=== PATIENT | male | born 1945 | race Caucasian/White ===

== ENCOUNTER 2016-10-26 02:30 | Emergency (ER) | payer OTHER, MEDICARE, BC ==
--- NOTE | 2016-10-26 04:34 | ER Document Report ---
ED Respiratory Problem - General Mode of Arrival: Ambulatory Information source: Patient TRAVEL OUTSIDE OF THE [place] IN LAST 30 DAYS: No - HPI Patient complains to provider of: Cough Onset: Other - last few days Cough: Productive Sputum amount: Small Sputum color: Red (blood) <CIRILO QUINTERO - Last Filed: 10/26/16 05:07> <JAYYKIMBERLY - Last Filed: 10/26/16 06:45> - General Chief Complaint: Cough Stated Complaint: COUGHING UP BLOOD Notes: Patient is a 71-year-old male that presents to the emergency department today with complaints of coughing up blood. Patient states he has had chest congestion over the last few days but only recently began coughing. Patient had 2 episodes with small amounts of blood and then one episode with a more significant amount of blood prior to arrival. Patient denies any fevers, nausea , vomiting, or diarrhea. (CIRILO QUINTERO) - Related Data Allergies/Adverse Reactions: Sulfa (Sulfonamide Antibiotics) Allergy (Verified 09/04/15 04:54) zolpidem tartrate [From Ambien] Allergy (Verified 09/04/15 04:54) Past Medical History - General Information source: Patient, [facility] Records - Social History Smoking Status: Former Smoker - quit at age 22 Cigarette use (# per day): No Chew tobacco use (# tins/day): No Frequency of alcohol use: None Drug Abuse: None Lives with: Family Family History: Reviewed & Not Pertinent Patient has suicidal ideation: No Patient has homicidal ideation: No - Past Medical History Cardiac Medical History: Reports: Hx Atrial Fibrillation, Hx Congestive Heart Failure, Hx Coronary Artery Disease, Hx Heart Attack, Hx Hypercholesterolemia, Hx Hypertension Pulmonary Medical History: Reports: Hx COPD Endocrine Medical History: Reports: Hx Diabetes Mellitus Type 1, Hx Diabetes Mellitus Type 2 Past Surgical History: Reports: Hx Cardiac Catheterization - Stent placement June 03, 2015, Hx Cardiac Surgery - cabg, stent placement (2014), Hx Open Heart Surgery - and Stent placed May 2015 - Immunizations Hx Diphtheria, Pertussis, Tetanus Vaccination: Yes Hx Pneumococcal Vaccination: 08/12/14 <CIRILO QUINTERO - Last Filed: 10/26/16 05:07> Review of Systems - Review of Systems Constitutional: denies: Fever EENT: No symptoms reported Cardiovascular: No symptoms reported Respiratory: See HPI, Cough, Sputum Gastrointestinal: denies: Diarrhea, Nausea, Vomiting Genitourinary: No symptoms reported Male Genitourinary: No symptoms reported Musculoskeletal: No symptoms reported Skin: No symptoms reported Hematologic/Lymphatic: No symptoms reported Neurological/Psychological: No symptoms reported -: Yes All other systems reviewed and negative <CIRILO QUINTERO - Last Filed: 10/26/16 05:07> Physical Exam - General General appearance: Appears well, Alert In distress: None - HEENT Head: Normocephalic, Atraumatic Eyes: Normal Conjunctiva: Normal Extraocular movements intact: Yes - Respiratory Respiratory status: No respiratory distress Chest status: Other - healed midline scar consistent with CABG history Breath sounds: Normal - Cardiovascular Rhythm: Regular Heart sounds: Normal auscultation Murmur: No - Abdominal Inspection: Normal Distension: No distension Bowel sounds: Normal Tenderness: Nontender - Extremities General upper extremity: Normal inspection, Normal ROM. No: Edema General lower extremity: Normal inspection, Normal ROM. No: Edema - Neurological Neuro grossly intact: Yes Cognition: Normal Orientation: AAOx4 Speech: Normal - Psychological Associated symptoms: Normal affect, Normal mood - Skin Skin Temperature: Warm Skin Moisture: Dry Skin Color: Normal <LEONCIRILO - Last Filed: 10/26/16 05:07> Course - Laboratory Result Diagrams: 10/26/16 04:15 10/26/16 04:15 <LEONCIRILO - Last Filed: 10/26/16 05:07> - Laboratory Result Diagrams: 10/26/16 05:15 10/26/16 04:15 - Diagnostic Test Radiology reviewed: Image reviewed - No acute findings., Reports reviewed <KIMBERLY HOPE - Last Filed: 10/26/16 06:45> - Re-evaluation Re-evalutation: 10/26/16 05:01 Patient sense emergency department stating he has had 3 days of chest congestion with mild cough and then today he did have a cough and a couple of times she coughed up some blood. He had an episode tonight where he coughed up a large clot that he showed to his and so she brought him to emergency department. He's not had any other hemoptysis since that time. He denies any fevers or chills. No runny nose. Denies any chest pain or difficulty breathing. He denies any abdominal pain. The patient indicates this is never happened before. He says he is on blood thinners due to history of blood clots. Patient indicates that he gets nosebleeds frequently however has not have one today. He has had multiple cardiac events as well as TIAs. He does have the pacemaker. His INR was last checked 2 weeks ago. On exam, patient alert and oriented vital signs are Stable Patient Is Afebrile Nontoxic Appearing. Chest Sounds Are Clear and Equal Bilaterally. Patient Is Not in Any Distress. Chest x-rays unremarkable. EKG is also normal. We'll check INR and H&H and plan discharge home if all is normal. 10/26/16 06:15 Patient remains hemodynamically stable and with no respiratory compromise. His labs unremarkable but were still awaiting the CBC. His INR is therapeutic at 2. Plan will be for discharge home with follow-up PCP. 10/26/16 06:39 Patient's platelets are 73. H&H is stable. He has had low platelets in the past albeit this is the lowest. He does not have any petechiae or rashes. He is not actively bleeding. 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 He has not had any heparin recently. When he was admitted for pneumonia, he was tested (November 2015) for tuberculosis with AFB on sputum samples and all were negative. There've not been any recent exposures. Continue plan to follow-up with PCP for repeat labs and further evaluation. Will provide return precautions. (KIMBERLY HOPE) - Vital Signs Vital signs: Temp Pulse Resp BP Pulse Ox 97.5 F 86 19 121/57 L 94 10/26/16 02:36 10/26/16 02:36 10/26/16 06:01 10/26/16 06:01 10/26/16 06:01 - Laboratory Laboratory results interpreted by me: 10/26/16 10/26/16 10/26/16 04:15 04:15 05:15 RBC 3.56 L Hgb 11.1 L Hct 32.5 L RDW 14.3 H Plt Count 73 L Seg Neutrophils % 41.7 L Monocytes % 13.5 H PT 23.8 H Glucose 206 H Alkaline Phosphatase 160 H - EKG Interpretation by Me Additional EKG results interpreted by me: 10/26/16 04:57 Heart rate 67, normal sinus rhythm, normal axis, normal intervals, no ST elevations, as interpreted by me. Compared with EKG of 11/11/15, patient was in atrial fibrillation at that time. (KIMBERLY HOPE) Discharge <CIRILO QUINTERO - Last Filed: 10/26/16 05:07> <KIMBERLY HOPE - Last Filed: 10/26/16 06:45> - Discharge Clinical Impression: Hemoptysis, Chest congestion, Thrombocytopenia Condition: Stable Disposition: HOME, SELF-CARE Instructions: Hemoptysis ([facility]), Thrombocytopenia ([facility]) Additional Instructions: We have not identified any worrisome abnormality requiring urgent intervention here in the emergency department tonight. Your INR is 2.0 today which is therapeutic. Take your Coumadin as already prescribed. Please follow-up with your primary physician as your platelet levels were found to be moderately low today (Platelets=73). Return for difficulty breathing, fevers, worsening cough, recurrent or worsening bloody sputum, or any other worrisome symptoms. Thrombocytopenia Your blood test shows that your platelet count is low. This is called thrombocytopenia. Platelets are small disk-shaped objects in your blood that help to stop bleeding. If the number of platelets in the blood is too low, you can bruise easily or even develop serious internal bleeding. Based on today's platelet count, you do not need to be admitted to the hospital. Low platelets can be caused by immune reactions, abnormality of the spleen , infections, drug reactions, chemotherapy, leukemia, or vitamin deficiency. Usually, the problem is only temporary -- the platelet count increases again with time. If the cause of your thrombocytopenia is not known, further testing will be necessary. Extreme thrombocytopenia can cause life-threatening bleeding. You should avoid sports or other activities that risk injury. Do not undergo dental work or non-emergency surgery at this time. Eat a good diet, and include a multi- vitamin. Avoid alcohol. DO NOT take any aspirin. It's also best to avoid non- steroid antiinflammatory medicines such as ibuprofen or naproxen. The treatment of thrombocytopenia depends on the cause. If your immune system is attacking platelets, you'll be treated with steroids (cortisone). If dangerous bleeding develops, you may require a platelet transfusion. Call the doctor or return if you have severe headache, chest or abdominal pain, bloody vomiting, black or bloody stools, dizziness, or neurological symptoms. Referrals: JAK ENGEL MD [Primary Care Provider] - Follow up as needed Scribe Attestation: 10/26/16 06:19 I personally performed the services described in the documentation, reviewed and edited the documentation which was dictated to the scribe in my presence, and it accurately records my words and actions. (KIMBERLY HOPE) Scribe Documentation - Scribe Written by Scribe:: Kaleb Peguero, 10/26/2016 0454 acting as scribe for :: [place] <CIRILO QUINTERO - Last Filed: 10/26/16 05:07>
[2016-10-26 05:10] LABS: ALANINE AMINOTRANSFERASE 38 U/L (21-72); ALBUMIN 3.8 g/dL (3.5-5.0); ALKALINE PHOSPHATASE 160 U/L (38-126); ANION GAP 7 (5-19); ASPARTATE AMINO TRANSFERASE 44 U/L (17-59); BILIRUBIN,TOTAL 0.7 mg/dL (0.2-1.3); BLOOD UREA NITROGEN 20 mg/dL (7-20); CALCIUM 9.2 mg/dL (8.4-10.2); CARBON DIOXIDE 30 mmol/L (22-30); CHLORIDE 103 mmol/L (98-107); GLUCOSE 206 mg/dL (75-110); POTASSIUM 4.6 mmol/L (3.6-5.0); SODIUM 139.8 mmol/L (137-145); TOTAL PROTEIN 6.6 g/dL (6.3-8.2)
[2016-10-26 05:14] LABS: PROTHROMBIN TIME 23.8 SEC (11.4-15.4)
--- NOTE | 2016-10-26 05:37 | EKG REPORT ---
SEVERITY:- ABNORMAL ECG - SINUS RHYTHM NONSPECIFIC INTRAVENTRICULAR CONDUCTION DELAY : Confirmed by: Yanna Wilson MD 26-Oct-2016 05:36:15
[2016-10-26 06:16] LABS: ABSOLUTE EOSINOPHILS # (AUTO) 0.1 10^3/uL (0.0-0.6); ABSOLUTE LYMPHOCYTES (AUTO) 1.7 10^3/uL (0.5-4.7); ABSOLUTE MONOCYTES (AUTO) 0.5 10^3/uL (0.1-1.4); ABSOLUTE NEUT (AUTO) 1.7 10^3/uL (1.7-8.2); BASOPHILS % (AUTO) 0.4 % (0-2); EOSINOPHILS % (AUTO) 2.6 % (0-6); HEMATOCRIT 32.5 % (37.9-51.0); HEMOGLOBIN 11.1 g/dL (13.5-17.0); HGB HCT DIFFERENCE 0.8; LYMPHOCYTES % (AUTO) 41.8 % (13-45); MEAN CORPUSCULAR HEMOGLOBIN 31.2 pg (27.0-33.4); MEAN CORPUSCULAR HGB CONC 34.2 g/dL (32.0-36.0); MEAN CORPUSCULAR VOLUME 91 fl (80-97); MONOCYTES % (AUTO) 13.5 % (3-13); RED BLOOD COUNT 3.56 10^6/uL (4.35-5.55); RED CELL DISTRIBUTION WIDTH 14.3 % (11.5-14.0); SEGMENTED NEUTROPHILS % (AUTO) 41.7 % (42-78)
[2016-10-26 07:07] VITALS: BP 118/50
== END 2016-10-26 07:05 | disposition home or self-care (01) ==
LOC: ER 02:30
DX: R04.2 Hemoptysis (principal); D69.6 Thrombocytopenia, unspecified; J44.9 Chronic obstructive pulmonary disease, unspecified; R09.89 Other specified symptoms and signs involving the circulatory and respiratory systems; I48.91 Unspecified atrial fibrillation; I25.10 Atherosclerotic heart disease of native coronary artery without angina pectoris; I10 Essential (primary) hypertension; I25.2 Old myocardial infarction; E11.9 Type 2 diabetes mellitus without complications; Z88.2 Allergy status to sulfonamides; Z88.8 Allergy status to other drugs, medicaments and biological substances; Z87.891 Personal history of nicotine dependence; Z98.61 Coronary angioplasty status; Z95.1 Presence of aortocoronary bypass graft; Z86.718 Personal history of other venous thrombosis and embolism; Z79.01 Long term (current) use of anticoagulants; Z86.73 Personal history of transient ischemic attack (TIA), and cerebral infarction without residual deficits; Z95.0 Presence of cardiac pacemaker; Z87.01 Personal history of pneumonia (recurrent)
CPT/HCPCS: 36415; 71010; 80053; 85025; 85610; 87040; 93005; 93010; 99284

== ENCOUNTER 2016-11-11 12:55 | Inpatient (IN) | payer OTHER, MEDICARE, BC ==
--- NOTE | 2016-11-11 13:58 | ER Document Report ---
ED Medical Screen (RME) - General Chief Complaint: Weakness Stated Complaint: WEAKNESS TRAVEL OUTSIDE OF THE [place] IN LAST 30 DAYS: No - HPI Patient complains to provider of: generalized weakness confusion Notes: 11/11/16 13:58 Generalized weakness and confusion ongoing since prior to arrival no fevers chills nausea vomiting - Related Data Allergies/Adverse Reactions: Sulfa (Sulfonamide Antibiotics) Allergy (Verified 11/11/16 12:59) zolpidem tartrate [From Ambien] Allergy (Verified 11/11/16 12:59) Past Medical History - Past Medical History Cardiac Medical History: Reports: Hx Atrial Fibrillation, Hx Congestive Heart Failure, Hx Coronary Artery Disease, Hx Heart Attack, Hx Hypercholesterolemia, Hx Hypertension Pulmonary Medical History: Reports: Hx COPD Neurological Medical History: Denies: Hx Seizures Endocrine Medical History: Reports: Hx Diabetes Mellitus Type 1, Hx Diabetes Mellitus Type 2 Renal/ Medical History: Denies: Hx End Stage Renal Disease, Hx Peritoneal Dialysis Past Surgical History: Reports: Hx Cardiac Catheterization - Stent placement June 03, 2015, Hx Cardiac Surgery - cabg, stent placement (2014), Hx Open Heart Surgery - and Stent placed May 2015 - Immunizations Hx Diphtheria, Pertussis, Tetanus Vaccination: Yes Review of Systems - Review of Systems Constitutional: Weakness, Other - Confusion Physical Exam - Vital signs Vitals: Temp Pulse Resp BP Pulse Ox 99.2 F 86 21 H 133/67 H 96 11/11/16 13:02 11/11/16 13:02 11/11/16 13:02 11/11/16 13:02 11/11/16 13:02 - Cardiovascular Rhythm: Regular Heart sounds: Normal auscultation Course - Vital Signs Vital signs: Temp Pulse Resp BP Pulse Ox 99.2 F 86 21 H 133/67 H 96 11/11/16 13:02 11/11/16 13:02 11/11/16 13:02 11/11/16 13:02 11/11/16 13:02
[2016-11-11 14:28] LABS: ABSOLUTE EOSINOPHILS # (AUTO) 0.2 10^3/uL (0.0-0.6); ABSOLUTE LYMPHOCYTES (AUTO) 2.2 10^3/uL (0.5-4.7); ABSOLUTE MONOCYTES (AUTO) 1.3 10^3/uL (0.1-1.4); ABSOLUTE NEUT (AUTO) 4.7 10^3/uL (1.7-8.2); BASOPHILS % (AUTO) 0.3 % (0-2); EOSINOPHILS % (AUTO) 2.2 % (0-6); HEMATOCRIT 37.4 % (37.9-51.0); HEMOGLOBIN 12.8 g/dL (13.5-17.0); LYMPHOCYTES % (AUTO) 26.6 % (13-45); MEAN CORPUSCULAR HEMOGLOBIN 30.9 pg (27.0-33.4); MEAN CORPUSCULAR HGB CONC 34.2 g/dL (32.0-36.0); MEAN CORPUSCULAR VOLUME 90 fl (80-97); MONOCYTES % (AUTO) 15.4 % (3-13); RED BLOOD COUNT 4.15 10^6/uL (4.35-5.55); RED CELL DISTRIBUTION WIDTH 14.3 % (11.5-14.0); SEGMENTED NEUTROPHILS % (AUTO) 55.5 % (42-78); WHITE BLOOD COUNT 8.4 10^3/uL (4.0-10.5)
[2016-11-11 14:45] LABS: ALANINE AMINOTRANSFERASE 41 U/L (21-72); ALKALINE PHOSPHATASE 112 U/L (38-126); ANION GAP 13 (5-19); ASPARTATE AMINO TRANSFERASE 50 U/L (17-59); BILIRUBIN,DIRECT 0.2 mg/dL (0.0-0.4); BILIRUBIN,TOTAL 1.2 mg/dL (0.2-1.3); BLOOD UREA NITROGEN 20 mg/dL (7-20); CALCIUM 8.7 mg/dL (8.4-10.2); CARBON DIOXIDE 26 mmol/L (22-30); CHLORIDE 101 mmol/L (98-107); CREATINE KINASE 243 U/L (55-170); GLUCOSE 126 mg/dL (75-110); LIPASE 100.9 U/L (23-300); MAGNESIUM 1.9 mg/dL (1.6-2.3); POTASSIUM 4.2 mmol/L (3.6-5.0); SODIUM 139.7 mmol/L (137-145)
[2016-11-11 15:08] LABS: CREATINE KINASE MB 2.7 ng/mL (<4.55)
[2016-11-11 15:17] LABS: TROPONIN I 0.051 ng/mL
--- NOTE | 2016-11-11 16:00 | ER Document Report ---
ED General - General Mode of Arrival: Ambulatory Information source: Patient, Relative TRAVEL OUTSIDE OF THE [place] IN LAST 30 DAYS: No - HPI Patient complains to provider of: Weakness, Shaking, and Confusion Onset: Other - 3 days ago Associated symptoms: Other - see notes above <TOPHER LONG - Last Filed: 11/11/16 18:39> <BECKJUDE ANN - Last Filed: 11/11/16 19:17> - General Chief Complaint: Weakness Stated Complaint: WEAKNESS Notes: 71 year old male with history of COPD presents to the ED accompanied by family who complain of generalized weakness and shaking that started 3 days ago and confusion that became worse today. Patient's states that the patient was having difficulty walking, generalized weakness, and shaking while at [employer] earlier this morning. Patient states that he is unable to "get warm" and reports having a similar episode in the past. Patient's reports that 1 week ago the patient was seen in the ED after coughing up a blood clot. All findings were benign except for a low platelet count. Patient is acting disorientated according to the , and states that this has been occurring on and off since having a CVA 1 year ago. Patient is additionally complaining of a mild cough an diarrhea over the past few days, but denies any vomiting. (TOPHER LONG) - Related Data Allergies/Adverse Reactions: Sulfa (Sulfonamide Antibiotics) Allergy (Verified 11/11/16 12:59) zolpidem tartrate [From Ambien] Allergy (Verified 11/11/16 12:59) Past Medical History - General Information source: Patient, Relative - Social History Smoking Status: Unknown if Ever Smoked Family History: Reviewed & Not Pertinent Patient has suicidal ideation: No Patient has homicidal ideation: No - Past Medical History Cardiac Medical History: Reports: Hx Atrial Fibrillation, Hx Congestive Heart Failure, Hx Coronary Artery Disease, Hx Heart Attack, Hx Hypercholesterolemia, Hx Hypertension Pulmonary Medical History: Reports: Hx COPD Neurological Medical History: Reports: Hx Cerebrovascular Accident - 2016 Endocrine Medical History: Reports: Hx Diabetes Mellitus Type 1, Hx Diabetes Mellitus Type 2 Past Surgical History: Reports: Hx Cardiac Catheterization - Stent placement June 03, 2015, Hx Cardiac Surgery - cabg, stent placement (2014), Hx Open Heart Surgery - and Stent placed May 2015 - Immunizations Hx Diphtheria, Pertussis, Tetanus Vaccination: Yes Hx Pneumococcal Vaccination: 08/12/14 <TOPHER LONG - Last Filed: 11/11/16 18:39> Review of Systems - Review of Systems Constitutional: See HPI, Fever - "can't get warm", Weakness - generalized EENT: No symptoms reported Cardiovascular: No symptoms reported Respiratory: See HPI, Cough - mild Gastrointestinal: See HPI, Diarrhea. denies: Vomiting Genitourinary: No symptoms reported Male Genitourinary: No symptoms reported Musculoskeletal: No symptoms reported Skin: No symptoms reported Hematologic/Lymphatic: No symptoms reported Neurological/Psychological: See HPI, Confusion, Tremor <TOPHER LONG - Last Filed: 11/11/16 18:39> Physical Exam - Vital signs Interpretation: Febrile - General General appearance: Alert In distress: None - HEENT Head: Normocephalic, Atraumatic Eyes: Normal Extraocular movements intact: Yes Pupils: PERRL - Respiratory Respiratory status: No respiratory distress Breath sounds: Normal - Cardiovascular Rhythm: Regular Heart sounds: Normal auscultation - Abdominal Inspection: Normal Distension: No distension Tenderness: Nontender - Back Back: Normal, Nontender - Extremities General upper extremity: Normal inspection, Normal ROM General lower extremity: Normal inspection, Normal ROM - Neurological Neuro grossly intact: Yes Cognition: Confused Orientation: AAOx4 Sugar Coma Scale Eye Opening: Spontaneous Sugar Coma Scale Verbal: Oriented Sugar Coma Scale Motor: Obeys Commands Sugar Coma Scale Total: 15 Speech: Normal Sensory: Normal - Psychological Associated symptoms: Normal affect, Normal mood - Skin Skin Temperature: Hot Skin Moisture: Dry Skin Color: Normal <TOPHER LONG - Last Filed: 11/11/16 18:39> - Neurological Orientation: Disoriented to place, Disoriented to time, Disoriented to events. No: AAOx4 <JUDE SOLARES - Last Filed: 11/11/16 19:17> - Vital signs Vitals: Temp Pulse Resp BP Pulse Ox 99.2 F 86 21 H 133/67 H 96 11/11/16 13:02 11/11/16 13:02 11/11/16 13:02 11/11/16 13:02 11/11/16 13:02 Course - Laboratory Result Diagrams: 11/11/16 14:05 11/11/16 14:05 - Consults Dr. Brown Time consulted: 16:44 <TOPHER LONG - Last Filed: 11/11/16 18:39> - Laboratory Result Diagrams: 11/11/16 14:05 11/11/16 14:05 - Diagnostic Test Radiology reviewed: Reports reviewed <JUDE SOLARES - Last Filed: 11/11/16 19:17> - Re-evaluation Re-evalutation: 11/11/16 Patient is a 71-year-old male who comes in with altered mental status. Patient is a fever 103. Patient with negative flu and positive urine. Patient will be started on Keflex. Blood and urine culture sent. Patient will be kept in the hospital for altered mental status with fever and probable underlying very tract infection. Agrees with plan. Referred to admission to the hospital service. Stable at time of admission. (JUDE SOLARES) - Vital Signs Vital signs: Temp Pulse Resp BP Pulse Ox 100.0 F 86 18 112/53 L 95 11/11/16 18:20 11/11/16 13:02 11/11/16 19:00 11/11/16 18:31 11/11/16 19:00 - Laboratory Laboratory results interpreted by me: 11/11/16 11/11/16 11/11/16 14:05 14:05 14:05 RBC 4.15 L Hgb 12.8 L Hct 37.4 L RDW 14.3 H Plt Count 108 L Monocytes % 15.4 H PT 19.3 H Glucose 126 H Ammonia Creatine Kinase 243 H Urine Blood Urine Nitrite Ur Leukocyte Esterase 11/11/16 11/11/16 15:36 16:12 RBC Hgb Hct RDW Plt Count Monocytes % PT Glucose Ammonia < 8.7 L Creatine Kinase Urine Blood SMALL H Urine Nitrite POSITIVE H Ur Leukocyte Esterase MODERATE H - Consults Dr. Brown Reason for consultation: 11/11/16 16:44 Patient was discussed with Dr. Brown and agrees to admit the patient. (TOPHER LONG) Critical Care Note - Critical Care Note Total time excluding time spent on procedures (mins): 45 - evaluation and management of altered patient, diagnosis of fever, management of fever, diagnosis of UTI, coordination of admission, discussion with hospitalist service , counseling of patient and family <JUDE SOLARES - Last Filed: 11/11/16 19:17> Discharge <TOPHER LONG - Last Filed: 11/11/16 18:39> - Discharge Admitting Provider: Hospitalist - [facility] Unit Admitted: [facility] <JUDE SOLARES - Last Filed: 11/11/16 19:17> - Discharge Clinical Impression: Altered mental status Qualifiers: Altered mental status type: unspecified Qualified Code(s): R41.82 - Altered mental status, unspecified UTI (urinary tract infection) Qualifiers: Urinary tract infection type: site unspecified Hematuria presence: without hematuria Qualified Code(s): N39.0 - Urinary tract infection, site not specified Condition: Stable Referrals: JAK ENGEL MD [Primary Care Provider] - Follow up as needed Scribe Attestation: 11/11/16 19:16 I personally performed the services described in the documentation, reviewed and edited the documentation which was dictated to the scribe in my presence, and it accurately records my words and actions. (JUDE SOLARES) Scribe Documentation - Scribe Written by Scribe:: Kaleb Lynn, 11/11/2016 1704 acting as scribe for :: Beck <TOPHER LONG - Last Filed: 11/11/16 18:39>
[2016-11-11 16:04] LABS: APPEARANCE,URINE SLIGHTLY-CLOUDY; BILIRUBIN,URINE NEGATIVE (NEGATIVE); GLUCOSE, URINE NEGATIVE (NEGATIVE); KETONES,URINE NEGATIVE (NEGATIVE); LEUKOCYTE ESTERASE,URINE MODERATE (NEGATIVE); NITRITE,URINE POSITIVE (NEGATIVE); PROTEIN,URINE NEGATIVE (NEGATIVE); URINE SPECIFIC GRAVITY 1.008; UROBILINOGEN,URINE NEGATIVE mg/dL (<2.0)
[2016-11-11 16:10] LABS: VENOUS BLOOD BASE EXCESS 2.3 mmol/L; VENOUS BLOOD HCO3 28.4 mmol/L (20-32); VENOUS BLOOD PCO2 50.1 mmHg (35-63); VENOUS BLOOD PH 7.37 (7.30-7.42)
[2016-11-11] MEDS ORDERED: IBUPROFEN 600 MG TABLET PO ONE (16:11)
[2016-11-11] MEDS ORDERED: NORMAL SALINE 1000 ML 1,000 ML IV ONE (16:15)
[2016-11-11] MEDS ORDERED: CEFTRIAXONE 1 GM/D5W RTU 50 ML IV ONE (16:20)
[2016-11-11 18:08] LABS: PROTHROMBIN TIME 19.3 SEC (11.4-15.4)
--- NOTE | 2016-11-11 18:09 | PDOC H&P ---
History of Present Illness Admission Date/PCP: 11/11/16 17:17 JAK ENGEL MD Patient complains of: fever confusion History of Present Illness: LANCE TRIPLETT is a 71 year old male with history of COPD presents to the ED accompanied by family who complain of generalized weakness and shaking that started 3 days ago and confusion that became worse today. Patient's states that the patient was having difficulty walking, generalized weakness, and shaking while at [employer] earlier this morning. Patient states that he is unable to "get warm" and reports having a similar episode in the past. Patient's reports that 1 week ago the patient was seen in the ED after coughing up a blood clot. All findings were benign except for a low platelet count. Patient is acting disorientated according to the , and states that this has been occurring on and off since having a CVA 1 year ago. Patient is additionally complaining of a mild cough an diarrhea over the past few days, but denies any vomiting. ([place]HER [place]) Upon evaluation in the ER patient was diagnosed of UTI and early sepsis lactic acid level was normal He was treated with IV fluids and Ceftriaxone and subsequently admitted under Hospitalist's service Past Medical History Cardiac Medical History: Reports: Atrial Fibrillation, Congestive Heart Failure , Coronary Artery Disease, Myocardial Infarction, Hyperlipidema, Hypertension Pulmonary Medical History: Reports: Chronic Obstructive Pulmonary Disease (COPD) Neurological Medical History: Denies: Seizures Endocrine Medical History: Reports: Diabetes Mellitus Type 1, Diabetes Mellitus Type 2 Renal/ Medical History: Denies: End Stage Renal Disease Past Surgical History Past Surgical History: Reports: Cardiac Catheterization - Stent placement June 03, 2015 Social History Information Source: Patient Lives with: Family Smoking Status: Former Smoker Frequency of Alcohol Use: None Hx Recreational Drug Use: No Hx Prescription Drug Abuse: No - Advance Directive Resuscitation Status: Full Code Surrogate healthcare decision maker:: Family History Family History: Reviewed & Not Pertinent, DM, Hypertension, Other - leukemia Parental Family History Reviewed: Yes Children Family History Reviewed: Yes Sibling(s) Family History Reviewed.: Yes Medication/Allergy Home Medications: Amiodarone HCl [Cordarone 200 mg Tablet] 2 tab PO BID 09/04/15 Ascorbic Acid [C-1000] 1,000 mg PO DAILY 09/04/15 Atorvastatin Calcium 80 mg PO DAILY 09/04/15 Budesonide/Formoterol Fumarate [Symbicort HFA 160-4.5 mcg Inhaler 6 gm] 2 puff IH BID 09/04/15 Fluoxetine HCl 1 tab PO DAILY 09/04/15 Furosemide [Lasix 40 mg Tablet] 40 mg PO QAM 09/04/15 Insulin Detemir [Levemir Flextouch] 20 unit SQ BID 09/04/15 Lactobacillus Acidophilus [Acidophilus] 1 each PO TID 09/04/15 Loratadine [Claritin] 10 mg PO DAILY 09/04/15 Nitroglycerin [Nitrostat] 1 tab SL Q5MP PRN 09/04/15 [place]-3 Acid Ethyl Esters [Lovaza 1 gm Capsule] 1 cap PO DAILY 09/04/15 Pantoprazole Sodium 1 tab PO BID 09/04/15 Sucralfate [Carafate] 1 gm PO QID 09/04/15 Levalbuterol HCl [Xopenex Neb 1.25 mg/3 ml Ampul] 1.25 mg NEB RTQ6 vial.neb Carvedilol [Coreg 6.25 mg Tablet] 6.25 mg PO Q12 tablet 11/22/15 Ferrous Sulfate [Feosol 325 mg Tablet] 325 mg PO BIDPCBS tablet 11/22/15 Fondaparinux Sodium [Arixtra Inj 7.5 mg/0.6 ml Disp. Syrin] 7.5 mg SUBCUT DAILY #3 disp.syrin 11/22/15 Magnesium Oxide [Mag-Ox 400 mg Tablet] 800 mg PO BID tablet 11/22/15 Nitroglycerin [Nitro-Dur 5 mg (0.2 mg/Hr) Transdermal Patch] 1 each TD DAILY patch.td24 11/22/15 Potassium Chloride [Kaon-Cl 20 Meq/15 ml Udcup] 40 meq PO DAILY udc 11/22/15 Warfarin Sodium [Coumadin 5 mg Tablet] 5 mg PO QHS tablet 11/22/15 Allergies/Adverse Reactions: Sulfa (Sulfonamide Antibiotics) Allergy (Verified 11/11/16 12:59) zolpidem tartrate [From Ambien] Allergy (Verified 11/11/16 12:59) Review of Systems Constitutional: PRESENT: as per HPI, chills, fever(s), weakness. ABSENT: headache(s), weight gain, weight loss Eyes: ABSENT: visual disturbances Ears: ABSENT: hearing changes Cardiovascular: ABSENT: chest pain, dyspnea on exertion, edema, orthropnea, palpitations Respiratory: ABSENT: cough, hemoptysis Gastrointestinal: ABSENT: abdominal pain, constipation, diarrhea, hematemesis, hematochezia, nausea, vomiting Genitourinary: ABSENT: dysuria, hematuria Musculoskeletal: ABSENT: joint swelling Integumentary: ABSENT: rash, wounds Neurological: PRESENT: as per HPI, abnormal gait - since stroke also patient had polio as a child and always had a limp ambulation more difficult in last couple days, confusion. ABSENT: abnormal speech, dizziness, focal weakness, syncope Psychiatric: ABSENT: anxiety, depression, homidical ideation, suicidal ideation Endocrine: ABSENT: cold intolerance, heat intolerance, polydipsia, polyuria Hematologic/Lymphatic: ABSENT: easy bleeding, easy bruising Physical Exam Vital Signs: Temp Pulse Resp BP Pulse Ox 102.9 F H 86 18 107/47 L 95 11/11/16 16:05 11/11/16 13:02 11/11/16 17:31 11/11/16 17:31 11/11/16 17:31 General appearance: PRESENT: no acute distress, well-developed, well-nourished Head exam: PRESENT: atraumatic, normocephalic Eye exam: PRESENT: conjunctiva pink, EOMI, PERRLA. ABSENT: scleral icterus Ear exam: PRESENT: normal external ear exam Mouth exam: PRESENT: moist, tongue midline Neck exam: ABSENT: carotid bruit, JVD, lymphadenopathy, thyromegaly Respiratory exam: PRESENT: clear to auscultation yobany. ABSENT: rales, rhonchi, wheezes Cardiovascular exam: PRESENT: RRR. ABSENT: diastolic murmur, rubs, systolic murmur Pulses: PRESENT: normal dorsalis pedis pul Vascular exam: PRESENT: normal capillary refill GI/Abdominal exam: PRESENT: normal bowel sounds, soft. ABSENT: distended, guarding, mass, organolmegaly, rebound, tenderness Rectal exam: PRESENT: deferred Extremities exam: PRESENT: full ROM. ABSENT: calf tenderness, clubbing, pedal edema Neurological exam: PRESENT: alert, awake, CN II-XII grossly intact. ABSENT: motor sensory deficit Psychiatric exam: PRESENT: appropriate affect, normal mood. ABSENT: homicidal ideation, suicidal ideation Skin exam: PRESENT: dry, intact, warm. ABSENT: cyanosis, rash Results Laboratory Results: Labs- All tests 24 hr 11/11/16 11/11/16 11/11/16 14:05 14:05 14:05 WBC 8.4 RBC 4.15 L Hgb 12.8 L Hct 37.4 L MCV 90 MCH 30.9 MCHC 34.2 RDW 14.3 H Plt Count 108 L Seg Neutrophils % 55.5 Lymphocytes % 26.6 Monocytes % 15.4 H Eosinophils % 2.2 Basophils % 0.3 Absolute Neutrophils 4.7 Absolute Lymphocytes 2.2 Absolute Monocytes 1.3 Absolute Eosinophils 0.2 Absolute Basophils 0.0 VBG pH VBG pCO2 VBG HCO3 VBG Base Excess Sodium 139.7 Potassium 4.2 Chloride 101 Carbon Dioxide 26 Anion Gap 13 BUN 20 Creatinine 1.20 Est GFR ( Amer) > 60 Est GFR (Non-Af Amer) > 60 Glucose 126 H Lactic Acid Calcium 8.7 Magnesium 1.9 Total Bilirubin 1.2 Direct Bilirubin 0.2 Indirect Bilirubin Not Reportable Neonat Total Bilirubin Not Reportable AST 50 ALT 41 Alkaline Phosphatase 112 Ammonia Creatine Kinase 243 H CK-MB (CK-2) 2.70 Troponin I 0.051 NT-Pro-B Natriuret Pep 603 Total Protein 7.0 Albumin 4.0 Lipase 100.9 Urine Color Urine Appearance Urine pH Ur Specific [place] Urine Protein Urine Glucose (UA) Urine Ketones Urine Blood Urine Nitrite Urine Bilirubin Urine Urobilinogen Ur Leukocyte Esterase Urine WBC (Auto) Urine RBC (Auto) Urine Mucus (Auto) Urine Ascorbic Acid Influenza A (Rapid) Influenza B (Rapid) 11/11/16 11/11/16 11/11/16 15:36 15:58 15:58 WBC RBC Hgb Hct MCV MCH MCHC RDW Plt Count Seg Neutrophils % Lymphocytes % Monocytes % Eosinophils % Basophils % Absolute Neutrophils Absolute Lymphocytes Absolute Monocytes Absolute Eosinophils Absolute Basophils VBG pH 7.37 VBG pCO2 50.1 VBG HCO3 28.4 VBG Base Excess 2.3 Sodium Potassium Chloride Carbon Dioxide Anion Gap BUN Creatinine Est GFR ( Amer) Est GFR (Non-Af Amer) Glucose Lactic Acid 1.1 Calcium Magnesium Total Bilirubin Direct Bilirubin Indirect Bilirubin Neonat Total Bilirubin AST ALT Alkaline Phosphatase Ammonia Creatine Kinase CK-MB (CK-2) Troponin I NT-Pro-B Natriuret Pep Total Protein Albumin Lipase Urine Color YELLOW Urine Appearance SLIGHTLY-CLOUDY Urine pH 5.0 Ur Specific [place] 1.008 Urine Protein NEGATIVE Urine Glucose (UA) NEGATIVE Urine Ketones NEGATIVE Urine Blood SMALL H Urine Nitrite POSITIVE H Urine Bilirubin NEGATIVE Urine Urobilinogen NEGATIVE Ur Leukocyte Esterase MODERATE H Urine WBC (Auto) 41 Urine RBC (Auto) 0 Urine Mucus (Auto) RARE Urine Ascorbic Acid NEGATIVE Influenza A (Rapid) Influenza B (Rapid) 11/11/16 11/11/16 16:12 17:05 WBC RBC Hgb Hct MCV MCH MCHC RDW Plt Count Seg Neutrophils % Lymphocytes % Monocytes % Eosinophils % Basophils % Absolute Neutrophils Absolute Lymphocytes Absolute Monocytes Absolute Eosinophils Absolute Basophils VBG pH VBG pCO2 VBG HCO3 VBG Base Excess Sodium Potassium Chloride Carbon Dioxide Anion Gap BUN Creatinine Est GFR ( Amer) Est GFR (Non-Af Amer) Glucose Lactic Acid Calcium Magnesium Total Bilirubin Direct Bilirubin Indirect Bilirubin Neonat Total Bilirubin AST ALT Alkaline Phosphatase Ammonia < 8.7 L Creatine Kinase CK-MB (CK-2) Troponin I NT-Pro-B Natriuret Pep Total Protein Albumin Lipase Urine Color Urine Appearance Urine pH Ur Specific [place] Urine Protein Urine Glucose (UA) Urine Ketones Urine Blood Urine Nitrite Urine Bilirubin Urine Urobilinogen Ur Leukocyte Esterase Urine WBC (Auto) Urine RBC (Auto) Urine Mucus (Auto) Urine Ascorbic Acid Influenza A (Rapid) NEGATIVE Influenza B (Rapid) NEGATIVE Impressions: Chest X-Ray 11/11/16 13:56 IMPRESSION: Moderate likely chronic interstitial lung disease. Head CT 11/11/16 13:56 IMPRESSION: No acute intracranial findings. Assessment & Plan - Diagnosis (1) UTI (urinary tract infection) Qualifiers: Encounter type: initial encounter Is this a current diagnosis for this admission?: YesPlan: we will obtain a cT abdomen and pelvis to exclude postobstructive uropathy Zosyn IV (2) Sepsis Qualifiers: Sepsis type: sepsis due to unspecified organism Qualified Code(s): A41.9 - Sepsis, unspecified organism Is this a current diagnosis for this admission?: YesPlan: early sepsis secondary to UTI with metabolic encephalopathy (3) Encephalopathy acute Is this a current diagnosis for this admission?: Yes - Time Time Spent: Greater than 70 Minutes - Inpatient Certification Based on my medical assessment, after consideration of the patient's comorbidities, presenting symptoms, or acuity I expect that the services needed warrant INPATIENT care.: Yes I certify that my determination is in accordance with my understanding of Medicare's requirements for reasonable and necessary INPATIENT services [42 CFR 412.3e].: Yes Medical Necessity: Need Close Monitoring Due to Risk of Patient Decompensation, Need For IV Fluids, Need for IV Antibiotics
[2016-11-11] MEDS ORDERED: PIPERACILLIN/TAZOBACTAM 3.375 GM VIAL IV PRN (18:40)
[2016-11-11] MEDS: PIPERACILLIN SODIUM/TAZOBACTAM 3.375 GM in NORMAL SALINE 100 ML IV SCH (19:20)
--- NOTE | 2016-11-11 21:11 | EKG REPORT ---
SEVERITY:- ABNORMAL ECG - SINUS RHYTHM MULTIPLE ATRIAL PREMATURE COMPLEXES : Confirmed by: Yanna Wilson MD 11-Nov-2016 21:10:19
[2016-11-11] MEDS ORDERED: INFLUENZA ADLT QUAD (36MOS+) 2016-17 VAC 0.5 ML SYR IM PRN (21:38)
[2016-11-11] MEDS: FAMOTIDINE 20 MG TABLET PO SCH (21:53)
[2016-11-11] MEDS: NORMAL SALINE 1000 ML 1,000 ML IV PRN (21:54)
[2016-11-11] MEDS ORDERED: DEXTROSE 40% GEL 15 GM TUBE PO PRN ×2 (22:51)
[2016-11-11] MEDS ORDERED: GLUCAGON,HUMAN RECOMB 1 MG INJ IM PRN (22:51)
[2016-11-11] MEDS ORDERED: DEXTROSE 50%-WATER 25 GM/50 ML DISP.SYRIN IV PRN ×2 (22:51)
[2016-11-11] MEDS ORDERED: INSULIN DETEMIR 100 UNIT/ML 3 ML PEN SUBCUT ONE (23:00)
[2016-11-11] MEDS ORDERED: PIPERACILLIN/TAZOBACTAM 3.375 GM VIAL IV ONE (23:09)
[2016-11-12] MEDS: PIPERACILLIN SODIUM/TAZOBACTAM 3.375 GM in NORMAL SALINE 100 ML IV SCH ×5 (00:24→23:53)
[2016-11-12] MEDS ORDERED: HUM INSULIN NPH/REG INSULIN HM 100 UNIT/1 ML 3 ML SUBCUT ONE ×2 (00:30→23:26)
[2016-11-12 06:08] LABS: ABSOLUTE EOSINOPHILS # (AUTO) 0.1 10^3/uL (0.0-0.6); ABSOLUTE LYMPHOCYTES (AUTO) 2.3 10^3/uL (0.5-4.7); BASOPHILS % (AUTO) 0.5 % (0-2); EOSINOPHILS % (AUTO) 1.5 % (0-6); HEMATOCRIT 35.7 % (37.9-51.0); HEMOGLOBIN 12.4 g/dL (13.5-17.0); HGB HCT DIFFERENCE 1.5; LYMPHOCYTES % (AUTO) 31.2 % (13-45); MEAN CORPUSCULAR HEMOGLOBIN 31.2 pg (27.0-33.4); MEAN CORPUSCULAR HGB CONC 34.7 g/dL (32.0-36.0); MEAN CORPUSCULAR VOLUME 90 fl (80-97); MONOCYTES % (AUTO) 13.4 % (3-13); RED BLOOD COUNT 3.98 10^6/uL (4.35-5.55); RED CELL DISTRIBUTION WIDTH 14.2 % (11.5-14.0); SEGMENTED NEUTROPHILS % (AUTO) 53.4 % (42-78); WHITE BLOOD COUNT 7.4 10^3/uL (4.0-10.5)
[2016-11-12] MEDS: NORMAL SALINE 1000 ML 1,000 ML IV PRN (06:11)
[2016-11-12 06:12] LABS: PROTHROMBIN TIME 20.4 SEC (11.4-15.4)
[2016-11-12 06:20] LABS: ALANINE AMINOTRANSFERASE 53 U/L (21-72); ALKALINE PHOSPHATASE 99 U/L (38-126); ANION GAP 12 (5-19); ASPARTATE AMINO TRANSFERASE 64 U/L (17-59); BILIRUBIN,DIRECT 0.4 mg/dL (0.0-0.4); BLOOD UREA NITROGEN 20 mg/dL (7-20); CALCIUM 7.8 mg/dL (8.4-10.2); CARBON DIOXIDE 21 mmol/L (22-30); CHLORIDE 105 mmol/L (98-107); CREATININE RESULT 1.13 mg/dL (0.52-1.25); GLUCOSE 211 mg/dL (75-110); POTASSIUM 3.6 mmol/L (3.6-5.0); SODIUM 138.2 mmol/L (137-145); TOTAL PROTEIN 5.8 g/dL (6.3-8.2)
[2016-11-12] MEDS ORDERED: ENOXAPARIN SODIUM INJ 40 MG/0.4 ML DISP.SYRIN SUBCUT SCH (08:00)
[2016-11-12] MEDS: FAMOTIDINE 20 MG TABLET PO SCH ×2 (10:38→22:14)
[2016-11-12] MEDS: INSULIN DETEMIR 100 UNIT/ML 3 ML PEN SUBCUT SCH ×2 (10:38→17:49)
[2016-11-12] MEDS ORDERED: ACETAMINOPHEN 325 MG TABLET PO PRN (11:48)
[2016-11-12] MEDS ORDERED: ACETAMINOPHEN 325 MG TABLET ONE (12:05)
[2016-11-12] MEDS: INSULIN LISPRO 100 UNIT/ML 3 ML VIAL SUBCUT PRN ×2 (12:09→17:49)
--- NOTE | 2016-11-12 14:57 | PDOC PROGRESS REPORT ---
Subjective Progress Note for:: 11/12/16 Subjective:: with history of COPD presents to the ED accompanied by family who complain of generalized weakness and shaking that started 3 days ago and confusion that became worse today. Patient's states that the patient was having difficulty walking, generalized weakness, and shaking while at [employer] earlier this morning. Patient states that he is unable to "get warm" and reports having a similar episode in the past. Patient's reports that 1 week ago the patient was seen in the ED after coughing up a blood clot. All findings were benign except for a low platelet count. Patient is acting disorientated according to the , and states that this has been occurring on and off since having a CVA 1 year ago. Patient is additionally complaining of a mild cough an diarrhea over the past few days, but denies any vomiting. ([place]HER [place]) Upon evaluation in the ER patient was diagnosed of UTI and early sepsis lactic acid level was normal He was treated with IV fluids and Ceftriaxone and subsequently admitted under Hospitalist's service 11/12 Patient is feeling a lot better He has no nausea no vomiting diarrhea; no chest pain no shortness of breath Still has some chills and sweats A urine urine culture was positive for gram-negative bacteria; Physical Exam Vital Signs: Temp Pulse Resp BP Pulse Ox 98.3 F 81 20 107/73 100 11/12/16 11:51 11/12/16 11:51 11/12/16 11:51 11/12/16 11:51 11/12/16 11:51 Intake & Output 11/11/16 11/12/16 11/13/16 00:59 00:59 00:59 Intake Total 300 1986 Output Total 200 Balance 300 1786 Weight 97.4 kg General appearance: PRESENT: no acute distress, well-developed, well-nourished Head exam: PRESENT: atraumatic, normocephalic Eye exam: PRESENT: conjunctiva pink, EOMI, PERRLA. ABSENT: scleral icterus Ear exam: PRESENT: normal external ear exam Mouth exam: PRESENT: moist, tongue midline Neck exam: ABSENT: carotid bruit, JVD, lymphadenopathy, thyromegaly Respiratory exam: PRESENT: clear to auscultation yobany. ABSENT: rales, rhonchi, wheezes Cardiovascular exam: PRESENT: RRR. ABSENT: diastolic murmur, rubs, systolic murmur Pulses: PRESENT: normal dorsalis pedis pul Vascular exam: PRESENT: normal capillary refill GI/Abdominal exam: PRESENT: normal bowel sounds, soft. ABSENT: distended, guarding, mass, organolmegaly, rebound, tenderness Rectal exam: PRESENT: deferred Extremities exam: PRESENT: full ROM. ABSENT: calf tenderness, clubbing, pedal edema Neurological exam: PRESENT: alert, awake, oriented to person, oriented to place , oriented to time, oriented to situation, CN II-XII grossly intact. ABSENT: motor sensory deficit Psychiatric exam: PRESENT: appropriate affect, normal mood. ABSENT: homicidal ideation, suicidal ideation Skin exam: PRESENT: dry, intact, warm. ABSENT: cyanosis, rash Results Laboratory Results: 11/12/16 05:53 11/12/16 05:53 11/12/16 11/12/16 11/12/16 05:53 05:53 05:53 WBC 7.4 RBC 3.98 L Hgb 12.4 L Hct 35.7 L MCV 90 MCH 31.2 MCHC 34.7 RDW 14.2 H Plt Count 90 L Seg Neutrophils % 53.4 Lymphocytes % 31.2 Monocytes % 13.4 H Eosinophils % 1.5 Basophils % 0.5 Absolute Neutrophils 4.0 Absolute Lymphocytes 2.3 Absolute Monocytes 1.0 Absolute Eosinophils 0.1 Absolute Basophils 0.0 Sodium 138.2 Potassium 3.6 Chloride 105 Carbon Dioxide 21 L Anion Gap 12 BUN 20 Creatinine 1.13 Est GFR ( Amer) > 60 Est GFR (Non-Af Amer) > 60 Glucose 211 H Calcium 7.8 L Total Bilirubin 1.0 AST 64 H ALT 53 Alkaline Phosphatase 99 Total Protein 5.8 L Albumin 3.0 L TSH 1.53 11/11/16 17:36 Blood Culture - Pending Blood 11/11/16 15:58 Blood Culture - Pending Blood 11/11/16 15:36 Urine Culture - Preliminary Clean Catch Midstream Gram Negative Rods Impressions: Chest X-Ray 11/11/16 13:56 IMPRESSION: Moderate likely chronic interstitial lung disease. Head CT 11/11/16 13:56 IMPRESSION: No acute intracranial findings. Abdomen/Pelvis CT 11/11/16 17:53 IMPRESSION: There is mild bladder wall thickening. No urinary stones or obstruction. Mild subsegmental atelectasis in both lung bases. Similar micronodular contour of the liver. Assessment & Plan - Diagnosis (1) UTI (urinary tract infection) Qualifiers: Encounter type: initial encounter Is this a current diagnosis for this admission?: YesPlan: Urine culture showed gram-negative bacilli identification and sensitivity are pending Continue Zosyn CT abdomen and pelvis is negative post obstructive uropathy; (2) Sepsis Qualifiers: Sepsis type: sepsis due to unspecified organism Qualified Code(s): A41.9 - Sepsis, unspecified organism Is this a current diagnosis for this admission?: YesPlan: Resolving (3) Encephalopathy acute Is this a current diagnosis for this admission?: YesPlan: Is improved; patient's mentation is much more appropriate today (4) Chronic atrial fibrillation Is this a current diagnosis for this admission?: YesPlan: Rate controlled continue present meds (5) Chronic anticoagulation Is this a current diagnosis for this admission?: YesPlan: Subtherapeutic INR Increase Coumadin follow-up daily PT/INR - Time Time Spent with patient: 35 or more minutes
[2016-11-12] MEDS ORDERED: NORMAL SALINE 1000 ML 1,000 ML IV PRN (15:11)
[2016-11-12] MEDS: MAGNESIUM OXIDE 400 MG TABLET PO SCH (17:49)
[2016-11-12] MEDS ORDERED: INSULIN DETEMIR 100 UNIT/ML 3 ML PEN SUBCUT SCH (22:00)
[2016-11-12] MEDS: ATORVASTATIN CALCIUM 80 MG TABLET PO SCH (22:13)
[2016-11-12] MEDS: WARFARIN SODIUM 3 MG TABLET PO SCH (22:13)
[2016-11-12] MEDS: BUDESONIDE/FORMOTEROL 160-4.5 MCG 60 PUFF/6 GM MDI IH SCH (22:13)
[2016-11-12] MEDS: GABAPENTIN 300 MG CAPSULE PO SCH (22:14)
[2016-11-12] MEDS: CARVEDILOL 6.25 MG TABLET PO SCH (22:27)
[2016-11-13] MEDS: PIPERACILLIN SODIUM/TAZOBACTAM 3.375 GM in NORMAL SALINE 100 ML IV SCH ×3 (05:56→17:30)
[2016-11-13] MEDS ORDERED: INSULIN DETEMIR 100 UNIT/ML 3 ML PEN SUBCUT SCH (08:00)
[2016-11-13] MEDS: MAGNESIUM OXIDE 400 MG TABLET PO SCH ×2 (10:06→17:30)
[2016-11-13] MEDS: GABAPENTIN 300 MG CAPSULE PO SCH ×2 (10:06→22:08)
[2016-11-13] MEDS: FAMOTIDINE 20 MG TABLET PO SCH ×2 (10:06→22:08)
[2016-11-13] MEDS: FERROUS SULFATE 325 MG TABLET PO SCH (10:06)
[2016-11-13] MEDS: BUDESONIDE/FORMOTEROL 160-4.5 MCG 60 PUFF/6 GM MDI IH SCH ×2 (10:07→22:08)
[2016-11-13] MEDS: CARVEDILOL 6.25 MG TABLET PO SCH ×2 (10:07→22:08)
[2016-11-13] MEDS: INSULIN DETEMIR 100 UNIT/ML 3 ML PEN SUBCUT SCH ×2 (10:07→17:30)
[2016-11-13] MEDS: LORATADINE 10 MG TABLET PO SCH (10:07)
[2016-11-13 11:00] LABS: APPEARANCE,URINE CLEAR; BILIRUBIN,URINE NEGATIVE (NEGATIVE); GLUCOSE, URINE NEGATIVE (NEGATIVE); KETONES,URINE NEGATIVE (NEGATIVE); LEUKOCYTE ESTERASE,URINE TRACE (NEGATIVE); NITRITE,URINE NEGATIVE (NEGATIVE); PROTEIN,URINE NEGATIVE (NEGATIVE); URINE SPECIFIC GRAVITY 1.014; UROBILINOGEN,URINE NEGATIVE mg/dL (<2.0)
[2016-11-13] MEDS: INSULIN LISPRO 100 UNIT/ML 3 ML VIAL SUBCUT PRN ×2 (14:17→17:30)
--- NOTE | 2016-11-13 15:11 | PDOC PROGRESS REPORT ---
Subjective Progress Note for:: 11/13/16 Subjective:: Reason for follow-up visit: UTI, sepsis, encephalopathy Hospital course: Per H&P"LANCE TRIPLETT is a 71 year old male with history of COPD presents to the ED accompanied by family who complain of generalized weakness and shaking that started 3 days ago and confusion that became worse today. Patient's states that the patient was having difficulty walking, generalized weakness, and shaking while at [employer] earlier this morning. Patient states that he is unable to "get warm" and reports having a similar episode in the past. Patient's reports that 1 week ago the patient was seen in the ED after coughing up a blood clot. All findings were benign except for a low platelet count. Patient is acting disorientated according to the , and states that this has been occurring on and off since having a CVA 1 year ago. Patient is additionally complaining of a mild cough an diarrhea over the past few days, but denies any vomiting. Upon evaluation in the ER patient was diagnosed of UTI and early sepsis lactic acid level was normal He was treated with IV fluids and Ceftriaxone and subsequently admitted under Hospitalist's service." I inherited his care of this morning and the patient's encephalopathy seems to completely cleared. He is alert and oriented to person place time and circumstances. He denies abdominal pain, chest pain, nausea, vomiting, anorexia , weakness, dizziness, headache, confusion. He reports loose stools with some formed elements but no rectal pain on defecation. ROS: per HPI plus a total of 10 systems reviewed, pertinent positives and negatives noted above, remaining systems negative. Physical Exam Vital Signs: Temp Pulse Resp BP Pulse Ox 98.1 F 76 18 105/57 L 95 11/13/16 11:44 11/13/16 11:44 11/13/16 11:44 11/13/16 11:44 11/13/16 11:44 Intake & Output 11/12/16 11/13/16 11/14/16 06:59 06:59 06:59 Intake Total 1570 4576 1022 Output Total 200 1800 Balance 1370 2776 1022 Weight 97.4 kg 97.3 kg EXAM GENERAL: NAD; well developed, well nourished; mild obese; alert and oriented to person, place, time, situation HEENT: normocephalic, atraumatic; no conjunctival injection, no scleral icterus ; oral mucosa moist; RESPIRATORY: no accessory muscle use, no increased WOB, good air entry bilaterally; no wheezes, rales, rhonchi; no inspiratory crackles CARDIO: no JVD; RRR; no systolic murmur; no tachycardia GI: soft; nondistended; normal bowel sounds; no hepato spleno megaly; no rebound, rigidity, guarding; nontender VASCULAR: no carotid bruit; no abdominal bruit; no pallor; 2+ radial, DP pulse ; normal capillary refill EXTREMITIES: no calf tender; no palpable cords in calf; no clubbing, cyanosis , pedal edema PSYCH: normal affect, normal mood SKIN: warm; moist; no petechiae; no telengectasias; no jaundice; no rash Results Laboratory Results: 11/12/16 05:53 11/12/16 05:53 11/13/16 09:45 Urine Color YELLOW Urine Appearance CLEAR Urine pH 6.0 Ur Specific [place] 1.014 Urine Protein NEGATIVE Urine Glucose (UA) NEGATIVE Urine Ketones NEGATIVE Urine Blood SMALL H Urine Nitrite NEGATIVE Ur Leukocyte Esterase TRACE H Urine WBC (Auto) 19 Urine RBC (Auto) 1 Assessment & Plan - Diagnosis (1) Encephalopathy acute Is this a current diagnosis for this admission?: YesPlan: Improved, likely secondary to sepsis. (2) Sepsis Qualifiers: Sepsis type: sepsis due to unspecified organism Qualified Code(s): A41.9 - Sepsis, unspecified organism Is this a current diagnosis for this admission?: YesPlan: Resolved. Present on admission evidenced by tachycardia, fever, and a source. (3) UTI (urinary tract infection) Qualifiers: Urinary tract infection type: site unspecified Hematuria presence: without hematuria Qualified Code(s): N39.0 - Urinary tract infection, site not specified Is this a current diagnosis for this admission?: YesPlan: Improved. Gram-negative organism present on culture, awaiting final susceptibilities and identification. Continue empiric antibiotics. (4) Anemia Qualifiers: Anemia type: unspecified type Qualified Code(s): D64.9 - Anemia, unspecified Is this a current diagnosis for this admission?: YesPlan: Chronic anemia, unclear etiology. H&H is stable. - Time Time Spent with patient: 25-34 minutes Anticipated discharge: Home Within: within 24 hours - Plan Summary Plan Summary: Hopefully home in the next 24 hours with final culture results we may be able to change to oral antibiotic regimen and discharge at that time.
[2016-11-13] MEDS: ATORVASTATIN CALCIUM 80 MG TABLET PO SCH (22:08)
[2016-11-13] MEDS: WARFARIN SODIUM 3 MG TABLET PO SCH (22:43)
[2016-11-14] MEDS: PIPERACILLIN SODIUM/TAZOBACTAM 3.375 GM in NORMAL SALINE 100 ML IV SCH ×2 (00:48→05:40)
[2016-11-14] MEDS: INSULIN DETEMIR 100 UNIT/ML 3 ML PEN SUBCUT SCH (09:26)
[2016-11-14] MEDS: BUDESONIDE/FORMOTEROL 160-4.5 MCG 60 PUFF/6 GM MDI IH SCH (09:26)
[2016-11-14] MEDS: FAMOTIDINE 20 MG TABLET PO SCH (09:29)
[2016-11-14] MEDS: MAGNESIUM OXIDE 400 MG TABLET PO SCH (09:29)
[2016-11-14] MEDS: CARVEDILOL 6.25 MG TABLET PO SCH (09:30)
[2016-11-14] MEDS: LORATADINE 10 MG TABLET PO SCH (09:30)
[2016-11-14] MEDS: FERROUS SULFATE 325 MG TABLET PO SCH (09:30)
[2016-11-14] MEDS: GABAPENTIN 300 MG CAPSULE PO SCH (09:30)
[2016-11-14 11:08] VITALS: BP 110/55
--- NOTE | 2016-11-14 13:45 | PDOC DISCHARGE SUMMARY ---
General - Admit/Disc Date/PCP Admission Date/Primary Care Provider: 11/11/16 17:55 JAK ENGEL MD Discharge Date: 11/14/16 - Discharge Diagnosis (1) Encephalopathy acute Is this a current diagnosis for this admission?: YesSummary: resolved. Back to baseline. (2) Sepsis Is this a current diagnosis for this admission?: YesSummary: Present on admission but Resolved with treatment. (3) UTI (urinary tract infection) Is this a current diagnosis for this admission?: YesSummary: Secondary to Klebsiella resistant to simple penicillin but susceptible to Augmentin, prescription provided. Follow up with his PCP in one week. Return to the emergency department for worsening condition. (4) Anemia Is this a current diagnosis for this admission?: Yes (5) Chronic anticoagulation Is this a current diagnosis for this admission?: YesSummary: Remains mildly subtherapeutic. Continue current dose and Follow-up with PCP on Saturday for repeat PT/INR and further Coumadin dose adjustment. - Additional Information Resuscitation Status: Full Code Discharge Diet: Diabetic Discharge Activity: Activity As Tolerated Home Medications: Atorvastatin Calcium [Lipitor 80 mg Tablet] 80 mg PO QPM 11/12/16 Budesonide/Formoterol Fumarate [Symbicort HFA 160-4.5 mcg Inhaler 6 gm] 2 puff IH BID 11/12/16 Carvedilol [Coreg 6.25 mg Tablet] 6.25 mg PO BID 11/12/16 Ferrous Sulfate [Feosol 325 mg Tablet] 325 mg PO DAILY 11/12/16 Gabapentin [Neurontin 300 mg Capsule] 300 mg PO BID 11/12/16 Insulin Detemir [Levemir Insulin 100 units/mL] 34 units SQ QAM 11/12/16 Insulin Detemir [Levemir Insulin 100 units/mL] 44 units SQ QPM 11/12/16 Insulin Lispro [Humalog] 0 units SQ .PERSLIDINGSCALE 11/12/16 Loratadine [Claritin 10 mg Tablet] 10 mg PO DAILY 11/12/16 Magnesium Oxide [Magox] 800 mg PO BID 11/12/16 Nitroglycerin [Nitro-Dur 5 mg (0.2 mg/Hr) Transdermal Patch] 0.2 mg TD DAILY Acetaminophen [Tylenol 325 mg Tablet] 650 mg PO Q4HP PRN tablet 11/14/16 Amox Tr/Potassium Clavulanate [Augmentin 875-125 mg Tablet] 1 tab PO BID #20 tablet 11/14/16 Insulin Detemir [Levemir Insulin 100 units/mL] 34 unit SUBCUT DAILY insuln.pen 11/14/16 Warfarin Sodium [Coumadin 3 mg Tablet] 6 mg PO QHS #30 tablet 11/14/16 History of Present Illness Patient complains of: Confusion, fever, chills History of Present Illness: LANCE TRIPLETT is a 71 year old male with history of COPD presents to the ED accompanied by family who complain of generalized weakness and shaking that started 3 days ago and confusion that became worse today. Hospital Course Hospital Course: Patient's states that the patient was having difficulty walking, generalized weakness, and shaking while at [employer] earlier this morning. Patient states that he is unable to "get warm" and reports having a similar episode in the past. Patient's reports that 1 week ago the patient was seen in the ED after coughing up a blood clot. All findings were benign except for a low platelet count. Patient is acting disorientated according to the , and states that this has been occurring on and off since having a CVA 1 year ago. Patient is additionally complaining of a mild cough an diarrhea over the past few days, but denies any vomiting. Upon evaluation in the ER patient was diagnosed of UTI and early sepsis lactic acid level was normal He was treated with IV fluids and Ceftriaxone and subsequently admitted under Hospitalist's service." I inherited his care of 11/13/2016 and the patient's encephalopathy seems to completely cleared. He is alert and oriented to person place time and circumstances. He denies abdominal pain, chest pain, nausea, vomiting, anorexia , weakness, dizziness, headache, confusion. He reports loose stools with some formed elements but no rectal pain on defecation. Final culture results are available this morning and he has a relatively martino sensitive Klebsiella in his urine as likely trigger for his sepsis and resultant encephalopathy all of which have improved and the patient appears to be back to baseline. His platelet count remains low but improved from admission, he has chronic thrombocytopenia and is on chronic anticoagulation but showing no signs of bleeding. His hemoglobin has remained stable. He should continue on current dose and follow up with his PCP for repeat INR on Saturday. Physical Exam Vital Signs: Temp Pulse Resp BP Pulse Ox 98.6 F 98 18 110/55 L 98 11/14/16 11:04 11/14/16 11:04 11/14/16 11:04 11/14/16 11:04 11/14/16 11:04 Intake & Output 11/13/16 11/14/16 11/15/16 06:59 06:59 06:59 Intake Total 4576 2920 Output Total 1800 200 Balance 2776 2720 Weight 97.3 kg 95.1 kg Patient seen and examined in the presence of his . He is alert and oriented to person place and time, still concerns to me about going home today. He is breathing easily without wheezes, heart rate is less than 100, abdomen is soft, nontender, extremities show no edema and he moves all 4 extremities and follows commands. He is up ambulating in the room without assistance. His mental state is back to baseline. Results Laboratory Results: 11/12/16 05:53 11/12/16 05:53 11/14/16 08:05 Stool Occult Blood NEGATIVE Impressions: Chest X-Ray 11/11/16 13:56 IMPRESSION: Moderate likely chronic interstitial lung disease. Head CT 11/11/16 13:56 IMPRESSION: No acute intracranial findings. Abdomen/Pelvis CT 11/11/16 17:53 IMPRESSION: There is mild bladder wall thickening. No urinary stones or obstruction. Mild subsegmental atelectasis in both lung bases. Similar micronodular contour of the liver. Qualifiers PATEINT BEING DISCHARGED WITH ANY OF THE FOLLOWING DIAGNOSIS?: No Plan Discharge Plan: Discharge home; follow-up with PCP in one week; return to the emergency department for worsening condition. Time Spent: Greater than 30 Minutes
== END 2016-11-14 11:44 | disposition home or self-care (01) | DRG 871 ==
LOC: ER 12:55 → EH 17:17 → UNDOADMIN 17:17 → EH 17:55 → 3S 20:52
PROVIDERS: ADMIT Emergency Medicine; ATTEND Emergency Medicine
DX: A41.9 Sepsis, unspecified organism (principal); G93.40 Encephalopathy, unspecified; N39.0 Urinary tract infection, site not specified; I48.2 Chronic atrial fibrillation; I50.9 Heart failure, unspecified; D64.9 Anemia, unspecified; I11.0 Hypertensive heart disease with heart failure; I25.10 Atherosclerotic heart disease of native coronary artery without angina pectoris; E78.5 Hyperlipidemia, unspecified; E11.8 Type 2 diabetes mellitus with unspecified complications; J44.9 Chronic obstructive pulmonary disease, unspecified; I25.2 Old myocardial infarction; Z87.891 Personal history of nicotine dependence; Z79.4 Long term (current) use of insulin; Z79.01 Long term (current) use of anticoagulants; Z79.899 Other long term (current) drug therapy; Z88.2 Allergy status to sulfonamides; Z88.8 Allergy status to other drugs, medicaments and biological substances
CPT/HCPCS: 36415; 70450; 71020; 74176; 80053; 81001; 82140; 82272; 82550; 82553; 82803; 82962; 83605; 83690; 83735; 83880; 84443; 84484; 85025; 85610; 87040; 87086; 87088; 87186; 87804; 93005; 93010; 96365; 99291; G8978-GP; G8979-GP; J0696; J1815; J2543; J3490; J7030

== ENCOUNTER 2017-02-10 21:00 | Inpatient (IN) | payer OTHER, MEDICARE, BC ==
--- NOTE | 2017-02-10 21:45 | RADIOLOGY REPORT (SQ) ---
EXAM DESCRIPTION: CHEST SINGLE VIEW COMPLETED DATE/TIME: 02/10/2017 9:27 pm REASON FOR STUDY: fever COMPARISON: 11/11/2016. NUMBER OF VIEWS: One view. TECHNIQUE: Single frontal radiographic view of the chest acquired. LIMITATIONS: None. FINDINGS: LUNGS AND PLEURA: Low lung volumes. Even allowing for this, mild vascular congestion is s uggested. This may be superimposed on mild chronic changes. No consolidating pneumonia. No signifi cant pleural fluid or pneumothorax. MEDIASTINUM AND HILAR STRUCTURES: Stable contours. HEART AND VASCULAR STRUCTURES: Mild cardiomegaly. Grossly intact sternal wires. BONES: No acute findings. HARDWARE: Left pacer. OTHER: No other significant finding. IMPRESSION: Probable mild vascular congestion. TECHNICAL DOCUMENTATION: JOB ID: [id number] [employer]- All Rights Reserved
[2017-02-10 22:17] LABS: VENOUS BLOOD BASE EXCESS 0.8 mmol/L; VENOUS BLOOD HCO3 25.2 mmol/L (20-32); VENOUS BLOOD PCO2 39.4 mmHg (35-63); VENOUS BLOOD PH 7.42 (7.30-7.42)
[2017-02-10 22:24] LABS: PROTHROMBIN TIME 20.4 SEC (11.4-15.4)
[2017-02-10 22:27] LABS: ABSOLUTE LYMPHOCYTES (AUTO) 1.8 10^3/uL (0.5-4.7); ABSOLUTE MONOCYTES (AUTO) 1.1 10^3/uL (0.1-1.4); ABSOLUTE NEUT (AUTO) 8.5 10^3/uL (1.7-8.2); BASOPHILS % (AUTO) 0.3 % (0-2); EOSINOPHILS % (AUTO) 0.1 % (0-6); HEMATOCRIT 46.4 % (37.9-51.0); HEMOGLOBIN 15.2 g/dL (13.5-17.0); HGB HCT DIFFERENCE -0.8; LYMPHOCYTES % (AUTO) 15.6 % (13-45); MEAN CORPUSCULAR HGB CONC 32.9 g/dL (32.0-36.0); MEAN CORPUSCULAR VOLUME 91 fl (80-97); MONOCYTES % (AUTO) 9.6 % (3-13); RED BLOOD COUNT 5.08 10^6/uL (4.35-5.55); RED CELL DISTRIBUTION WIDTH 14.9 % (11.5-14.0); SEGMENTED NEUTROPHILS % (AUTO) 74.4 % (42-78); WHITE BLOOD COUNT 11.5 10^3/uL (4.0-10.5)
[2017-02-10 22:28] LABS: ALANINE AMINOTRANSFERASE 48 U/L (21-72); ALBUMIN 4.5 g/dL (3.5-5.0); ALKALINE PHOSPHATASE 138 U/L (38-126); ANION GAP 12 (5-19); ASPARTATE AMINO TRANSFERASE 43 U/L (17-59); BILIRUBIN,DIRECT 0.5 mg/dL (0.0-0.4); BILIRUBIN,TOTAL 2.4 mg/dL (0.2-1.3); BLOOD UREA NITROGEN 17 mg/dL (7-20); CALCIUM 9.1 mg/dL (8.4-10.2); CARBON DIOXIDE 27 mmol/L (22-30); CHLORIDE 97 mmol/L (98-107); CREATININE RESULT 0.92 mg/dL (0.52-1.25); GLUCOSE 348 mg/dL (75-110); POTASSIUM 3.9 mmol/L (3.6-5.0); SODIUM 135.6 mmol/L (137-145); TOTAL PROTEIN 8.6 g/dL (6.3-8.2)
--- NOTE | 2017-02-10 23:11 | ER Document Report ---
ED General - General Chief Complaint: Altered Mental Status Stated Complaint: BACK PAIN, ALTERED MENTAL STATUS Time Seen by Provider: 02/10/17 22:57 Notes: Patient is a 71-year-old male who comes emergency department for chief complaint of altered mental status. Symptoms started earlier today when patient started talking "out of his mind" per his . Patient also is complaining of pain in his lower back. Patient vomited twice. reports mild cough. Patient is not oriented to current location but he is responsive and answers questions otherwise, he states he has some pain in his lower back but denies chest pain, abdominal pain, headache, nausea. Patient given 975 mg of acetaminophen by EMS. Past medical history is extensive including atrial fibrillation on Coumadin, [place], CHF, type 2 diabetes, COPD. Past surgical history of hernia repair. TRAVEL OUTSIDE OF THE [place] IN LAST 30 DAYS: No - Related Data Allergies/Adverse Reactions: Sulfa (Sulfonamide Antibiotics) Allergy (Verified 11/11/16 12:59) zolpidem tartrate [From Ambien] Allergy (Verified 11/11/16 12:59) Past Medical History - General Information source: Patient, Relative - Social History Smoking Status: Never Smoker Frequency of alcohol use: None Drug Abuse: None Lives with: Family Family History: Reviewed & Not Pertinent - Past Medical History Cardiac Medical History: Reports: Hx Atrial Fibrillation, Hx Congestive Heart Failure, Hx Coronary Artery Disease, Hx Heart Attack, Hx Hypercholesterolemia, Hx Hypertension Pulmonary Medical History: Reports: Hx COPD Neurological Medical History: Reports: Hx Cerebrovascular Accident - 2016. Denies: Hx Seizures Endocrine Medical History: Reports: Hx Diabetes Mellitus Type 1, Hx Diabetes Mellitus Type 2 Renal/ Medical History: Denies: Hx End Stage Renal Disease, Hx Peritoneal Dialysis Past Surgical History: Reports: Hx Cardiac Catheterization - Stent placement June 03, 2015, Hx Cardiac Surgery - cabg, stent placement (2014), Hx Open Heart Surgery - and Stent placed May 2015 - Immunizations Hx Diphtheria, Pertussis, Tetanus Vaccination: Yes Hx Pneumococcal Vaccination: 08/12/14 Physical Exam - Vital signs Vitals: Temp Pulse Resp BP Pulse Ox 101.1 F H 81 18 169/61 H 90 L 02/10/17 21:00 02/10/17 21:00 02/10/17 21:00 02/10/17 21:00 02/10/17 21:00 Interpretation: Normal - General General appearance: Appears well In distress: None - HEENT Head: Normocephalic, Atraumatic Eyes: Normal Conjunctiva: Normal Extraocular movements intact: Yes Eyelashes: Normal Pupils: PERRL Mouth/Lips: Normal Mucous membranes: Normal Pharynx: Normal Neck: Normal - Respiratory Respiratory status: No respiratory distress. No: Tachypnea Chest status: Nontender Breath sounds: Normal. No: Decreased air movement, Wheezing Chest palpation: Normal - Cardiovascular Rhythm: Regular. No: Tachycardia Heart sounds: Normal auscultation, S1 appreciated, S2 appreciated Murmur: No - Abdominal Inspection: Normal Distension: No distension Bowel sounds: Normal Tenderness: Tender - Mild generalized tenderness, there is some tenderness of the upper abdomen generally Organomegaly: No organomegaly - Back Back: Normal, Nontender - Extremities General upper extremity: Normal inspection, Nontender, Normal color, Normal ROM , Normal temperature General lower extremity: Normal inspection, Nontender, Normal color, Normal ROM , Normal temperature, Normal weight bearing. No: Shani's sign - Neurological Neuro grossly intact: Yes Cognition: Confused Orientation: AAOx4, Disoriented to place, Disoriented to time, Disoriented to events. No: Disoriented to person Sugar Coma Scale Eye Opening: Spontaneous [place] Coma Scale Verbal: Confused Sugar Coma Scale Motor: Obeys Commands Sugar Coma Scale Total: 14 Speech: Normal Cranial nerves: Normal Cerebellar coordination: Normal Motor strength normal: LUE, RUE, LLE, RLE Additional motor exam normals: Equal conservation officer Sensory: Normal - Psychological Associated symptoms: Normal affect, Normal mood - Skin Skin Temperature: Warm Skin Moisture: Dry Skin Color: Normal Course - Re-evaluation Re-evalutation: Patient will respond to me and cooperate with instructions although he is confused about location and events. This is abnormal for him per . Mild upper abdominal tenderness on exam, no distinct abnormalities otherwise. He is initially hypertensive and was febrile at 102 by EMS INR subtherapeutic. CAT scan of the head unremarkable. Chest x-ray with no overt abnormality. No specific pneumonia. Patient does not have a cough, does not report shortness of breath. Initial workup shows leukocytosis with no bandemia, chemistry does show elevated bilirubin both direct and indirect, alkaline phosphatase is elevated, LFTs normal, lipase normal. Urine is unremarkable with no evidence of infection. Still uncertain of the source at this time Cat scan performed performed, shows cholecystic fluid, with review of the images appears to have cholecystitis, reviewed with Dr. Carballo. Question of gastritis, lipase normal. Patient given Zosyn, will have an ultrasound, kept n.p.o. Surgery will be consulted. Vomited, treating with Zofran and a little bit of morphine. Blood pressure normalized. Ultrasound with no abnormality noted. Limited exam. Surgery evaluated patient at bedside, recommends admission to medicine with antibiotics, n.p.o., HIDA scan, amylase testing Discussed with Dr. Darnell, internal medicine, patient will be admitted to [facility]. He is in agreement with this. - Vital Signs Vital signs: Temp Pulse Resp BP Pulse Ox 101.1 F H 81 30 H 143/76 H 93 02/10/17 21:00 02/10/17 21:00 02/11/17 06:02 02/11/17 06:02 02/11/17 06:02 - Laboratory Result Diagrams: 02/10/17 21:57 02/10/17 21:57 Laboratory results interpreted by me: 02/10/17 02/10/17 02/10/17 21:57 21:57 21:57 WBC 11.5 H RDW 14.9 H Plt Count 91 L Absolute Neutrophils 8.5 H PT 20.4 H Sodium 135.6 L Chloride 97 L Glucose 348 H Total Bilirubin 2.4 H Direct Bilirubin 0.5 H Alkaline Phosphatase 138 H Total Protein 8.6 H Urine Protein Urine Glucose (UA) Urine Ketones 02/11/17 00:14 WBC RDW Plt Count Absolute Neutrophils PT Sodium Chloride Glucose Total Bilirubin Direct Bilirubin Alkaline Phosphatase Total Protein Urine Protein 30 H Urine Glucose (UA) >=500 H Urine Ketones TRACE H Discharge - Discharge Clinical Impression: Flank pain Altered mental status Qualifiers: Altered mental status type: unspecified Qualified Code(s): R41.82 - Altered mental status, unspecified Vomiting Qualifiers: Vomiting type: unspecified Vomiting Intractability: non-intractable Nausea presence: unspecified Qualified Code(s): R11.10 - Vomiting, unspecified Fever Qualifiers: Fever type: unspecified Qualified Code(s): R50.9 - Fever, unspecified Condition: Stable Disposition: ADMITTED INPATIENT Admitting Provider: Hospitalist Unit Admitted: [facility] Referrals: MAREN,ADNAN TAJ, MD [Primary Care Provider] - Follow up as needed
--- NOTE | 2017-02-10 23:50 | RADIOLOGY REPORT (SQ) ---
EXAM DESCRIPTION: CT HEAD WITHOUT COMPLETED DATE/TIME: 02/10/2017 11:41 pm REASON FOR STUDY: altered mental status, on coumadin COMPARISON: 11/11/2016. TECHNIQUE: Axial images acquired through the brain without intravenous contrast. Images reviewed wi th bone, brain and subdural windows. Images stored on PACS. All CT scanners at this facility use dose modulation, iterative reconstruction, and/or weight based d osing when appropriate to reduce radiation dose to as low as reasonably achievable (ALARA). [facility]: Dose Right [facility]: CareDose [facility]: Dose Right [facility]: Teradose 4D [facility]: Anapsis RADIATION DOSE: Up-to-date CT equipment and radiation dose reduction techniques were employed. CTDIv ol: 64.6 mGy. DLP: 1163 mGy-cm. mGy. LIMITATIONS: None. FINDINGS: VENTRICLES: Normal size and contour. CEREBRUM: No masses. No hemorrhage. No midline shift. Normal mojica/white matter differentiation. N o evidence for acute infarction. CEREBELLUM: No masses. No hemorrhage. No alteration of density. No evidence for acute infarction. EXTRAAXIAL SPACES: No fluid collections. No masses. ORBITS AND GLOBE: No intra- or extraconal masses. Normal contour of globe without masses. CALVARIUM: No fracture. PARANASAL SINUSES: No fluid or mucosal thickening. SOFT TISSUES: No mass or hematoma. OTHER: No other significant finding. IMPRESSION: NORMAL BRAIN CT WITHOUT CONTRAST. TECHNICAL DOCUMENTATION: JOB ID: [id number] Quality ID # [id number]: Final reports with documentation of one or more dose reduction techniques (e.g., Au tomated exposure control, adjustment of the mA and/or kV according to patient size, use of iterative reconstruction technique) 2010 [employer]- All Rights Reserved
--- NOTE | 2017-02-10 23:59 | EKG REPORT ---
SEVERITY:- ABNORMAL ECG - SINUS RHYTHM FIRST DEGREE AV BLOCK LAD, CONSIDER LEFT ANTERIOR FASCICULAR BLOCK : Confirmed by: Coleman Murphy 10-Feb-2017 23:58:33
[2017-02-11 00:26] LABS: APPEARANCE,URINE CLEAR; BILIRUBIN,URINE NEGATIVE (NEGATIVE); GLUCOSE, URINE >=500 mg/dL (NEGATIVE); KETONES,URINE TRACE mg/dL (NEGATIVE); LEUKOCYTE ESTERASE,URINE NEGATIVE (NEGATIVE); NITRITE,URINE NEGATIVE (NEGATIVE); PROTEIN,URINE 30 mg/dL (NEGATIVE); URINE SPECIFIC GRAVITY 1.021; UROBILINOGEN,URINE NEGATIVE mg/dL (<2.0)
[2017-02-11] MEDS ORDERED: NORMAL SALINE 1000 ML 1,000 ML IV ONE (00:36)
[2017-02-11] MEDS ORDERED: NORMAL SALINE 1000 ML 500 ML IV ONE (00:37)
[2017-02-11] MEDS: NORMAL SALINE 1000 ML 1,000 ML IV PRN ×4 (01:00→12:38)
--- NOTE | 2017-02-11 02:00 | RADIOLOGY REPORT (SQ) ---
EXAM DESCRIPTION: CT ABD/PELVIS WITH IV ONLY COMPLETED DATE/TIME: 02/11/2017 1:37 am REASON FOR STUDY: vomiting, abd/flank pain, fever COMPARISON: 4.2.17 TECHNIQUE: CT scan of the abdomen and pelvis performed using helical scanning technique with dynamic intravenous contrast injection. No oral contrast. Images reviewed with lung, soft tissue, and bone windows. Reconstructed coronal and sagittal MPR images reviewed. Delayed images for evaluation of the urinary system also acquired. All images stored on PACS. All CT scanners at this facility use dose modulation, iterative reconstruction, and/or weight based d osing when appropriate to reduce radiation dose to as low as reasonably achievable (ALARA). [facility]: Dose Right [facility]: CareDose [facility]: Dose Right [facility]: Teradose 4D [facility]: Rallyware CONTRAST TYPE AND DOSE: contrast/concentration: Isovue 370.00 mg/ml; Total Contrast Delivered: 100.0 ml; Total Saline Delivered: 70.0 ml RENAL FUNCTION: Creatinine 0.9 RADIATION DOSE: Up-to-date CT equipment and radiation dose reduction techniques were employed. CTDIv ol: 14.4 - 19.2 mGy. DLP: 1815 mGy-cm.. LIMITATIONS: None. FINDINGS: LOWER CHEST: Small right basilar atelectasis or scar. Median sternotomy. Cardiac stimula tion leads partially imaged. LIVER: Micronodular surface of the liver may indicate alcoholic cirrhosis. Small varices. SPLEEN: Moderate splenomegaly; splenic index is 853 cubic cm. No focal lesions. PANCREAS: No masses. No significant calcifications. Moderate inflammation tooth between the pancreas and stomach and between the pancreas and adrenal gland. Moderate inflamed and gastric antrum casillas. Pancreatic duct not dilated. GALLBLADDER: No identified stones by CT criteria. No inflammatory changes to suggest cholecystitis. ADRENAL GLANDS: No significant masses or asymmetry. RIGHT KIDNEY AND URETER: No solid masses. No significant calcifications. No hydronephrosis or hyd roureter. LEFT KIDNEY AND URETER: No solid masses. No significant calcifications. No hydronephrosis or hydr oureter. AORTA AND VESSELS: No aneurysm. No dissection. Renal arteries, SMA, celiac without stenosis. Moderat e atherosclerosis. RETROPERITONEUM: No retroperitoneal adenopathy, hemorrhage or masses. BOWEL AND PERITONEAL CAVITY: As above. APPENDIX: Normal. PELVIS: No mass or free fluid. Normal bladder. ABDOMINAL WALL: No masses. Bilateral inguinal hernia repair clips. 2 cm seroma in-scar associated w ith the right inguinal canal. BONES: Moderate L1-L2 vacuum disc desiccation. Small L3-L4 desiccated disc bulge. OTHER: No other significant finding. IMPRESSION: 1. Pancreatitis and/or gastritis pattern. Laboratory correlation recommended. 2. Cir rhosis pattern. 3. Splenomegaly. 4. Nonspecific pericholecystic fluid. TECHNICAL DOCUMENTATION: JOB ID: [id number] Quality ID # [id number]: Final reports with documentation of one or more dose reduction techniques (e.g., Au tomated exposure control, adjustment of the mA and/or kV according to patient size, use of iterative reconstruction technique) 2010 [employer]- All Rights Reserved
[2017-02-11] MEDS ORDERED: ERTAPENEM SODIUM INJ 1 GM VIAL IV ONE (03:01)
[2017-02-11] MEDS ORDERED: PIPERACILLIN/TAZOBACTAM 3.375 GM VIAL IV ONE (03:04)
[2017-02-11] MEDS ORDERED: ONDANSETRON HCL INJ/PF 4 MG/2 ML SDV IV ONE (03:23)
[2017-02-11] MEDS ORDERED: MORPHINE SULFATE 10 MG/ML INJ IV ONE (03:23)
[2017-02-11] MEDS ORDERED: ONDANSETRON HCL INJ/PF 4 MG/2 ML SDV ONE (03:26)
--- NOTE | 2017-02-11 04:42 | RADIOLOGY REPORT (SQ) ---
EXAM DESCRIPTION: U/S ABDOMEN LIMITED W/O DOP COMPLETED DATE/TIME: 02/11/2017 4:28 am REASON FOR STUDY: ? cholecystitis COMPARISON: None. TECHNIQUE: Dynamic and static grayscale images acquired of the abdomen and recorded on PACS. Additio nal selected color Doppler and spectral images recorded. LIMITATIONS: Body habitus and bowel gas. FINDINGS: PANCREAS: No masses. Visualized pancreatic duct normal caliber. LIVER: Nodular surface of the liver. LIVER VASCULATURE: Normal directional flow of the main portal vein and hepatic veins. GALLBLADDER: No stones. Normal wall thickness. No pericholecystic fluid. ULTRASOUND-DETECTED MOON'S SIGN: Negative. INTRAHEPATIC DUCTS AND COMMON DUCT: 0.4 cm diameter CBD and intrahepatic ducts normal caliber. No jordyn ling defects. INFERIOR VENA CAVA: Normal flow. AORTA: Partially obscured. RIGHT KIDNEY: Normal size. Normal echogenicity. No solid or suspicious masses. No hydronephrosis. No calcifications. PERITONEAL AND RIGHT PLEURAL SPACE: No ascites or effusions. OTHER: No other significant findings. IMPRESSION: No acute findings. Cirrhosis pattern. TECHNICAL DOCUMENTATION: JOB ID: [id number]- All Rights Reserved
--- NOTE | 2017-02-11 06:44 | CONSULTATION REPORT E ---
Consultation Report NAME: LANCE TRIPLETT : 1945 AGE: 71Y DATE: 02/11/2017 TO: LEENA AVERY M.D. FROM: JANY FLORES Requesting Physician REASON FOR CONSULTATION: Patient with pericholecystic fluid on CAT scan. HISTORY OF PRESENT ILLNESS: This is a 71-year-old male who complains of mid back pains 2 days ago. They were in [facility] on Saturday and came home yesterday. He started complaining just before going back home from [place]. Patient also felt feverish, according to his . In the emergency room, patient had a CAT scan of the abdomen, which showed pericholecystic fluid and possible pancreatitis. His abdomen examination is practically benign. He has tenderness in both flanks. He was admitted in December for urinary tract infection. PAST HISTORY: 1. Coronary artery bypass in 2001 after an MA. Subsequently, had a couple more MIs, the last one in 2014. Also had at least 2 strokes. 2. Had a history of polio as a child and walks with a limp. 3. History of diabetes. On Coumadin currently for the strokes and MA. SOCIAL HISTORY: Denies smoking, drinking, nor drug use. Patient has 8 girls and 7 boys, about 15 children. ALLERGIES: No known. REVIEW OF SYSTEMS: As in HPI. Patient has some confusion according to his . Denies any trauma to the back. Denies any shortness of breath nor chest pains. claims patient has some occasional dysuria. No nausea or vomiting. No apparent fatty food intolerance. The rest of the systems unremarkable. PHYSICAL EXAMINATION: GENERAL: Well-developed, well-nourished 71-year-old male somewhat slow to respond, but appears oriented x3. NECK: Supple. No thyromegaly. LUNGS: Clear. HEART: Regular sinus rhythm. ABDOMEN: Soft and no definite tenderness. There is some flank tenderness bilaterally. EXTREMITIES: Femoral pulses are not readily palpable. Patient is supposedly to have some vascular evaluation of his lower extremities, but both feet are warm, but not able to palpate ankle pulses. LABORATORY: His white count is slightly elevated at 11.5. His INR is 1.65 with pro-time of 20 seconds. His LFTs are normal and lipase is normal. IMPRESSION: 1. Pancreatitis. 2. Possible acalculous cholecystitis, though it is unlikely with the patient practically no abdominal tenderness. 3. History of MA and CVA for diabetes mellitus. RECOMMENDATIONS: 1. Do a HIDA scan of the gallbladder. 2. Do a D-dimer to check for DVT or PE and serum amylase. At this point, there is no definite evidence for doing a cholecystectomy. This patient appears to be more of a medical candidate at this time. Will follow the patient after the HIDA scan. DICTATING PHYSICIAN: LEENA AVERY M.D. [id number] PHY#: [id number] ID: [id number] JOB#: [id number] ACCT: [id number] cc:LEENA AVERY M.D. >
[2017-02-11] MEDS ORDERED: ACETAMINOPHEN 325 MG TABLET PO PRN (08:43)
[2017-02-11] MEDS ORDERED: GLUCAGON,HUMAN RECOMB 1 MG INJ IM PRN (08:43)
[2017-02-11] MEDS ORDERED: IPRATROPIUM/ALBUTEROL 0.5-2.5 MG/3 ML AMPUL NEB PRN (08:43)
[2017-02-11] MEDS ORDERED: DEXTROSE 40% GEL 15 GM TUBE PO PRN ×2 (08:43)
[2017-02-11] MEDS ORDERED: DEXTROSE 50%-WATER 25 GM/50 ML DISP.SYRIN IV PRN ×2 (08:43)
[2017-02-11] MEDS ORDERED: MAGNESIUM HYDROXIDE SUSP 30 ML UDCUP PO PRN ×2 (08:48→10:20)
[2017-02-11] MEDS ORDERED: ONDANSETRON HCL INJ/PF 4 MG/2 ML SDV IV PRN (08:48)
[2017-02-11] MEDS: INSULIN LISPRO 100 UNIT/ML 3 ML VIAL SUBCUT PRN ×4 (09:11→23:22)
[2017-02-11 09:27] LABS: C-REACTIVE PROTEIN 44.2 mg/L (<10.0); CHOLESTEROL 134.62 mg/dL (0-200); Direct HDL 46 mg/dL (>40); TRIGLYCERIDES 93 mg/dL (<150)
[2017-02-11 09:35] LABS: DIRECT LDL 61 mg/dL (<100)
[2017-02-11] MEDS ORDERED: ENOXAPARIN SODIUM INJ 40 MG/0.4 ML DISP.SYRIN SUBCUT SCH (10:00)
[2017-02-11] MEDS ORDERED: VANCOMYCIN HCL 0 MG in DEXTROSE 5%-WATER 250 ML IV NR (10:15)
[2017-02-11] MEDS ORDERED: NITROGLYCERIN 5 MG (0.2 MG/HR) PATCH.TD24 TD ONE (10:30)
[2017-02-11] MEDS ORDERED: ENOXAPARIN SODIUM INJ 100 MG/1 ML DISP.SYRIN SUBCUT ONE (10:30)
[2017-02-11] MEDS ORDERED: VANCOMYCIN HCL 1,500 MG in DEXTROSE 5%-WATER 250 ML IV ONE (11:00)
--- NOTE | 2017-02-11 11:37 | PDOC H&P ---
History of Present Illness Admission Date/PCP: 02/11/17 08:44 JAK ENGEL MD Patient complains of: PAIN IN MY BACK History of Present Illness: LANCE TRIPLETT is a 71 year old male presents to the ED from home with 2d hx of sharp, stabbing constant pain in his mid back radiating forward into his abdomen with asct'd with nausea, anorexia, fevers and chills but no change in bowel or bladder habits, SOA, palpitations, arm/jaw pain, BHATT, dizziness, orthopnea or PND or swelling of his legs. never had anything like this before. no sick contacts. has hx of ASCVD with CABG 3v and stents to [place] arteries previously, DM, HTN, hyperlipidemia and chronic afib controlled on sotalol and coumadin. no tobacco or ETOH use. no new meds or OTC remedies and denies chronic NSAID use including BC or Goody's powders. eval in ED shows findings on ct scan concerning for acute pancreatitis and possible cholecystitis but with normal lipase and LFTs aside from alk phos. surgery consulted and ordered HIDA scan, no surgery indicated as yet. we were asked to admit for further eval and management. Past Medical History Cardiac Medical History: Reports: Atrial Fibrillation, Congestive Heart Failure , Coronary Artery Disease, Myocardial Infarction, Hyperlipidema, Hypertension Pulmonary Medical History: Reports: Asthma, Chronic Obstructive Pulmonary Disease (COPD) Neurological Medical History: Denies: Seizures Endocrine Medical History: Reports: Diabetes Mellitus Type 2 - insulin dependent Renal/ Medical History: Denies: End Stage Renal Disease Past Surgical History Past Surgical History: Reports: Cardiac Catheterization - Stent placement June 03, 2015, Coronary Artery Bypass Graft Social History Information Source: Patient Lives with: Family Smoking Status: Never Smoker Frequency of Alcohol Use: None Hx Recreational Drug Use: No Drugs: None Hx Prescription Drug Abuse: No - Advance Directive Resuscitation Status: Full Code Family History Family History: DM Parental Family History Reviewed: Yes Children Family History Reviewed: Yes Sibling(s) Family History Reviewed.: Yes Medication/Allergy Allergies/Adverse Reactions: Sulfa (Sulfonamide Antibiotics) Allergy (Unknown, Verified 02/11/17 10:25) zolpidem tartrate [From Ambien] Allergy (Unknown, Verified 02/11/17 10:25) Review of Systems All systems: reviewed and no additional remarkable complaints except as stated - allsystems reviewed, see HPI, remaining systems negative Physical Exam Vital Signs: Temp Pulse Resp BP Pulse Ox 98.7 F 81 25 H 135/62 H 96 02/11/17 09:01 02/10/17 21:00 02/11/17 09:01 02/11/17 09:01 02/11/17 09:01 General appearance: PRESENT: no acute distress, obese, well-developed, well- nourished Head exam: PRESENT: atraumatic, normocephalic Eye exam: PRESENT: EOMI. ABSENT: conjunctival injection, scleral icterus Mouth exam: PRESENT: dry mucosa, neck supple Neck exam: PRESENT: full ROM. ABSENT: carotid bruit, JVD, tenderness Respiratory exam: PRESENT: clear to auscultation yobany. ABSENT: accessory muscle use Cardiovascular exam: PRESENT: irregular rhythm - NSR with frequent PVC and PACs. ABSENT: tachycardia Pulses: PRESENT: normal radial pulses, normal dorsalis pedis pul GI/Abdominal exam: PRESENT: normal bowel sounds, soft, tenderness - epigastric with voluntary guarding. ABSENT: distended, organolmegaly Rectal exam: PRESENT: deferred Extremities exam: ABSENT: calf tenderness, pedal edema Musculoskeletal exam: PRESENT: ambulatory, full ROM Neurological exam: PRESENT: alert, awake, oriented to person, oriented to place , oriented to time, oriented to situation Psychiatric exam: PRESENT: appropriate affect, normal mood Skin exam: PRESENT: dry, warm. ABSENT: rash Results Laboratory Results: 02/10/17 21:57 02/10/17 21:57 MCV 91 fl (80-97) 02/10/17 21:57 MCH 30.0 pg (27.0-33.4) 02/10/17 21:57 MCHC 32.9 g/dL (32.0-36.0) 02/10/17 21:57 RDW 14.9 % (11.5-14.0) H 02/10/17 21:57 Seg Neutrophils % 74.4 % (42-78) 02/10/17 21:57 Lymphocytes % 15.6 % (13-45) 02/10/17 21:57 Monocytes % 9.6 % (3-13) 02/10/17 21:57 Eosinophils % 0.1 % (0-6) 02/10/17 21:57 Basophils % 0.3 % (0-2) 02/10/17 21:57 Absolute Neutrophils 8.5 10^3/uL (1.7-8.2) H 02/10/17 21:57 Absolute Lymphocytes 1.8 10^3/uL (0.5-4.7) 02/10/17 21:57 Absolute Monocytes 1.1 10^3/uL (0.1-1.4) 02/10/17 21:57 Absolute Eosinophils 0.0 10^3/uL (0.0-0.6) 02/10/17 21:57 Absolute Basophils 0.0 10^3/uL (0.0-0.2) 02/10/17 21:57 VBG pH 7.42 (7.30-7.42) 02/10/17 21:57 VBG pCO2 39.4 mmHg (35-63) 02/10/17 21:57 VBG HCO3 25.2 mmol/L (20-32) 02/10/17 21:57 VBG Base Excess 0.8 mmol/L 02/10/17 21:57 Chloride 97 mmol/L (98-107) L 02/10/17 21:57 Carbon Dioxide 27 mmol/L (22-30) 02/10/17 21:57 Anion Gap 12 (5-19) 02/10/17 21:57 Est GFR ( Amer) > 60 (>60) 02/10/17 21:57 Est GFR (Non-Af Amer) > 60 (>60) 02/10/17 21:57 Glucose 348 mg/dL (75-110) H 02/10/17 21:57 Lactic Acid 1.7 mmol/L (0.7-2.1) 02/10/17 21:57 Calcium 9.1 mg/dL (8.4-10.2) 02/10/17 21:57 Total Bilirubin 2.4 mg/dL (0.2-1.3) H 02/10/17 21:57 AST 43 U/L (17-59) 02/10/17 21:57 ALT 48 U/L (21-72) 02/10/17 21:57 Alkaline Phosphatase 138 U/L (38-126) H 02/10/17 21:57 C-Reactive Protein 44.2 mg/L (<10.0) H 02/11/17 06:59 Total Protein 8.6 g/dL (6.3-8.2) H 02/10/17 21:57 Albumin 4.5 g/dL (3.5-5.0) 02/10/17 21:57 Triglycerides 93 mg/dL (<150) 02/11/17 06:59 Cholesterol 134.62 mg/dL (0-200) 02/11/17 06:59 LDL Cholesterol Direct 61 mg/dL (<100) 02/11/17 06:59 VLDL Cholesterol 19.0 mg/dL (10-31) 02/11/17 06:59 HDL Cholesterol 46 mg/dL (>40) 02/11/17 06:59 Amylase 33 U/L (30-110) 02/11/17 06:59 Lipase 71.3 U/L (23-300) 02/10/17 21:57 Urine Color YELLOW 02/11/17 00:14 Urine Appearance CLEAR 02/11/17 00:14 Urine pH 5.0 (5.0-9.0) 02/11/17 00:14 Ur Specific [place] 1.021 02/11/17 00:14 Urine Protein 30 mg/dL (NEGATIVE) H 02/11/17 00:14 Urine Glucose (UA) >=500 mg/dL (NEGATIVE) H 02/11/17 00:14 Urine Ketones TRACE mg/dL (NEGATIVE) H 02/11/17 00:14 Urine Blood NEGATIVE (NEGATIVE) 02/11/17 00:14 Urine Nitrite NEGATIVE (NEGATIVE) 02/11/17 00:14 Ur Leukocyte Esterase NEGATIVE (NEGATIVE) 02/11/17 00:14 Urine WBC (Auto) 0 /HPF 02/11/17 00:14 Urine RBC (Auto) 0 /HPF 02/11/17 00:14 02/11/17 06:59 Troponin I 0.196 Impressions: Chest X-Ray 02/10/17 21:07 IMPRESSION: Probable mild vascular congestion. Head CT 02/10/17 23:07 IMPRESSION: NORMAL BRAIN CT WITHOUT CONTRAST. Abdomen/Pelvis CT 02/11/17 00:36 IMPRESSION: 1. Pancreatitis and/or gastritis pattern. Laboratory correlation recommended. 2. Cirrhosis pattern. 3. Splenomegaly. 4. Nonspecific pericholecystic fluid. Abdomen Ultrasound 02/11/17 03:01 IMPRESSION: No acute findings. Cirrhosis pattern. Status: Imported from PACS Assessment & Plan - Diagnosis (1) Acute pancreatitis Qualifiers: Pancreatitis type: unspecified pancreatitis type Acute pancreatitis complication: unspecified Qualified Code(s): K85.90 - Acute pancreatitis without necrosis or infection, unspecified Is this a current diagnosis for this admission?: YesPlan: working diagnosis on basis of presentation and ct findings of peripancreatic inflammation. treat with IVFs, analgesics, antiemetics and bowel rest. trend CRP as more reliable marker of pancreatic inflammation than lipase. keep NPO for now. (2) Cholecystitis Is this a current diagnosis for this admission?: YesPlan: possible diagnosis on basis of clinical presentation, leukocytosis, ct findings of pericholecystic fluid and mild elevated alk phos. agree with HIDA and surgical consult. otherwise treat as above and continue empiric Invanz. (3) Bacteremia Is this a current diagnosis for this admission?: YesPlan: unclear source if not from abdominal processes noted above. ck TTE and repeat cultures. add empiric vanc and monitor for improvement. may need RENAE if repeat culx's positive. (4) Elevated troponin Is this a current diagnosis for this admission?: YesPlan: multiple cardiac risk factors but in setting of acute inflammatory and infectious process could simply be troponin leak from the stress of it all. trend troponins, f/u on echo for wall motion abnl's and start empiric full dose lovenox, ASA and continue home sotalol and high dose statin. may need cardio consult depending on trend and his clinical condition. (5) CAD (coronary artery disease) Qualifiers: Coronary Disease-Associated Artery/Lesion type: [place] artery Associated angina: angina presence unspecified Is this a current diagnosis for this admission?: YesPlan: clearly at risk for acute ischemia, treat as above. (6) Chronic anticoagulation Is this a current diagnosis for this admission?: YesPlan: hold coumadin for now since using full dose lovenox for possible ACS (7) Chronic atrial fibrillation Is this a current diagnosis for this admission?: YesPlan: rhythm and rate controlled on sotalol, continue same (8) HTN (hypertension) Qualifiers: Hypertension type: essential hypertension Qualified Code(s): I10 - Essential (primary) hypertension Is this a current diagnosis for this admission?: YesPlan: adjust home regimen to his clinical condition and renal function as it may fluctuate with the above illnesses (9) Hyperlipidemia Qualifiers: Hyperlipidemia type: unspecified Qualified Code(s): E78.5 - Hyperlipidemia, unspecified Is this a current diagnosis for this admission?: YesPlan: well controlled on current regimen, continue same - Time Time Spent: Greater than 70 Minutes Medications reviewed and adjusted accordingly: Yes Anticipated discharge: Home Within: within 72 hours - Inpatient Certification Based on my medical assessment, after consideration of the patient's comorbidities, presenting symptoms, or acuity I expect that the services needed warrant INPATIENT care.: Yes I certify that my determination is in accordance with my understanding of Medicare's requirements for reasonable and necessary INPATIENT services [42 CFR 412.3e].: Yes Medical Necessity: Significant Comorbidiites Make Outpatient Treatment Too Risky , Need For IV Fluids, Need For Continuous Telemetry Monitoring, Need for Pain Control, Need for IV Antibiotics, Need for Surgery, Risk of Complication if Not Cared For in Hospital
[2017-02-11] MEDS ORDERED: ASPIRIN 81 MG TABLET, ENT COATED PO ONE (12:00)
[2017-02-11] MEDS: DOCUSATE SODIUM 100 MG CAPSULE PO SCH ×2 (12:20→16:56)
[2017-02-11] MEDS: MORPHINE SULFATE 10 MG/ML INJ IV PRN (12:36)
[2017-02-11] MEDS: PANTOPRAZOLE SODIUM 40 MG VIAL IV SCH ×2 (12:41→21:41)
--- NOTE | 2017-02-11 12:42 | RADIOLOGY REPORT (SQ) ---
EXAM DESCRIPTION: NM HIDA SCAN WITH CCK COMPLETED DATE/TIME: 02/11/2017 12:25 pm REASON FOR STUDY: eval abd pain, flank pain, vomiting COMPARISON: None. RADIONUCLIDE AND DOSE: DOSAGE RADIONUCLIDE: 5.2 millicuries Tc99m Mebrofenin. DOSAGE CCK: 2.0 micrograms. DOSAGE MORPHINE: Not required. The route of agent administration: Intravenous TECHNIQUE: Serial imaging right upper quadrant up to 60 minutes following injection of radionuclide. CCK injected after gallbladder visualized. LIMITATIONS: None. FINDINGS: LIVER: Normal visualization without areas of photopenia. INTRA AND EXTRAHEPATIC BILE DUCTS: Normal accumulation of activity. GALLBLADDER: Normal visualization. Calculated Ejection Fraction of 8%. Below the normal value of 35% or greater. PHYSICAL RESPONSE: Patients presenting complaint was reproduced. OTHER: No other significant finding. IMPRESSION: LOW GALLBLADDER EJECTION FRACTION. EVIDENCE FOR BILIARY DYSKINESIS. NO CYSTIC OR COMMO N DUCT OBSTRUCTION. TECHNICAL DOCUMENTATION: JOB ID: [id number] [employer]- All Rights Reserved
[2017-02-11] MEDS: ERTAPENEM SODIUM 1 GM in NORMAL SALINE 50 ML IV SCH (14:37)
[2017-02-11] MEDS: ATORVASTATIN CALCIUM 80 MG TABLET PO SCH (21:41)
[2017-02-11] MEDS: VANCOMYCIN HCL 1,250 MG in DEXTROSE 5%-WATER 250 ML IV SCH (21:41)
[2017-02-11 22:31] LABS: ABSOLUTE LYMPHOCYTES (AUTO) 0.7 10^3/uL (0.5-4.7); ABSOLUTE MONOCYTES (AUTO) 0.7 10^3/uL (0.1-1.4); ABSOLUTE NEUT (AUTO) 6.4 10^3/uL (1.7-8.2); BASOPHILS % (AUTO) 0.4 % (0-2); HEMATOCRIT 42.7 % (37.9-51.0); HEMOGLOBIN 14.1 g/dL (13.5-17.0); HGB HCT DIFFERENCE -0.4; LYMPHOCYTES % (AUTO) 8.4 % (13-45); MEAN CORPUSCULAR HEMOGLOBIN 30.4 pg (27.0-33.4); MEAN CORPUSCULAR VOLUME 92 fl (80-97); MONOCYTES % (AUTO) 8.9 % (3-13); RED BLOOD COUNT 4.64 10^6/uL (4.35-5.55); RED CELL DISTRIBUTION WIDTH 14.7 % (11.5-14.0); SEGMENTED NEUTROPHILS % (AUTO) 82.3 % (42-78); WHITE BLOOD COUNT 7.8 10^3/uL (4.0-10.5)
[2017-02-11] MEDS: INSULIN GLARGINE,HUM.REC.ANLOG 300 UNIT/3 ML INSULN.PEN SUBCUT SCH (23:22)
[2017-02-11] MEDS: ENOXAPARIN SODIUM INJ 100 MG/1 ML DISP.SYRIN SUBCUT SCH (23:27)
[2017-02-12] MEDS: NORMAL SALINE 1000 ML 1,000 ML IV PRN (02:14)
[2017-02-12] MEDS: MORPHINE SULFATE 10 MG/ML INJ IV PRN (02:21)
[2017-02-12 06:15] LABS: ALANINE AMINOTRANSFERASE 37 U/L (21-72); ALBUMIN 3.1 g/dL (3.5-5.0); ALKALINE PHOSPHATASE 76 U/L (38-126); ANION GAP 11 (5-19); ASPARTATE AMINO TRANSFERASE 25 U/L (17-59); BILIRUBIN,DIRECT 0.6 mg/dL (0.0-0.4); BILIRUBIN,TOTAL 1.6 mg/dL (0.2-1.3); BLOOD UREA NITROGEN 24 mg/dL (7-20); C-REACTIVE PROTEIN 74.7 mg/L (<10.0); CALCIUM 8.5 mg/dL (8.4-10.2); CARBON DIOXIDE 24 mmol/L (22-30); CHLORIDE 104 mmol/L (98-107); CREATININE RESULT 0.94 mg/dL (0.52-1.25); GLUCOSE 366 mg/dL (75-110); LIPASE 32.9 U/L (23-300); PHOSPHORUS 2.4 mg/dL (2.5-4.5); POTASSIUM 3.8 mmol/L (3.6-5.0); SODIUM 139.4 mmol/L (137-145); TOTAL PROTEIN 6.1 g/dL (6.3-8.2)
[2017-02-12 06:36] LABS: ABSOLUTE LYMPHOCYTES (AUTO) 0.8 10^3/uL (0.5-4.7); ABSOLUTE MONOCYTES (AUTO) 0.6 10^3/uL (0.1-1.4); ABSOLUTE NEUT (AUTO) 4.6 10^3/uL (1.7-8.2); BASOPHILS % (AUTO) 0.2 % (0-2); HEMATOCRIT 41.5 % (37.9-51.0); HEMOGLOBIN 13.8 g/dL (13.5-17.0); HGB HCT DIFFERENCE -0.1; LYMPHOCYTES % (AUTO) 12.9 % (13-45); MEAN CORPUSCULAR HEMOGLOBIN 30.6 pg (27.0-33.4); MEAN CORPUSCULAR HGB CONC 33.4 g/dL (32.0-36.0); MEAN CORPUSCULAR VOLUME 92 fl (80-97); MONOCYTES % (AUTO) 10.5 % (3-13); RED BLOOD COUNT 4.52 10^6/uL (4.35-5.55); RED CELL DISTRIBUTION WIDTH 14.9 % (11.5-14.0); SEGMENTED NEUTROPHILS % (AUTO) 76.4 % (42-78)
[2017-02-12] MEDS: NITROGLYCERIN 5 MG (0.2 MG/HR) PATCH.TD24 TD SCH (09:39)
[2017-02-12] MEDS: ENOXAPARIN SODIUM INJ 100 MG/1 ML DISP.SYRIN SUBCUT SCH (09:39)
[2017-02-12] MEDS: DOCUSATE SODIUM 100 MG CAPSULE PO SCH ×2 (09:39→16:55)
[2017-02-12] MEDS: ASPIRIN 81 MG TABLET, ENT COATED PO SCH (09:39)
[2017-02-12] MEDS: VANCOMYCIN HCL 1,250 MG in DEXTROSE 5%-WATER 250 ML IV SCH ×2 (09:40→21:34)
[2017-02-12] MEDS: PANTOPRAZOLE SODIUM 40 MG VIAL IV SCH ×2 (09:40→21:37)
--- NOTE | 2017-02-12 10:14 | PDOC PROGRESS REPORT ---
Subjective Progress Note for:: 02/12/17 Subjective:: Patient is a 71-year-old male who has underlying diabetes and coronary artery disease. He presented to the hospital with a 2 day history of pain radiating from the mid epigastric region to his back, particularly, the right lower quadrant of his back. He has been having fevers for the last 4 days. The patient's admission lipase has been normal, but, there has been concern for pancreatitis secondary to peripancreatic stranding on CT scan. Surgery was consulted. HIDA scan ordered. There is no indication for surgery at present. Troponins have been mildly elevated which is felt to be a troponin leak and not associated with acute coronary syndrome. The patient appears to be developing sepsis. He has dropped his platelets. He is becoming more confused. 4 out of 4 blood cultures are positive for gram-positive cocci. He is clinical picture is concerning for endocarditis. Echocardiogram testing has been ordered stat. Cardiology has been consulted. Lovenox has been discontinued secondary to thrombocytopenia. Physical Exam Vital Signs: Temp Pulse Resp BP Pulse Ox 98.4 F 98 18 150/66 H 94 02/12/17 08:04 02/12/17 08:04 02/12/17 08:04 02/12/17 08:04 02/12/17 08:04 Intake & Output 02/11/17 02/12/17 02/13/17 06:59 06:59 06:59 Intake Total 2067 Balance 2067 Weight 97.2 kg General appearance: PRESENT: cooperative, mild distress, obese Head exam: PRESENT: atraumatic, normocephalic Eye exam: PRESENT: EOMI, PERRLA Mouth exam: PRESENT: dry mucosa, neck supple, tongue midline Teeth exam: PRESENT: edentulous Neck exam: PRESENT: full ROM Respiratory exam: PRESENT: crackles, unlabored Cardiovascular exam: PRESENT: RRR GI/Abdominal exam: PRESENT: hypoactive bowel sounds, tenderness Rectal exam: PRESENT: deferred Extremities exam: PRESENT: full ROM Neurological exam: PRESENT: alert, oriented to person, oriented to place, oriented to situation Skin exam: PRESENT: intact, normal color Additional comments: Appears to have dentures, but, his dentition is fairly normal. His neck is supple. I did not appreciate any lymphadenopathy. The patient is oriented to person and place but at times he appears to be confused. Overall, he appears to be septic with mild toxicity. His lungs do demonstrate bibasilar crackles. His abdominal exam is fairly benign. He does have tenderness only with very deep palpation over the mid epigastric region. The pain over his back again is on the lower right side of his back and along vertebrae L4 and L5. The skin is not mottled. I do not see any stigmata of endocarditis on his skin and particularly in the fingers such as [place] lesions or Osler's nodes. Results Laboratory Results: 02/12/17 05:32 02/12/17 05:32 02/11/17 02/12/17 02/12/17 22:15 05:32 05:32 WBC 7.8 6.0 RBC 4.64 4.52 Hgb 14.1 13.8 Hct 42.7 41.5 MCV 92 92 MCH 30.4 30.6 MCHC 33.0 33.4 RDW 14.7 H 14.9 H Plt Count 64 L 66 L Seg Neutrophils % 82.3 H 76.4 Lymphocytes % 8.4 L 12.9 L Monocytes % 8.9 10.5 Eosinophils % 0.0 0.0 Basophils % 0.4 0.2 Absolute Neutrophils 6.4 4.6 Absolute Lymphocytes 0.7 0.8 Absolute Monocytes 0.7 0.6 Absolute Eosinophils 0.0 0.0 Absolute Basophils 0.0 0.0 Sodium 139.4 Potassium 3.8 Chloride 104 Carbon Dioxide 24 Anion Gap 11 BUN 24 H Creatinine 0.94 Est GFR ( Amer) > 60 Est GFR (Non-Af Amer) > 60 Glucose 366 H Calcium 8.5 Phosphorus 2.4 L Magnesium 2.0 Total Bilirubin 1.6 H AST 25 ALT 37 Alkaline Phosphatase 76 C-Reactive Protein 74.7 H Total Protein 6.1 L Albumin 3.1 L Lipase 32.9 02/11/17 02/11/17 02/12/17 12:30 17:51 00:35 Troponin I 0.166 0.138 0.117 Impressions: Chest X-Ray 02/10/17 21:07 IMPRESSION: Probable mild vascular congestion. Head CT 02/10/17 23:07 IMPRESSION: NORMAL BRAIN CT WITHOUT CONTRAST. Abdomen/Pelvis CT 02/11/17 00:36 IMPRESSION: 1. Pancreatitis and/or gastritis pattern. Laboratory correlation recommended. 2. Cirrhosis pattern. 3. Splenomegaly. 4. Nonspecific pericholecystic fluid. Abdomen Ultrasound 02/11/17 03:01 IMPRESSION: No acute findings. Cirrhosis pattern. Hepatobiliary Scan Nuclear Medicine 02/11/17 05:36 IMPRESSION: LOW GALLBLADDER EJECTION FRACTION. EVIDENCE FOR BILIARY DYSKINESIS. NO CYSTIC OR COMMON DUCT OBSTRUCTION. Assessment & Plan - Diagnosis (1) Acute pancreatitis Qualifiers: Pancreatitis type: unspecified pancreatitis type Acute pancreatitis complication: unspecified Qualified Code(s): K85.90 - Acute pancreatitis without necrosis or infection, unspecified Is this a current diagnosis for this admission?: Yes (2) Altered mental status Qualifiers: Altered mental status type: unspecified Qualified Code(s): R41.82 - Altered mental status, unspecified Is this a current diagnosis for this admission?: YesPlan: Likely due to sepsis. Monitor closely. (3) Bacteremia Is this a current diagnosis for this admission?: YesPlan: Continue antibiotics for presumed bacteremia associated with endocarditis. (4) Chest pain Qualifiers: Chest pain type: unspecified Qualified Code(s): R07.9 - Chest pain, unspecified Is this a current diagnosis for this admission?: YesPlan: Chest pain is very nonspecific. I suspect underlying endocarditis and not acute coronary syndrome. Echocardiogram is pending. Cardiology has been consulted. Will continue medical management for coronary artery disease. However, we are holding anticoagulation secondary to thrombocytopenia. (5) Cholecystitis Is this a current diagnosis for this admission?: YesPlan: This may be associated with sepsis. 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 I do not think the patient has ACS. (9) Fever Qualifiers: Fever type: unspecified Qualified Code(s): R50.9 - Fever, unspecified (12) CAD (coronary artery disease) Qualifiers: Coronary Disease-Associated Artery/Lesion type: [place] artery Associated angina: angina presence unspecified Is this a current diagnosis for this admission?: YesPlan: Continue medical management for CAD but we are holding anticoagulation. (13) Chronic anticoagulation Is this a current diagnosis for this admission?: YesPlan: Hold for now due to thrombocytopenia and risk for bleeding. (14) Chronic atrial fibrillation Is this a current diagnosis for this admission?: YesPlan: Continue rate control agents. (15) Sepsis Qualifiers: Sepsis type: sepsis due to unspecified organism Qualified Code(s): A41.9 - Sepsis, unspecified organism Is this a current diagnosis for this admission?: YesPlan: Continue antibiotics and follow cultures. Await results of ECHO. - Time Critical Time spent with patient: 35 or more minutes Medications reviewed and adjusted accordingly: Yes - Inpatient Certification Medical Necessity: Need Close Monitoring Due to Risk of Patient Decompensation, Need For IV Fluids, Need for IV Antibiotics
--- NOTE | 2017-02-12 10:23 | EKG REPORT ---
SEVERITY:- ABNORMAL ECG - SINUS TACHYCARDIA ATRIAL PREMATURE COMPLEX INCOMPLETE RIGHT BUNDLE BRANCH BLOCK : Confirmed by: Too Herr MD 12-Feb-2017 10:23:10
[2017-02-12] MEDS: OXYCODONE-ACETAMINOPHEN 5-325 MG TABLET PO PRN ×3 (11:10→21:32)
[2017-02-12] MEDS: ERTAPENEM SODIUM 1 GM in NORMAL SALINE 50 ML IV SCH (11:10)
[2017-02-12] MEDS: INSULIN LISPRO 100 UNIT/ML 3 ML VIAL SUBCUT PRN ×3 (11:24→22:30)
[2017-02-12] MEDS ORDERED: SOTALOL HCL 80 MG TABLET PO ONE (11:45)
--- NOTE | 2017-02-12 20:13 | PROGRESS NOTE E ---
Progress Note NAME: LANCE TRIPLETT : 1945 AGE: 71Y DATE: 02/12/2017 ROOM: 335 SUBJECTIVE: The patient is sleepy but arousable and responds appropriately to questions. OBJECTIVE: VITAL SIGNS: Stable. The patient is afebrile. Temperature 97.2. Pulse 97. Blood pressure 108/96. LUNGS: Clear to auscultation bilaterally. HEART: Regular rhythm/rate. ABDOMEN: Obese, nondistended, nontender, positive bowel sounds. DIAGNOSTIC DATA: Review of labs: White blood cell count was 6, hemoglobin and hematocrit 15/41, platelet count 66,000. PT/INR 20 and 1.6 respectively. Electrolytes within normal limits. BUN and creatinine 24 and 0.9 respectively. Liver profile shows a slightly elevated bilirubin of 1.6 with a direct of 0.6. Normal AST, ALT, alkaline phosphatase. ASSESSMENT: 1. SLEEPINESS, MOST LIKELY SECONDARY TO LIVER ENCEPHALOPATHY. 2. CT SCAN AND ULTRASOUND OF THE LIVER REVEALED NODULARITY OF LIVER SURFACE PER CIRRHOSIS. 3. NORMAL GALLBLADDER ULTRASOUND AND NEGATIVE MOON MANEUVER. 4. ELEVATED LIVER PROFILE, ELEVATED BILIRUBIN MOST LIKELY SECONDARY TO THE PATIENT'S LIVER DISEASE; 5. BY HIS ADMISSION, THE PATIENT HAS A HISTORY OF HEAVY ALCOHOL ABUSE IN THE PAST. PLAN: 1. No acute General Surgery issues identified at this point. 2. I recommend to advance the patient's diet once his mental status improves. 3. Will send off; please, call us with questions. DICTATING PHYSICIAN: EZRA GOLDEN M.D. [id number] [id number] ID: [id number] JOB#: [id number] ACCT: [id number] cc:EZRA GOLDEN M.D. > MTDD
[2017-02-12] MEDS: SOTALOL HCL 80 MG TABLET PO SCH (21:31)
[2017-02-12] MEDS: ATORVASTATIN CALCIUM 80 MG TABLET PO SCH (21:31)
[2017-02-12] MEDS: INSULIN GLARGINE,HUM.REC.ANLOG 300 UNIT/3 ML INSULN.PEN SUBCUT SCH (22:32)
[2017-02-13] MEDS: OXYCODONE-ACETAMINOPHEN 5-325 MG TABLET PO PRN ×3 (04:07→17:31)
[2017-02-13] MEDS: NORMAL SALINE 1000 ML 1,000 ML IV PRN (04:08)
[2017-02-13 06:35] LABS: ALANINE AMINOTRANSFERASE 40 U/L (21-72); ALBUMIN 2.8 g/dL (3.5-5.0); ALKALINE PHOSPHATASE 67 U/L (38-126); ANION GAP 8 (5-19); ASPARTATE AMINO TRANSFERASE 31 U/L (17-59); BILIRUBIN,DIRECT 0.5 mg/dL (0.0-0.4); BILIRUBIN,TOTAL 1.2 mg/dL (0.2-1.3); BLOOD UREA NITROGEN 22 mg/dL (7-20); CALCIUM 8.2 mg/dL (8.4-10.2); CARBON DIOXIDE 26 mmol/L (22-30); CHLORIDE 107 mmol/L (98-107); CREATININE RESULT 0.79 mg/dL (0.52-1.25); GLUCOSE 321 mg/dL (75-110); POTASSIUM 3.9 mmol/L (3.6-5.0)
[2017-02-13 07:03] LABS: HEMATOCRIT 39.4 % (37.9-51.0); HEMOGLOBIN 13.3 g/dL (13.5-17.0); HGB HCT DIFFERENCE 0.5; MEAN CORPUSCULAR HEMOGLOBIN 30.9 pg (27.0-33.4); MEAN CORPUSCULAR HGB CONC 33.7 g/dL (32.0-36.0); MEAN CORPUSCULAR VOLUME 92 fl (80-97); RED CELL DISTRIBUTION WIDTH 14.6 % (11.5-14.0); WHITE BLOOD COUNT 5.4 10^3/uL (4.0-10.5)
--- NOTE | 2017-02-13 08:12 | EKG REPORT ---
SEVERITY:- ABNORMAL ECG - ATRIAL FIBRILLATION VENTRICULAR PREMATURE COMPLEX INCOMPLETE RIGHT BUNDLE BRANCH BLOCK : Confirmed by: Too Herr MD 13-Feb-2017 08:12:25
[2017-02-13] MEDS: INSULIN LISPRO 100 UNIT/ML 3 ML VIAL SUBCUT PRN ×3 (08:17→17:23)
[2017-02-13] MEDS: VANCOMYCIN HCL 1,250 MG in DEXTROSE 5%-WATER 250 ML IV SCH (10:05)
[2017-02-13] MEDS: DOCUSATE SODIUM 100 MG CAPSULE PO SCH ×2 (10:05→17:25)
[2017-02-13] MEDS: ASPIRIN 81 MG TABLET, ENT COATED PO SCH (10:09)
[2017-02-13] MEDS: NITROGLYCERIN 5 MG (0.2 MG/HR) PATCH.TD24 TD SCH (10:10)
[2017-02-13] MEDS: SOTALOL HCL 80 MG TABLET PO SCH (10:10)
[2017-02-13] MEDS: PANTOPRAZOLE SODIUM 40 MG VIAL IV SCH (10:14)
--- NOTE | 2017-02-13 14:22 | PDOC DISCHARGE SUMMARY ---
General - Admit/Disc Date/PCP Admission Date/Primary Care Provider: 02/11/17 08:44 JAK ENGEL MD Discharge Date: 02/13/17 - Discharge Diagnosis (1) Altered mental status Is this a current diagnosis for this admission?: Yes (2) Bacteremia Is this a current diagnosis for this admission?: Yes (3) Chest pain Is this a current diagnosis for this admission?: Yes (4) Diabetes Is this a current diagnosis for this admission?: Yes (5) Elevated troponin Is this a current diagnosis for this admission?: Yes (9) CAD (coronary artery disease) Is this a current diagnosis for this admission?: Yes (10) Chronic anticoagulation Is this a current diagnosis for this admission?: Yes (11) Chronic atrial fibrillation Is this a current diagnosis for this admission?: Yes (12) Sepsis Is this a current diagnosis for this admission?: Yes (14) Elevated troponin I level Is this a current diagnosis for this admission?: Yes (15) Herniated disc Is this a current diagnosis for this admission?: Yes - Additional Information Resuscitation Status: Full Code Discharge Diet: Diabetic - Low fat, low residue Home Medications: Budesonide/Formoterol Fumarate [Symbicort HFA 160-4.5 mcg Inhaler 6 gm] 2 puff IH Q12 02/11/17 Carvedilol [Coreg 6.25 mg Tablet] 3.125 mg PO Q12 02/11/17 Ferrous Sulfate [Feosol 325 mg Tablet] 325 mg PO DAILY 02/11/17 Gabapentin [Neurontin] 600 mg PO BID 02/11/17 Insulin Detemir [Levemir Insulin 100 units/mL] 26 unit SUBCUT QAM 02/11/17 Insulin Detemir [Levemir Insulin 100 units/mL] 44 unit SUBCUT QHS 02/11/17 Insulin Lispro [Humalog Insulin (Lispro) 100 unit/mL] 6 unit SUBCUT AC 02/11/17 Magnesium Oxide [Mag-Ox 400 mg Tablet] 800 mg PO BID 02/11/17 Acetaminophen [Tylenol 325 mg Tablet] 650 mg PO Q4HP PRN tablet 02/13/17 Aspirin [Ecotrin 81 mg EC Tablet] 81 mg PO DAILY tabec 02/13/17 Atorvastatin Calcium [Lipitor 80 mg Tablet] 80 mg PO QHS tablet 02/13/17 Dextrose [Glutose 40% Gel 15 gm Tube] 15 gm PO PRN PRN tube 02/13/17 Dextrose [Glutose 40% Gel 15 gm Tube] 30 gm PO PRN PRN tube 02/13/17 Docusate Sodium [Colace 100 mg Capsule] 100 mg PO BID capsule 02/13/17 Glucagon,Human Recombinant [Glucagen Inj 1 mg Vial] 1 mg IM PRN PRN vial Insulin Lispro [Humalog Insulin (Lispro) 100 unit/mL] 0 - 12 unit SUBCUT ACHSP PRN unit 02/13/17 Ipratropium/Albuterol Sulfate [Duoneb 3 ml Ampul] 3 ml NEB RTQ6HP PRN vial.neb 02/13/17 Magnesium Hydroxide [Milk of Magnesia 30 ml Udcup] 30 ml PO HSP PRN udc Morphine Sulfate [Morphine 10 mg/ml Inj] 2 mg IV Q4HP PRN vial 02/13/17 Nitroglycerin [Nitro-Dur 5 mg (0.2 mg/Hr) Transdermal Patch] 1 each TD DAILY patch.td24 02/13/17 Normal Saline [Saline Flush 2.5 ml Monoject Prefil Syrin] 2.5 ml IV Q8 disp.syrin 02/13/17 Oxycodone HCl/Acetaminophen [Percocet 5-325 mg Tablet] 1 tab PO Q4HP PRN tablet 02/13/17 Sotalol HCl [Betapace 80 mg Tablet] 80 mg PO Q12 tablet 02/13/17 History of Present Illness Patient complains of: Patient developed sudden onset of back pain while traveling with his family followed by a change in mentation. History of Present Illness: LANCE TRIPLETT is a 71 year old male presents to the ED from home with 2d hx of sharp, stabbing constant pain in his mid back radiating forward into his abdomen with asct'd with nausea, anorexia, fevers and chills but no change in bowel or bladder habits, SOA, palpitations, arm/jaw pain, BHATT, dizziness, orthopnea or PND or swelling of his legs. never had anything like this before. no sick contacts. has hx of ASCVD with CABG 3v and stents to [place] arteries previously, DM, HTN, hyperlipidemia and chronic afib controlled on sotalol and coumadin. no tobacco or ETOH use. no new meds or OTC remedies and denies chronic NSAID use including BC or Goody's powders. eval in ED shows findings on ct scan concerning for acute pancreatitis and possible cholecystitis but with normal lipase and LFTs aside from alk phos. surgery consulted and ordered HIDA scan, no surgery indicated as yet. we were asked to admit for further eval and management. Hospital Course Hospital Course: Patient was admitted with a presumptive diagnosis of sepsis secondary to pancreatitis. However, the patient's clinical exam is not consistent with pancreatitis as he has no abdominal pain and his lipase and amylase have been normal. General surgery was consulted on admission. Secondary to the abnormal findings on the abdominal and pelvic CT scan a HIDA scan was ordered. This shows dyskinesia but no evidence of acute cholecystitis. General surgery has signed off. Shortly after the patient was admitted we were notified that all 4 blood cultures were positive for gram-positive cocci. This has been identified as a staph species. It is not Staphylococcus aureus. The patient was initially placed on Invanz and vancomycin. Today, he has been changed to IV nafcillin. The patient did have a mildly positive cardiac enzymes on admission. This is likely due to sepsis. Cardiology was consulted primarily to evaluate the patient for bacterial endocarditis. He did have an echocardiogram today. The verbal report demonstrates thin pliable valve leaflets without evidence of vegetation. Again, the final interpretation is pending at the time of this dictation. The hematology oncology consultant does not feel that the patient clinically has endocarditis, but, per our last conversation he will be obligated to therapy for at least 4 weeks. The family has requested transfer to [facility] today. The source of the patient's Staphylococcus aureus is unknown. He has not had any recent instrumentation. He has not had any recent procedures. He has not had any recent traumatic injuries. I cannot find a source on physical exam or our imaging studies. I am concerned about the patient's back. He has a normal neurological exam at this time, but, he may have discitis or osteomyelitis. Into the findings on the summary the patient was noted to have moderate L1-L2 vacuum disc herniation and a small L3-L4 desiccated disc bulge. I attempted an MRI scan but radiology feels it is inappropriate to image the patient is he has had a coronary artery bypass graft and had sternal wires. He also had a pacemaker placed in 2016. Presumably, this should be MRI compatible, but, the patient is unable to undergo MRI scanning here. The patient may benefit from consultation with infectious disease. Patient has evidence of cirrhosis. He used to drink heavily but has not had any alcohol in 45 years. 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 This will need further evaluation. Physical Exam Vital Signs: Temp Pulse Resp BP Pulse Ox 98.4 F 67 18 116/66 97 02/13/17 11:37 02/13/17 11:37 02/13/17 11:37 02/13/17 11:37 02/13/17 11:37 Intake & Output 02/12/17 02/13/17 02/14/17 06:59 06:59 06:59 Intake Total 2068 3162 200 Output Total 770 500 Balance 2068 2392 -300 Weight 97.2 kg 98.5 kg General appearance: PRESENT: no acute distress, cooperative Head exam: PRESENT: atraumatic Eye exam: PRESENT: EOMI Mouth exam: PRESENT: neck supple Respiratory exam: PRESENT: clear to auscultation yobany Cardiovascular exam: PRESENT: irregular rhythm GI/Abdominal exam: PRESENT: normal bowel sounds, soft Rectal exam: PRESENT: deferred Musculoskeletal exam: PRESENT: full ROM, normal inspection, tenderness Neurological exam: PRESENT: alert, awake Psychiatric exam: PRESENT: appropriate affect Results Laboratory Results: 02/13/17 05:15 02/13/17 05:15 02/13/17 02/13/17 05:15 05:15 WBC 5.4 RBC 4.30 L Hgb 13.3 L Hct 39.4 MCV 92 MCH 30.9 MCHC 33.7 RDW 14.6 H Plt Count 63 L Sodium 141.0 Potassium 3.9 Chloride 107 Carbon Dioxide 26 Anion Gap 8 BUN 22 H Creatinine 0.79 Est GFR ( Amer) > 60 Est GFR (Non-Af Amer) > 60 Glucose 321 H Calcium 8.2 L Total Bilirubin 1.2 AST 31 ALT 40 Alkaline Phosphatase 67 Total Protein 6.0 L Albumin 2.8 L 02/11/17 12:40 Blood Blood Culture - Final Staphylococcus Aureus 02/11/17 12:30 Blood Blood Culture - Final Staphylococcus Aureus 02/11/17 02/11/17 02/12/17 12:30 17:51 00:35 Troponin I 0.166 0.138 0.117 Impressions: Chest X-Ray 02/10/17 21:07 IMPRESSION: Probable mild vascular congestion. Head CT 02/10/17 23:07 IMPRESSION: NORMAL BRAIN CT WITHOUT CONTRAST. Abdomen/Pelvis CT 02/11/17 00:36 IMPRESSION: 1. Pancreatitis and/or gastritis pattern. Laboratory correlation recommended. 2. Cirrhosis pattern. 3. Splenomegaly. 4. Nonspecific pericholecystic fluid. Abdomen Ultrasound 02/11/17 03:01 IMPRESSION: No acute findings. Cirrhosis pattern. Hepatobiliary Scan Nuclear Medicine 02/11/17 05:36 IMPRESSION: LOW GALLBLADDER EJECTION FRACTION. EVIDENCE FOR BILIARY DYSKINESIS. NO CYSTIC OR COMMON DUCT OBSTRUCTION. Plan Discharge Plan: Patient and family request I am making arrangements to transfer the patient to [facility]. The patient is normally seen by the heart center there for any cardiac issues. He is currently seeing both Drs. Radha Paulino and Anupam Batres for his cardiac issues. During this hospitalization we did not continue the patient's Coumadin secondary to his severe thrombocytopenia which is likely related to his sepsis. Upon transfer, the patient will continue to receive nafcillin intravenously every 4 hours. Time Spent: Greater than 30 Minutes
[2017-02-13] MEDS: NAFCILLIN SODIUM 2 GM in DEXTROSE 5%-WATER 100 ML IV SCH ×2 (14:59→17:22)
--- NOTE | 2017-02-13 17:41 | XCELERA REPORT ---
[address] [address] Transthoracic Echocardiogram Report Name: LANCE TRIPLETT Age: 71 yrs Gender: Male : 1945 Patient Status: Inpatient Patient Location: [id number]\S\335\S\A Study Date: 02/13/2017 09:22 AM Height: 68 in Weight: 220 lb BSA: 2.1 m2 Procedure: A two-dimensional transthoracic echocardiogram with color flow and Doppler was performed. Study Quality: Technically suboptimal. The study was technically difficult with many images being suboptimal in quality. Reason For Study: ENDOCARDITIS, / ELEVATED TROPONINS History: ENDOCARDITIS, / ELEVATED TROPONINS. Ordering Physician: MICHELLE BLOCK Performed By: Gabriela Velazquez Interpretation Summary No defenite vegetations seen, but recommend RENAE , if clinical suspicion is high. The left ventricle is normal in size. There is normal left ventricular wall thickness. LV EF is 55% Left ventricular systolic function is low normal. The left ventricular wall motion is normal. The right ventricle is not well visualized secondary to technical limitations There is a pacemaker lead in the right ventricle. The left atrium is borderline dilated. There is no evidence of mitral valve prolapse. There is no mitral valve stenosis. There is a trace amount of mitral regurgitation There is no aortic valve stenosis There is no LVOT obstruction. No aortic regurgitation is present. There is no tricuspid stenosis. There is a mild amount of tricuspid regurgitation Right ventricular systolic pressure is normal. RVSP is 22 mm of Hg , with RA mean of 5. There is no pericardial effusion. No defenite vegetations seen, but recommend RENAE , if clinical suspicion is high. MMode/2D Measurements \T\ Calculations RVDd: 2.8 cm LVIDd: 4.4 cm FS: 20.3 % Ao root diam: 3.0 cm IVSd: 1.0 cm LVIDs: 3.5 cm EDV(Teich): 89.6 ml LVPWd: 1.1 cm ESV(Teich): 52.3 ml Ao root area: 7.3 cm2 EF(Teich): 41.7 % LA dimension: 4.1 cm LVOT diam: 2.0 cm LVOT area: 3.0 cm2 Doppler Measurements \T\ Calculations MV E max camryn: MV P1/2t max camryn: Ao V2 max: LV V1 max P.3 cm/sec 94.3 cm/sec 125.1 cm/sec 3.0 mmHg MV P1/2t: 64.3 msec Ao max PG: LV V1 max: MVA(P1/2t): 3.4 cm2 6.3 mmHg 86.9 cm/sec MV dec slope: ROSIE(V,D): 2.1 cm2 429.7 cm/sec2 PA V2 max: TR max camryn: RAP systole: 78.0 cm/sec 230.8 cm/sec 10.0 mmHg PA max PG: TR max P.3 mmHg 2.4 mmHg RVSP(TR): 31.3 mmHg Left Ventricle The left ventricle is normal in size. There is normal left ventricular wall thickness. LV EF is 55%. Left ventricular systolic function is low normal. LV diastolic function could not be adequately assessed due to atrial fibrilation. The left ventricular wall motion is normal. There is no thrombus. There is no ventricular septal defect visualized. Right Ventricle The right ventricle is grossly normal size. The right ventricle is not well visualized secondary to technical limitations. There is a pacemaker lead in the right ventricle. Atria The right atrium is normal. The left atrium is borderline dilated. The interatrial septum is intact with no evidence for an atrial septal defect. Mitral Valve There is no evidence of mitral valve prolapse. There is no vegetation seen on the mitral valve. There is no mitral valve stenosis. There is a trace amount of mitral regurgitation. Aortic Valve There is no aortic valvular vegetation. There is no aortic valve stenosis. There is no LVOT obstruction. No aortic regurgitation is present. Tricuspid Valve There is no tricuspid stenosis. There is a mild amount of tricuspid regurgitation. Right ventricular systolic pressure is normal. RVSP is 22 mm of Hg , with RA mean of 5. Pulmonic Valve There is no pulmonic valvular stenosis. There is a trace amount of pulmonic regurgitation. Great Vessels The aortic root is not well visualized. Effusions There is no pericardial effusion. : MICHELLE BLOCK > Yanna Wilson
[2017-02-13 18:05] VITALS: BP 169/61
== END 2017-02-13 17:45 | disposition short-term general hospital (02) | DRG 872 ==
LOC: ER 21:00 → UNDOADMIN 02-11 07:48 → EH 02-11 07:48 → 3S 02-11 09:38 → EH 02-11 09:38
PROVIDERS: ADMIT Family Medicine; ATTEND Family Medicine
DX: A41.89 Other specified sepsis (principal); K82.8 Other specified diseases of gallbladder; R07.9 Chest pain, unspecified; I48.2 Chronic atrial fibrillation; I25.10 Atherosclerotic heart disease of native coronary artery without angina pectoris; K74.60 Unspecified cirrhosis of liver; K75.81 Nonalcoholic steatohepatitis (NASH); E11.9 Type 2 diabetes mellitus without complications; M51.26 Other intervertebral disc displacement, lumbar region; Z79.01 Long term (current) use of anticoagulants; Z79.4 Long term (current) use of insulin; Z79.899 Other long term (current) drug therapy; Z95.1 Presence of aortocoronary bypass graft; I25.2 Old myocardial infarction; Z86.73 Personal history of transient ischemic attack (TIA), and cerebral infarction without residual deficits
CPT/HCPCS: 36415; 70450; 71010; 74177; 76705; 78227; 80053; 80061; 80202; 81001; 82150; 82803; 82962; 83036; 83605; 83690; 83735; 84100; 84484; 85025; 85027; 85610; 86140; 87040; 87077; 87086; 87186; 93005; 93010; 93306; 96361; 96365; 96375; 99285; A9537; J1335; J1650; J1815; J2270; J2405; J2543; J2805; J3370; J3490; J7030; J7060; Q9969; S0032; S0164

== ENCOUNTER → 2017-02-27 | Outpatient (CLI) | payer MEDICARE, BC ==
[2017-02-27 11:55] LABS: ABSOLUTE BASOPHILS # (AUTO) 0.1 10^3/uL (0.0-0.2); ABSOLUTE EOSINOPHILS # (AUTO) 0.1 10^3/uL (0.0-0.6); ABSOLUTE LYMPHOCYTES (AUTO) 2.1 10^3/uL (0.5-4.7); ABSOLUTE MONOCYTES (AUTO) 0.7 10^3/uL (0.1-1.4); BASOPHILS % (AUTO) 0.9 % (0-2); EOSINOPHILS % (AUTO) 1.6 % (0-6); HEMATOCRIT 38.1 % (37.9-51.0); HEMOGLOBIN 12.8 g/dL (13.5-17.0); HGB HCT DIFFERENCE 0.3; LYMPHOCYTES % (AUTO) 35.6 % (13-45); MEAN CORPUSCULAR HEMOGLOBIN 31.2 pg (27.0-33.4); MEAN CORPUSCULAR HGB CONC 33.5 g/dL (32.0-36.0); MEAN CORPUSCULAR VOLUME 93 fl (80-97); MONOCYTES % (AUTO) 11.1 % (3-13); RED BLOOD COUNT 4.09 10^6/uL (4.35-5.55); RED CELL DISTRIBUTION WIDTH 17.2 % (11.5-14.0); SEGMENTED NEUTROPHILS % (AUTO) 50.8 % (42-78); WHITE BLOOD COUNT 5.9 10^3/uL (4.0-10.5)
[2017-02-27 12:00] LABS: PROTHROMBIN TIME 16.9 SEC (11.4-15.4)
[2017-02-27 12:26] LABS: ALANINE AMINOTRANSFERASE 24 U/L (21-72); ALBUMIN 3.9 g/dL (3.5-5.0); ALKALINE PHOSPHATASE 144 U/L (38-126); ANION GAP 13 (5-19); ASPARTATE AMINO TRANSFERASE 54 U/L (17-59); BILIRUBIN,DIRECT 0.8 mg/dL (0.0-0.4); BILIRUBIN,TOTAL 1.6 mg/dL (0.2-1.3); BLOOD UREA NITROGEN 14 mg/dL (7-20); C-REACTIVE PROTEIN 5.3 mg/L (<10.0); CALCIUM 9.2 mg/dL (8.4-10.2); CARBON DIOXIDE 28 mmol/L (22-30); CHLORIDE 99 mmol/L (98-107); CREATININE RESULT 0.87 mg/dL (0.52-1.25); GLUCOSE 162 mg/dL (75-110); POTASSIUM 4.5 mmol/L (3.6-5.0); SODIUM 140.1 mmol/L (137-145); TOTAL PROTEIN 8.9 g/dL (6.3-8.2)
[2017-02-27 12:38] LABS: ERYTHROCYTE SEDIMENTATION RATE 99 mm/hr (0-20)
== END ==
LOC: OD 10:05
PROVIDERS: ATTEND Internal Medicine
DX: E11.9 Type 2 diabetes mellitus without complications (principal); I48.0 Paroxysmal atrial fibrillation; Z79.01 Long term (current) use of anticoagulants; I25.10 Atherosclerotic heart disease of native coronary artery without angina pectoris; Z79.899 Other long term (current) drug therapy; A41.01 Sepsis due to Methicillin susceptible Staphylococcus aureus
CPT/HCPCS: 36415; 80053; 85025; 85610; 85652; 86140

== ENCOUNTER → 2017-03-06 | Outpatient (CLI) | payer MEDICARE, BC ==
[2017-03-06 11:49] LABS: ABSOLUTE EOSINOPHILS # (AUTO) 0.2 10^3/uL (0.0-0.6); ABSOLUTE LYMPHOCYTES (AUTO) 1.9 10^3/uL (0.5-4.7); ABSOLUTE MONOCYTES (AUTO) 0.4 10^3/uL (0.1-1.4); ABSOLUTE NEUT (AUTO) 1.7 10^3/uL (1.7-8.2); BASOPHILS % (AUTO) 0.7 % (0-2); EOSINOPHILS % (AUTO) 3.8 % (0-6); HEMATOCRIT 36.8 % (37.9-51.0); HEMOGLOBIN 12.6 g/dL (13.5-17.0); LYMPHOCYTES % (AUTO) 45.2 % (13-45); MEAN CORPUSCULAR HEMOGLOBIN 32.5 pg (27.0-33.4); MEAN CORPUSCULAR HGB CONC 34.2 g/dL (32.0-36.0); MEAN CORPUSCULAR VOLUME 95 fl (80-97); MONOCYTES % (AUTO) 9.4 % (3-13); RED BLOOD COUNT 3.86 10^6/uL (4.35-5.55); RED CELL DISTRIBUTION WIDTH 16.5 % (11.5-14.0); SEGMENTED NEUTROPHILS % (AUTO) 40.9 % (42-78); WHITE BLOOD COUNT 4.3 10^3/uL (4.0-10.5)
[2017-03-06 11:59] LABS: PROTHROMBIN TIME 19.2 SEC (11.4-15.4)
[2017-03-06 12:28] LABS: ALANINE AMINOTRANSFERASE 24 U/L (21-72); ALBUMIN 4.1 g/dL (3.5-5.0); ALKALINE PHOSPHATASE 194 U/L (38-126); ANION GAP 14 (5-19); ASPARTATE AMINO TRANSFERASE 45 U/L (17-59); BILIRUBIN,DIRECT 0.4 mg/dL (0.0-0.4); BILIRUBIN,TOTAL 0.9 mg/dL (0.2-1.3); BLOOD UREA NITROGEN 14 mg/dL (7-20); CARBON DIOXIDE 28 mmol/L (22-30); CHLORIDE 100 mmol/L (98-107); CREATININE RESULT 0.85 mg/dL (0.52-1.25); GLUCOSE 168 mg/dL (75-110); POTASSIUM 4.4 mmol/L (3.6-5.0); TOTAL PROTEIN 9.1 g/dL (6.3-8.2)
[2017-03-06 12:29] LABS: ERYTHROCYTE SEDIMENTATION RATE 80 mm/hr (0-20)
[2017-03-06 12:35] LABS: C-REACTIVE PROTEIN < 5.0 mg/L (<10.0)
== END ==
LOC: OD 10:04
PROVIDERS: ATTEND Internal Medicine
DX: E11.9 Type 2 diabetes mellitus without complications (principal); A41.01 Sepsis due to Methicillin susceptible Staphylococcus aureus; I48.0 Paroxysmal atrial fibrillation; I25.10 Atherosclerotic heart disease of native coronary artery without angina pectoris; Z79.01 Long term (current) use of anticoagulants; Z79.899 Other long term (current) drug therapy
CPT/HCPCS: 36415; 80053; 85025; 85610; 85652; 86140

== ENCOUNTER → 2017-03-13 | Outpatient (CLI) | payer MEDICARE, BC ==
[2017-03-13 12:12] LABS: ABSOLUTE EOSINOPHILS # (AUTO) 0.1 10^3/uL (0.0-0.6); ABSOLUTE LYMPHOCYTES (AUTO) 1.4 10^3/uL (0.5-4.7); ABSOLUTE MONOCYTES (AUTO) 0.3 10^3/uL (0.1-1.4); ABSOLUTE NEUT (AUTO) 1.4 10^3/uL (1.7-8.2); BASOPHILS % (AUTO) 0.4 % (0-2); EOSINOPHILS % (AUTO) 2.5 % (0-6); HEMATOCRIT 34.6 % (37.9-51.0); HGB HCT DIFFERENCE 1.4; LYMPHOCYTES % (AUTO) 42.5 % (13-45); MEAN CORPUSCULAR HEMOGLOBIN 33.5 pg (27.0-33.4); MEAN CORPUSCULAR HGB CONC 34.6 g/dL (32.0-36.0); MEAN CORPUSCULAR VOLUME 97 fl (80-97); MONOCYTES % (AUTO) 9.7 % (3-13); RED BLOOD COUNT 3.58 10^6/uL (4.35-5.55); RED CELL DISTRIBUTION WIDTH 16.7 % (11.5-14.0); SEGMENTED NEUTROPHILS % (AUTO) 44.9 % (42-78); WHITE BLOOD COUNT 3.2 10^3/uL (4.0-10.5)
[2017-03-13 12:39] LABS: ALANINE AMINOTRANSFERASE 24 U/L (21-72); ALBUMIN 3.4 g/dL (3.5-5.0); ALKALINE PHOSPHATASE 166 U/L (38-126); ANION GAP 11 (5-19); ASPARTATE AMINO TRANSFERASE 53 U/L (17-59); BILIRUBIN,DIRECT 0.4 mg/dL (0.0-0.4); BILIRUBIN,TOTAL 0.8 mg/dL (0.2-1.3); BLOOD UREA NITROGEN 12 mg/dL (7-20); CALCIUM 8.3 mg/dL (8.4-10.2); CARBON DIOXIDE 28 mmol/L (22-30); CHLORIDE 102 mmol/L (98-107); GLUCOSE 139 mg/dL (75-110); POTASSIUM 3.6 mmol/L (3.6-5.0); TOTAL PROTEIN 7.5 g/dL (6.3-8.2)
[2017-03-13 12:46] LABS: C-REACTIVE PROTEIN < 5.0 mg/L (<10.0)
[2017-03-13 12:50] LABS: ERYTHROCYTE SEDIMENTATION RATE 41 mm/hr (0-20)
== END ==
LOC: OD 11:03
PROVIDERS: ATTEND Internal Medicine
DX: E11.9 Type 2 diabetes mellitus without complications (principal); I25.10 Atherosclerotic heart disease of native coronary artery without angina pectoris; I48.0 Paroxysmal atrial fibrillation; Z79.01 Long term (current) use of anticoagulants; Z79.899 Other long term (current) drug therapy
CPT/HCPCS: 36415; 80053; 85025; 85652; 86140

== ENCOUNTER → 2017-03-20 | Outpatient (CLI) | payer MEDICARE, BC ==
[2017-03-20 11:38] LABS: ABSOLUTE EOSINOPHILS # (AUTO) 0.1 10^3/uL (0.0-0.6); ABSOLUTE LYMPHOCYTES (AUTO) 1.5 10^3/uL (0.5-4.7); ABSOLUTE MONOCYTES (AUTO) 0.3 10^3/uL (0.1-1.4); ABSOLUTE NEUT (AUTO) 1.7 10^3/uL (1.7-8.2); BASOPHILS % (AUTO) 0.5 % (0-2); HEMATOCRIT 39.4 % (37.9-51.0); HEMOGLOBIN 13.3 g/dL (13.5-17.0); HGB HCT DIFFERENCE 0.5; LYMPHOCYTES % (AUTO) 40.4 % (13-45); MEAN CORPUSCULAR HEMOGLOBIN 32.8 pg (27.0-33.4); MEAN CORPUSCULAR HGB CONC 33.8 g/dL (32.0-36.0); MEAN CORPUSCULAR VOLUME 97 fl (80-97); MONOCYTES % (AUTO) 9.2 % (3-13); RED BLOOD COUNT 4.05 10^6/uL (4.35-5.55); RED CELL DISTRIBUTION WIDTH 15.7 % (11.5-14.0); SEGMENTED NEUTROPHILS % (AUTO) 46.9 % (42-78); WHITE BLOOD COUNT 3.6 10^3/uL (4.0-10.5)
[2017-03-20 11:42] LABS: PROTHROMBIN TIME 20.4 SEC (11.4-15.4)
[2017-03-20 12:05] LABS: ALANINE AMINOTRANSFERASE 21 U/L (21-72); ALBUMIN 4.2 g/dL (3.5-5.0); ALKALINE PHOSPHATASE 197 U/L (38-126); ANION GAP 12 (5-19); ASPARTATE AMINO TRANSFERASE 65 U/L (17-59); BILIRUBIN,DIRECT 0.5 mg/dL (0.0-0.4); BILIRUBIN,TOTAL 0.8 mg/dL (0.2-1.3); BLOOD UREA NITROGEN 18 mg/dL (7-20); CALCIUM 9.1 mg/dL (8.4-10.2); CARBON DIOXIDE 25 mmol/L (22-30); CHLORIDE 102 mmol/L (98-107); CREATININE RESULT 0.85 mg/dL (0.52-1.25); GLUCOSE 251 mg/dL (75-110); POTASSIUM 5.3 mmol/L (3.6-5.0); TOTAL PROTEIN 8.8 g/dL (6.3-8.2)
[2017-03-20 12:07] LABS: C-REACTIVE PROTEIN < 5.0 mg/L (<10.0)
[2017-03-20 12:15] LABS: ERYTHROCYTE SEDIMENTATION RATE 42 mm/hr (0-20)
== END ==
LOC: OD 09:46
PROVIDERS: ATTEND Internal Medicine
DX: E11.9 Type 2 diabetes mellitus without complications (principal); I48.0 Paroxysmal atrial fibrillation; Z79.01 Long term (current) use of anticoagulants; I25.10 Atherosclerotic heart disease of native coronary artery without angina pectoris; Z79.899 Other long term (current) drug therapy
CPT/HCPCS: 36415; 80053; 85025; 85610; 85652; 86140

== ENCOUNTER → 2017-03-27 | Outpatient (CLI) | payer MEDICARE, BC ==
[2017-03-27 11:16] LABS: PROTHROMBIN TIME 20.7 SEC (11.4-15.4)
[2017-03-27 11:17] LABS: ABSOLUTE EOSINOPHILS # (AUTO) 0.1 10^3/uL (0.0-0.6); ABSOLUTE LYMPHOCYTES (AUTO) 1.3 10^3/uL (0.5-4.7); ABSOLUTE MONOCYTES (AUTO) 0.4 10^3/uL (0.1-1.4); ABSOLUTE NEUT (AUTO) 1.5 10^3/uL (1.7-8.2); BASOPHILS % (AUTO) 0.6 % (0-2); EOSINOPHILS % (AUTO) 3.4 % (0-6); HEMATOCRIT 39.8 % (37.9-51.0); HEMOGLOBIN 13.6 g/dL (13.5-17.0); LYMPHOCYTES % (AUTO) 38.9 % (13-45); MEAN CORPUSCULAR HEMOGLOBIN 33.3 pg (27.0-33.4); MEAN CORPUSCULAR HGB CONC 34.2 g/dL (32.0-36.0); MEAN CORPUSCULAR VOLUME 98 fl (80-97); MONOCYTES % (AUTO) 11.2 % (3-13); RED BLOOD COUNT 4.08 10^6/uL (4.35-5.55); RED CELL DISTRIBUTION WIDTH 14.7 % (11.5-14.0); SEGMENTED NEUTROPHILS % (AUTO) 45.9 % (42-78); WHITE BLOOD COUNT 3.3 10^3/uL (4.0-10.5)
[2017-03-27 11:45] LABS: ALANINE AMINOTRANSFERASE 27 U/L (21-72); ALBUMIN 4.1 g/dL (3.5-5.0); ALKALINE PHOSPHATASE 203 U/L (38-126); ANION GAP 11 (5-19); ASPARTATE AMINO TRANSFERASE 47 U/L (17-59); BILIRUBIN,DIRECT 0.5 mg/dL (0.0-0.4); BILIRUBIN,TOTAL 0.8 mg/dL (0.2-1.3); BLOOD UREA NITROGEN 20 mg/dL (7-20); CALCIUM 9.5 mg/dL (8.4-10.2); CARBON DIOXIDE 29 mmol/L (22-30); CHLORIDE 99 mmol/L (98-107); CREATININE RESULT 0.84 mg/dL (0.52-1.25); GLUCOSE 307 mg/dL (75-110); POTASSIUM 4.6 mmol/L (3.6-5.0); TOTAL PROTEIN 8.5 g/dL (6.3-8.2)
[2017-03-27 11:48] LABS: C-REACTIVE PROTEIN < 5.0 mg/L (<10.0)
[2017-03-27 12:06] LABS: ERYTHROCYTE SEDIMENTATION RATE 39 mm/hr (0-20)
== END ==
LOC: OD 09:51
PROVIDERS: ATTEND Internal Medicine
DX: E11.9 Type 2 diabetes mellitus without complications (principal); A41.01 Sepsis due to Methicillin susceptible Staphylococcus aureus; I48.0 Paroxysmal atrial fibrillation; Z79.01 Long term (current) use of anticoagulants; I25.10 Atherosclerotic heart disease of native coronary artery without angina pectoris; Z79.899 Other long term (current) drug therapy
CPT/HCPCS: 36415; 80053; 85025; 85610; 85652; 86140

== ENCOUNTER → 2017-04-03 | Outpatient (CLI) | payer MEDICARE, BC ==
[2017-04-03 11:29] LABS: ABSOLUTE EOSINOPHILS # (AUTO) 0.2 10^3/uL (0.0-0.6); ABSOLUTE LYMPHOCYTES (AUTO) 1.6 10^3/uL (0.5-4.7); ABSOLUTE MONOCYTES (AUTO) 0.4 10^3/uL (0.1-1.4); ABSOLUTE NEUT (AUTO) 1.9 10^3/uL (1.7-8.2); BASOPHILS % (AUTO) 0.8 % (0-2); EOSINOPHILS % (AUTO) 4.2 % (0-6); HEMATOCRIT 42.8 % (37.9-51.0); HEMOGLOBIN 14.4 g/dL (13.5-17.0); HGB HCT DIFFERENCE 0.4; LYMPHOCYTES % (AUTO) 39.9 % (13-45); MEAN CORPUSCULAR HEMOGLOBIN 32.3 pg (27.0-33.4); MEAN CORPUSCULAR HGB CONC 33.5 g/dL (32.0-36.0); MEAN CORPUSCULAR VOLUME 96 fl (80-97); MONOCYTES % (AUTO) 8.7 % (3-13); RED BLOOD COUNT 4.44 10^6/uL (4.35-5.55); SEGMENTED NEUTROPHILS % (AUTO) 46.4 % (42-78); WHITE BLOOD COUNT 4.1 10^3/uL (4.0-10.5)
[2017-04-03 11:33] LABS: PROTHROMBIN TIME 13.7 SEC (11.4-15.4)
[2017-04-03 12:04] LABS: ALANINE AMINOTRANSFERASE 31 U/L (21-72); ALBUMIN 4.3 g/dL (3.5-5.0); ALKALINE PHOSPHATASE 146 U/L (38-126); ANION GAP 9 (5-19); ASPARTATE AMINO TRANSFERASE 42 U/L (17-59); BILIRUBIN,DIRECT 0.5 mg/dL (0.0-0.4); BILIRUBIN,TOTAL 1.2 mg/dL (0.2-1.3); BLOOD UREA NITROGEN 20 mg/dL (7-20); CALCIUM 9.6 mg/dL (8.4-10.2); CARBON DIOXIDE 28 mmol/L (22-30); CHLORIDE 99 mmol/L (98-107); CREATININE RESULT 0.85 mg/dL (0.52-1.25); GLUCOSE 329 mg/dL (75-110); POTASSIUM 4.5 mmol/L (3.6-5.0); SODIUM 136.3 mmol/L (137-145); TOTAL PROTEIN 8.5 g/dL (6.3-8.2)
[2017-04-03 12:05] LABS: C-REACTIVE PROTEIN < 5.0 mg/L (<10.0)
[2017-04-03 12:11] LABS: ERYTHROCYTE SEDIMENTATION RATE 39 mm/hr (0-20)
== END ==
LOC: OD 10:05
PROVIDERS: ATTEND Internal Medicine
DX: E11.9 Type 2 diabetes mellitus without complications (principal); I48.0 Paroxysmal atrial fibrillation; Z79.01 Long term (current) use of anticoagulants; I25.10 Atherosclerotic heart disease of native coronary artery without angina pectoris; Z79.899 Other long term (current) drug therapy; A41.01 Sepsis due to Methicillin susceptible Staphylococcus aureus
CPT/HCPCS: 36415; 80053; 85025; 85610; 85652; 86140

== ENCOUNTER → 2017-04-10 | Outpatient (CLI) | payer MEDICARE, BC ==
[2017-04-10 10:50] LABS: ABSOLUTE EOSINOPHILS # (AUTO) 0.2 10^3/uL (0.0-0.6); ABSOLUTE LYMPHOCYTES (AUTO) 1.9 10^3/uL (0.5-4.7); ABSOLUTE MONOCYTES (AUTO) 0.5 10^3/uL (0.1-1.4); BASOPHILS % (AUTO) 0.6 % (0-2); EOSINOPHILS % (AUTO) 5.3 % (0-6); HEMATOCRIT 41.6 % (37.9-51.0); HEMOGLOBIN 14.5 g/dL (13.5-17.0); HGB HCT DIFFERENCE 1.9; LYMPHOCYTES % (AUTO) 41.2 % (13-45); MEAN CORPUSCULAR HEMOGLOBIN 32.7 pg (27.0-33.4); MEAN CORPUSCULAR HGB CONC 34.7 g/dL (32.0-36.0); MEAN CORPUSCULAR VOLUME 94 fl (80-97); MONOCYTES % (AUTO) 9.8 % (3-13); RED BLOOD COUNT 4.43 10^6/uL (4.35-5.55); RED CELL DISTRIBUTION WIDTH 13.7 % (11.5-14.0); SEGMENTED NEUTROPHILS % (AUTO) 43.1 % (42-78); WHITE BLOOD COUNT 4.6 10^3/uL (4.0-10.5)
[2017-04-10 10:58] LABS: PROTHROMBIN TIME 19.6 SEC (11.4-15.4)
[2017-04-10 11:22] LABS: ALANINE AMINOTRANSFERASE 35 U/L (21-72); ALBUMIN 4.1 g/dL (3.5-5.0); ALKALINE PHOSPHATASE 151 U/L (38-126); ANION GAP 13 (5-19); ASPARTATE AMINO TRANSFERASE 44 U/L (17-59); BILIRUBIN,DIRECT 0.5 mg/dL (0.0-0.4); BLOOD UREA NITROGEN 16 mg/dL (7-20); CALCIUM 9.4 mg/dL (8.4-10.2); CARBON DIOXIDE 30 mmol/L (22-30); CHLORIDE 98 mmol/L (98-107); CREATININE RESULT 0.88 mg/dL (0.52-1.25); GLUCOSE 156 mg/dL (75-110); POTASSIUM 3.6 mmol/L (3.6-5.0); SODIUM 140.9 mmol/L (137-145); TOTAL PROTEIN 7.7 g/dL (6.3-8.2)
[2017-04-10 11:27] LABS: C-REACTIVE PROTEIN < 5.0 mg/L (<10.0)
[2017-04-10 11:31] LABS: ERYTHROCYTE SEDIMENTATION RATE 29 mm/hr (0-20)
== END ==
LOC: OD 09:27
PROVIDERS: ATTEND Internal Medicine
DX: E11.9 Type 2 diabetes mellitus without complications (principal); I48.0 Paroxysmal atrial fibrillation; I25.10 Atherosclerotic heart disease of native coronary artery without angina pectoris; Z79.01 Long term (current) use of anticoagulants; Z79.899 Other long term (current) drug therapy; A41.01 Sepsis due to Methicillin susceptible Staphylococcus aureus
CPT/HCPCS: 36415; 80053; 85025; 85610; 85652; 86140

== ENCOUNTER → 2017-04-17 | Outpatient (CLI) | payer MEDICARE, BC ==
[2017-04-17 11:47] LABS: ABSOLUTE MONOCYTES (AUTO) 0.6 10^3/uL (0.1-1.4); ABSOLUTE NEUT (AUTO) 3.6 10^3/uL (1.7-8.2); BASOPHILS % (AUTO) 0.5 % (0-2); EOSINOPHILS % (AUTO) 0.7 % (0-6); HEMATOCRIT 40.2 % (37.9-51.0); HEMOGLOBIN 13.8 g/dL (13.5-17.0); HGB HCT DIFFERENCE 1.2; LYMPHOCYTES % (AUTO) 31.2 % (13-45); MEAN CORPUSCULAR HEMOGLOBIN 32.3 pg (27.0-33.4); MEAN CORPUSCULAR HGB CONC 34.4 g/dL (32.0-36.0); MEAN CORPUSCULAR VOLUME 94 fl (80-97); MONOCYTES % (AUTO) 10.2 % (3-13); RED BLOOD COUNT 4.28 10^6/uL (4.35-5.55); RED CELL DISTRIBUTION WIDTH 13.1 % (11.5-14.0); SEGMENTED NEUTROPHILS % (AUTO) 57.4 % (42-78); WHITE BLOOD COUNT 6.4 10^3/uL (4.0-10.5)
[2017-04-17 12:22] LABS: ALANINE AMINOTRANSFERASE 24 U/L (21-72); ALBUMIN 4.1 g/dL (3.5-5.0); ALKALINE PHOSPHATASE 167 U/L (38-126); ANION GAP 11 (5-19); ASPARTATE AMINO TRANSFERASE 48 U/L (17-59); BILIRUBIN,DIRECT 0.4 mg/dL (0.0-0.4); BILIRUBIN,TOTAL 0.9 mg/dL (0.2-1.3); BLOOD UREA NITROGEN 25 mg/dL (7-20); CALCIUM 9.2 mg/dL (8.4-10.2); CARBON DIOXIDE 30 mmol/L (22-30); CHLORIDE 95 mmol/L (98-107); CREATININE RESULT 0.89 mg/dL (0.52-1.25); SODIUM 135.5 mmol/L (137-145); TOTAL PROTEIN 7.7 g/dL (6.3-8.2)
[2017-04-17 12:23] LABS: ERYTHROCYTE SEDIMENTATION RATE 28 mm/hr (0-20)
[2017-04-17 12:28] LABS: C-REACTIVE PROTEIN < 5.0 mg/L (<10.0)
[2017-04-17 14:17] LABS: GLUCOSE 429 mg/dL (75-110)
== END ==
LOC: OD 10:53
PROVIDERS: ATTEND Internal Medicine
DX: E11.9 Type 2 diabetes mellitus without complications (principal); Z79.01 Long term (current) use of anticoagulants; I48.0 Paroxysmal atrial fibrillation; I25.10 Atherosclerotic heart disease of native coronary artery without angina pectoris; A41.01 Sepsis due to Methicillin susceptible Staphylococcus aureus; Z79.899 Other long term (current) drug therapy
CPT/HCPCS: 36415; 80053; 85025; 85610; 85652; 86140

== ENCOUNTER → 2017-04-24 | Outpatient (CLI) | payer MEDICARE, BC ==
[2017-04-24 11:23] LABS: ABSOLUTE LYMPHOCYTES (AUTO) 1.7 10^3/uL (0.5-4.7); ABSOLUTE MONOCYTES (AUTO) 0.6 10^3/uL (0.1-1.4); ABSOLUTE NEUT (AUTO) 4.6 10^3/uL (1.7-8.2); BASOPHILS % (AUTO) 0.2 % (0-2); EOSINOPHILS % (AUTO) 0.3 % (0-6); HEMOGLOBIN 14.3 g/dL (13.5-17.0); HGB HCT DIFFERENCE -0.1; LYMPHOCYTES % (AUTO) 24.6 % (13-45); MEAN CORPUSCULAR HEMOGLOBIN 31.4 pg (27.0-33.4); MEAN CORPUSCULAR HGB CONC 33.2 g/dL (32.0-36.0); MEAN CORPUSCULAR VOLUME 94 fl (80-97); MONOCYTES % (AUTO) 9.2 % (3-13); RED BLOOD COUNT 4.56 10^6/uL (4.35-5.55); RED CELL DISTRIBUTION WIDTH 13.6 % (11.5-14.0); SEGMENTED NEUTROPHILS % (AUTO) 65.7 % (42-78)
[2017-04-24 11:34] LABS: PROTHROMBIN TIME 25.9 SEC (11.4-15.4)
[2017-04-24 11:47] LABS: ALANINE AMINOTRANSFERASE 42 U/L (21-72); ALKALINE PHOSPHATASE 185 U/L (38-126); ANION GAP 11 (5-19); ASPARTATE AMINO TRANSFERASE 82 U/L (17-59); BILIRUBIN,DIRECT 0.4 mg/dL (0.0-0.4); BILIRUBIN,TOTAL 0.8 mg/dL (0.2-1.3); BLOOD UREA NITROGEN 26 mg/dL (7-20); C-REACTIVE PROTEIN 5.9 mg/L (<10.0); CALCIUM 9.3 mg/dL (8.4-10.2); CARBON DIOXIDE 28 mmol/L (22-30); CHLORIDE 96 mmol/L (98-107); CREATININE RESULT 0.87 mg/dL (0.52-1.25); POTASSIUM 4.5 mmol/L (3.6-5.0); SODIUM 135.3 mmol/L (137-145); TOTAL PROTEIN 7.3 g/dL (6.3-8.2)
[2017-04-24 12:05] LABS: ERYTHROCYTE SEDIMENTATION RATE 24 mm/hr (0-20)
[2017-04-24 12:13] LABS: GLUCOSE 424 mg/dL (75-110)
== END ==
LOC: OD 10:11
PROVIDERS: ATTEND Internal Medicine
DX: E11.9 Type 2 diabetes mellitus without complications (principal); I48.0 Paroxysmal atrial fibrillation; I25.10 Atherosclerotic heart disease of native coronary artery without angina pectoris; Z79.01 Long term (current) use of anticoagulants; Z79.899 Other long term (current) drug therapy
CPT/HCPCS: 36415; 80053; 85025; 85610; 85652; 86140

== ENCOUNTER → 2017-04-25 | Day surgery (SDC) | payer MEDICARE, BC ==
--- NOTE | 2017-05-07 10:14 | RADIOLOGY REPORT (SQ) ---
EXAM DESCRIPTION: FLUORO/CV PLACEMENT; PICC LINE REPLACEMENT COMPLETED DATE/TIME: 04/25/2017 3:55 pm REASON FOR STUDY: PICC REPLACEMEN/DISRUPTED BY ACTIVITY; REPLACEMENT COMPARISON: Chest film 11/11/2016 FLUOROSCOPY TIME: 42 seconds 2 digital chest images saved to PACS. TECHNIQUE: Fluoroscopic guided PICC replacement. LIMITATIONS: None. PROCEDURE: After written consent and assessment were obtained, the patient was brought into the fluo roscopy room and place supine on the table. The right arm an existing PICC was prepped and draped i n a sterile fashion. The entry site was anesthetized with 1% lidocaine. A .018 guide wire was then i nserted through the existing PICC and into the venous system. The old catheter was then removed and a new catheter measuring 40 cm was advanced over the wire and into the venous system. The wire was th en removed and the catheter was adhered to the patients arm with a stat lock. The catheter was then a spirated and flushed and a sterile bandage was placed over the access site. A fluoroscopic spot imag e was saved to PACS confirming the catheter tip within the superior vena cava. IMPRESSION: SUCCESSFUL OVER THE WIRE REPLACEMENT OF AN OLD PICC FOR A NEW ONE THAT IS 5 FR DUAL LUME N 40 CM PICC IN THE RIGHT ARM. COMMENT: Patient medication list reviewed: Yes- Quality ID# 130:Eligible professional attests to doc umenting in the medical record they obtained, updated, or reviewed the patient's current medications. . Quality ID 145: Final reports for procedures using fluoroscopy that document radiation exposure rodrick nimco, or exposure time and number of fluorographic images (if radiation exposure indices are not avail able) Quality ID #76: The patient was prepped and draped using maximum sterile barrier technique including cap, mask, sterile gown, sterile gloves, a large sterile sheet, hand hygiene, and 2% Chlorhexidine fo r cutaneous antisepsis. When ultrasound is used, sterile ultrasound techniques are followed requiring sterile gel and sterile probes. TECHNICAL DOCUMENTATION: JOB ID: [id number] [employer]- All Rights Reserved
== END ==
LOC: RAD 15:48
PROVIDERS: ATTEND Nuclear Medicine
PROC: 05HY33Z Insertion of Infusion Device into Upper Vein, Percutaneous Approach (ICD-10-PCS; principal; 2017-04-25)
DX: Z45.2 Encounter for adjustment and management of vascular access device (principal)
CPT/HCPCS: 36584; 77001; C1769

== ENCOUNTER → 2017-05-01 | Outpatient (CLI) | payer MEDICARE, BC ==
[2017-05-01 11:01] LABS: ABSOLUTE EOSINOPHILS # (AUTO) 0.1 10^3/uL (0.0-0.6); ABSOLUTE LYMPHOCYTES (AUTO) 1.4 10^3/uL (0.5-4.7); ABSOLUTE MONOCYTES (AUTO) 0.4 10^3/uL (0.1-1.4); ABSOLUTE NEUT (AUTO) 2.2 10^3/uL (1.7-8.2); BASOPHILS % (AUTO) 0.6 % (0-2); EOSINOPHILS % (AUTO) 2.2 % (0-6); HEMATOCRIT 41.4 % (37.9-51.0); HEMOGLOBIN 14.2 g/dL (13.5-17.0); HGB HCT DIFFERENCE 1.2; LYMPHOCYTES % (AUTO) 34.5 % (13-45); MEAN CORPUSCULAR HEMOGLOBIN 31.8 pg (27.0-33.4); MEAN CORPUSCULAR HGB CONC 34.2 g/dL (32.0-36.0); MEAN CORPUSCULAR VOLUME 93 fl (80-97); MONOCYTES % (AUTO) 9.7 % (3-13); RED BLOOD COUNT 4.47 10^6/uL (4.35-5.55); RED CELL DISTRIBUTION WIDTH 13.9 % (11.5-14.0); WHITE BLOOD COUNT 4.1 10^3/uL (4.0-10.5)
[2017-05-01 11:03] LABS: PROTHROMBIN TIME 23.5 SEC (11.4-15.4)
[2017-05-01 11:18] LABS: ALANINE AMINOTRANSFERASE 41 U/L (21-72); ALBUMIN 3.8 g/dL (3.5-5.0); ALKALINE PHOSPHATASE 173 U/L (38-126); ANION GAP 10 (5-19); ASPARTATE AMINO TRANSFERASE 71 U/L (17-59); BILIRUBIN,DIRECT 0.4 mg/dL (0.0-0.4); BILIRUBIN,TOTAL 0.7 mg/dL (0.2-1.3); BLOOD UREA NITROGEN 20 mg/dL (7-20); CALCIUM 8.9 mg/dL (8.4-10.2); CARBON DIOXIDE 29 mmol/L (22-30); CHLORIDE 100 mmol/L (98-107); CREATININE RESULT 0.74 mg/dL (0.52-1.25); GLUCOSE 314 mg/dL (75-110); POTASSIUM 4.6 mmol/L (3.6-5.0); SODIUM 138.7 mmol/L (137-145)
[2017-05-01 11:20] LABS: C-REACTIVE PROTEIN < 5.0 mg/L (<10.0)
[2017-05-01 11:39] LABS: ERYTHROCYTE SEDIMENTATION RATE 19 mm/hr (0-20)
== END ==
LOC: OD 10:14
PROVIDERS: ATTEND Internal Medicine
DX: E11.9 Type 2 diabetes mellitus without complications (principal); I48.0 Paroxysmal atrial fibrillation; Z79.01 Long term (current) use of anticoagulants; I25.10 Atherosclerotic heart disease of native coronary artery without angina pectoris; Z79.899 Other long term (current) drug therapy; A41.01 Sepsis due to Methicillin susceptible Staphylococcus aureus
CPT/HCPCS: 36415; 80053; 85025; 85610; 85652; 86140

== ENCOUNTER → 2017-05-08 | Outpatient (CLI) | payer MEDICARE, BC ==
[2017-05-08 10:46] LABS: ABSOLUTE EOSINOPHILS # (AUTO) 0.1 10^3/uL (0.0-0.6); ABSOLUTE LYMPHOCYTES (AUTO) 1.6 10^3/uL (0.5-4.7); ABSOLUTE MONOCYTES (AUTO) 0.5 10^3/uL (0.1-1.4); ABSOLUTE NEUT (AUTO) 1.8 10^3/uL (1.7-8.2); BASOPHILS % (AUTO) 0.4 % (0-2); EOSINOPHILS % (AUTO) 2.8 % (0-6); HEMATOCRIT 40.8 % (37.9-51.0); HEMOGLOBIN 13.8 g/dL (13.5-17.0); HGB HCT DIFFERENCE 0.6; LYMPHOCYTES % (AUTO) 39.5 % (13-45); MEAN CORPUSCULAR HEMOGLOBIN 31.4 pg (27.0-33.4); MEAN CORPUSCULAR HGB CONC 33.9 g/dL (32.0-36.0); MEAN CORPUSCULAR VOLUME 93 fl (80-97); MONOCYTES % (AUTO) 11.8 % (3-13); RED CELL DISTRIBUTION WIDTH 13.7 % (11.5-14.0); SEGMENTED NEUTROPHILS % (AUTO) 45.5 % (42-78)
[2017-05-08 10:47] LABS: PROTHROMBIN TIME 22.7 SEC (11.4-15.4)
[2017-05-08 11:03] LABS: ALANINE AMINOTRANSFERASE 39 U/L (21-72); ALBUMIN 4.1 g/dL (3.5-5.0); ALKALINE PHOSPHATASE 190 U/L (38-126); ANION GAP 9 (5-19); ASPARTATE AMINO TRANSFERASE 49 U/L (17-59); BILIRUBIN,DIRECT 0.5 mg/dL (0.0-0.4); BLOOD UREA NITROGEN 17 mg/dL (7-20); CALCIUM 9.5 mg/dL (8.4-10.2); CARBON DIOXIDE 30 mmol/L (22-30); CHLORIDE 98 mmol/L (98-107); CREATININE RESULT 0.76 mg/dL (0.52-1.25); GLUCOSE 364 mg/dL (75-110); SODIUM 136.8 mmol/L (137-145); TOTAL PROTEIN 7.2 g/dL (6.3-8.2)
[2017-05-08 11:07] LABS: C-REACTIVE PROTEIN < 5.0 mg/L (<10.0)
[2017-05-08 11:30] LABS: ERYTHROCYTE SEDIMENTATION RATE 29 mm/hr (0-20)
== END ==
LOC: OD 09:34
PROVIDERS: ATTEND Internal Medicine
DX: E11.9 Type 2 diabetes mellitus without complications (principal); I48.0 Paroxysmal atrial fibrillation; Z79.01 Long term (current) use of anticoagulants; I25.10 Atherosclerotic heart disease of native coronary artery without angina pectoris; A41.01 Sepsis due to Methicillin susceptible Staphylococcus aureus; Z79.899 Other long term (current) drug therapy
CPT/HCPCS: 36415; 80053; 85025; 85610; 85652; 86140

== ENCOUNTER → 2017-05-15 | Outpatient (CLI) | payer MEDICARE, BC ==
[2017-05-15 12:01] LABS: PROTHROMBIN TIME 20.5 SEC (11.4-15.4)
[2017-05-15 12:07] LABS: ALANINE AMINOTRANSFERASE 28 U/L (21-72); ALBUMIN 4.2 g/dL (3.5-5.0); ALKALINE PHOSPHATASE 132 U/L (38-126); ANION GAP 12 (5-19); ASPARTATE AMINO TRANSFERASE 40 U/L (17-59); BILIRUBIN,DIRECT 0.4 mg/dL (0.0-0.4); BILIRUBIN,TOTAL 0.7 mg/dL (0.2-1.3); BLOOD UREA NITROGEN 20 mg/dL (7-20); CALCIUM 9.4 mg/dL (8.4-10.2); CARBON DIOXIDE 28 mmol/L (22-30); CHLORIDE 102 mmol/L (98-107); CREATININE RESULT 0.74 mg/dL (0.52-1.25); GLUCOSE 186 mg/dL (75-110); POTASSIUM 4.3 mmol/L (3.6-5.0); SODIUM 141.8 mmol/L (137-145); TOTAL PROTEIN 7.3 g/dL (6.3-8.2)
[2017-05-15 12:11] LABS: C-REACTIVE PROTEIN < 5.0 mg/L (<10.0)
[2017-05-16 11:03] LABS: ABSOLUTE EOSINOPHILS # (AUTO) 0.1 10^3/uL (0.0-0.6); ABSOLUTE LYMPHOCYTES (AUTO) 1.7 10^3/uL (0.5-4.7); ABSOLUTE MONOCYTES (AUTO) 0.3 10^3/uL (0.1-1.4); ABSOLUTE NEUT (AUTO) 1.3 10^3/uL (1.7-8.2); BASOPHILS % (AUTO) 0.6 % (0-2); EOSINOPHILS % (AUTO) 3.7 % (0-6); HEMATOCRIT 40.2 % (37.9-51.0); HEMOGLOBIN 13.8 g/dL (13.5-17.0); HGB HCT DIFFERENCE 1.2; MEAN CORPUSCULAR HEMOGLOBIN 31.6 pg (27.0-33.4); MEAN CORPUSCULAR HGB CONC 34.3 g/dL (32.0-36.0); MEAN CORPUSCULAR VOLUME 92 fl (80-97); MONOCYTES % (AUTO) 8.8 % (3-13); RED BLOOD COUNT 4.35 10^6/uL (4.35-5.55); RED CELL DISTRIBUTION WIDTH 13.9 % (11.5-14.0); SEGMENTED NEUTROPHILS % (AUTO) 36.9 % (42-78); WHITE BLOOD COUNT 3.4 10^3/uL (4.0-10.5)
[2017-05-16 11:42] LABS: ERYTHROCYTE SEDIMENTATION RATE 20 mm/hr (0-20)
== END ==
LOC: OD 10:46
PROVIDERS: ATTEND Internal Medicine
DX: E11.9 Type 2 diabetes mellitus without complications (principal); I48.0 Paroxysmal atrial fibrillation; I25.10 Atherosclerotic heart disease of native coronary artery without angina pectoris; Z79.01 Long term (current) use of anticoagulants; Z79.899 Other long term (current) drug therapy
CPT/HCPCS: 36415; 80053; 85025; 85610; 85652; 86140

== ENCOUNTER → 2017-05-23 | Outpatient (CLI) | payer MEDICARE, BC ==
[2017-05-23 11:23] LABS: ABSOLUTE EOSINOPHILS # (AUTO) 0.1 10^3/uL (0.0-0.6); ABSOLUTE LYMPHOCYTES (AUTO) 2.2 10^3/uL (0.5-4.7); ABSOLUTE MONOCYTES (AUTO) 0.5 10^3/uL (0.1-1.4); ABSOLUTE NEUT (AUTO) 1.7 10^3/uL (1.7-8.2); BASOPHILS % (AUTO) 0.6 % (0-2); HEMATOCRIT 42.9 % (37.9-51.0); HEMOGLOBIN 14.7 g/dL (13.5-17.0); HGB HCT DIFFERENCE 1.2; LYMPHOCYTES % (AUTO) 48.7 % (13-45); MEAN CORPUSCULAR HEMOGLOBIN 31.2 pg (27.0-33.4); MEAN CORPUSCULAR HGB CONC 34.3 g/dL (32.0-36.0); MEAN CORPUSCULAR VOLUME 91 fl (80-97); MONOCYTES % (AUTO) 10.6 % (3-13); RED BLOOD COUNT 4.72 10^6/uL (4.35-5.55); RED CELL DISTRIBUTION WIDTH 13.8 % (11.5-14.0); SEGMENTED NEUTROPHILS % (AUTO) 37.1 % (42-78); WHITE BLOOD COUNT 4.5 10^3/uL (4.0-10.5)
[2017-05-23 11:29] LABS: PROTHROMBIN TIME 20.7 SEC (11.4-15.4)
[2017-05-23 11:51] LABS: ALANINE AMINOTRANSFERASE 31 U/L (21-72); ALBUMIN 4.6 g/dL (3.5-5.0); ALKALINE PHOSPHATASE 151 U/L (38-126); ANION GAP 15 (5-19); ASPARTATE AMINO TRANSFERASE 48 U/L (17-59); BILIRUBIN,DIRECT 0.5 mg/dL (0.0-0.4); BILIRUBIN,TOTAL 0.8 mg/dL (0.2-1.3); BLOOD UREA NITROGEN 18 mg/dL (7-20); CARBON DIOXIDE 30 mmol/L (22-30); CHLORIDE 103 mmol/L (98-107); CREATININE RESULT 0.75 mg/dL (0.52-1.25); GLUCOSE 79 mg/dL (75-110); POTASSIUM 3.9 mmol/L (3.6-5.0); SODIUM 147.9 mmol/L (137-145); TOTAL PROTEIN 7.9 g/dL (6.3-8.2)
[2017-05-23 11:53] LABS: C-REACTIVE PROTEIN < 5.0 mg/L (<10.0)
[2017-05-23 12:12] LABS: ERYTHROCYTE SEDIMENTATION RATE 28 mm/hr (0-20)
== END ==
LOC: OD 10:19
PROVIDERS: ATTEND Internal Medicine
DX: A41.01 Sepsis due to Methicillin susceptible Staphylococcus aureus (principal); E11.9 Type 2 diabetes mellitus without complications; I48.0 Paroxysmal atrial fibrillation; Z79.01 Long term (current) use of anticoagulants; I25.10 Atherosclerotic heart disease of native coronary artery without angina pectoris; Z79.899 Other long term (current) drug therapy
CPT/HCPCS: 36415; 80053; 85025; 85610; 85652; 86140

== ENCOUNTER 2017-09-12 22:55 | Emergency (ER) | payer MEDICARE, BC ==
[2017-09-13 01:57] LABS: ABSOLUTE EOSINOPHILS # (AUTO) 0.1 10^3/uL (0.0-0.6); ABSOLUTE LYMPHOCYTES (AUTO) 1.1 10^3/uL (0.5-4.7); ABSOLUTE MONOCYTES (AUTO) 0.6 10^3/uL (0.1-1.4); ABSOLUTE NEUT (AUTO) 4.1 10^3/uL (1.7-8.2); BASOPHILS % (AUTO) 0.6 % (0-2); EOSINOPHILS % (AUTO) 1.1 % (0-6); HEMATOCRIT 43.8 % (37.9-51.0); HEMOGLOBIN 14.7 g/dL (13.5-17.0); MEAN CORPUSCULAR HEMOGLOBIN 30.6 pg (27.0-33.4); MEAN CORPUSCULAR HGB CONC 33.6 g/dL (32.0-36.0); MEAN CORPUSCULAR VOLUME 91 fl (80-97); PLATELET COUNT 106 10^3/uL (150-450); RED BLOOD COUNT 4.83 10^6/uL (4.35-5.55); RED CELL DISTRIBUTION WIDTH 14.4 % (11.5-14.0); SEGMENTED NEUTROPHILS % (AUTO) 69.3 % (42-78); TOTAL CELLS COUNTED % (AUTO) 100 %
[2017-09-13 01:58] LABS: APPEARANCE,URINE CLEAR; BILIRUBIN,URINE NEGATIVE (NEGATIVE); COLOR,URINE STRAW; GLUCOSE, URINE >=500 mg/dL (NEGATIVE); KETONES,URINE NEGATIVE (NEGATIVE); LEUKOCYTE ESTERASE,URINE NEGATIVE (NEGATIVE); NITRITE,URINE NEGATIVE (NEGATIVE); PROTEIN,URINE NEGATIVE (NEGATIVE); URINE SPECIFIC GRAVITY 1.008; UROBILINOGEN,URINE NEGATIVE mg/dL (<2.0)
[2017-09-13 02:04] LABS: PARTIAL THROMBOPLASTIN TIME 33.8 SEC (23.5-35.8)
[2017-09-13 03:09] LABS: ALANINE AMINOTRANSFERASE 36 U/L (21-72); ALBUMIN 4.2 g/dL (3.5-5.0); ALKALINE PHOSPHATASE 133 U/L (38-126); ANION GAP 11 (5-19); ASPARTATE AMINO TRANSFERASE 41 U/L (17-59); BILIRUBIN,DIRECT 0.4 mg/dL (0.0-0.4); BILIRUBIN,TOTAL 1.3 mg/dL (0.2-1.3); BLOOD UREA NITROGEN 18 mg/dL (7-20); CALCIUM 8.9 mg/dL (8.4-10.2); CARBON DIOXIDE 25 mmol/L (22-30); CHLORIDE 100 mmol/L (98-107); GLUCOSE 353 mg/dL (75-110); POTASSIUM 4.4 mmol/L (3.6-5.0); SODIUM 136.3 mmol/L (137-145); TOTAL PROTEIN 7.2 g/dL (6.3-8.2)
--- NOTE | 2017-09-13 03:21 | ER Document Report ---
ED Fever - General Chief Complaint: Fever Stated Complaint: FEVER Time Seen by Provider: 09/13/17 03:01 Mode of Arrival: Ambulatory Information source: Patient Notes: Patient is a 72-year-old male who presents to the ER today for fever of 100.9F prior to arrival with some nausea and body aches. Patient has recently been put on Cipro for the past 4 days for a urinary tract infection by his primary care provider. Patient states that that seems to have gotten much better and that there is no longer any blood in his urine or burning with urination. He admits to slight cough but states that that is normal for him. He denies any other sick symptoms. He states "this just all chronic him on me today." He actually states he feels better now here in the emergency department and his temperature was normal without any Tylenol or Motrin here in the ER. TRAVEL OUTSIDE OF THE [place] IN LAST 30 DAYS: No - Related Data Allergies/Adverse Reactions: Sulfa (Sulfonamide Antibiotics) Allergy (Unknown, Verified 09/12/17 23:19) zolpidem tartrate [From Ambien] Allergy (Unknown, Verified 09/12/17 23:19) Past Medical History - General Information source: Patient - Social History Smoking Status: Unknown if Ever Smoked Family History: DM Patient has suicidal ideation: No Patient has homicidal ideation: No - Past Medical History Cardiac Medical History: Reports: Hx Atrial Fibrillation, Hx Congestive Heart Failure, Hx Coronary Artery Disease, Hx Heart Attack, Hx Hypercholesterolemia, Hx Hypertension Pulmonary Medical History: Reports: Hx Asthma, Hx COPD Neurological Medical History: Reports: Hx Cerebrovascular Accident - 2016. Denies: Hx Seizures Endocrine Medical History: Reports: Hx Diabetes Mellitus Type 1, Hx Diabetes Mellitus Type 2 - insulin dependent Renal/ Medical History: Denies: Hx End Stage Renal Disease, Hx Peritoneal Dialysis Past Surgical History: Reports: Hx Cardiac Catheterization - Stent placement June 03, 2015, Hx Cardiac Surgery - cabg, stent placement (2014), Hx Coronary Artery Bypass Graft, Hx Open Heart Surgery - and Stent placed May 2015 - Immunizations Hx Diphtheria, Pertussis, Tetanus Vaccination: Yes Hx Pneumococcal Vaccination: 08/12/14 Review of Systems - Review of Systems Constitutional: See HPI EENT: No symptoms reported Cardiovascular: No symptoms reported Respiratory: See HPI Gastrointestinal: No symptoms reported Genitourinary: See HPI Male Genitourinary: No symptoms reported Musculoskeletal: No symptoms reported Skin: No symptoms reported Hematologic/Lymphatic: No symptoms reported Neurological/Psychological: No symptoms reported Physical Exam - Vital signs Vitals: Temp Pulse Resp BP Pulse Ox 99.5 F 74 20 149/51 H 94 09/12/17 23:17 09/12/17 23:17 09/12/17 23:17 09/12/17 23:17 09/12/17 23:17 - Notes Notes: PHYSICAL EXAMINATION: GENERAL: Well-appearing and in no acute distress. HEAD: Atraumatic, normocephalic. EYES: Pupils equal round and reactive to light, extraocular movements intact, sclera anicteric, conjunctiva are normal. ENT: ear canals without erythema or foreign body, TMs pearly drummond with good bony landmarks, nares patent, oropharynx clear without exudates. Moist mucous membranes. NECK: Normal range of motion, supple without lymphadenopathy LUNGS: CTAB and equal. No wheezes rales or rhonchi. HEART: Regular rate and rhythm without murmurs ABDOMEN: Soft, no tenderness. No guarding, no rebound BACK: no vertebral tenderness, normal ROM GI/: no CVA tenderness EXTREMITIES: Normal range of motion, no pitting edema. No cyanosis. NEUROLOGICAL: Cranial nerves grossly intact. Normal sensory/motor exams. PSYCH: Normal mood, normal affect. SKIN: Warm, Dry, normal turgor, no rashes or lesions noted Course - Re-evaluation Re-evalutation: 09/13/17 05:40 Urinalysis negative for any signs of infection or hematuria. Urine culture was sent. Patient had no fever here and has not gotten Tylenol or Motrin by family or here in the emergency department. Lab work unremarkable today including a normal white blood cell count. Chest x-ray normal and flu negative today. At this time patient feels fine and I do advise a follow-up with his primary care provider. Vital signs are all within normal limits. Patient keeps making jokes with me and is very pleasant, wanting to go home. - Vital Signs Vital signs: Temp Pulse Resp BP Pulse Ox 99.5 F 78 20 123/75 98 09/12/17 23:17 09/13/17 04:31 09/13/17 04:31 09/13/17 04:31 09/13/17 04:31 - Laboratory Result Diagrams: 09/13/17 01:30 09/13/17 01:30 Laboratory results interpreted by me: 09/13/17 09/13/17 09/13/17 01:30 01:30 01:30 RDW 14.4 H Plt Count 106 L PT 21.0 H Sodium 136.3 L Glucose 353 H Alkaline Phosphatase 133 H Urine Glucose (UA) 09/13/17 01:30 RDW Plt Count PT Sodium Glucose Alkaline Phosphatase Urine Glucose (UA) >=500 H Discharge - Discharge Clinical Impression: Fever Qualifiers: Fever type: unspecified Qualified Code(s): R50.9 - Fever, unspecified Condition: Stable Disposition: HOME, SELF-CARE Additional Instructions: Return immediately for any new or worsening symptoms. Follow up with primary care provider, call tomorrow to make followup appointment. Prescriptions: Ondansetron [Zofran Odt 4 mg Tablet] 1 - 2 tab PO Q4H PRN #15 tab.rapdis PRN Reason: For Nausea/Vomiting Referrals: JAK ENGEL MD [Primary Care Provider] - Follow up as needed
--- NOTE | 2017-09-13 04:11 | RADIOLOGY REPORT (SQ) ---
EXAM DESCRIPTION: CHEST SINGLE VIEW COMPLETED DATE/TIME: 09/13/2017 3:59 am REASON FOR STUDY: cough, fever COMPARISON: Chest x-ray 02/10/2017. EXAM PARAMETERS: NUMBER OF VIEWS: One view. TECHNIQUE: Single frontal radiographic view of the chest acquired. RADIATION DOSE: NA LIMITATIONS: None. FINDINGS: LUNGS AND PLEURA: No consolidation, pneumothorax or pleural effusion. MEDIASTINUM AND HILAR STRUCTURES: No masses. Contour normal. HEART AND VASCULAR STRUCTURES: The heart is upper normal limit in size. Normal vasculature. BONES: No acute findings. HARDWARE: There is a left-sided pacemaker. Sternotomy wires are noted. IMPRESSION: No acute radiographic finding in the chest. TECHNICAL DOCUMENTATION: JOB ID: [id number] [email or web address]- All Rights Reserved
[2017-09-13 04:13] LABS: A TYPE INFLUENZA AG NEGATIVE (NEGATIVE); B INFLUENZA AG NEGATIVE (NEGATIVE)
[2017-09-13] MEDS ORDERED: ONDANSETRON ODT 4 MG TAB (6 TAB/ER DISP) PO PRN (04:24)
[2017-09-13 04:32] VITALS: BP 123/75
== END 2017-09-13 04:30 | disposition home or self-care (01) ==
LOC: ER 22:55
DX: R50.9 Fever, unspecified (principal); R05 Cough
CPT/HCPCS: 99284; 36415; 87086; 85025; 85610; 85730; 87088; 80053; 81001; 87186; 87804; 71045; A9270

== ENCOUNTER 2017-10-05 09:40 | Emergency (ER) | payer OTHER, MEDICARE, BC ==
--- NOTE | 2017-10-05 10:06 | ER Document Report ---
ED Medical Screen (RME) - General Chief Complaint: Wound Recheck Stated Complaint: BLEEDING FROM PIC LINE Time Seen by Provider: 10/05/17 10:03 Mode of Arrival: Wheelchair Information source: Patient TRAVEL OUTSIDE OF THE [place] IN LAST 30 DAYS: No - HPI Patient complains to provider of: bleeding from pic line Onset: Other - pt haad pic line inserted last week in [place] -- noticed dried blood around site this am. Is afraid to put meds in it in case it is no longer functioning. - Related Data Allergies/Adverse Reactions: Sulfa (Sulfonamide Antibiotics) Allergy (Unknown, Verified 10/05/17 10:03) zolpidem tartrate [From Ambien] Allergy (Unknown, Verified 10/05/17 10:03) chocolate Adverse Reaction (Severe, Uncoded 10/05/17 10:03) Migraine Past Medical History - Social History Chew tobacco use (# tins/day): No Frequency of alcohol use: None Drug Abuse: None - Past Medical History Cardiac Medical History: Reports: Hx Atrial Fibrillation, Hx Congestive Heart Failure, Hx Coronary Artery Disease, Hx Heart Attack, Hx Hypercholesterolemia, Hx Hypertension Pulmonary Medical History: Reports: Hx Asthma, Hx COPD Neurological Medical History: Reports: Hx Cerebrovascular Accident - 2016. Denies: Hx Seizures Endocrine Medical History: Reports: Hx Diabetes Mellitus Type 1, Hx Diabetes Mellitus Type 2 - insulin dependent Renal/ Medical History: Denies: Hx End Stage Renal Disease, Hx Peritoneal Dialysis Past Surgical History: Reports: Hx Cardiac Catheterization - Stent placement June 03, 2015, Hx Cardiac Surgery - cabg, stent placement (2014), Hx Coronary Artery Bypass Graft, Hx Open Heart Surgery - and Stent placed May 2015 - Immunizations Hx Diphtheria, Pertussis, Tetanus Vaccination: Yes Physical Exam - Vital signs Vitals: Temp Pulse Resp BP Pulse Ox 97.6 F 70 16 110/54 L 95 10/05/17 09:46 10/05/17 09:46 10/05/17 09:46 10/05/17 09:46 10/05/17 09:46 Course - Vital Signs Vital signs: Temp Pulse Resp BP Pulse Ox 97.6 F 70 16 110/54 L 95 10/05/17 09:46 10/05/17 09:46 10/05/17 09:46 10/05/17 09:46 10/05/17 09:46
[2017-10-05 10:25] LABS: ABSOLUTE EOSINOPHILS # (AUTO) 0.1 10^3/uL (0.0-0.6); ABSOLUTE LYMPHOCYTES (AUTO) 1.1 10^3/uL (0.5-4.7); ABSOLUTE MONOCYTES (AUTO) 0.5 10^3/uL (0.1-1.4); ABSOLUTE NEUT (AUTO) 1.4 10^3/uL (1.7-8.2); BASOPHILS % (AUTO) 0.6 % (0-2); EOSINOPHILS % (AUTO) 3.2 % (0-6); HEMATOCRIT 34.5 % (37.9-51.0); HEMOGLOBIN 11.7 g/dL (13.5-17.0); LYMPHOCYTES % (AUTO) 35.3 % (13-45); MEAN CORPUSCULAR HEMOGLOBIN 32.1 pg (27.0-33.4); MEAN CORPUSCULAR VOLUME 94 fl (80-97); MONOCYTES % (AUTO) 14.9 % (3-13); RED BLOOD COUNT 3.66 10^6/uL (4.35-5.55); TOTAL CELLS COUNTED % (AUTO) 100 %
--- NOTE | 2017-10-05 10:36 | ER Document Report ---
ED General - General Chief Complaint: Wound Recheck Stated Complaint: BLEEDING FROM PIC LINE Time Seen by Provider: 10/05/17 10:03 Mode of Arrival: Wheelchair Notes: 72-year-old male who states he had a left PICC line placed at [facility] secondary to needed antibiotics for an infected pacemaker. Patient states she has had a little bleeding from the site since being discharged. He states it is currently not bleeding. He has an appointment to come back here Saturday for dressing change. He denies any pain, fevers, or vomiting. He denies any lightheadedness or weakness. The patient's was able to provide antibiotics without any obvious obstruction today. Patient and just stated that they wanted to "get it checked". TRAVEL OUTSIDE OF THE [place] IN LAST 30 DAYS: No - HPI Onset: Other - See above Onset/Duration: Gradual Quality of pain: No pain Severity: Mild Pain Level: 0 Associated symptoms: Other - See above Exacerbated by: Denies Relieved by: Denies Similar symptoms previously: No Recently seen / treated by doctor: Yes - Related Data Allergies/Adverse Reactions: Sulfa (Sulfonamide Antibiotics) Allergy (Unknown, Verified 10/05/17 10:03) zolpidem tartrate [From Ambien] Allergy (Unknown, Verified 10/05/17 10:03) chocolate Adverse Reaction (Severe, Uncoded 10/05/17 10:03) Migraine Past Medical History - General Information source: Patient - Social History Smoking Status: Former Smoker Cigarette use (# per day): No Chew tobacco use (# tins/day): No Smoking Education Provided: No Frequency of alcohol use: None Drug Abuse: None Family History: DM Patient has suicidal ideation: No Patient has homicidal ideation: No - Past Medical History Cardiac Medical History: Reports: Hx Atrial Fibrillation, Hx Congestive Heart Failure, Hx Coronary Artery Disease, Hx Heart Attack, Hx Hypercholesterolemia, Hx Hypertension Pulmonary Medical History: Reports: Hx Asthma, Hx COPD Neurological Medical History: Reports: Hx Cerebrovascular Accident - 2016. Denies: Hx Seizures Endocrine Medical History: Reports: Hx Diabetes Mellitus Type 1, Hx Diabetes Mellitus Type 2 - insulin dependent Renal/ Medical History: Denies: Hx End Stage Renal Disease, Hx Peritoneal Dialysis Past Surgical History: Reports: Hx Cardiac Catheterization - Stent placement June 03, 2015, Hx Cardiac Surgery - cabg, stent placement (2015), Hx Coronary Artery Bypass Graft, Hx Open Heart Surgery - and Stent placed May 2015 - Immunizations Hx Diphtheria, Pertussis, Tetanus Vaccination: Yes Hx Pneumococcal Vaccination: 08/12/14 Review of Systems - Review of Systems Constitutional: denies: Fever Cardiovascular: denies: Chest pain, Palpitations Respiratory: denies: Cough Musculoskeletal: denies: Joint swelling, Muscle pain, Muscle stiffness Hematologic/Lymphatic: denies: Easy bleeding, Easy bruising Physical Exam - Vital signs Vitals: Temp Pulse Resp BP Pulse Ox 97.6 F 70 16 110/54 L 95 10/05/17 09:46 10/05/17 09:46 10/05/17 09:46 10/05/17 09:46 10/05/17 09:46 Notes: Reviewed vital signs and nursing note as charted by RN. CONSTITUTIONAL: Alert and oriented and responds appropriately to questions. Well -appearing; well-nourished HEAD: Normocephalic; atraumatic CARDS: I do not see any obvious infection or ttp of the left anterior chest wall EXT: Normal ROM in all joints; patient has a 2 port PICC line in the left arm. There is some dried blood around the inferior margin of the bandage. Tegaderm is in place and I can see the insertion site. No active bleeding. No induration upon palpation. No surrounding erythema. Strong pulses to distal wrist SKIN: See above NEURO: See above PSYCH: The patient's mood and manner are appropriate. Grooming and personal hygiene are appropriate. Course - Re-evaluation Re-evalutation: 10/05/17 10:36 Given the above history and physical examination, we will attempt to flush the PICC line once again. I do not detect any obvious bleeding, hematoma, or signs of infection. I do not believe bandage replacement needs to be performed at this time given the upcoming scheduled appointment. 10/05/17 10:53 Hemoglobin around 12. Platelets are low but the patient appears to have a low platelets at baseline. No active bleeding. Patient will be discharged home with strict return precautions and follow-up. - Vital Signs Vital signs: Temp Pulse Resp BP Pulse Ox 97.6 F 70 16 110/54 L 95 10/05/17 09:46 10/05/17 09:46 10/05/17 09:46 10/05/17 09:46 10/05/17 09:46 - Laboratory Result Diagrams: 10/05/17 10:05 10/05/17 10:05 Laboratory results interpreted by me: 10/05/17 10/05/17 10:05 10:05 WBC 3.0 L RBC 3.66 L Hgb 11.7 L Hct 34.5 L RDW 18.0 H Plt Count 63 L Monocytes % 14.9 H Absolute Neutrophils 1.4 L Glucose 202 H Discharge - Discharge Clinical Impression: Bleeding from PICC line Qualifiers: Encounter type: initial encounter Qualified Code(s): T82.838A - Hemorrhage due to vascular prosthetic devices, implants and grafts, initial encounter Condition: Good Disposition: HOME, SELF-CARE Additional Instructions: Come back immediately for any increased bleeding, lightheadedness, dizziness, weakness or numbness, fevers or vomiting, arm swelling or discoloration, or any other acute problems. Please follow-up for your scheduled PICC line appointment.
[2017-10-05 10:40] LABS: ALANINE AMINOTRANSFERASE 22 U/L (21-72); ALBUMIN 3.6 g/dL (3.5-5.0); ALKALINE PHOSPHATASE 120 U/L (38-126); ANION GAP 11 (5-19); ASPARTATE AMINO TRANSFERASE 52 U/L (17-59); BILIRUBIN,DIRECT 0.2 mg/dL (0.0-0.4); BILIRUBIN,TOTAL 1.1 mg/dL (0.2-1.3); BLOOD UREA NITROGEN 20 mg/dL (7-20); CALCIUM 8.5 mg/dL (8.4-10.2); CARBON DIOXIDE 26 mmol/L (22-30); CHLORIDE 100 mmol/L (98-107); GLUCOSE 202 mg/dL (75-110); POTASSIUM 4.2 mmol/L (3.6-5.0); SODIUM 137.4 mmol/L (137-145); TOTAL PROTEIN 6.9 g/dL (6.3-8.2)
[2017-10-05 10:46] LABS: PLATELET COUNT 63 10^3/uL (150-450)
[2017-10-05 11:06] VITALS: BP 116/52
== END 2017-10-05 11:05 | disposition home or self-care (01) ==
LOC: ER 09:40
DX: T82.838A Hemorrhage due to vascular prosthetic devices, implants and grafts, initial encounter (principal); Y71.1 Therapeutic (nonsurgical) and rehabilitative cardiovascular devices associated with adverse incidents; T82.7XXA Infection and inflammatory reaction due to other cardiac and vascular devices, implants and grafts, initial encounter; Y71.8 Miscellaneous cardiovascular devices associated with adverse incidents, not elsewhere classified; D69.6 Thrombocytopenia, unspecified; I25.10 Atherosclerotic heart disease of native coronary artery without angina pectoris; I10 Essential (primary) hypertension; I25.2 Old myocardial infarction; J44.9 Chronic obstructive pulmonary disease, unspecified; E11.9 Type 2 diabetes mellitus without complications; Z95.1 Presence of aortocoronary bypass graft; Z87.891 Personal history of nicotine dependence; Z88.2 Allergy status to sulfonamides; Z88.8 Allergy status to other drugs, medicaments and biological substances; Z95.5 Presence of coronary angioplasty implant and graft
CPT/HCPCS: 36415; 80053; 85025; 99283

== ENCOUNTER → 2017-10-16 | Outpatient (CLI) | payer MEDICARE, BC ==
[2017-10-16 08:59] LABS: ABSOLUTE EOSINOPHILS # (AUTO) 0.1 10^3/uL (0.0-0.6); ABSOLUTE LYMPHOCYTES (AUTO) 1.5 10^3/uL (0.5-4.7); ABSOLUTE MONOCYTES (AUTO) 0.3 10^3/uL (0.1-1.4); ABSOLUTE NEUT (AUTO) 1.5 10^3/uL (1.7-8.2); BASOPHILS % (AUTO) 0.8 % (0-2); EOSINOPHILS % (AUTO) 3.1 % (0-6); HEMATOCRIT 38.7 % (37.9-51.0); HEMOGLOBIN 12.9 g/dL (13.5-17.0); LYMPHOCYTES % (AUTO) 44.6 % (13-45); MEAN CORPUSCULAR HEMOGLOBIN 31.7 pg (27.0-33.4); MEAN CORPUSCULAR HGB CONC 33.4 g/dL (32.0-36.0); MEAN CORPUSCULAR VOLUME 95 fl (80-97); MONOCYTES % (AUTO) 7.5 % (3-13); PLATELET COUNT 104 10^3/uL (150-450); RED BLOOD COUNT 4.07 10^6/uL (4.35-5.55); RED CELL DISTRIBUTION WIDTH 16.6 % (11.5-14.0); TOTAL CELLS COUNTED % (AUTO) 100 %; WHITE BLOOD COUNT 3.3 10^3/uL (4.0-10.5)
[2017-10-16 09:02] LABS: INTERNATIONAL RATION (INR) 1.09; PROTHROMBIN TIME 14.9 SEC (11.4-15.4)
[2017-10-16 09:19] LABS: ALANINE AMINOTRANSFERASE 22 U/L (21-72); ALBUMIN 3.9 g/dL (3.5-5.0); ALKALINE PHOSPHATASE 122 U/L (38-126); ANION GAP 9 (5-19); ASPARTATE AMINO TRANSFERASE 49 U/L (17-59); BILIRUBIN,DIRECT 0.5 mg/dL (0.0-0.4); BILIRUBIN,TOTAL 0.8 mg/dL (0.2-1.3); BLOOD UREA NITROGEN 14 mg/dL (7-20); CALCIUM 9.1 mg/dL (8.4-10.2); CARBON DIOXIDE 29 mmol/L (22-30); CHLORIDE 105 mmol/L (98-107); GLUCOSE 175 mg/dL (75-110); POTASSIUM 3.6 mmol/L (3.6-5.0); SODIUM 143.3 mmol/L (137-145); TOTAL PROTEIN 7.6 g/dL (6.3-8.2)
[2017-10-16 09:24] LABS: C-REACTIVE PROTEIN < 5.0 mg/L (<10.0)
[2017-10-16 10:18] LABS: ERYTHROCYTE SEDIMENTATION RATE 34 mm/hr (0-20)
== END ==
LOC: LAB 08:41
PROVIDERS: ATTEND Internal Medicine
DX: E11.9 Type 2 diabetes mellitus without complications (principal); I25.10 Atherosclerotic heart disease of native coronary artery without angina pectoris; I48.0 Paroxysmal atrial fibrillation; Z79.01 Long term (current) use of anticoagulants; Z79.899 Other long term (current) drug therapy
CPT/HCPCS: 36415; 80053; 85025; 85610; 85652; 86140

== ENCOUNTER → 2017-10-23 | Outpatient (CLI) | payer MEDICARE, BC ==
[2017-10-23 09:20] LABS: ABSOLUTE EOSINOPHILS # (AUTO) 0.2 10^3/uL (0.0-0.6); ABSOLUTE LYMPHOCYTES (AUTO) 1.4 10^3/uL (0.5-4.7); ABSOLUTE MONOCYTES (AUTO) 0.4 10^3/uL (0.1-1.4); ABSOLUTE NEUT (AUTO) 1.4 10^3/uL (1.7-8.2); BASOPHILS % (AUTO) 0.6 % (0-2); EOSINOPHILS % (AUTO) 5.2 % (0-6); HEMATOCRIT 38.3 % (37.9-51.0); HEMOGLOBIN 12.8 g/dL (13.5-17.0); LYMPHOCYTES % (AUTO) 41.4 % (13-45); MEAN CORPUSCULAR HEMOGLOBIN 31.8 pg (27.0-33.4); MEAN CORPUSCULAR HGB CONC 33.4 g/dL (32.0-36.0); MEAN CORPUSCULAR VOLUME 95 fl (80-97); MONOCYTES % (AUTO) 11.2 % (3-13); RED BLOOD COUNT 4.02 10^6/uL (4.35-5.55); SEGMENTED NEUTROPHILS % (AUTO) 41.6 % (42-78); TOTAL CELLS COUNTED % (AUTO) 100 %; WHITE BLOOD COUNT 3.3 10^3/uL (4.0-10.5)
[2017-10-23 09:33] LABS: INTERNATIONAL RATION (INR) 1.13; PROTHROMBIN TIME 15.3 SEC (11.4-15.4)
[2017-10-23 09:41] LABS: ALANINE AMINOTRANSFERASE 28 U/L (21-72); ALBUMIN 3.7 g/dL (3.5-5.0); ALKALINE PHOSPHATASE 117 U/L (38-126); ANION GAP 9 (5-19); ASPARTATE AMINO TRANSFERASE 54 U/L (17-59); BILIRUBIN,DIRECT 0.4 mg/dL (0.0-0.4); BILIRUBIN,TOTAL 0.6 mg/dL (0.2-1.3); BLOOD UREA NITROGEN 17 mg/dL (7-20); C-REACTIVE PROTEIN 5.2 mg/L (<10.0); CALCIUM 8.9 mg/dL (8.4-10.2); CARBON DIOXIDE 31 mmol/L (22-30); CHLORIDE 103 mmol/L (98-107); GLUCOSE 218 mg/dL (75-110); POTASSIUM 3.5 mmol/L (3.6-5.0); SODIUM 143.2 mmol/L (137-145); TOTAL PROTEIN 7.2 g/dL (6.3-8.2)
[2017-10-23 09:52] LABS: PLATELET COUNT 89 10^3/uL (150-450)
[2017-10-23 10:04] LABS: ERYTHROCYTE SEDIMENTATION RATE 26 mm/hr (0-20)
== END ==
LOC: LAB 09:03
PROVIDERS: ATTEND Internal Medicine
DX: E11.9 Type 2 diabetes mellitus without complications (principal); I48.0 Paroxysmal atrial fibrillation; I25.10 Atherosclerotic heart disease of native coronary artery without angina pectoris; Z79.01 Long term (current) use of anticoagulants; Z79.899 Other long term (current) drug therapy; A41.01 Sepsis due to Methicillin susceptible Staphylococcus aureus
CPT/HCPCS: 36415; 80053; 85025; 85610; 85652; 86140

== ENCOUNTER → 2017-10-30 | Outpatient (CLI) | payer MEDICARE, BC ==
[2017-10-30 09:54] LABS: ABSOLUTE EOSINOPHILS # (AUTO) 0.1 10^3/uL (0.0-0.6); ABSOLUTE LYMPHOCYTES (AUTO) 1.4 10^3/uL (0.5-4.7); ABSOLUTE MONOCYTES (AUTO) 0.4 10^3/uL (0.1-1.4); ABSOLUTE NEUT (AUTO) 1.2 10^3/uL (1.7-8.2); BASOPHILS % (AUTO) 0.5 % (0-2); HEMATOCRIT 39.1 % (37.9-51.0); LYMPHOCYTES % (AUTO) 43.6 % (13-45); MEAN CORPUSCULAR HEMOGLOBIN 31.6 pg (27.0-33.4); MEAN CORPUSCULAR HGB CONC 33.3 g/dL (32.0-36.0); MEAN CORPUSCULAR VOLUME 95 fl (80-97); RED BLOOD COUNT 4.12 10^6/uL (4.35-5.55); RED CELL DISTRIBUTION WIDTH 15.4 % (11.5-14.0); SEGMENTED NEUTROPHILS % (AUTO) 39.9 % (42-78); TOTAL CELLS COUNTED % (AUTO) 100 %; WHITE BLOOD COUNT 3.1 10^3/uL (4.0-10.5)
[2017-10-30 10:10] LABS: ALANINE AMINOTRANSFERASE 29 U/L (21-72); ALBUMIN 3.9 g/dL (3.5-5.0); ALKALINE PHOSPHATASE 145 U/L (38-126); ANION GAP 10 (5-19); ASPARTATE AMINO TRANSFERASE 61 U/L (17-59); BILIRUBIN,DIRECT 0.2 mg/dL (0.0-0.4); BILIRUBIN,TOTAL 0.5 mg/dL (0.2-1.3); BLOOD UREA NITROGEN 22 mg/dL (7-20); CALCIUM 9.2 mg/dL (8.4-10.2); CARBON DIOXIDE 31 mmol/L (22-30); CHLORIDE 101 mmol/L (98-107); GLUCOSE 209 mg/dL (75-110); POTASSIUM 3.8 mmol/L (3.6-5.0); SODIUM 141.7 mmol/L (137-145); TOTAL PROTEIN 7.1 g/dL (6.3-8.2)
[2017-10-30 10:15] LABS: C-REACTIVE PROTEIN < 5.0 mg/L (<10.0)
[2017-10-30 10:30] LABS: ERYTHROCYTE SEDIMENTATION RATE 35 mm/hr (0-20)
[2017-10-30 10:39] LABS: PLATELET COUNT 80 10^3/uL (150-450)
== END ==
LOC: LAB 09:15
PROVIDERS: ATTEND Internal Medicine
DX: E11.9 Type 2 diabetes mellitus without complications (principal); I25.10 Atherosclerotic heart disease of native coronary artery without angina pectoris; I48.0 Paroxysmal atrial fibrillation; A41.01 Sepsis due to Methicillin susceptible Staphylococcus aureus; Z79.01 Long term (current) use of anticoagulants; Z79.899 Other long term (current) drug therapy
CPT/HCPCS: 36415; 80053; 85025; 85610; 85652; 86140

== ENCOUNTER 2018-01-26 09:58 | Emergency (ER) | payer MEDICARE, BC ==
--- NOTE | 2018-01-26 10:26 | ER Document Report ---
ED General - General Mode of Arrival: Medic Information source: Patient TRAVEL OUTSIDE OF THE [place] IN LAST 30 DAYS: No <CESAR AG - Last Filed: 01/26/18 12:05> <JOSE ESPINOZA - Last Filed: 01/26/18 12:14> - General Chief Complaint: Flank Pain Stated Complaint: RIGHT SIDE FLANK PAIN Time Seen by Provider: 01/26/18 10:14 Notes: Patient is a 72-year-old male with HTN (no medications), Afib, diabetes type 2, COPD presents to the emergency department complaining of right flank pain onset last night. Patient states he noticed some flank pain last night that eventually went away. This morning, he reports he was woken from his sleep around 0600 due to, as he describes, excruciating right flank pain. Patient states the flank pain radiates into the RLQ and right groin. Patient also complains of nausea and vomiting onset today. Patient's PCP is Dr. Horner. (CESAR AG) - Related Data Allergies/Adverse Reactions: Sulfa (Sulfonamide Antibiotics) Allergy (Unknown, Verified 10/05/17 10:03) zolpidem tartrate [From Ambien] Allergy (Unknown, Verified 10/05/17 10:03) chocolate Adverse Reaction (Severe, Uncoded 10/05/17 10:03) Migraine Past Medical History - General Information source: Patient - Social History Smoking Status: Unknown if Ever Smoked Family History: DM Patient has suicidal ideation: No Patient has homicidal ideation: No - Past Medical History Cardiac Medical History: Reports: Hx Atrial Fibrillation, Hx Congestive Heart Failure, Hx Coronary Artery Disease, Hx Heart Attack, Hx Hypercholesterolemia, Hx Hypertension Pulmonary Medical History: Reports: Hx Asthma, Hx COPD Neurological Medical History: Reports: Hx Cerebrovascular Accident - 2016 Endocrine Medical History: Reports: Hx Diabetes Mellitus Type 1, Hx Diabetes Mellitus Type 2 - insulin dependent GI Medical History: Reports: Other - Bilateral inguinal hernia repairs Past Surgical History: Reports: Hx Cardiac Catheterization - Stent placement June 03, 2015, Hx Cardiac Surgery - cabg, stent placement (2014), Hx Coronary Artery Bypass Graft, Hx Open Heart Surgery - and Stent placed May 2015 - Immunizations Hx Diphtheria, Pertussis, Tetanus Vaccination: Yes Hx Pneumococcal Vaccination: 08/12/14 <CESAR AG - Last Filed: 01/26/18 12:05> Review of Systems - Review of Systems Constitutional: No symptoms reported EENT: No symptoms reported Cardiovascular: No symptoms reported Respiratory: No symptoms reported Gastrointestinal: See HPI, Nausea, Vomiting Genitourinary: See HPI, Flank pain Male Genitourinary: No symptoms reported Musculoskeletal: See HPI Skin: No symptoms reported Hematologic/Lymphatic: No symptoms reported Neurological/Psychological: No symptoms reported -: Yes All other systems reviewed and negative <[email or web address] - Last Filed: 01/26/18 12:05> Physical Exam - General General appearance: Appears well, Alert In distress: None - HEENT Head: Normocephalic, Atraumatic Eyes: Normal Conjunctiva: Normal Extraocular movements intact: Yes Pupils: PERRL Neck: Normal - Respiratory Respiratory status: No respiratory distress Chest status: Nontender Breath sounds: Normal Chest palpation: Normal - Cardiovascular Rhythm: Regular Heart sounds: Normal auscultation Murmur: No Friction rub: No Gallop: None auscultated - Abdominal Inspection: Normal Distension: No distension Bowel sounds: Normal Tenderness: Tender - Tender to palpation in the RLQ, LLQ and the pelvic area. R >L. - Back Back: Tender - Right lumbar muscle tender to palpation, CVA tenderness - Right - Extremities General upper extremity: Normal ROM General lower extremity: Normal ROM - Neurological Neuro grossly intact: Yes Cognition: Normal Orientation: AAOx4 Sugar Coma Scale Eye Opening: Spontaneous [place] Coma Scale Verbal: Oriented Sugar Coma Scale Motor: Obeys Commands [place] Coma Scale Total: 15 Speech: Normal - Psychological Associated symptoms: Normal affect, Normal mood - Skin Skin Temperature: Warm Skin Moisture: Dry Skin Color: Normal <KIMBERLIMAYELAVAMSHI - Last Filed: 01/26/18 12:05> - Vital signs Vitals: Temp Pulse Resp BP Pulse Ox 97.4 F 72 18 158/71 H 95 01/26/18 10:02 01/26/18 10:02 01/26/18 10:02 01/26/18 10:02 01/26/18 10:02 Course - Laboratory Result Diagrams: 01/26/18 11:00 01/26/18 11:00 <[email or web address] - Last Filed: 01/26/18 12:05> - Laboratory Result Diagrams: 01/26/18 11:00 01/26/18 11:00 <JOSE ESPINOZA - Last Filed: 01/26/18 12:14> - Re-evaluation Re-evalutation: 01/26/18 12:08 On repeat examination, the patient's pain is clearly coming from the lumbar back muscles, much worse on the left. On reviewing possible causes for this, the patient reports that he did pour concrete yesterday and thinks he may have strained his back doing that. I did review the CT scan with the patient, it did not show any significant abnormalities. CBC does not suggest an infectious process. The Chem-12 was unremarkable other than a blood sugar of 357, and an A1c of 8.0 (JOSE ESPINOZA) - Vital Signs Vital signs: Temp Pulse Resp BP Pulse Ox 97.4 F 72 18 158/71 H 95 01/26/18 10:02 01/26/18 10:02 01/26/18 10:02 01/26/18 10:02 01/26/18 10:02 - Laboratory Laboratory results interpreted by me: 01/26/18 01/26/18 01/26/18 11:00 11:00 11:00 RDW 14.4 H Plt Count 91 L Carbon Dioxide 31 H BUN 21 H Glucose 357 H Hemoglobin A1c % Total Bilirubin 1.6 H Alkaline Phosphatase 140 H Urine Glucose (UA) 150 H 01/26/18 11:00 RDW Plt Count Carbon Dioxide BUN Glucose Hemoglobin A1c % 8.0 H Total Bilirubin Alkaline Phosphatase Urine Glucose (UA) Discharge <CESAR AG - Last Filed: 01/26/18 12:05> <JOSE ESPINOZA - Last Filed: 01/26/18 12:14> - Discharge Clinical Impression: Poorly controlled diabetes mellitus Lumbar back sprain Qualifiers: Encounter type: initial encounter Qualified Code(s): S33.5XXA - Sprain of ligaments of lumbar spine, initial encounter Condition: Stable Disposition: HOME, SELF-CARE Additional Instructions: Back Muscle Strain You have strained your back muscles. This often occurs with strenuous exertion, or during an injury that suddenly stretches the muscle. The seriousness of a strain varies. Some strains heal within days, others cause problems for months. X-rays cannot show a muscle strain. X-rays are taken only if symptoms suggest that a fracture could be present. The usual treatment of a muscle strain is rest and ice packs. Sometimes, a sling, splint, or crutches may be necessary to rest the muscle. The muscle can be used again once pain subsides. Severe strains require a special exercise and stretching program to prevent permanent stiffness and disability. Your doctor will advise you if this will be necessary. Call the doctor immediately if pain or swelling becomes severe, or if numbness or discoloration develop. Take medications as prescribed for muscle relaxation and pain control. Drink plenty of fluids. Rest. Be sure to take your insulin on schedule. Take the lab work and CT reports with you when you follow-up with Dr. Horner this week. RETURN TO THE EMERGENCY ROOM IF ANY NEW OR WORSENING SYMPTOMS. Prescriptions: Cyclobenzaprine HCl [Flexeril 5 mg Tablet] 5 mg PO TID PRN #15 tablet PRN Reason: Oxycodone HCl/Acetaminophen [Percocet 5-325 mg Tablet] 1 tab PO ASDIR PRN #15 tablet PRN Reason: Referrals: JAK HORNER MD [Primary Care Provider] - Follow up as needed Scribe Attestation: 01/26/18 10:58 I personally performed the services described in the documentation, reviewed and edited the documentation which was dictated to the scribe in my presence, and it accurately records my words and actions. (JOSE ESPINOZA) Scribe Documentation - Scribe Written by Kaleb:: Kaleb Hancock, 01/26/2018 10:34 acting as scribe for :: Evelia <CESAR AG - Last Filed: 01/26/18 12:05>
[2018-01-26] MEDS ORDERED: FENTANYL CITRATE INJ/PF 100 MCG/2 ML AMPUL IV ONE (10:28)
--- NOTE | 2018-01-26 10:59 | RADIOLOGY REPORT (SQ) ---
EXAM DESCRIPTION: CT LTD RENAL STONE PROTOCOL ON COMPLETED DATE/TIME: 01/26/2018 10:38 am REASON FOR STUDY: Right flank pain radiating into right groin COMPARISON: CT abdomen pelvis 11/11/2016, 02/11/2017 TECHNIQUE: CT scan of the abdomen and pelvis performed without intravenous or oral contrast. Images reviewed with lung, soft tissue, and bone windows. Reconstructed coronal and sagittal MPR images revi ewed. All images stored on PACS. All CT scanners at this facility use dose modulation, iterative reconstruction, and/or weight based d osing when appropriate to reduce radiation dose to as low as reasonably achievable (ALARA). [facility]: Dose Right [facility]: CareDose [facility]: Dose Right [facility]: Teradose 4D [facility]: [employer] RADIATION DOSE: CT Rad equipment meets quality standard of care and radiation dose reduction techniq ues were employed. CTDIvol: 14.4 mGy. DLP: 768 mGy-cm.mGy. LIMITATIONS: None. FINDINGS: LOWER CHEST: Minimal scarring right posterior costophrenic sulcus. Old sternotomy for CAB G. Small hiatal hernia NON-CONTRASTED LIVER, SPLEEN, ADRENALS: Liver is normal size with a diffuse micronodular appearance f rom cirrhosis. No splenomegaly. Adrenal glands unremarkable. PANCREAS: No masses. No peripancreatic inflammatory changes. GALLBLADDER: Gallstones. No inflammatory changes to suggest cholecystitis. RIGHT KIDNEY AND URETER: No suspicious masses. Assessment limited by lack of IV contrast. No signif icant calcifications. No hydronephrosis or hydroureter. LEFT KIDNEY AND URETER: No suspicious masses. Assessment limited by lack of IV contrast. No signifi cant calcifications. No hydronephrosis or hydroureter. AORTA AND RETROPERITONEUM: Heavily calcified abdominal aorta without aneurysm. No retroperitoneal ad enopathy. BOWEL AND PERITONEAL CAVITY: No obvious masses or inflammatory changes. No free fluid. APPENDIX: Normal. PELVIS, BLADDER, AND ABDOMINAL WALL:Intact bilateral inguinal hernia repairs. Urinary bladder, prost ate, rectum grossly unremarkable. No adenopathy or free fluid BONES: Advanced degenerative disc changes at L1-2, with significant bilateral foraminal narrowing rig ht greater than left OTHER: No other significant finding. IMPRESSION: No CT evidence of obstructive urinary stones. COMMENT: Quality ID # [id number]: Final reports with documentation of one or more dose reduction techniques (e.g., Automated exposure control, adjustment of the mA and/or kV according to patient size, use of iterative reconstruction technique) TECHNICAL DOCUMENTATION: JOB ID: [id number] [employer]- All Rights Reserved Reading location - IP/workstation name: [email or web address]
[2018-01-26 11:15] LABS: ABSOLUTE EOSINOPHILS # (AUTO) 0.1 10^3/uL (0.0-0.6); ABSOLUTE LYMPHOCYTES (AUTO) 1.5 10^3/uL (0.5-4.7); ABSOLUTE MONOCYTES (AUTO) 0.3 10^3/uL (0.1-1.4); ABSOLUTE NEUT (AUTO) 2.8 10^3/uL (1.7-8.2); BASOPHILS % (AUTO) 0.7 % (0-2); EOSINOPHILS % (AUTO) 1.4 % (0-6); HEMOGLOBIN 14.5 g/dL (13.5-17.0); LYMPHOCYTES % (AUTO) 32.9 % (13-45); MEAN CORPUSCULAR HGB CONC 34.5 g/dL (32.0-36.0); MEAN CORPUSCULAR VOLUME 93 fl (80-97); MONOCYTES % (AUTO) 5.5 % (3-13); RED BLOOD COUNT 4.53 10^6/uL (4.35-5.55); RED CELL DISTRIBUTION WIDTH 14.4 % (11.5-14.0); SEGMENTED NEUTROPHILS % (AUTO) 59.5 % (42-78); TOTAL CELLS COUNTED % (AUTO) 100 %; WHITE BLOOD COUNT 4.7 10^3/uL (4.0-10.5)
[2018-01-26 11:22] LABS: APPEARANCE,URINE CLEAR; BILIRUBIN,URINE NEGATIVE (NEGATIVE); COLOR,URINE YELLOW; GLUCOSE, URINE 150 mg/dL (NEGATIVE); KETONES,URINE NEGATIVE (NEGATIVE); LEUKOCYTE ESTERASE,URINE NEGATIVE (NEGATIVE); NITRITE,URINE NEGATIVE (NEGATIVE); PROTEIN,URINE NEGATIVE (NEGATIVE); URINE SPECIFIC GRAVITY 1.013; UROBILINOGEN,URINE NEGATIVE mg/dL (<2.0)
[2018-01-26 11:30] LABS: ALANINE AMINOTRANSFERASE 41 U/L (21-72); ALBUMIN 4.1 g/dL (3.5-5.0); ALKALINE PHOSPHATASE 140 U/L (38-126); ANION GAP 10 (5-19); ASPARTATE AMINO TRANSFERASE 45 U/L (17-59); BILIRUBIN,DIRECT 0.3 mg/dL (0.0-0.4); BILIRUBIN,TOTAL 1.6 mg/dL (0.2-1.3); BLOOD UREA NITROGEN 21 mg/dL (7-20); CALCIUM 9.1 mg/dL (8.4-10.2); CARBON DIOXIDE 31 mmol/L (22-30); CHLORIDE 101 mmol/L (98-107); GLUCOSE 357 mg/dL (75-110); POTASSIUM 4.9 mmol/L (3.6-5.0); SODIUM 141.8 mmol/L (137-145); TOTAL PROTEIN 7.5 g/dL (6.3-8.2)
[2018-01-26 11:36] LABS: PLATELET COUNT 91 10^3/uL (150-450)
[2018-01-26 12:42] VITALS: BP 169/81
== END 2018-01-26 12:48 | disposition home or self-care (01) ==
LOC: ER 09:58
DX: S33.5XXA Sprain of ligaments of lumbar spine, initial encounter (principal); X58.XXXA Exposure to other specified factors, initial encounter; E11.9 Type 2 diabetes mellitus without complications; R10.9 Unspecified abdominal pain; I10 Essential (primary) hypertension; I48.91 Unspecified atrial fibrillation; J44.9 Chronic obstructive pulmonary disease, unspecified; Z88.2 Allergy status to sulfonamides; Z86.73 Personal history of transient ischemic attack (TIA), and cerebral infarction without residual deficits; Z95.1 Presence of aortocoronary bypass graft
CPT/HCPCS: 99284; 96374; 36415; 85025; 80053; 81001; 83036; 76380; J3010

== ENCOUNTER → 2018-06-17 | Outpatient (CLI) | payer MEDICARE, BC ==
--- NOTE | 2018-06-17 14:27 | RADIOLOGY REPORT (SQ) ---
EXAM DESCRIPTION: CT ABDOMEN IV CONTRAST ONLY COMPLETED DATE/TIME: 06/17/2018 10:04 am REASON FOR STUDY: UNSPECIFIED CIRRHOSIS OF LIVER K74.60 UNSPECIFIED CIRRHOSIS OF LIVER COMPARISON: 01/26/2018 TECHNIQUE: CT scan of the abdomen performed with intravenous and without oral contrast using helical scanning technique with dynamic intravenous contrast injection. Images reviewed with lung, soft tiss ue, and bone windows. Reconstructed coronal and sagittal MPR images reviewed. Delayed images for eval uation of the urinary system also acquired and evaluated. All images stored on PACS. All CT scanners at this facility use dose modulation, iterative reconstruc tion, and/or weight based dosing when appropriate to reduce radiation dose to as low as reasonably ac hievable (ALARA). [facility]: Dose Right [facility]: CareDose [facility]: Dose Right [facility]: Teradose 4D [facility]: [employer] CONTRAST TYPE AND DOSE: contrast/concentration: Isovue 350.00 mg/ml; Total Contrast Delivered: 100.0 ml; Total Saline Delivered: 72.0 ml RENAL FUNCTION: BUN 22 creatinine 0.9 RADIATION DOSE: CT Rad equipment meets quality standard of care and radiation dose reduction techniq ues were employed. CTDIvol: 15.0 - 17.6 mGy. DLP: 1041 mGy-cm. . LIMITATIONS: None. FINDINGS: LOWER CHEST: No acute findings. LIVER: Sub capsular nodularity. No mass identified. SPLEEN: Mild splenomegaly. PANCREAS: No masses. No significant calcifications. No adjacent inflammation or peripancreatic fluid collections. Pancreatic duct not dilated. GALLBLADDER: Gallstones. No inflammatory changes to suggest cholecystitis. ADRENAL GLANDS: No significant masses or asymmetry. RIGHT KIDNEY AND URETER: No solid masses. No significant calcifications. No hydronephrosis or hyd roureter. LEFT KIDNEY AND URETER: No solid masses. No significant calcifications. No hydronephrosis or hydr oureter. AORTA AND VESSELS: No aneurysm. Small gastric varices. Splenorenal shunting. RETROPERITONEUM: No retroperitoneal adenopathy, hemorrhage or masses. BOWEL AND PERITONEAL CAVITY: No masses or inflammatory changes. No free fluid or peritoneal masses. APPENDIX: Not visualized. ABDOMINAL WALL: No masses. No hernias. BONES: No acute findings. OTHER: No other significant finding. IMPRESSION: Cirrhosis and portal hypertension. No evidence of liver mass or ascites. TECHNICAL DOCUMENTATION: JOB ID: [id number] Quality ID # [id number]: Final reports with documentation of one or more dose reduction techniques (e.g., Au tomated exposure control, adjustment of the mA and/or kV according to patient size, use of iterative reconstruction technique) 2010 [employer]- All Rights Reserved Reading location - IP/workstation name: [email or web address]
== END ==
LOC: RAD 09:30
PROVIDERS: ATTEND Internal Medicine
DX: K74.60 Unspecified cirrhosis of liver (principal); K76.6 Portal hypertension
CPT/HCPCS: 74160

== ENCOUNTER 2019-10-22 12:19 | Emergency (ER) | payer MEDICARE, BC ==
[2019-10-22 14:12] LABS: ABSOLUTE EOSINOPHILS # (AUTO) 0.1 10^3/uL (0.0-0.6); ABSOLUTE LYMPHOCYTES (AUTO) 1.1 10^3/uL (0.5-4.7); ABSOLUTE MONOCYTES (AUTO) 0.5 10^3/uL (0.1-1.4); ABSOLUTE NEUT (AUTO) 2.6 10^3/uL (1.7-8.2); BASOPHILS % (AUTO) 0.5 % (0-2); EOSINOPHILS % (AUTO) 1.8 % (0-6); HEMOGLOBIN 12.4 g/dL (13.5-17.0); MEAN CORPUSCULAR HEMOGLOBIN 33.9 pg (27.0-33.4); MEAN CORPUSCULAR HGB CONC 34.6 g/dL (32.0-36.0); MEAN CORPUSCULAR VOLUME 98 fl (80-97); MONOCYTES % (AUTO) 11.8 % (3-13); RED BLOOD COUNT 3.67 10^6/uL (4.35-5.55); RED CELL DISTRIBUTION WIDTH 15.6 % (11.5-14.0); SEGMENTED NEUTROPHILS % (AUTO) 59.9 % (42-78); TOTAL CELLS COUNTED % (AUTO) 100 %; WHITE BLOOD COUNT 4.4 10^3/uL (4.0-10.5)
[2019-10-22 14:14] LABS: APPEARANCE,URINE CLEAR; BILIRUBIN,URINE NEGATIVE (NEGATIVE); COLOR,URINE STRAW; GLUCOSE, URINE NEGATIVE (NEGATIVE); KETONES,URINE NEGATIVE (NEGATIVE); PROTEIN,URINE NEGATIVE (NEGATIVE); URINE SPECIFIC GRAVITY 1.005; UROBILINOGEN,URINE NEGATIVE mg/dL (<2.0)
--- NOTE | 2019-10-22 14:15 | RADIOLOGY REPORT (SQ) ---
EXAM DESCRIPTION: CHEST SINGLE VIEW COMPLETED DATE/TIME: 10/22/2019 2:04 pm REASON FOR STUDY: CHF COMPARISON: 11/11/2016 EXAM PARAMETERS: NUMBER OF VIEWS: One view. TECHNIQUE: Single frontal radiographic view of the chest acquired. RADIATION DOSE: NA LIMITATIONS: None. FINDINGS: LUNGS AND PLEURA: Small left pleural effusion. MEDIASTINUM AND HILAR STRUCTURES: No masses. Contour normal. HEART AND VASCULAR STRUCTURES: Cardiomegaly. BONES: No acute findings. HARDWARE: CABG. Right dual lead pacemaker. OTHER: No other significant finding. IMPRESSION: Small left pleural effusion. TECHNICAL DOCUMENTATION: JOB ID: [id number] 2010 [employer]- All Rights Reserved Reading location - IP/workstation name: [email or web address]
[2019-10-22 14:17] LABS: ALBUMIN 3.9 g/dL (3.5-5.0); ALKALINE PHOSPHATASE 146 U/L (38-126); ANION GAP 10 (5-19); ASPARTATE AMINO TRANSFERASE 53 U/L (17-59); BILIRUBIN,DIRECT 0.4 mg/dL (0.0-0.4); BILIRUBIN,TOTAL 1.2 mg/dL (0.2-1.3); BLOOD UREA NITROGEN 20 mg/dL (7-20); CALCIUM 8.7 mg/dL (8.4-10.2); CARBON DIOXIDE 29 mmol/L (22-30); CHLORIDE 102 mmol/L (98-107); GLUCOSE 154 mg/dL (75-110); POTASSIUM 3.2 mmol/L (3.6-5.0); TOTAL PROTEIN 7.7 g/dL (6.3-8.2)
[2019-10-22 14:20] LABS: PLATELET COUNT 94 10^3/uL (150-450)
[2019-10-22 14:32] LABS: AMORPHOUS SEDIMENT,UR TRACE; BACTERIA,URINE TRACE /HPF
--- NOTE | 2019-10-22 16:08 | ER Document Report ---
ED General - General Chief Complaint: Shortness Of Breath Stated Complaint: FLUID RETENTION Time Seen by Provider: 10/22/19 13:27 Primary Care Provider: JAK HORNER MD [Primary Care Provider] - Follow up as needed TRAVEL OUTSIDE OF THE [place] IN LAST 30 DAYS: No - HPI Notes: Chief complaint: Fluid retention 74-year-old man with history of multiple chronic medical problems including history of CAD with previous CABG and CHF followed by Dr. Horner now referred to the emergency department for evaluation of 10 pound weight gain over the last 2 to 3 days with some dyspnea on exertion and increasing peripheral edema. No chest pain. Patient does not use home oxygen. Patient is presently on Lasix 80 mg morning and 40 mg at night. No history of significant renal disease. Patient says he is fully compliant with his medications. - Related Data Allergies/Adverse Reactions: Sulfa (Sulfonamide Antibiotics) Allergy (Unknown, Verified 10/05/17 10:03) zolpidem tartrate [From Ambien] Allergy (Unknown, Verified 10/05/17 10:03) chocolate Adverse Reaction (Severe, Uncoded 10/05/17 10:03) Migraine Past Medical History - General Information source: Patient, Relative - Social History Smoking Status: Former Smoker Chew tobacco use (# tins/day): No Frequency of alcohol use: None Drug Abuse: None Family History: DM Patient has suicidal ideation: No Patient has homicidal ideation: No - Past Medical History Cardiac Medical History: Reports: Hx Atrial Fibrillation, Hx Congestive Heart Failure, Hx Coronary Artery Disease, Hx Heart Attack, Hx Hypercholesterolemia, Hx Hypertension Pulmonary Medical History: Reports: Hx Asthma, Hx COPD Neurological Medical History: Reports: Hx Cerebrovascular Accident - 2016. Denies: Hx Seizures Endocrine Medical History: Reports: Hx Diabetes Mellitus Type 1, Hx Diabetes Mellitus Type 2 - insulin dependent Renal/ Medical History: Denies: Hx End Stage Renal Disease, Hx Peritoneal Dialysis Past Surgical History: Reports: Hx Cardiac Catheterization - Stent placement O ctober 2014, Hx Cardiac Surgery - cabg, stent placement (2014), Hx Coronary Artery Bypass Graft, Hx Open Heart Surgery - and Stent placed May 2015 - Immunizations Hx Diphtheria, Pertussis, Tetanus Vaccination: Yes Hx Pneumococcal Vaccination: 08/12/14 Review of Systems - Review of Systems Notes: Constitutional: Negative for fever. HENT: Negative for sore throat. Eyes: Negative for visual changes. Cardiovascular: Negative for chest pain. Respiratory: As per HPI. Gastrointestinal: Negative for abdominal pain, vomiting or diarrhea. Genitourinary: Negative for dysuria. Musculoskeletal: Negative for back pain. Skin: Negative for rash. Neurological: Negative for headaches, focal weakness or numbness. 10 point ROS negative except as marked above and in HPI. Physical Exam - Vital signs Vitals: Temp Pulse Resp BP Pulse Ox 97.8 F 73 20 116/60 94 10/22/19 12:54 10/22/19 12:54 10/22/19 12:54 10/22/19 12:54 10/22/19 12:54 - Notes Notes: GENERAL: Elderly man appearing in no acute distress. SKIN: Good turgor no rashes. HEAD: Normocephalic atraumatic. EYES: PERRLA. EOMI. Conjunctivae and sclerae clear. EARS: CANALS AND TMS CLEAR. NOSE: CLEAR. MOUTH: Moist mucosa. Good dentition. No stridor or edema. No drooling. NECK: Supple. No masses or thyromegaly. No adenopathy. Carotids 2+ without bruits. No JVD. BACK: Symmetrical without tenderness. CHEST: Respirations unlabored. Few basal rales bilaterally with diminished breath sounds at both bases. HEART: Regular rhythm. No murmur gallop or rub. ABDOMEN: Soft nontender without masses, organomegaly or rebound. Bowel sounds normally active. No bruits. GENITALIA: Deferred. EXTREMITIES: 1+ bilateral pretibial edema. No calf tenderness. Cap refill less than 1.5 seconds. Dorsalis pedis and posterior tibial pulses 3+ and symmetrical. NEUROLOGICAL: GCS 15. Alert and oriented x3. Fluent speech. Cranial nerves II through XII intact. Sensorimotor and cerebellar normal. Normal tone. PSYCHIATRIC: Appropriate affect. Course - Re-evaluation Re-evalutation: 10/22/19 16:14 This man has some superimposed mild decompensation of his CHF but at this point he is oxygenating well and his good renal function. I think we can reasonably titrate up his Lasix somewhat and have him follow closely with his outpatient doctor. His potassium here slightly low at 3.2. I have given him some oral potassium here and will place him on some at home. We checked his mag level and it is normal. Plan was discussed with patient and his and they are both in agreement with this. - Vital Signs Vital signs: Temp Pulse Resp BP Pulse Ox 97.8 F 73 20 116/60 94 10/22/19 12:54 10/22/19 12:54 10/22/19 12:54 10/22/19 12:54 10/22/19 12:54 - Laboratory Result Diagrams: 10/22/19 13:05 10/22/19 13:05 Laboratory results interpreted by me: 10/22/19 10/22/19 10/22/19 13:05 13:05 13:05 RBC 3.67 L Hgb 12.4 L Hct 36.0 L MCV 98 H MCH 33.9 H RDW 15.6 H Plt Count 94 L Potassium 3.2 L Glucose 154 H Alkaline Phosphatase 146 H NT-Pro-B Natriuret Pep 2250 H Leukocyte Esterase Rfl 10/22/19 13:05 RBC Hgb Hct MCV MCH RDW Plt Count Potassium Glucose Alkaline Phosphatase NT-Pro-B Natriuret Pep Leukocyte Esterase Rfl TRACE H - EKG Interpretation by Me Additional EKG results interpreted by me: 10/22/19 16:13 EKG shows paced rhythm Discharge - Discharge Clinical Impression: Hypokalemia Congestive heart failure Qualifiers: Heart failure type: unspecified Heart failure chronicity: unspecified Qualified Code(s): I50.9 - Heart failure, unspecified Condition: Stable Disposition: HOME, SELF-CARE Additional Instructions: Hypokalemia You have an abnormally decreased level of serum potassium. Hypokalemia may cause weakness, fatigue, or heart rhythm abnormalities. Sometimes there are no symptoms at all. Usually, low serum potassium is due to taking diuretics (water pills). It can also be due to excessive vomiting or diarrhea. If no obvious cause is evident, further evaluation will be necessary. Treatment is usually oral potassium supplements. Take these exactly as prescribed. You may also want to select foods which are naturally high in po tassium -- fruits (such as bananas, cantaloupe, grapes, oranges, prunes, tomatoes), fresh vegetables (potatoes, spinach, beans, peas), orange or tomato juice, tomato pasta sauce, milk, fish (halibut, tuna, salmon, krystyna) A follow-up blood test is usually performed to assure that the potassium is returning to normal. Call the physician if you suffer severe weakness, muscle twitching or cramping, palpitations (pounding or irregular heartbeat), or any other new or alarming symptoms. Increase your Lasix to 80 mg twice a day. Take prescribed potassium as instructed. Return here as needed for new or worsening symptoms. Follow-up with your doctor within the next 24 to 48 hours. Prescriptions: Potassium Chloride 20 meq PO BID 7 Days #14 [email or web address] Referrals: JAK HORNER MD [Primary Care Provider] - Follow up as needed
[2019-10-22] MEDS ORDERED: POTASSIUM CHLORIDE 20 MEQ PACKET PO ONE (16:10)
[2019-10-22 16:54] VITALS: BP 160/77
--- NOTE | 2019-10-22 19:03 | EKG REPORT ---
SEVERITY:- ABNORMAL ECG - VENTRICULAR-PACED COMPLEXES : Confirmed by: Coleman Murphy 22-Oct-2019 19:02:19
== END 2019-10-22 16:54 | disposition home or self-care (01) ==
LOC: ER 12:19
DX: I11.0 Hypertensive heart disease with heart failure (principal); I50.9 Heart failure, unspecified; E87.6 Hypokalemia; I25.10 Atherosclerotic heart disease of native coronary artery without angina pectoris; Z95.5 Presence of coronary angioplasty implant and graft; R63.5 Abnormal weight gain; J44.9 Chronic obstructive pulmonary disease, unspecified; E11.9 Type 2 diabetes mellitus without complications; Z79.899 Other long term (current) drug therapy; Z87.891 Personal history of nicotine dependence; Z95.1 Presence of aortocoronary bypass graft; Z88.2 Allergy status to sulfonamides; Z88.8 Allergy status to other drugs, medicaments and biological substances
CPT/HCPCS: 93005; 99285; 36415; 83735; 85025; 80053; 81001; 83880; 71045; 93010; J3490

== ENCOUNTER 2019-10-26 21:46 | Emergency (ER) | payer MEDICARE, BC ==
--- NOTE | 2019-10-26 22:55 | ER Document Report ---
ED Medical Screen (RME) - General Stated Complaint: DIFFICULTY BREATHING Primary Care Provider: JAK ENGEL MD [Primary Care Provider] - Follow up as needed Notes: Patient is 74-year-old white male with past medical history of CHF, NM with stenting and a pacer who presents to the emergency department with a chief complaint of shortness of breath for the past 3 days. He states this is associated with a pressure in the chest. States he thought it was in relation to the pollen but last time he felt this way was when he had his NM. They state he was retaining water previously but they feel like his diuretics took care of it. Patient is unsure of any provocative or palliative factors. Denies any fever or cough. No recent travel. I have treated and performed a rapid initial assessment of this patient. A comprehensive ED assessment and evaluation of the patient, analysis of test results and completion of medical decision making process will be conducted by additional ED providers. PHYSICAL EXAMINATION: GENERAL: Well-appearing, well-nourished and in no acute distress. A&Ox4. Answers questions appropriately. TRAVEL OUTSIDE OF THE [place] IN LAST 30 DAYS: No - Related Data Allergies/Adverse Reactions: Sulfa (Sulfonamide Antibiotics) Allergy (Unknown, Verified 10/26/19 22:53) zolpidem tartrate [From Ambien] Allergy (Unknown, Verified 10/26/19 22:53) chocolate Adverse Reaction (Severe, Uncoded 10/05/17 10:03) Migraine Past Medical History - Past Medical History Cardiac Medical History: Reports: Hx Atrial Fibrillation, Hx Congestive Heart Failure, Hx Coronary Artery Disease, Hx Heart Attack, Hx Hypercholesterolemia, Hx Hypertension Pulmonary Medical History: Reports: Hx Asthma, Hx COPD Neurological Medical History: Reports: Hx Cerebrovascular Accident - 2016. Denies: Hx Seizures Endocrine Medical History: Reports: Hx Diabetes Mellitus Type 1, Hx Diabetes Mellitus Type 2 - insulin dependent Renal/ Medical History: Denies: Hx End Stage Renal Disease, Hx Peritoneal Dialysis Past Surgical History: Reports: Hx Cardiac Catheterization - Stent placement June 03, 2015, Hx Cardiac Surgery - cabg, stent placement (2014), Hx Coronary Artery Bypass Graft, Hx Open Heart Surgery - and Stent placed May 2015 - Immunizations Hx Diphtheria, Pertussis, Tetanus Vaccination: Yes Physical Exam - Vital signs Vitals: Temp Pulse Resp BP Pulse Ox 98.8 F 85 20 133/64 H 94 03/16/20 22:23 10/26/19 22:23 10/26/19 22:23 10/26/19 22:23 10/26/19 22:23 Course - Vital Signs Vital signs: Temp Pulse Resp BP Pulse Ox 98.8 F 85 20 133/64 H 94 10/26/19 22:23 10/26/19 22:23 10/26/19 22:23 10/26/19 22:23 10/26/19 22:23 Doctor's Discharge - Discharge Referrals: JAK ENGEL MD [Primary Care Provider] - Follow up as needed
--- NOTE | 2019-10-26 23:26 | RADIOLOGY REPORT (SQ) ---
EXAM DESCRIPTION: X-RAY CHEST- One View CLINICAL HISTORY: Shortness of breath COMPARISON: October 22, 2019 TECHNIQUE: Single view of the chest. FINDINGS: There is blunting of the bilateral costophrenic angles with patchy bibasilar opacities. The pulmonary vascularity is prominent in appearance. The cardiomediastinal silhouette is stable, with cardiothoracic postoperative changes including median sternotomy wires. Right chest wall cardiac pacer device is present. Osseous structures are unchanged. IMPRESSION: Bilateral pleural effusions with patchy adjacent opacity. Although findings may represent atelectatic change, an infectious process is not excluded. Clinical correlation is advised with consideration for attention on follow-up if clinically indicated.
[2019-10-26 23:27] LABS: ABSOLUTE EOSINOPHILS # (AUTO) 0.1 10^3/uL (0.0-0.6); ABSOLUTE LYMPHOCYTES (AUTO) 1.1 10^3/uL (0.5-4.7); MEAN CORPUSCULAR VOLUME 97 fl (80-97); TOTAL CELLS COUNTED % (AUTO) 100 %
[2019-10-26 23:32] LABS: ABSOLUTE MONOCYTES (AUTO) 0.7 10^3/uL (0.1-1.4); ABSOLUTE NEUT (AUTO) 3.6 10^3/uL (1.7-8.2); BASOPHILS % (AUTO) 0.5 % (0-2); EOSINOPHILS % (AUTO) 2.4 % (0-6); HEMATOCRIT 37.2 % (37.9-51.0); HEMOGLOBIN 12.5 g/dL (13.5-17.0); LYMPHOCYTES % (AUTO) 20.4 % (13-45); MEAN CORPUSCULAR HEMOGLOBIN 32.6 pg (27.0-33.4); MEAN CORPUSCULAR HGB CONC 33.6 g/dL (32.0-36.0); MONOCYTES % (AUTO) 11.7 % (3-13); PLATELET COUNT 117 10^3/uL (150-450); RED BLOOD COUNT 3.84 10^6/uL (4.35-5.55); RED CELL DISTRIBUTION WIDTH 15.2 % (11.5-14.0); WHITE BLOOD COUNT 5.6 10^3/uL (4.0-10.5)
[2019-10-26 23:34] LABS: INTERNATIONAL RATION (INR) 1.25; PROTHROMBIN TIME 15.7 SEC (11.4-15.4)
[2019-10-26 23:35] LABS: PARTIAL THROMBOPLASTIN TIME 30.3 SEC (23.5-35.8)
[2019-10-26 23:44] LABS: ALBUMIN 3.9 g/dL (3.5-5.0); ALKALINE PHOSPHATASE 128 U/L (38-126); ANION GAP 8 (5-19); ASPARTATE AMINO TRANSFERASE 48 U/L (17-59); BILIRUBIN,DIRECT 0.3 mg/dL (0.0-0.4); BILIRUBIN,TOTAL 1.2 mg/dL (0.2-1.3); BLOOD UREA NITROGEN 15 mg/dL (7-20); CALCIUM 8.4 mg/dL (8.4-10.2); CARBON DIOXIDE 33 mmol/L (22-30); CHLORIDE 98 mmol/L (98-107); GLUCOSE 135 mg/dL (75-110); POTASSIUM 3.3 mmol/L (3.6-5.0); TOTAL PROTEIN 7.8 g/dL (6.3-8.2)
[2019-10-27 00:05] LABS: TROPONIN I 0.04 ng/mL
[2019-10-27] MEDS ORDERED: IPRATROPIUM/ALBUTEROL 0.5-2.5 MG/3 ML AMPUL NEB ONE (01:35)
--- NOTE | 2019-10-27 01:35 | ER Document Report ---
ED General - General Chief Complaint: Breathing Difficulty Stated Complaint: DIFFICULTY BREATHING Time Seen by Provider: 10/27/19 01:18 Primary Care Provider: JAK ENGEL MD [Primary Care Provider] - Follow up as needed Mode of Arrival: Ambulatory TRAVEL OUTSIDE OF THE [place] IN LAST 30 DAYS: No - HPI Onset: Other - over the last several days Onset/Duration: Gradual Quality of pain: Pressure Severity: Mild Pain Level: 1 Associated symptoms: Chest pain, Leg swelling, Shortness of breath Exacerbated by: Walking, Other - exertion Relieved by: Other - rest Similar symptoms previously: Yes Recently seen / treated by doctor: Yes - patient seen in this ER on 10/21 and told he was volume overloaded Notes: 74 year old male with a history of CAD, CHF, AFib, HTN, HLD, DM, COPD, CVA here for shortness of breath and mild chest pain. The patient was seen and evaluated in this ER on 10/23/19 and diagnosed with volume overload (he had his Lasix increased from to 80mg BID from 80mg in AM and 40mg in the PM). The patient says since increasing his Lasix dose he has seen an improvement in his fluid build up in his legs and face. The patient still feels short of breath however. The patient denies fevers, chills, sweats productive cough. - Related Data Allergies/Adverse Reactions: Sulfa (Sulfonamide Antibiotics) Allergy (Unknown, Verified 10/26/19 22:53) zolpidem tartrate [From Ambien] Allergy (Unknown, Verified 10/26/19 22:53) chocolate Adverse Reaction (Severe, Uncoded 10/05/17 10:03) Migraine Past Medical History - General Information source: Patient - Social History Smoking Status: Former Smoker Frequency of alcohol use: None Drug Abuse: None Lives with: Spouse/Significant other Family History: DM Patient has suicidal ideation: No Patient has homicidal ideation: No - Past Medical History Cardiac Medical History: Reports: Hx Atrial Fibrillation, Hx Congestive Heart Failure, Hx Coronary Artery Disease, Hx Heart Attack, Hx Hypercholesterolemia, H x Hypertension Pulmonary Medical History: Reports: Hx Asthma, Hx COPD Neurological Medical History: Reports: Hx Cerebrovascular Accident - 2016. Jb es: Hx Seizures Endocrine Medical History: Reports: Hx Diabetes Mellitus Type 1, Hx Diabetes Mellitus Type 2 - insulin dependent Renal/ Medical History: Denies: Hx End Stage Renal Disease, Hx Peritoneal Dialysis Past Surgical History: Reports: Hx Cardiac Catheterization - Stent placement June 03, 2015, Hx Cardiac Surgery - cabg, stent placement (2014), Hx Coronary Artery Bypass Graft, Hx Open Heart Surgery - and Stent placed May 2015 - Immunizations Hx Diphtheria, Pertussis, Tetanus Vaccination: Yes Hx Pneumococcal Vaccination: 08/12/14 Review of Systems - Review of Systems Constitutional: No symptoms reported EENT: No symptoms reported Cardiovascular: Chest pain Respiratory: Short of breath Gastrointestinal: No symptoms reported Genitourinary: No symptoms reported Male Genitourinary: No symptoms reported Musculoskeletal: No symptoms reported Skin: No symptoms reported Hematologic/Lymphatic: No symptoms reported Neurological/Psychological: No symptoms reported -: Yes All other systems reviewed and negative Physical Exam - Vital signs Vitals: Temp Pulse Resp BP Pulse Ox 98.8 F 85 20 133/64 H 94 10/26/19 22:23 10/26/19 22:23 10/26/19 22:23 10/26/19 22:23 10/26/19 22:23 - Notes Notes: GENERAL: Well-appearing, well-nourished and in no acute distress. HEAD: Atraumatic, normocephalic. EYES: Pupils equal round and reactive to light, extraocular movements intact, sclera anicteric, conjunctiva are normal. ENT: Nares patent, oropharynx clear without exudates. Moist mucous membranes. NECK: Normal range of motion, supple without lymphadenopathy or JVD. LUNGS: Breath sounds clear to auscultation bilaterally and equal. No wheezes rales or rhonchi. HEART: Regular rate and rhythm without murmurs, rubs or gallops. ABDOMEN: Soft, nontender, normoactive bowel sounds. No guarding, no rebound. No masses appreciated. EXTREMITIES: Normal range of motion, mild nonpitting edema of lower legs. No clubbing or cyanosis. NEUROLOGICAL: Cranial nerves II through XII grossly intact. Normal speech, normal gait. PSYCH: Normal mood, normal affect. SKIN: Warm, Dry, normal turgor, no rashes or lesions noted. Course - Re-evaluation Re-evalutation: 10/27/19 03:17 The patient is here for shortness of breath and a sensation of being volume overloaded. The patient is on Plavix and Eliquis making PE unlikely. The patient is not having fevers or a productive cough and his WBC is not elevated nor does it have a left shift making an infectious process unlikely. The patient felt slightly better after a neb here in the ER. He was ambulated in the ER and did not desate significantly with ambulation. Patient told to fo continue taking Lasix 80mg BID but to follow up with his PCP and Dental Financial Coordinator as soon as p ossible. The patient's Trop is not elevated for him and his EKG is unchanged from priors making ACS unlikely. - Vital Signs Vital signs: Temp Pulse Resp BP Pulse Ox 98.1 F 85 18 120/57 L 95 10/27/19 00:57 10/26/19 22:23 10/27/19 01:00 10/27/19 01:00 10/27/19 01:00 - Laboratory Result Diagrams: 10/26/19 23:11 10/26/19 23:11 Laboratory results interpreted by me: 10/26/19 10/26/19 10/26/19 23:11 23:11 23:11 RBC 3.84 L Hgb 12.5 L Hct 37.2 L RDW 15.2 H Plt Count 117 L PT 15.7 H Potassium 3.3 L Carbon Dioxide 33 H Glucose 135 H Alkaline Phosphatase 128 H NT-Pro-B Natriuret Pep 10/26/19 23:11 RBC Hgb Hct RDW Plt Count PT Potassium Carbon Dioxide Glucose Alkaline Phosphatase NT-Pro-B Natriuret Pep 3140 H - Diagnostic Test Radiology reviewed: Image reviewed, Reports reviewed - EKG Interpretation by Me EKG shows normal: QRS Complexes Rate: Normal Rhythm: A.Fib, Other - V paced complexes [place]/QRS: LPHB/LPFB When compared to previous EKG there are: No significant change Discharge - Discharge Clinical Impression: Shortness of breath Heart failure Qualifiers: Heart failure type: unspecified Heart failure chronicity: unspecified Qualified Code(s): I50.9 - Heart failure, unspecified Condition: Stable Disposition: HOME, SELF-CARE Instructions: Congestive Heart Failure ([facility]) Additional Instructions: Follow up with your primary care doctor and with your Dental Financial Coordinator. Continue taking Lasix 80mg twice a day but make sure you tell your doctors about your increased dose. If you have not had an outpatient cardiac stress test in the last 5 years you should consider having one. Return to an ER for fevers, chills, sweats, chest pain, nausea , vomiting or if worse in anyway. Referrals: JAK ENGEL MD [Primary Care Provider] - Follow up as needed
[2019-10-27 03:34] VITALS: BP 141/89
--- NOTE | 2019-10-27 14:34 | EKG REPORT ---
SEVERITY:- ABNORMAL ECG - AFIB/FLUT AND V-PACED COMPLEXES RBBB AND LPFB : Confirmed by: Yanna Wilson MD 27-Oct-2019 14:33:36
== END 2019-10-27 03:15 | disposition home or self-care (01) ==
LOC: ER 21:46
DX: I50.9 Heart failure, unspecified (principal); R06.02 Shortness of breath; R07.9 Chest pain, unspecified; M79.89 Other specified soft tissue disorders; I25.10 Atherosclerotic heart disease of native coronary artery without angina pectoris; I11.0 Hypertensive heart disease with heart failure; E11.9 Type 2 diabetes mellitus without complications; E78.5 Hyperlipidemia, unspecified; Z79.899 Other long term (current) drug therapy; Z88.2 Allergy status to sulfonamides; Z87.891 Personal history of nicotine dependence; J44.9 Chronic obstructive pulmonary disease, unspecified; Z79.01 Long term (current) use of anticoagulants; Z79.02 Long term (current) use of antithrombotics/antiplatelets
CPT/HCPCS: 93005; 94640; 99285; 36415; 82962; 85025; 85610; 85730; 80053; 84484; 83880; 71046; 93010; A9270; J7620

== ENCOUNTER 2019-10-27 17:36 | Emergency (ER) | payer MEDICARE, BC ==
--- NOTE | 2019-10-27 18:29 | RADIOLOGY REPORT (SQ) ---
EXAM DESCRIPTION: CHEST SINGLE VIEW COMPLETED DATE/TIME: 10/27/2019 6:12 pm REASON FOR STUDY: shortness of breath COMPARISON: 10/26/2019 EXAM PARAMETERS: NUMBER OF VIEWS: One view. TECHNIQUE: Single frontal radiographic view of the chest acquired. RADIATION DOSE: NA LIMITATIONS: None. FINDINGS: LUNGS AND PLEURA: No opacities, masses or pneumothorax. No pleural effusion. MEDIASTINUM AND HILAR STRUCTURES: No masses. Contour normal. HEART AND VASCULAR STRUCTURES: Cardiomegaly. No pulmonary edema. BONES: No acute findings. HARDWARE: Sternotomy wires. Pacemaker. OTHER: No other significant finding. IMPRESSION: Cardiomegaly without pulmonary edema. TECHNICAL DOCUMENTATION: JOB ID: [id number] 2010 [employer]- All Rights Reserved Reading location - IP/workstation name: [email or web address]
[2019-10-27 18:30] LABS: ABSOLUTE EOSINOPHILS # (AUTO) 0.1 10^3/uL (0.0-0.6); ABSOLUTE LYMPHOCYTES (AUTO) 1.5 10^3/uL (0.5-4.7); ABSOLUTE MONOCYTES (AUTO) 0.5 10^3/uL (0.1-1.4); ABSOLUTE NEUT (AUTO) 3.1 10^3/uL (1.7-8.2); BASOPHILS % (AUTO) 0.6 % (0-2); EOSINOPHILS % (AUTO) 2.4 % (0-6); HEMATOCRIT 36.8 % (37.9-51.0); HEMOGLOBIN 12.8 g/dL (13.5-17.0); LYMPHOCYTES % (AUTO) 28.5 % (13-45); MEAN CORPUSCULAR HEMOGLOBIN 33.6 pg (27.0-33.4); MEAN CORPUSCULAR HGB CONC 34.8 g/dL (32.0-36.0); MEAN CORPUSCULAR VOLUME 97 fl (80-97); MONOCYTES % (AUTO) 10.1 % (3-13); PLATELET COUNT 136 10^3/uL (150-450); RED CELL DISTRIBUTION WIDTH 15.6 % (11.5-14.0); SEGMENTED NEUTROPHILS % (AUTO) 58.4 % (42-78); TOTAL CELLS COUNTED % (AUTO) 100 %; WHITE BLOOD COUNT 5.3 10^3/uL (4.0-10.5)
[2019-10-27 18:33] LABS: ALBUMIN 4.1 g/dL (3.5-5.0); ALKALINE PHOSPHATASE 103 U/L (38-126); ANION GAP 10 (5-19); ASPARTATE AMINO TRANSFERASE 51 U/L (17-59); BILIRUBIN,DIRECT 0.3 mg/dL (0.0-0.4); BILIRUBIN,TOTAL 1.4 mg/dL (0.2-1.3); BLOOD UREA NITROGEN 16 mg/dL (7-20); CALCIUM 8.9 mg/dL (8.4-10.2); CARBON DIOXIDE 33 mmol/L (22-30); CHLORIDE 99 mmol/L (98-107); POTASSIUM 3.6 mmol/L (3.6-5.0); TOTAL PROTEIN 8.1 g/dL (6.3-8.2)
[2019-10-27 18:36] LABS: GLUCOSE 53 mg/dL (75-110)
--- NOTE | 2019-10-27 19:06 | ER Document Report ---
Entered by CARLOS RODRIGUES SCRIBE 10/27/19 1808 Acting as scribe for:STEPHANIE LUNA DO ED General - General Chief Complaint: Chest Tightness Stated Complaint: SHORTNESS OF BREATH Time Seen by Provider: 10/27/19 17:56 Primary Care Provider: JAK HORNER MD [Primary Care Provider] - Follow up as needed Information source: Patient Notes: This 74-year-old male with COPD, A fib and DM presents with spouse to the emergency department complaining of chest tightness that started about a week ago. Patient states that chest tightness is constant and he has had associated shortness of breath which is worse with exertion. Patient denies recent sick contact and fever. Patient's explains that they were here last night for similar symptoms and she was told to call the director of medical staff services the following day. states that when she called the director of medical staff services, the nurse told her to hang up and call 911 because they "were not comfortable with treating him with those symptoms". Patient's stated that she explained to the nurse that his labs were better last night, that he has chest tightness and shortness of breath. Patient states that his symptoms are the same, have not worsened or gotten better, since yesterday's visit. Patient states that he is not sure what he is worried about when asked, states that she is worried that he is retaining fluid that is "putting pressure on his heart". said that this retention happened before. Patient [facility] Patient was seen about a month ago for an ablation and was denied the ablation due to a blood clot. Patient is scheduled to be seen again for a director of medical staff services appointment at the end of October (within 2 weeks). Patient is not on breathing treatments at home for his COPD. Patient wears a CPAP at night for his sleep apnea. TRAVEL OUTSIDE OF THE [place] IN LAST 30 DAYS: No - Related Data Allergies/Adverse Reactions: Sulfa (Sulfonamide Antibiotics) Allergy (Unknown, Verified 10/26/19 22:53) zolpidem tartrate [From Ambien] Allergy (Unknown, Verified 10/26/19 22:53) chocolate Adverse Reaction (Severe, Uncoded 10/05/17 10:03) Migraine Past Medical History - General Information source: Patient - Social History Smoking Status: Former Smoker Cigarette use (# per day): No Chew tobacco use (# tins/day): No Lives with: Spouse/Significant other Family History: DM - Past Medical History Cardiac Medical History: Reports: Hx Atrial Fibrillation, Hx Congestive Heart Failure, Hx Coronary Artery Disease, Hx DVT, Hx Heart Attack, Hx Hypercholesterolemia, Hx Hypertension, Hx Pulmonary Embolism Pulmonary Medical History: Reports: Hx Asthma, Hx COPD Neurological Medical History: Reports: Hx Cerebrovascular Accident - 2016 Endocrine Medical History: Reports: Hx Diabetes Mellitus Type 1 Past Surgical History: Reports: Hx Cardiac Catheterization - Stent placement June 03, 2015, Hx Cardiac Surgery - cabg, Hx Coronary Artery Bypass Graft, Hx Coronary Stent - X2, Hx Open Heart Surgery - and Stent placed May 2015, Hx Pacemaker - Immunizations Hx Diphtheria, Pertussis, Tetanus Vaccination: Yes Hx Pneumococcal Vaccination: 08/12/14 Review of Systems - Review of Systems Constitutional: See HPI. denies: Fever EENT: No symptoms reported Cardiovascular: See HPI, Other - Chest tightness Respiratory: See HPI, Short of breath Gastrointestinal: No symptoms reported Genitourinary: No symptoms reported Male Genitourinary: No symptoms reported Musculoskeletal: No symptoms reported Skin: No symptoms reported Hematologic/Lymphatic: No symptoms reported Neurological/Psychological: No symptoms reported -: Yes All other systems reviewed and negative Physical Exam - Vital signs Vitals: Pulse Ox 99 10/27/19 17:56 - Notes Notes: Physical Exam: General: Alert, appears frail, elderly and chronically ill. HEENT: Normocephalic. Atraumatic. PERRL. Extraocular movements intact. Oropharynx clear. Neck: Supple. Non-tender. Respiratory: No respiratory distress. Faint expiratory wheezes with good air movement. Cardiovascular: Regular rate and rhythm. Abdominal: Obese. Non-tender. No distension. Normal Bowel Sounds. Back: No gross abnormalities. Extremities: Moves all four extremities. Upper extremities: Normal inspection. Normal ROM. Lower extremities: Normal inspection. No edema. Normal ROM. Neurological: Normal cognition. AAOx4. Normal speech. Psychological: Normal affect. Normal Mood. Skin: Warm. Dry. Normal color. Course - Re-evaluation Re-evalutation: 10/28/19 02:03 MDM 74 year old male arrives from home with complaints of being told to call 911 by his [facility] [employer]. He has had about a weeks worth of constant chest tightness and some sob. His visits of 10/21, 10/25 were reviewed. He had his lasix titrated up a bit 10/21 and actually has improved and is breathing easier. He takes eloquis and plavix so I feel the the chances of PE here candelaria with nl resp rate, no tachycardia and no hypoxia to be slight. No sign of ACS with his constant mild tightness and absence of change (increase) of cardiac markers. Additionally his cxr is reassuring. With these findings I spoke with him and his and offered consultation with the hospitalist and they both feel he would rather go home and see the PCP tomorrow. Dr. Horner is the pcp and the tells me she believes she can get in with him in rather short order. - Vital Signs Vital signs: Temp Pulse Resp BP Pulse Ox 99 10/27/19 17:56 - Laboratory Result Diagrams: 10/27/19 17:46 10/27/19 17:46 Laboratory results interpreted by me: 10/27/19 10/27/19 10/27/19 17:46 17:46 17:46 RBC 3.80 L Hgb 12.8 L Hct 36.8 L MCH 33.6 H RDW 15.6 H Plt Count 136 L Carbon Dioxide 33 H Glucose 53 L POC Glucose Total Bilirubin 1.4 H NT-Pro-B Natriuret Pep 2380 H Urine Ascorbic Acid 10/27/19 10/28/19 22:11 00:04 RBC Hgb Hct MCH RDW Plt Count Carbon Dioxide Glucose POC Glucose 154 H Total Bilirubin NT-Pro-B Natriuret Pep Urine Ascorbic Acid 40 H Discharge - Discharge Clinical Impression: Dyspnea Qualifiers: Dyspnea type: other forms of dyspnea Qualified Code(s): R06.09 - Other forms of dyspnea Hypertension Qualifiers: Hypertension type: unspecified Qualified Code(s): I10 - Essential (primary) hypertension Coronary artery disease Qualifiers: Coronary Disease-Associated Artery/Lesion type: unspecified vessel or lesion type [place] vs. transplanted heart: [place] heart Associated angina: without angina Qualified Code(s): I25.10 - Atherosclerotic heart disease of [place] coronary artery without angina pectoris Condition: Good Disposition: HOME, SELF-CARE Instructions: Congestive Heart Failure ([facility]), Dyspnea, Nonspecific ([facility]), Diabetes ([facility]), High Blood Pressure ([facility]) Additional Instructions: Call your doctor for follow up later today. Take your medicine as directed. Return here for chest pain, shortness of breath or other problems or other concerns. Check and record your weight each day. Referrals: JAK HORNER MD [Primary Care Provider] - Follow up as needed I personally performed the services described in the documentation, reviewed and edited the documentation which was dictated to the scribe in my presence, and it accurately records my words and actions.
[2019-10-27 20:00] LABS: TROPONIN I 0.041 ng/mL
--- NOTE | 2019-10-27 21:40 | EKG REPORT ---
SEVERITY:- ABNORMAL ECG - AFIB/FLUT AND V-PACED COMPLEXES RIGHT BUNDLE BRANCH BLOCK : Confirmed by: Yanna Wilson MD 27-Oct-2019 21:40:00
[2019-10-27 22:37] LABS: APPEARANCE,URINE CLEAR; BILIRUBIN,URINE NEGATIVE (NEGATIVE); COLOR,URINE YELLOW; GLUCOSE, URINE NEGATIVE (NEGATIVE); KETONES,URINE NEGATIVE (NEGATIVE); LEUKOCYTE ESTERASE,URINE NEGATIVE (NEGATIVE); NITRITE,URINE NEGATIVE (NEGATIVE); PROTEIN,URINE NEGATIVE (NEGATIVE); URINE SPECIFIC GRAVITY 1.006; UROBILINOGEN,URINE NEGATIVE mg/dL (<2.0)
[2019-10-28 02:51] VITALS: BP 118/60
== END 2019-10-28 02:45 | disposition home or self-care (01) ==
LOC: ER 17:36
DX: R06.09 Other forms of dyspnea (principal); R07.9 Chest pain, unspecified; R06.02 Shortness of breath; I25.10 Atherosclerotic heart disease of native coronary artery without angina pectoris; I11.0 Hypertensive heart disease with heart failure; J44.9 Chronic obstructive pulmonary disease, unspecified; I48.91 Unspecified atrial fibrillation; I50.9 Heart failure, unspecified; E10.9 Type 1 diabetes mellitus without complications; Z88.2 Allergy status to sulfonamides; Z95.1 Presence of aortocoronary bypass graft; Z86.73 Personal history of transient ischemic attack (TIA), and cerebral infarction without residual deficits
CPT/HCPCS: 36415; 71045; 80053; 81001; 82962; 83880; 84484; 85025; 93005; 93010; 99284

== ENCOUNTER 2019-12-19 14:25 | Inpatient (IN) | payer MEDICARE, BC ==
[~2019-12-19 14:25] MED LIST: ETOMIDATE INJ/PF 20 MG/10 ML SDV IV ONE; SUCCINYLCHOLINE CHLORIDE INJ 200 MG/10 ML VIAL ONE
[2019-12-19 15:02] LABS: ARTERIAL BLOOD H2CO3 1.72 mmol/L (1.05-1.35); ARTERIAL BLOOD O2 SATURATION 88.8 % (94-98); ARTERIAL BLOOD PCO2 57.3 mmHg (35-45); ARTERIAL BLOOD PH 7.37 (7.35-7.45); ARTERIAL BLOOD PO2 58.3 mmHg (80-100); ARTERIAL BLOOD TOTAL CO2 33.8 mmol/L (23-27)
[2019-12-19 15:03] LABS: ARTERIAL BLOOD FIO2 100%
[2019-12-19 15:15] LABS: ABSOLUTE EOSINOPHILS # (AUTO) 0.1 10^3/uL (0.0-0.6); ABSOLUTE MONOCYTES (AUTO) 0.6 10^3/uL (0.1-1.4); ABSOLUTE NEUT (AUTO) 8.5 10^3/uL (1.7-8.2); BASOPHILS % (AUTO) 0.4 % (0-2); EOSINOPHILS % (AUTO) 0.8 % (0-6); HEMATOCRIT 39.3 % (37.9-51.0); HEMOGLOBIN 13.3 g/dL (13.5-17.0); LYMPHOCYTES % (AUTO) 17.7 % (13-45); MEAN CORPUSCULAR HEMOGLOBIN 32.4 pg (27.0-33.4); MEAN CORPUSCULAR HGB CONC 33.8 g/dL (32.0-36.0); MEAN CORPUSCULAR VOLUME 96 fl (80-97); MONOCYTES % (AUTO) 4.9 % (3-13); PLATELET COUNT 173 10^3/uL (150-450); RED CELL DISTRIBUTION WIDTH 14.9 % (11.5-14.0); SEGMENTED NEUTROPHILS % (AUTO) 76.2 % (42-78); TOTAL CELLS COUNTED % (AUTO) 100 %; WHITE BLOOD COUNT 11.2 10^3/uL (4.0-10.5)
[2019-12-19] MEDS ORDERED: ACETAMINOPHEN 650 MG SUPP.RECT PR ONE (15:16)
[2019-12-19] MEDS ORDERED: PIPERACILLIN/TAZOBACTAM 3.375 GM VIAL IV ONE (15:16)
[2019-12-19 15:17] LABS: INTERNATIONAL RATION (INR) 1.39; PROTHROMBIN TIME 17.2 SEC (11.4-15.4)
[2019-12-19] MEDS ORDERED: VANCOMYCIN HCL INJ 1000 MG VIAL IV ONE (15:17)
--- NOTE | 2019-12-19 15:22 | ER Document Report ---
ED General - General Chief Complaint: Shortness Of Breath Stated Complaint: BREATHING PROBLEMS Time Seen by Provider: 12/19/19 14:32 Mode of Arrival: Medic Information source: Patient Cannot obtain history due to: Altered mental status TRAVEL OUTSIDE OF THE [place] IN LAST 30 DAYS: No - HPI Onset: Other - over the last several weeks Onset/Duration: Gradual Quality of pain: No pain Severity: Severe Pain Level: Denies Associated symptoms: Productive cough, Fever, Shortness of breath, Other - Trouble Breathing Exacerbated by: Movement, Coughing Relieved by: Denies Similar symptoms previously: No Recently seen / treated by doctor: No Notes: 74 year old male with a history of CHF, CAD, AFib, PE, HTN, HLD, COPD, DM, CVA brought to the ER by EMS for shortness of breath, increased work of breathing, fevers, and confusion. The history is obtained from EMS since the patient is wor john so hard to breath and is altered. According to EMS, the patient apparently has been treated as an outpatient for Bronchitis in the last 2 weeks as an outpatient but he has been getting worse. The patient also apparently aspirated a drink this morning. - Related Data Allergies/Adverse Reactions: Sulfa (Sulfonamide Antibiotics) Allergy (Unknown, Verified 12/19/19 15:05) zolpidem tartrate [From Ambien] Allergy (Unknown, Verified 12/19/19 15:05) chocolate Adverse Reaction (Severe, Uncoded 12/19/19 15:05) Migraine Past Medical History - General Information source: Patient Cannot obtain history due to: Altered mental status - Social History Smoking Status: Former Smoker Frequency of alcohol use: None Drug Abuse: None Lives with: Family Family History: Reviewed & Not Pertinent, DM Patient has suicidal ideation: No Patient has homicidal ideation: No - Past Medical History Cardiac Medical History: Reports: Hx Atrial Fibrillation, Hx Congestive Heart Failure, Hx Coronary Artery Disease, Hx DVT, Hx Heart Attack, Hx Hyperc holesterolemia, Hx Hypertension, Hx Pulmonary Embolism Pulmonary Medical History: Reports: Hx Asthma, Hx COPD Neurological Medical History: Reports: Hx Cerebrovascular Accident - 2016. Denies: Hx Seizures Endocrine Medical History: Reports: Hx Diabetes Mellitus Type 1, Hx Diabetes Mellitus Type 2 - insulin dependent Renal/ Medical History: Denies: Hx End Stage Renal Disease, Hx Peritoneal Dialysis Past Surgical History: Reports: Hx Cardiac Catheterization - Stent placement June 03, 2015, Hx Cardiac Surgery - cabg, Hx Coronary Artery Bypass Graft, Hx Coronary Stent - X2, Hx Open Heart Surgery - and Stent placed May 2015, Hx Pacemaker - Immunizations Hx Diphtheria, Pertussis, Tetanus Vaccination: Yes Hx Pneumococcal Vaccination: 08/12/14 Review of Systems - Review of Systems Constitutional: Fever EENT: No symptoms reported Cardiovascular: No symptoms reported Respiratory: Cough, Short of breath, Sputum, Wheezing Gastrointestinal: No symptoms reported Genitourinary: No symptoms reported Male Genitourinary: No symptoms reported Musculoskeletal: No symptoms reported Skin: No symptoms reported Hematologic/Lymphatic: No symptoms reported Neurological/Psychological: Confusion, Other - Agitation -: Yes All other systems reviewed and negative Physical Exam - Vital signs Vitals: Temp 102.5 F H 12/19/19 14:25 - Notes Notes: GENERAL: Very ill appearing. Poorly groomed. In respiratory distress. HEAD: Atraumatic, normocephalic. EYES: Pupils equal round and reactive to light, extraocular movements intact, sclera anicteric, conjunctiva are normal. ENT: External Ears normal, nares patent, oropharynx clear without exudates. Moist mucous membranes. NECK: Normal range of motion, supple without lymphadenopathy or JVD. LUNGS: Rhonchi and wheezing throughout. Poor air movement. Accessory muscle use and increased work of breathing. HEART: Tachycardic, irregular rhythm without murmurs, rubs or gallops. ABDOMEN: Soft, nontender, normoactive bowel sounds. No guarding, no rebound. No masses appreciated. EXTREMITIES: Normal range of motion, no pitting or edema. No clubbing or cyanosis. NEUROLOGICAL: Patient is altered and unable to answer most questions. Patient repeats himself and is agitated. Patient is not following commands well due to his confusion. PSYCH: Very agitated. SKIN: Pale and cool skin. Diffuse bruising. Course - Re-evaluation Re-evalutation: 12/19/19 18:25 The patient arrived with increased work of breathing, severe agitation, confusion and fevers. Patient found to have bilateral pneumonia on Xray. Patient apparently had an aspiration event today but he also apparently has been sick for over 2 weeks. Patient likely has bacterial pneumonia vs COVID19. Patient was pulling at lines and not tolerated a nonrebreather. Allergist/Md was consulted and agreed with Intubation given his AMS and possible COVID19 status. Full PPE utilized nad patient was intubated by me. Patient initially was hypertensive but his BP dropped after intubation (could be due to propofol or sepsis). Peripheral Levophed therefore started. Patient treated with Vanc and Zosyn and he was swabbed for the Flu and COVID. Patient admitted to ICU for further treatment and care. - Vital Signs Vital signs: Temp Pulse Resp BP Pulse Ox 99.4 F 19 121/51 L 100 12/19/19 16:15 12/19/19 17:36 12/19/19 17:36 12/19/19 17:36 - Laboratory Result Diagrams: 12/19/19 14:43 12/19/19 14:43 Laboratory results interpreted by me: 12/19/19 12/19/19 12/19/19 14:40 14:43 14:43 WBC 11.2 H RBC 4.10 L Hgb 13.3 L RDW 14.9 H Absolute Neuts (auto) 8.5 H PT 17.2 H Carbonic Acid 1.72 H ABG pCO2 57.3 H ABG pO2 58.3 L ABG HCO3 32.0 H ABG Total CO2 33.8 H ABG O2 Saturation 88.8 L Chloride Carbon Dioxide Total Bilirubin NT-Pro-B Natriuret Pep 12/19/19 12/19/19 14:43 14:43 WBC RBC Hgb RDW Absolute Neuts (auto) PT Carbonic Acid ABG pCO2 ABG pO2 ABG HCO3 ABG Total CO2 ABG O2 Saturation Chloride 95 L Carbon Dioxide 35 H Total Bilirubin 1.6 H NT-Pro-B Natriuret Pep 1320 H - Diagnostic Test Radiology reviewed: Image reviewed, Reports reviewed - EKG Interpretation by Me EKG shows normal: QRS Complexes Rate: Tachycardia Rhythm: A.Fib Additional EKG results interpreted by me: 12/19/19 17:01 T wave inversions in II, III, aVR, V1 Procedures - Intubation Orotracheal Airway evaluation: Obese, Other - Dentures Mallampati Classification: Class 2 Medications: Etomidate, Succinylcholine Intubation method: Orotracheal Blade type: Fidelia Blade size: 4 Equipment used: Glidescope ETT size: 8.0 ETT secured at: Lips Breath Sounds after Intubation: Equal End tidal CO2 confirmed: Yes Critical Care Note - Critical Care Note Total time excluding time spent on procedures (mins): 80 Discharge - Discharge Clinical Impression: Pneumonia Qualifiers: Pneumonia type: due to unspecified organism Laterality: bilateral Lung location: unspecified part of lung Qualified Code(s): J18.9 - Pneumonia, unspecified organism Sepsis Qualifiers: Sepsis type: sepsis due to unspecified organism Sepsis acute organ dysfunction status: with acute organ dysfunction Severe sepsis acute organ dysfunction type: acute respiratory failure Acute respiratory failure type: with hypoxia Severe sepsis shock status: without septic shock Qualified Code(s): A41.9 - Sepsis, unspecified organism Condition: Critical Disposition: ADMITTED INPATIENT Admitting Provider: Balaji (Allergist/Md) Unit Admitted: ICU
[2019-12-19 15:31] LABS: ALKALINE PHOSPHATASE 117 U/L (38-126); ANION GAP 7 (5-19); ASPARTATE AMINO TRANSFERASE 58 U/L (17-59); BILIRUBIN,DIRECT 0.1 mg/dL (0.0-0.4); BILIRUBIN,TOTAL 1.6 mg/dL (0.2-1.3); BLOOD UREA NITROGEN 18 mg/dL (7-20); CALCIUM 8.9 mg/dL (8.4-10.2); CARBON DIOXIDE 35 mmol/L (22-30); CHLORIDE 95 mmol/L (98-107); GLUCOSE 98 mg/dL (75-110); POTASSIUM 3.7 mmol/L (3.6-5.0); TOTAL PROTEIN 7.8 g/dL (6.3-8.2)
--- NOTE | 2019-12-19 15:35 | RADIOLOGY REPORT (SQ) ---
EXAM DESCRIPTION: CHEST SINGLE VIEW IMAGES COMPLETED DATE/TIME: 12/19/2019 3:20 pm REASON FOR STUDY: TUBE PLACEMENT COMPARISON: 10/27/2019 EXAM PARAMETERS: NUMBER OF VIEWS: One view. TECHNIQUE: Single frontal radiographic view of the chest acquired. RADIATION DOSE: NA LIMITATIONS: None. FINDINGS: LUNGS AND PLEURA: Diffuse parenchymal opacities throughout both lungs. No pneumothorax. MEDIASTINUM AND HILAR STRUCTURES: No masses. Contour normal. HEART AND VASCULAR STRUCTURES: Heart enlarged with vascular congestion. BONES: No acute findings. HARDWARE: Cardiac hardware unchanged. OTHER: No other significant finding. IMPRESSION: Congestive heart failure. Diffuse opacities suspicious for pneumonia. No support tubes identified. TECHNICAL DOCUMENTATION: JOB ID: [id number] 2010 [employer]- All Rights Reserved Reading location - IP/workstation name: [email or web address]
[2019-12-19] MEDS ORDERED: SUCCINYLCHOLINE CHLORIDE INJ 200 MG/10 ML VIAL IV ONE (15:37)
[2019-12-19] MEDS ORDERED: ETOMIDATE INJ/PF 20 MG/10 ML SDV IV ONE (15:38)
[2019-12-19] MEDS ORDERED: PROPOFOL 1,000 MG/100 ML INFUS..BTL IV PRN (15:41)
[2019-12-19] MEDS ORDERED: NOREPINEPHRINE BITARTRATE INJ/PF 4 MG/4 ML SDV IV ONE ×2 (16:34→23:18)
--- NOTE | 2019-12-19 18:19 | RADIOLOGY REPORT (SQ) ---
EXAM DESCRIPTION: CHEST SINGLE VIEW IMAGES COMPLETED DATE/TIME: 12/19/2019 6:09 pm REASON FOR STUDY: tube placement 5er COMPARISON: 12/19/2019 1505 hours EXAM PARAMETERS: NUMBER OF VIEWS: One view TECHNIQUE: Single frontal radiograph of the chest. RADIATION DOSE: N/A LIMITATIONS: None. FINDINGS: TEMPORARY SUPPORT DEVICES:ETT in expected location. LUNGS AND PLEURA: Diffuse parenchymal opacities are stable. Likely effusions. No masses. No pneumotho rax. MEDIASTINUM AND HILAR STRUCTURES: No masses. Contour normal. HEART AND VASCULAR STRUCTURES: Heart and low vascular congestion Aorta normal for age. BONES: No acute findings. OTHER: Stable cardiac hardware IMPRESSION: Congestive failure with pulmonary edema and possible superimposed pneumonia. SUPPORT DEVICE(S) IN EXPECTED LOCATIONS. TECHNICAL DOCUMENTATION: JOB ID: [id number] 2010 [employer]- All Rights Reserved Reading location - IP/workstation name: [email or web address]
[2019-12-19 18:27] LABS: A TYPE INFLUENZA AG NEGATIVE (NEGATIVE); B INFLUENZA AG NEGATIVE (NEGATIVE)
[2019-12-19] MEDS ORDERED: ALBUTEROL SULFATE 0.083% NEB 2.5 MG/3 ML AMPUL NEB PRN (18:36)
[2019-12-19] MEDS ORDERED: PHARMACY COMMUNICATION ORDER MC NR ×2 (18:45→19:45)
[2019-12-19] MEDS ORDERED: HEPARIN SOD (PORCINE) 1,000 UNIT/ML 10 ML VIAL IV ONE (18:47)
[2019-12-19] MEDS ORDERED: HEPARIN SODIUM,PORCINE/D5W 25,000 UNIT/250 ML RTUINJ IV PRN (18:52)
--- NOTE | 2019-12-19 19:24 | CRITICAL CARE ADMISSION REPORT ---
HPI Date:: 12/19/19 Reason for ICU Reason:: acute hypoxemic respiratory failure HPI: This 74-year-old male presented to [facility] emergency department with complaints of increasing shortness of breath. At the time of clinical interview, the patient is intubated. The discussion of the case with Dr. Srinivasan (emergency department) reveals that he presented with fever (102.5 F) and i ncreased dyspnea. Chest x-ray showed bilateral airspace disease. Patient demonstrated hypoxia and tachypnea, prompting endotracheal intubation. COVID test was obtained in the emergency department. Results pending. He has a known history of COPD/asthma and coronary artery disease and congestive heart failure. He also has a history of DVT and pulmonary embolism. History obtained from:: review of records; discussion with Dr. Srinivasan - Diagnosis/Plan (1) Acute and chronic respiratory failure ([id number]) Qualifiers: Respiratory failure complication: hypoxia and hypercapnia Qualified Code(s): J96.21 - Acute and chronic respiratory failure with hypoxia; J96.22 - Acute and chronic respiratory failure with hypercapnia Is this a current diagnosis for this admission?: Yes Plan: Titrate ventilator settings based on ABG results. ABG 1 hour after intubation. Propofol/morphine for sedation. DuoNeb every 6 hours scheduled. Albuterol as needed. (2) Acute decompensated heart failure Is this a current diagnosis for this admission?: Yes Plan: Set PEEP to 8. Furosemide 40 mg IV single dose. Garcias catheter insertion for strict I/O. Home medications include: Carvedilol 3.125 mg p.o. every 12 hours, nitroglycerin transdermal (nitro drip 5 mg) 1 patch TD daily (3) Pneumonia Qualifiers: Pneumonia type: due to unspecified organism Laterality: bilateral Lung location: unspecified part of lung Qualified Code(s): J18.9 - Pneumonia, uns pecified organism Is this a current diagnosis for this admission?: Yes Plan: Culture blood, urine and sputum/trach aspirate. Nasopharyngeal swab to rule out COVID-19. Continue Zosyn/vancomycin. The patient was started on empiric Zosyn/vancomycin in the emergency department. (4) Hypoxic encephalopathy Is this a current diagnosis for this admission?: Yes Plan: Daily sedation vacation. Frequent neurologic checks. (5) Chronic anticoagulation Is this a current diagnosis for this admission?: Yes (6) Chronic atrial fibrillation Is this a current diagnosis for this admission?: Yes Plan: Review of his home medications reveals that he is on sotalol 80 mg p.o. every 12 hours. (8) CAD (coronary artery disease) Qualifiers: Coronary Disease-Associated Artery/Lesion type: unspecified vessel or lesion type [place] vs. transplanted heart: [place] heart Associated angina: without angina Qualified Code(s): I25.10 - Atherosclerotic heart disease of [place] coronary artery without angina pectoris Is this a current diagnosis for this admission?: Yes Plan: Review of his home medications reveals aspirin 81 mg p.o. daily, atorvastatin 80 mg p.o. nightly, carvedilol 3.125 mg p.o. every 12 hours. (9) Chronic prescription opiate use Is this a current diagnosis for this admission?: Yes (10) Type 2 diabetes mellitus Qualifiers: Diabetes mellitus long-term insulin use: with termite treater use Diabetes mellitus complication status: with other specified complication Qualified Code(s): E11.69 - Type 2 diabetes mellitus with other specified complication; Z 79.4 - custodial (current) use of insulin Is this a current diagnosis for this admission?: Yes Plan: Accu-Cheks every 6 hours. Sliding scale insulin. Past Medical History Cardiac Medical History: Reports: Atrial Fibrillation, Congestive Heart Failure, Coronary Artery Disease, DVT, Myocardial Infarction, Hyperlipidema, Hypertension, Pulmonary Embolism Pulmonary Medical History: Reports: Asthma, Chronic Obstructive Pulmonary Disease (COPD) Neurological Medical History: Denies: Seizures Endocrine Medical History: Reports: Diabetes Mellitus Type 1, Diabetes Mellitus Type 2 - insulin dependent Renal/ Medical History: Denies: End Stage Renal Disease Past Surgical History Past Surgical History: Reports: Cardiac Catheterization - Stent placement June 03, 2015, Coronary Artery Bypass Graft, Coronary Stent - X2, Pacemaker Social/Family History - Social History Smoking Status: Never Smoker Frequency of Alcohol Use: None Hx Recreational Drug Use: No Drugs: None Hx Prescription Drug Abuse: No - Family History Family History: DM - Medication/Allergies Home Medications: Budesonide/Formoterol Fumarate [Symbicort HFA 160-4.5 mcg Inhaler 6 gm] 2 puff IH Q12 02/11/17 Carvedilol [Coreg 6.25 mg Tablet] 3.125 mg PO Q12 02/11/17 Ferrous Sulfate [Feosol 325 mg Tablet] 325 mg PO DAILY 02/11/17 Gabapentin [Neurontin] 600 mg PO BID 02/11/17 Insulin Detemir [Levemir Insulin 100 units/mL Insulin Pen] 26 unit SUBCUT QAM 02/11/17 Insulin Detemir [Levemir Insulin 100 units/mL Insulin Pen] 44 unit SUBCUT QHS 02/11/17 Insulin Lispro [Humalog Insulin (Lispro) 100 unit/mL] 6 unit SUBCUT AC 02/11/17 Magnesium Oxide [Mag-Ox 400 mg Tablet] 800 mg PO BID 02/11/17 Acetaminophen [Tylenol 325 mg Tablet] 650 mg PO Q4HP PRN tablet 02/13/17 Aspirin [Ecotrin 81 mg EC Tablet] 81 mg PO DAILY tabec 02/13/17 Atorvastatin Calcium [Lipitor 80 mg Tablet] 80 mg PO QHS tablet 02/13/17 Dextrose [Glutose 40% Gel 15 gm Tube] 15 gm PO PRN PRN tube 02/13/17 Dextrose [Glutose 40% Gel 15 gm Tube] 30 gm PO PRN PRN tube 02/13/17 Docusate Sodium [Colace 100 mg Capsule] 100 mg PO BID capsule 02/13/17 Glucagon,Human Recombinant [Glucagen Inj 1 mg Vial] 1 mg IM PRN PRN vial 02/13/17 Insulin Lispro [Humalog Insulin (Lispro) 100 unit/mL] 0 - 12 unit SUBCUT ACHSP PRN unit 02/13/17 Ipratropium/Albuterol Sulfate [Duoneb 3 ml Ampul] 3 ml NEB RTQ6HP PRN vial.neb 02/13/17 Magnesium Hydroxide [Milk of Magnesia 30 ml Udcup] 30 ml PO HSP PRN udc 02/13/17 Morphine Sulfate [Morphine 10 mg/ml Inj] 2 mg IV Q4HP PRN vial 02/13/17 Nitroglycerin [Nitro-Dur 5 mg (0.2 mg/Hr) Transdermal Patch] 1 each TD DAILY patch.td24 02/13/17 Normal Saline [Saline Flush 2.5 ml Monoject Prefil Syrin] 2.5 ml IV Q8 disp.syrin 02/13/17 Oxycodone HCl/Acetaminophen [Percocet 5-325 mg Tablet] 1 tab PO Q4HP PRN tablet 02/13/17 Sotalol HCl [Betapace 80 mg Tablet] 80 mg PO Q12 tablet 02/13/17 Ondansetron [Zofran Odt 4 mg Tablet] 1 - 2 tab PO Q4H PRN #15 tab.rapdis 09/13/17 Cyclobenzaprine HCl [Flexeril 5 mg Tablet] 5 mg PO TID PRN #15 tablet 01/26/18 Oxycodone HCl/Acetaminophen [Percocet 5-325 mg Tablet] 1 tab PO ASDIR PRN #15 tablet 01/26/18 Potassium Chloride 20 meq PO BID 7 Days #14 tab.er.prt 10/22/19 Allergies/Adverse Reactions: Sulfa (Sulfonamide Antibiotics) Allergy (Unknown, Verified 12/19/19 15:05) zolpidem tartrate [From Ambien] Allergy (Unknown, Verified 12/19/19 15:05) chocolate Adverse Reaction (Severe, Uncoded 12/19/19 15:05) Migraine Review of Systems ROS unobtainable: Due to endotracheal tube, Due to mental status Physical Exam Vital Signs: Temp Pulse Resp BP Pulse Ox 102.5 F H 38 H 172/158 H 91 L 12/19/19 15:01 12/19/19 15:01 12/19/19 15:01 12/19/19 15:01 Intake & Output 12/18/19 12/19/19 12/20/19 06:59 06:59 06:59 Weight 110.6 kg Weight/Height Weight 110.6 kg Height 1.73 m General appearance: PRESENT: no acute distress, obese, other - intubated Head exam: PRESENT: atraumatic, normocephalic Eye exam: PRESENT: conjunctiva pink, EOMI, periorbital swelling, PERRLA. ABSENT: scleral icterus Neck exam: ABSENT: carotid bruit, JVD, lymphadenopathy, thyromegaly Respiratory exam: PRESENT: decreased breath sounds, wheezes Cardiovascular exam: PRESENT: irregular rhythm. ABSENT: diastolic murmur, gallop, rubs, systolic murmur Pulses: PRESENT: normal carotid pulses, normal dorsalis pedis pul GI/Abdominal exam: PRESENT: normal bowel sounds, soft, other - pendulous abdomen. ABSENT: distended, guarding, mass, organolmegaly, rebound, tenderness Extremities exam: PRESENT: full ROM, +1 edema. ABSENT: calf tenderness, clubbing, pedal edema Musculoskeletal exam: PRESENT: normal inspection. ABSENT: deformity Skin exam: PRESENT: dry, intact, warm. ABSENT: cyanosis, rash Tubes/Lines: PRESENT: Endotracheal Tube Laboratory/Radiographs Laboratory Results: 12/19/19 14:43 12/19/19 14:43 12/19/19 12/19/19 12/19/19 14:40 14:43 14:43 WBC 11.2 H RBC 4.10 L Hgb 13.3 L Hct 39.3 MCV 96 MCH 32.4 MCHC 33.8 RDW 14.9 H Plt Count 173 Seg Neutrophils % 76.2 Carbonic Acid 1.72 H HCO3/H2CO3 Ratio 18:1 ABG pH 7.37 ABG pCO2 57.3 H ABG pO2 58.3 L ABG HCO3 32.0 H ABG O2 Saturation 88.8 L ABG Base Excess 5.0 FiO2 100% Sodium 137.3 Potassium 3.7 Chloride 95 L Carbon Dioxide 35 H Anion Gap 7 BUN 18 Creatinine 1.13 Est GFR ( Amer) > 60 Glucose 98 Lactic Acid Calcium 8.9 Total Bilirubin 1.6 H AST 58 Alkaline Phosphatase 117 Total Protein 7.8 Albumin 4.0 12/19/19 14:43 WBC RBC Hgb Hct MCV MCH MCHC RDW Plt Count Seg Neutrophils % Carbonic Acid HCO3/H2CO3 Ratio ABG pH ABG pCO2 ABG pO2 ABG HCO3 ABG O2 Saturation ABG Base Excess FiO2 Sodium Potassium Chloride Carbon Dioxide Anion Gap BUN Creatinine Est GFR ( Amer) Glucose Lactic Acid 1.6 Calcium Total Bilirubin AST Alkaline Phosphatase Total Protein Albumin 12/19/19 14:43 NT-Pro-B Natriuret Pep 1320 H Impressions: Chest X-Ray 12/19/19 14:45 IMPRESSION: Congestive heart failure. Diffuse opacities suspicious for pneumonia. No support tubes identified. All labs, radiographs, diagnostic studies and EKGs were personally reviewed: Yes In addition, reports of radiographic and diagnostic studies were read: Yes Critical Time Critical Time (minutes): 60 -: The care of a critically ill patient is dynamic. This note represents a static moment in the admission process. Orders and treatments may be given simultane ously and urgently, and time is not physician relations representative of the treatment process. This patient requires Critical Care secondary to life threatening organ or limb dysfunction. Without Critical Care services, the patient is at risk for increased mortality and morbidity.
[2019-12-19] MEDS: IPRATROPIUM/ALBUTEROL 0.5-2.5 MG/3 ML AMPUL NEB SCH (20:46)
[2019-12-19] MEDS ORDERED: FUROSEMIDE INJ/PF 40 MG/4 ML SDV ONE (21:04)
--- NOTE | 2019-12-19 21:36 | EKG REPORT ---
SEVERITY:- ABNORMAL ECG - ATRIAL FIBRILLATION NONSPECIFIC INTRAVENTRICULAR CONDUCTION DELAY : Confirmed by: Too Herr MD 19-Dec-2019 21:35:22
[2019-12-19] MEDS ORDERED: FUROSEMIDE INJ/PF 40 MG/4 ML SDV IV ONE (21:43)
[2019-12-19] MEDS: PROPOFOL 1,000 MG/100 ML INFUS..BTL IV PRN (21:47)
[2019-12-19] MEDS: POTASSI CL 20 MEQ/NS 1L 1,000 ML IV PRN (21:48)
--- NOTE | 2019-12-19 21:49 | Operative Report ---
Bedside Procedure - History of Present Illness Indication for Procedure: Vasoactive drugs Provider: YANETH BRICENO - Central Line Right Internal jugular Consent obtained: Yes Central line pre-insertion: Sterile PPE donned, Chloraprep applied Central line lumen type: Triple Anesthetic type: 1% Lidocaine mL's of anesthesia: 3 Ultrasound guided: Yes Line secured with sutures: Yes Central line post-insertion: Blood return from lumens, Biopatch applied, Sutured, Sterile dressing applied, Position confirmed w/ CXR Complications: No
[2019-12-19 21:52] LABS: ARTERIAL BLOOD H2CO3 1.44 mmol/L (1.05-1.35); ARTERIAL BLOOD HCO3 27.8 mmol/L (20-24); ARTERIAL BLOOD O2 SATURATION 97.7 % (94-98); ARTERIAL BLOOD PCO2 47.9 mmHg (35-45); ARTERIAL BLOOD PH 7.38 (7.35-7.45); ARTERIAL BLOOD PO2 105.9 mmHg (80-100); ARTERIAL BLOOD TOTAL CO2 29.2 mmol/L (23-27)
[2019-12-19 21:53] LABS: APPEARANCE,URINE CLEAR; ARTERIAL BLOOD FIO2 80%; BILIRUBIN,URINE NEGATIVE (NEGATIVE); COLOR,URINE YELLOW; GLUCOSE, URINE NEGATIVE (NEGATIVE); KETONES,URINE NEGATIVE (NEGATIVE); LEUKOCYTE ESTERASE,URINE NEGATIVE (NEGATIVE); NITRITE,URINE NEGATIVE (NEGATIVE); PROTEIN,URINE NEGATIVE (NEGATIVE); URINE SPECIFIC GRAVITY 1.009; UROBILINOGEN,URINE NEGATIVE mg/dL (<2.0)
[2019-12-19] MEDS ORDERED: HEPARIN SOD (PORCINE) 1,000 UNIT/ML 10 ML VIAL IV PRN (21:57)
[2019-12-19] MEDS: PANTOPRAZOLE SODIUM 40 MG VIAL IV SCH (22:02)
--- NOTE | 2019-12-19 22:06 | Operative Report ---
Bedside Procedure - History of Present Illness Indication for Procedure: Hemodynamic Monitoring Date: 12/19/19 Provider: YANETH BRICENO - Additional Procedures arterial line Time performed: 21:30 Notes: Indications: Hemodynamic monitoring After properly positioning the patient's wrist in the standard fashion, the site was prepped and draped in a sterile fashion. Lidocaine was administered subcutaneously as a local infiltration and given time to take effect. Next, the radial artery was entered, noting bright red, pulsatile flow. A guidewire was easily inserted, the needle removed, and the catheter was then placed using the Seldinger technique. The guidewire was removed, with good flow present. The catheter was then connected to the transducer with a good waveform noted. The catheter was secured with suture and an occlusive dressing was placed after properly cleaning and prepping the site. Complications: The patient tolerated the procedure well and no complications w ere noted. Estimated Blood Loss: minimal Plan: Arterial line to remain in place for hemodynamic monitoring.
--- NOTE | 2019-12-19 22:44 | RADIOLOGY REPORT (SQ) ---
EXAM DESCRIPTION: AP portable radiograph of the chest CLINICAL HISTORY: 74 years Male, ETT and central line placement COMPARISON: Portable view the chest obtained earlier in the day at 6:11 PM FINDINGS: Lungs: Multifocal consolidation is again identified bilaterally with air bronchograms. Consolidation is most pronounced in the right mid and lower lung zone. No pneumothorax. Probable right pleural effusion. Overall appearance of the lung parenchyma is stable. Mediastinum: Cardiac silhouette is enlarged. Endotracheal tube is in good position and terminates 4.8 cm above the linn. NG tube passes into the esophagus. Dual-chamber pacemaker via the right subclavian is in place. There is been placement of a right IJ central line and the tip of the catheter is in the upper right atrium. Bones: Osseous structures are normal. IMPRESSION: 1. Persistent and unchanged multifocal consolidation with probable right pleural effusion. 2. Cardiomegaly. 3. Interval placement of right IJ central line with the tip in the upper right atrium. No pneumothorax. 4. Lines and tubes are otherwise unchanged
[2019-12-19] MEDS: DEXTROSE 5%-WATER 250 ML with NOREPINEPHRINE BITARTRATE 4 MG IV PRN ×2 (23:23)
--- NOTE | 2019-12-20 00:48 | RADIOLOGY REPORT (SQ) ---
EXAM DESCRIPTION: Portable view of the abdomen CLINICAL HISTORY: 74 years Male, Check Placement of NG Tube COMPARISON: None. FINDINGS: NG tube is in the stomach along the greater curvature the stomach pointing towards the pylorus. Pacemaker is identified. There is parenchymal opacification in the lung bases and probable right pleural effusion. Bowel gas pattern is nonspecific with air seen in small and large bowel loops. The bowel is not dilated. IMPRESSION: 1. NG tube is in the stomach. 2. Nonspecific bowel gas pattern. 3. Parenchymal consolidation in the lung bases right greater than left.
[2019-12-20] MEDS: PROPOFOL 1,000 MG/100 ML INFUS..BTL IV PRN ×6 (01:05→22:58)
[2019-12-20] MEDS: IPRATROPIUM/ALBUTEROL 0.5-2.5 MG/3 ML AMPUL NEB SCH ×4 (02:11→20:10)
[2019-12-20 04:12] LABS: ARTERIAL BLOOD BASE EXCESS 1.3 mmol/L; ARTERIAL BLOOD H2CO3 1.38 mmol/L (1.05-1.35); ARTERIAL BLOOD HCO3 26.9 mmol/L (20-24); ARTERIAL BLOOD O2 SATURATION 97.1 % (94-98); ARTERIAL BLOOD PCO2 45.9 mmHg (35-45); ARTERIAL BLOOD PH 7.39 (7.35-7.45); ARTERIAL BLOOD PO2 94.5 mmHg (80-100); ARTERIAL BLOOD TOTAL CO2 28.3 mmol/L (23-27)
[2019-12-20 04:24] LABS: HEMATOCRIT 37.3 % (37.9-51.0); HEMOGLOBIN 12.7 g/dL (13.5-17.0); MEAN CORPUSCULAR HEMOGLOBIN 32.2 pg (27.0-33.4); MEAN CORPUSCULAR HGB CONC 34.1 g/dL (32.0-36.0); MEAN CORPUSCULAR VOLUME 95 fl (80-97); PLATELET COUNT 154 10^3/uL (150-450); RED BLOOD COUNT 3.94 10^6/uL (4.35-5.55); RED CELL DISTRIBUTION WIDTH 14.8 % (11.5-14.0); WHITE BLOOD COUNT 21.2 10^3/uL (4.0-10.5)
[2019-12-20 04:28] LABS: ARTERIAL BLOOD FIO2 60%
[2019-12-20 04:42] LABS: ANION GAP 10 (5-19); BLOOD UREA NITROGEN 24 mg/dL (7-20); CALCIUM 8.2 mg/dL (8.4-10.2); CARBON DIOXIDE 29 mmol/L (22-30); CHLORIDE 97 mmol/L (98-107); GLUCOSE 383 mg/dL (75-110); PHOSPHORUS 3.5 mg/dL (2.5-4.5); POTASSIUM 3.9 mmol/L (3.6-5.0)
[2019-12-20 04:43] LABS: ABSOLUTE LYMPHOCYTES# (MANUAL) 1.5 10^3/uL (0.5-4.7); ABSOLUTE MONOCYTES # (MANUAL) 0.2 10^3/uL (0.1-1.4); BAND NEUTROPHILS % (MANUAL) 4 % (3-5); BASOPHILS % (MANUAL) 0 % (0-2); EOSINOPHILS % (MANUAL) 0 % (0-6); LYMPHOCYTES % (MANUAL) 7 % (13-45); MONOCYTES % (MANUAL) 1 % (3-13); SEGMENTED NEUTROPHILS % (MAN) 88 % (42-78); TOTAL CELLS COUNTED 100
[2019-12-20 04:44] LABS: TOXIC GRANULATION 1+; TOXIC VACUOLATION PRESENT
[2019-12-20 04:45] LABS: ANISOCYTOSIS SLIGHT; OVALOCYTES 1+; PLATELET COMMENT ADEQUATE; POIKILOCYTOSIS SLIGHT
[2019-12-20] MEDS ORDERED: DEXTROSE 50%-WATER 25 GM/50 ML DISP.SYRIN IV PRN ×2 (04:51)
[2019-12-20] MEDS ORDERED: GLUCAGON,HUMAN RECOMB 1 MG INJ IM PRN ×2 (04:51→19:30)
[2019-12-20] MEDS ORDERED: DEXTROSE 40% GEL 15 GM TUBE PO PRN ×3 (04:51→19:30)
[2019-12-20] MEDS: INSULIN REG, HUMAN 100 UNIT/ML 3 ML VIAL (PYX) SUBCUT SCH ×3 (05:25→18:12)
[2019-12-20] MEDS ORDERED: FUROSEMIDE INJ/PF 40 MG/4 ML SDV IV ONE ×2 (06:06→12:45)
[2019-12-20] MEDS ORDERED: NOREPINEPHRINE BITARTRATE INJ/PF 4 MG/4 ML SDV IV ONE (06:18)
[2019-12-20] MEDS: DEXTROSE 5%-WATER 250 ML with NOREPINEPHRINE BITARTRATE 4 MG IV PRN ×4 (06:24→16:47)
--- NOTE | 2019-12-20 08:50 | RADIOLOGY REPORT (SQ) ---
EXAM DESCRIPTION: CHEST SINGLE VIEW IMAGES COMPLETED DATE/TIME: 12/20/2019 6:10 am REASON FOR STUDY: acute respiratory failure COMPARISON: 12/19/2019 EXAM PARAMETERS: NUMBER OF VIEWS: One view TECHNIQUE: Single frontal radiograph of the chest. RADIATION DOSE: N/A LIMITATIONS: None. FINDINGS: TEMPORARY SUPPORT DEVICES:ETT in expected location. NG tube courses below the denise-diaphr agm in to the stomach. Central venous access catheter tip is in expected location. Pacemaker unchang ed. LUNGS AND PLEURA: Diffuse parenchymal opacities throughout the lungs minimally improved. Small effusi ons. No masses. No pneumothorax. MEDIASTINUM AND HILAR STRUCTURES: No masses. Contour normal. HEART AND VASCULAR STRUCTURES: Heart slightly enlarged. Mild vascular congestion. Aorta normal for ag e. BONES: No acute findings. OTHER: No other significant finding. IMPRESSION: Slight improved aeration of the lungs. SUPPORT DEVICE(S) IN EXPECTED LOCATIONS. TECHNICAL DOCUMENTATION: JOB ID: [id number] 2010 [employer]- All Rights Reserved Reading location - IP/workstation name: [email or web address]
[2019-12-20 09:10] LABS: ARTERIAL BLOOD BASE EXCESS 2.5 mmol/L; ARTERIAL BLOOD FIO2 50%; ARTERIAL BLOOD H2CO3 1.32 mmol/L (1.05-1.35); ARTERIAL BLOOD HCO3 27.5 mmol/L (20-24); ARTERIAL BLOOD O2 SATURATION 81.2 % (94-98); ARTERIAL BLOOD PCO2 43.9 mmHg (35-45); ARTERIAL BLOOD PH 7.41 (7.35-7.45); ARTERIAL BLOOD PO2 44.8 mmHg (80-100); ARTERIAL BLOOD TOTAL CO2 28.8 mmol/L (23-27)
[2019-12-20] MEDS: PANTOPRAZOLE SODIUM 40 MG VIAL IV SCH ×2 (09:15→21:08)
[2019-12-20] MEDS ORDERED: INSULIN REG, HUMAN 100 UNIT/ML 3 ML VIAL (PYX) IV ONE (12:15)
[2019-12-20] MEDS ORDERED: POTASSIUM CHLORIDE 20 MEQ PACKET PO ONE (12:45)
[2019-12-20] MEDS: HEPARIN SODIUM,PORCINE/D5W 25,000 UNIT/250 ML RTUINJ IV PRN ×2 (13:00→22:09)
[2019-12-20] MEDS: POTASSI CL 20 MEQ/NS 1L 1,000 ML IV PRN (14:13)
--- NOTE | 2019-12-20 16:30 | PDOC CRITICAL CARE PROG REPORT ---
General Date:: 12/20/19 ICU Day:: 2 Ventilator Day:: 2 Hospital Day:: 2 Resuscitation Status: Full Code Events in the past 12 to 24 Hours:: 12/18: Intubated in the emergency department for acute hypoxemic respiratory failure after presenting with increased dyspnea, fever and bilateral airspace disease on chest x-ray. COVID negative. 12/19: Remains intubated. On PRVC 15/500/60/5. Was initially hypertensive in the emergency department, even through intubation and thereafter. Started on Levophed overnight. Review of systems relevant to events:: Constitutional: Fever Neurologic: Altered mental status Respiratory: Dyspnea, hypoxia Cardiovascular: Atrial fibrillation (chronic), exertional dyspnea, congestive heart failure Reason for ICU Addmission:: acute hypoxemic respiratory failure - Medications: Medications reviewed and adjusted accordingly: Yes Vasopressors:: Levophed Sedation:: Propofol/morphine Physical Exam Vital Signs: Temp Pulse Resp BP Pulse Ox 97.7 F 91 18 123/49 L 100 12/20/19 08:00 12/20/19 08:20 12/20/19 08:20 12/20/19 08:00 12/20/19 08:20 Intake & Output 12/19/19 12/20/19 12/21/19 06:59 06:59 06:59 Intake Total 627 0 Output Total 2575 760 Balance -1948 -760 Weight 108.8 kg Weight/Height Weight 108.8 kg Height 1.73 m General appearance: PRESENT: no acute distress, obese, well-developed, well- nourished Eye exam: PRESENT: conjunctiva pink, EOMI, PERRLA. ABSENT: scleral icterus Neck exam: ABSENT: carotid bruit, JVD, lymphadenopathy, thyromegaly Respiratory exam: PRESENT: crackles, decreased breath sounds. ABSENT: rhonchi, wheezes Cardiovascular exam: PRESENT: irregular rhythm. ABSENT: diastolic murmur, rubs, systolic murmur Pulses: PRESENT: normal dorsalis pedis pul GI/Abdominal exam: PRESENT: normal bowel sounds, soft. ABSENT: distended, guarding, mass, organolmegaly, rebound, tenderness Extremities exam: PRESENT: full ROM. ABSENT: calf tenderness, clubbing, pedal edema Musculoskeletal exam: PRESENT: normal inspection. ABSENT: deformity Skin exam: PRESENT: dry, intact, warm. ABSENT: cyanosis, rash Tubes/Lines: PRESENT: Endotracheal Tube, Central Line - Right IJ, Arterial Catheter - Left radial, Other - Orogastric Laboratory/Radiographs Laboratory Results: 12/20/19 04:00 12/20/19 04:00 12/19/19 12/19/19 12/19/19 14:40 14:43 14:43 WBC 11.2 H RBC 4.10 L Hgb 13.3 L Hct 39.3 MCV 96 MCH 32.4 MCHC 33.8 RDW 14.9 H Plt Count 173 Seg Neutrophils % 76.2 Carbonic Acid 1.72 H HCO3/H2CO3 Ratio 18:1 ABG pH 7.37 ABG pCO2 57.3 H ABG pO2 58.3 L ABG HCO3 32.0 H ABG O2 Saturation 88.8 L ABG Base Excess 5.0 FiO2 100% Sodium 137.3 Potassium 3.7 Chloride 95 L Carbon Dioxide 35 H Anion Gap 7 BUN 18 Creatinine 1.13 Est GFR ( Amer) > 60 Glucose 98 Lactic Acid Calcium 8.9 Phosphorus Magnesium Total Bilirubin 1.6 H AST 58 Alkaline Phosphatase 117 Total Protein 7.8 Albumin 4.0 Urine Color Urine Appearance Urine pH Ur Specific [place] Urine Protein Urine Glucose (UA) Urine Ketones Urine Blood Urine Nitrite Ur Leukocyte Esterase Urine WBC (Auto) Urine RBC (Auto) 12/19/19 12/19/19 12/19/19 14:43 17:05 21:40 WBC RBC Hgb Hct MCV MCH MCHC RDW Plt Count Seg Neutrophils % Carbonic Acid 1.44 H HCO3/H2CO3 Ratio 19:1 ABG pH 7.38 ABG pCO2 47.9 H ABG pO2 105.9 H ABG HCO3 27.8 H ABG O2 Saturation 97.7 ABG Base Excess 2.0 FiO2 80% Sodium Potassium Chloride Carbon Dioxide Anion Gap BUN Creatinine Est GFR ( Amer) Glucose Lactic Acid 1.6 1.8 Calcium Phosphorus Magnesium Total Bilirubin AST Alkaline Phosphatase Total Protein Albumin Urine Color Urine Appearance Urine pH Ur Specific [place] Urine Protein Urine Glucose (UA) Urine Ketones Urine Blood Urine Nitrite Ur Leukocyte Esterase Urine WBC (Auto) Urine RBC (Auto) 12/19/19 12/20/19 12/20/19 21:40 04:00 04:00 WBC 21.2 H RBC 3.94 L Hgb 12.7 L Hct 37.3 L MCV 95 MCH 32.2 MCHC 34.1 RDW 14.8 H Plt Count 154 Seg Neutrophils % Not Reportable Carbonic Acid HCO3/H2CO3 Ratio ABG pH ABG pCO2 ABG pO2 ABG HCO3 ABG O2 Saturation ABG Base Excess FiO2 Sodium 135.7 L Potassium 3.9 Chloride 97 L Carbon Dioxide 29 Anion Gap 10 BUN 24 H Creatinine 1.10 Est GFR ( Amer) > 60 Glucose 383 H Lactic Acid Calcium 8.2 L Phosphorus 3.5 Magnesium 2.1 Total Bilirubin AST Alkaline Phosphatase Total Protein Albumin Urine Color YELLOW Urine Appearance CLEAR Urine pH 7.0 Ur Specific [place] 1.009 Urine Protein NEGATIVE Urine Glucose (UA) NEGATIVE Urine Ketones NEGATIVE Urine Blood NEGATIVE Urine Nitrite NEGATIVE Ur Leukocyte Esterase NEGATIVE Urine WBC (Auto) 0 Urine RBC (Auto) 2 12/20/19 12/20/19 04:00 09:00 WBC RBC Hgb Hct MCV MCH MCHC RDW Plt Count Seg Neutrophils % Carbonic Acid 1.38 H 1.32 HCO3/H2CO3 Ratio 19:1 20:1 ABG pH 7.39 7.41 ABG pCO2 45.9 H 43.9 ABG pO2 94.5 44.8 L ABG HCO3 26.9 H 27.5 H ABG O2 Saturation 97.1 81.2 L ABG Base Excess 1.3 2.5 FiO2 60% 50% Sodium Potassium Chloride Carbon Dioxide Anion Gap BUN Creatinine Est GFR ( Amer) Glucose Lactic Acid Calcium Phosphorus Magnesium Total Bilirubin AST Alkaline Phosphatase Total Protein Albumin Urine Color Urine Appearance Urine pH Ur Specific [place] Urine Protein Urine Glucose (UA) Urine Ketones Urine Blood Urine Nitrite Ur Leukocyte Esterase Urine WBC (Auto) Urine RBC (Auto) 12/19/19 12/20/19 14:43 04:00 NT-Pro-B Natriuret Pep 1320 H 3140 H Impressions: KUB X-Ray 12/19/19 18:38 IMPRESSION: 1. NG tube is in the stomach. 2. Nonspecific bowel gas pattern. 3. Parenchymal consolidation in the lung bases right greater than left. Chest X-Ray 12/20/19 06:00 IMPRESSION: Slight improved aeration of the lungs. SUPPORT DEVICE(S) IN EXPECTED LOCATIONS. All labs, radiographs, diagnostic studies and EKGs were personally reviewed: Yes In addition, reports of radiographic and diagnostic studies were read: Yes Assessment and Plan - Diagnosis (1) Acute and chronic respiratory failure ([id number]) Qualifiers: Respiratory failure complication: hypoxia and hypercapnia Qualified Code(s): J96.21 - Acute and chronic respiratory failure with hypoxia; J96.22 - Acute and chronic respiratory failure with hypercapnia Is this a current diagnosis for this admission?: Yes Plan: Titrate ventilator settings based on ABG results. Continue diuresis. Propofol/morphine for sedation. DuoNeb every 6 hours scheduled. Albuterol as needed. (2) Acute decompensated heart failure Is this a current diagnosis for this admission?: Yes Plan: Increase PEEP to 8. Continue diuresis. CVP monitoring. Check SvO2. Check lactate. (3) Pneumonia Qualifiers: Pneumonia type: due to unspecified organism Laterality: bilateral Lung location: unspecified part of lung Qualified Code(s): J18.9 - Pneumonia, unspecified organism Is this a current diagnosis for this admission?: Yes Plan: Continue Zosyn/vancomycin. Follow-up culture results. (4) Hypoxic encephalopathy Is this a current diagnosis for this admission?: Yes Plan: Daily sedation vacation. Frequent neurologic checks. Titrate sedation for RASS -2. (5) Chronic anticoagulation Is this a current diagnosis for this admission?: Yes Plan: On heparin infusion. (6) Chronic atrial fibrillation Is this a current diagnosis for this admission?: Yes Plan: Currently rate controlled. Home medication: Sotalol 80 mg p.o. every 12 hours. Currently on hold. (7) Sleep disorder breathing Is this a current diagnosis for this admission?: Yes Plan: Nonadherent with prescribed therapy (per patient's ). (8) CAD (coronary artery disease) Qualifiers: Coronary Disease-Associated Artery/Lesion type: unspecified vessel or lesion type [place] vs. transplanted heart: [place] heart Associated angina: without angina Qualified Code(s): I25.10 - Atherosclerotic heart disease of [place] coronary artery without angina pectoris Is this a current diagnosis for this admission?: Yes Plan: Home medications: Aspirin 81 mg p.o. daily, atorvastatin 80 mg p.o. nightly, carvedilol 3.125 mg p.o. every 12 hours. (9) Chronic prescription opiate use Is this a current diagnosis for this admission?: Yes (10) Type 2 diabetes mellitus Qualifiers: Diabetes mellitus terminal computer operator insulin use: with terminal computer operator use Diabetes mellitus complication status: with other specified complication Qualified Code(s): E11.69 - Type 2 diabetes mellitus with other specified complication; Z79.4 - half-way (current) use of insulin Is this a current diagnosis for this admission?: Yes Plan: Accu-Cheks every 6 hours. Sliding scale insulin. Critical Time Critical Time (minutes): 60 Level of Care: ICU -: 1. The care of a critical patient is a dynamic process. This note is a territory sales representative synopsis but static in nature. The timeframe for treatments given in order is not necessarily the actual time these treatments may have been done. 2. This patient requires critical care secondary to ongoing requirements for therapy not offered or safe outside the critical care environment. Transfer to a lower level of care will result in altered life or limb morbidity and mortality. 3. Multidisciplinary rounds completed. 4. ABCDE bundle addressed.
[2019-12-20] MEDS ORDERED: INSULIN REG, HUMAN 100 UNIT/ML 3 ML VIAL (PYX) ONE (18:40)
[2019-12-20] MEDS ORDERED: INSULIN, REGULAR 100 UNIT/100 ML NORMAL SALINE IV PRN ×2 (19:30)
[2019-12-20] MEDS ORDERED: DEXTROSE 40% GEL 15 GM TUBE X 2 PO PRN (19:30)
[2019-12-20] MEDS ORDERED: DEXTROSE 50%-WATER SYRINGE 25 GM/50 ML DOSE IV PRN (19:30)
[2019-12-20] MEDS ORDERED: DEXTROSE 50%-WATER SYRINGE 12.5 GM/25 ML DOSE IV PRN (19:30)
[2019-12-21] MEDS: IPRATROPIUM/ALBUTEROL 0.5-2.5 MG/3 ML AMPUL NEB SCH ×4 (02:17→19:48)
[2019-12-21] MEDS: PROPOFOL 1,000 MG/100 ML INFUS..BTL IV PRN ×2 (02:29→06:34)
[2019-12-21] MEDS ORDERED: DEXTROSE 40% GEL 15 GM TUBE PO PRN (04:25)
[2019-12-21] MEDS: INSULIN REG, HUMAN 100 UNIT/ML 3 ML VIAL (PYX) SUBCUT SCH ×3 (05:34→17:36)
[2019-12-21] MEDS: POTASSI CL 20 MEQ/NS 1L 1,000 ML IV PRN ×2 (05:35→21:32)
[2019-12-21 06:20] LABS: ARTERIAL BLOOD BASE EXCESS 4.3 mmol/L; ARTERIAL BLOOD H2CO3 1.35 mmol/L (1.05-1.35); ARTERIAL BLOOD HCO3 29.2 mmol/L (20-24); ARTERIAL BLOOD O2 SATURATION 93.7 % (94-98); ARTERIAL BLOOD PCO2 44.7 mmHg (35-45); ARTERIAL BLOOD PH 7.43 (7.35-7.45); ARTERIAL BLOOD PO2 66.9 mmHg (80-100); ARTERIAL BLOOD TOTAL CO2 30.6 mmol/L (23-27)
[2019-12-21 06:22] LABS: ARTERIAL BLOOD FIO2 30%
[2019-12-21 06:26] LABS: ABSOLUTE LYMPHOCYTES (AUTO) 1.3 10^3/uL (0.5-4.7); ABSOLUTE MONOCYTES (AUTO) 0.8 10^3/uL (0.1-1.4); ABSOLUTE NEUT (AUTO) 6.2 10^3/uL (1.7-8.2); BASOPHILS % (AUTO) 0.1 % (0-2); EOSINOPHILS % (AUTO) 0.1 % (0-6); HEMATOCRIT 31.8 % (37.9-51.0); HEMOGLOBIN 11.1 g/dL (13.5-17.0); LYMPHOCYTES % (AUTO) 16.1 % (13-45); MEAN CORPUSCULAR HEMOGLOBIN 33.1 pg (27.0-33.4); MEAN CORPUSCULAR HGB CONC 34.8 g/dL (32.0-36.0); MEAN CORPUSCULAR VOLUME 95 fl (80-97); MONOCYTES % (AUTO) 9.3 % (3-13); RED BLOOD COUNT 3.34 10^6/uL (4.35-5.55); RED CELL DISTRIBUTION WIDTH 15.2 % (11.5-14.0); SEGMENTED NEUTROPHILS % (AUTO) 74.4 % (42-78); TOTAL CELLS COUNTED % (AUTO) 100 %; WHITE BLOOD COUNT 8.3 10^3/uL (4.0-10.5)
[2019-12-21 06:28] LABS: INTERNATIONAL RATION (INR) 1.44; PROTHROMBIN TIME 17.7 SEC (11.4-15.4)
[2019-12-21 06:56] LABS: PLATELET COUNT 75 10^3/uL (150-450)
[2019-12-21 07:22] LABS: ALBUMIN 2.9 g/dL (3.5-5.0); ALKALINE PHOSPHATASE 71 U/L (38-126); ANION GAP 5 (5-19); ASPARTATE AMINO TRANSFERASE 34 U/L (17-59); BLOOD UREA NITROGEN 35 mg/dL (7-20); CALCIUM 7.8 mg/dL (8.4-10.2); CARBON DIOXIDE 31 mmol/L (22-30); CHLORIDE 102 mmol/L (98-107); GLUCOSE 226 mg/dL (75-110); PHOSPHORUS 2.7 mg/dL (2.5-4.5); POTASSIUM 4.3 mmol/L (3.6-5.0); TOTAL PROTEIN 5.9 g/dL (6.3-8.2)
[2019-12-21 07:29] LABS: PREALBUMIN 9.1 mg/dL (17.6-36.0)
[2019-12-21 07:53] LABS: BILIRUBIN,TOTAL 1.1 mg/dL (0.2-1.3)
[2019-12-21 07:54] LABS: BILIRUBIN,DIRECT 0.2 mg/dL (0.0-0.4)
--- NOTE | 2019-12-21 08:51 | RADIOLOGY REPORT (SQ) ---
EXAM DESCRIPTION: CHEST SINGLE VIEW IMAGES COMPLETED DATE/TIME: 12/21/2019 5:30 am REASON FOR STUDY: acute respiratory failure COMPARISON: AP view of the chest from 03/21/2020. EXAM PARAMETERS: NUMBER OF VIEWS: One view. TECHNIQUE: An AP view of the chest was obtained. RADIATION DOSE: NA LIMITATIONS: None. FINDINGS: LUNGS AND PLEURA: Unchanged radiographic appearance of the lungs and pleura. MEDIASTINUM AND HILAR STRUCTURES: Stable mediastinal and hilar contours. HEART AND VASCULAR STRUCTURES: Unchanged cardiac silhouette. BONES: No acute findings. HARDWARE: Status post median sternotomy and CABG. The right subclavian approach dual lead transvenou s pacemaker is intact. The tip of the endotracheal tube projects 5.2 cm above the linn. The tip o f the enteric tube projects past the gastroesophageal junction and outside the field of view of the r adiograph. The tip of the right IJ central venous catheter projects within the SVC. OTHER: No other finding. IMPRESSION: Unchanged radiographic appearance of the chest. TECHNICAL DOCUMENTATION: JOB ID: [id number] 2010 [employer]- All Rights Reserved Reading location - IP/workstation name: [email or web address]
[2019-12-21] MEDS: PANTOPRAZOLE SODIUM 40 MG VIAL IV SCH ×2 (09:09→21:29)
[2019-12-21 10:11] LABS: ARTERIAL BLOOD BASE EXCESS -0.1 mmol/L; ARTERIAL BLOOD HCO3 23.2 mmol/L (20-24); ARTERIAL BLOOD O2 SATURATION 95.1 % (94-98); ARTERIAL BLOOD PCO2 33.3 mmHg (35-45); ARTERIAL BLOOD PH 7.46 (7.35-7.45); ARTERIAL BLOOD PO2 70.3 mmHg (80-100); ARTERIAL BLOOD TOTAL CO2 24.2 mmol/L (23-27)
[2019-12-21 10:15] LABS: ARTERIAL BLOOD FIO2 30%
--- NOTE | 2019-12-21 10:20 | PDOC CRITICAL CARE PROG REPORT ---
General Date:: 12/21/19 ICU Day:: 3 Ventilator Day:: 3 Hospital Day:: 3 Resuscitation Status: Full Code Events in the past 12 to 24 Hours:: Able to wean today. Review of systems relevant to events:: Respiratory Reason for ICU Addmission:: acute hypoxemic respiratory failure. Intubated. - Medications: Medications reviewed and adjusted accordingly: Yes Vasopressors:: None Sedation:: None Physical Exam Vital Signs: Temp Pulse Resp BP Pulse Ox 98.6 F 105 H 23 H 143/75 H 100 12/21/19 08:00 12/21/19 07:29 12/21/19 08:00 12/20/19 18:00 12/21/19 06:00 Intake & Output 12/20/19 12/21/19 12/22/19 06:59 06:59 06:59 Intake Total 627 3307 58 Output Total 2575 3455 100 Balance -1948 -148 -42 Weight 108.8 kg 109.3 kg Weight/Height Weight 109.3 kg Height 5 ft 8 in General appearance: PRESENT: no acute distress, other - Sedated. Head exam: PRESENT: atraumatic, normocephalic Eye exam: PRESENT: conjunctiva pink, EOMI, PERRLA. ABSENT: scleral icterus Ear exam: PRESENT: normal external ear exam Mouth exam: PRESENT: moist, tongue midline Respiratory exam: PRESENT: clear to auscultation yobany, unlabored Cardiovascular exam: PRESENT: irregular rhythm Vascular exam: PRESENT: normal capillary refill GI/Abdominal exam: PRESENT: normal bowel sounds, soft. ABSENT: distended, guarding, mass, organolmegaly, rebound, tenderness Rectal exam: PRESENT: deferred Gentrourinary exam: PRESENT: indwelling catheter Extremities exam: PRESENT: full ROM. ABSENT: calf tenderness, clubbing, pedal edema Musculoskeletal exam: PRESENT: normal inspection Neurological exam: PRESENT: altered Skin exam: PRESENT: dry, intact, warm. ABSENT: cyanosis, rash Tubes/Lines: PRESENT: Endotracheal Tube, Arterial Catheter, Nasogastic Tube Laboratory/Radiographs Laboratory Results: 12/21/19 06:00 12/21/19 06:00 12/20/19 12/21/19 12/21/19 09:00 06:00 06:00 WBC 8.3 RBC 3.34 L Hgb 11.1 L Hct 31.8 L MCV 95 MCH 33.1 MCHC 34.8 RDW 15.2 H Plt Count 75 L Seg Neutrophils % 74.4 Carbonic Acid 1.35 HCO3/H2CO3 Ratio 21:1 ABG pH 7.43 ABG pCO2 44.7 ABG pO2 66.9 L ABG HCO3 29.2 H ABG O2 Saturation 93.7 L ABG Base Excess 4.3 FiO2 30% Sodium Potassium Chloride Carbon Dioxide Anion Gap BUN Creatinine Est GFR ( Amer) Glucose Lactic Acid 3.6 H Calcium Phosphorus Magnesium Total Bilirubin AST Alkaline Phosphatase Total Protein Albumin Prealbumin 12/21/19 06:00 WBC RBC Hgb Hct MCV MCH MCHC RDW Plt Count Seg Neutrophils % Carbonic Acid HCO3/H2CO3 Ratio ABG pH ABG pCO2 ABG pO2 ABG HCO3 ABG O2 Saturation ABG Base Excess FiO2 Sodium 138.0 Potassium 4.3 Chloride 102 Carbon Dioxide 31 H Anion Gap 5 BUN 35 H Creatinine 1.13 Est GFR ( Amer) > 60 Glucose 226 H Lactic Acid Calcium 7.8 L Phosphorus 2.7 Magnesium 2.3 Total Bilirubin 1.1 AST 34 Alkaline Phosphatase 71 Total Protein 5.9 L Albumin 2.9 L Prealbumin 9.1 L 12/19/19 12/20/19 12/21/19 14:43 04:00 06:00 NT-Pro-B Natriuret Pep 1320 H 3140 H 1060 H Impressions: KUB X-Ray 12/19/19 18:38 IMPRESSION: 1. NG tube is in the stomach. 2. Nonspecific bowel gas pattern. 3. Parenchymal consolidation in the lung bases right greater than left. Chest X-Ray 12/21/19 06:00 IMPRESSION: Unchanged radiographic appearance of the chest. All labs, radiographs, diagnostic studies and EKGs were personally reviewed: Yes In addition, reports of radiographic and diagnostic studies were read: Yes Assessment and Plan - Diagnosis (1) Acute decompensated heart failure Is this a current diagnosis for this admission?: Yes Plan: Resolved. St II diastolic dysfunction now resolved. (2) Pneumonia Qualifiers: Pneumonia type: due to unspecified organism Laterality: bilateral Lung location: unspecified part of lung Qualified Code(s): J18.9 - Pneumonia, unspecified organism Is this a current diagnosis for this admission?: Yes Plan: No positive brochial washing cultures. May be aspiration. (3) CAD (coronary artery disease) Qualifiers: Coronary Disease-Associated Artery/Lesion type: unspecified vessel or lesion type [place] vs. transplanted heart: [place] heart Associated angina: without angina Qualified Code(s): I25.10 - Atherosclerotic heart disease of [place] coronary artery without angina pectoris Is this a current diagnosis for this admission?: Yes Plan: Stable, inactive. (4) COPD exacerbation Is this a current diagnosis for this admission?: Yes Plan: No wheezing, seems unlabored. Try to extubate today. (5) HTN (hypertension) Qualifiers: Hypertension type: essential hypertension Qualified Code(s): I10 - Es sential (primary) hypertension Is this a current diagnosis for this admission?: Yes Plan: Controlled (6) Atrial fibrillation Qualifiers: Atrial fibrillation type: other persistent Qualified Code(s): I48.19 - Other persistent atrial fibrillation Is this a current diagnosis for this admission?: Yes Plan: Place on eliquis and stop heparin. Plan Summary: Try to extubate today. Critical Time Critical Time (minutes): 35 Level of Care: ICU Anticipated discharge: Home with Homehealth Within: within 72 hours -: 1. The care of a critical patient is a dynamic process. This note is a apprenticeship training representative synopsis but static in nature. The timeframe for treatments given in order is not necessarily the actual time these treatments may have been done. 2. This patient requires critical care secondary to ongoing requirements for therapy not offered or safe outside the critical care environment. Transfer to a lower level of care will result in altered life or limb morbidity and mortality. 3. Multidisciplinary rounds completed. 4. ABCDE bundle addressed.
[2019-12-21] MEDS ORDERED: APIXABAN 5 MG TABLET PO SCH (11:00)
[2019-12-21] MEDS ORDERED: DILTIAZEM HCL INJ 25 MG/5 ML VIAL IV ONE (12:30)
[2019-12-21] MEDS ORDERED: DILTIAZEM HCL INJ 25 MG/5 ML VIAL IV PRN (14:36)
[2019-12-21] MEDS ORDERED: INSULIN GLARGINE,HUM.REC.ANLOG 1,000 UNIT/10 ML VIAL (PYX) SUBCUT ONE (14:45)
[2019-12-21] MEDS: METHYLPREDNISOLONE INJ 40 MG/1 ML SDV IV SCH ×2 (14:48→21:28)
[2019-12-21] MEDS ORDERED: INSULIN GLARGINE,HUM.REC.ANLOG 1,000 UNIT/10 ML VIAL SUBCUT ONE (15:00)
[2019-12-21 17:06] LABS: APPEARANCE,URINE CLEAR; BILIRUBIN,URINE NEGATIVE (NEGATIVE); COLOR,URINE YELLOW; GLUCOSE, URINE 50 mg/dL (NEGATIVE); KETONES,URINE TRACE mg/dL (NEGATIVE); LEUKOCYTE ESTERASE,URINE NEGATIVE (NEGATIVE); NITRITE,URINE NEGATIVE (NEGATIVE); PROTEIN,URINE 100 mg/dL (NEGATIVE); URINE SPECIFIC GRAVITY 1.014; UROBILINOGEN,URINE NEGATIVE mg/dL (<2.0)
[2019-12-21] MEDS: DIGOXIN INJ 0.5 MG/2 ML AMPULE IV SCH (17:37)
[2019-12-21] MEDS: ENOXAPARIN SODIUM INJ 100 MG/1 ML DISP.SYRIN SUBCUT SCH (17:38)
[2019-12-21] MEDS: METOPROLOL TARTRATE PF/INJ 5 MG/5 ML SDV IV PRN ×2 (19:05→21:32)
[2019-12-21] MEDS: SOTALOL HCL 80 MG TABLET PO SCH (19:05)
[2019-12-21] MEDS ORDERED: INSULIN REG, HUMAN 100 UNIT/ML 3 ML VIAL (PYX) ONE (21:26)
[2019-12-21] MEDS ORDERED: INSULIN GLARGINE,HUM.REC.ANLOG 1,000 UNIT/10 ML VIAL SUBCUT SCH (22:00)
[2019-12-21] MEDS: NORMAL SALINE 100 ML with INSULIN REGULAR, HUMAN 100 UNIT IV PRN ×2 (22:00)
[2019-12-22] MEDS: INSULIN REG, HUMAN 100 UNIT/ML 3 ML VIAL (PYX) SUBCUT SCH ×3 (00:26→23:12)
[2019-12-22] MEDS: DIGOXIN INJ 0.5 MG/2 ML AMPULE IV SCH ×3 (00:31→12:27)
[2019-12-22] MEDS ORDERED: DEXTROSE 40% GEL 15 GM TUBE PO PRN ×4 (01:49→16:13)
[2019-12-22] MEDS ORDERED: DEXTROSE 50%-WATER 25 GM/50 ML DISP.SYRIN IV PRN ×4 (01:49→16:13)
[2019-12-22] MEDS ORDERED: GLUCAGON,HUMAN RECOMB 1 MG INJ IM PRN ×2 (01:49→16:13)
[2019-12-22] MEDS: METOPROLOL TARTRATE PF/INJ 5 MG/5 ML SDV IV PRN ×2 (02:49→04:30)
[2019-12-22] MEDS: IPRATROPIUM/ALBUTEROL 0.5-2.5 MG/3 ML AMPUL NEB SCH ×4 (02:50→20:01)
[2019-12-22 03:25] LABS: ABSOLUTE LYMPHOCYTES (AUTO) 0.6 10^3/uL (0.5-4.7); ABSOLUTE MONOCYTES (AUTO) 0.3 10^3/uL (0.1-1.4); ABSOLUTE NEUT (AUTO) 8.6 10^3/uL (1.7-8.2); ARTERIAL BLOOD BASE EXCESS 1.9 mmol/L; ARTERIAL BLOOD H2CO3 1.21 mmol/L (1.05-1.35); ARTERIAL BLOOD HCO3 26.3 mmol/L (20-24); ARTERIAL BLOOD O2 SATURATION 92.4 % (94-98); ARTERIAL BLOOD PCO2 40.3 mmHg (35-45); ARTERIAL BLOOD PH 7.43 (7.35-7.45); ARTERIAL BLOOD PO2 61.8 mmHg (80-100); ARTERIAL BLOOD TOTAL CO2 27.5 mmol/L (23-27); BASOPHILS % (AUTO) 0.1 % (0-2); HEMOGLOBIN 11.3 g/dL (13.5-17.0); LYMPHOCYTES % (AUTO) 6.5 % (13-45); MEAN CORPUSCULAR HEMOGLOBIN 32.7 pg (27.0-33.4); MEAN CORPUSCULAR HGB CONC 34.3 g/dL (32.0-36.0); MEAN CORPUSCULAR VOLUME 95 fl (80-97); MONOCYTES % (AUTO) 3.2 % (3-13); RED BLOOD COUNT 3.47 10^6/uL (4.35-5.55); SEGMENTED NEUTROPHILS % (AUTO) 90.2 % (42-78); TOTAL CELLS COUNTED % (AUTO) 100 %; WHITE BLOOD COUNT 9.5 10^3/uL (4.0-10.5)
[2019-12-22 03:29] LABS: ARTERIAL BLOOD FIO2 30%
[2019-12-22 03:42] LABS: ANION GAP 7 (5-19); BLOOD UREA NITROGEN 30 mg/dL (7-20); CALCIUM 8.3 mg/dL (8.4-10.2); CARBON DIOXIDE 25 mmol/L (22-30); CHLORIDE 109 mmol/L (98-107); GLUCOSE 372 mg/dL (75-110); POTASSIUM 4.4 mmol/L (3.6-5.0)
[2019-12-22 03:43] LABS: PHOSPHORUS 1.7 mg/dL (2.5-4.5)
[2019-12-22 03:59] LABS: PLATELET COUNT 83 10^3/uL (150-450)
[2019-12-22] MEDS ORDERED: HYDRALAZINE HCL INJ/PF 20 MG/1 ML SDV IV ONE (04:20)
[2019-12-22] MEDS ORDERED: HYDRALAZINE HCL INJ/PF 20 MG/1 ML SDV ONE (05:06)
[2019-12-22] MEDS ORDERED: MORPHINE SULFATE 10 MG/ML INJ ONE (05:23)
[2019-12-22] MEDS: ENOXAPARIN SODIUM INJ 100 MG/1 ML DISP.SYRIN SUBCUT SCH (05:43)
[2019-12-22] MEDS: SOTALOL HCL 80 MG TABLET PO SCH (05:43)
[2019-12-22] MEDS ORDERED: MORPHINE SULFATE 10 MG/ML INJ IV ONE ×2 (05:49→07:33)
--- NOTE | 2019-12-22 06:17 | RADIOLOGY REPORT (SQ) ---
CLINICAL HISTORY: acute respiratory failure COMPARISON: 12/20/2019. TECHNIQUE: XR CHEST 1 VIEW 12/22/2019 6:00 AM CDT FINDINGS: The heart is enlarged. Right pacemaker is unchanged. There is extensive bilateral airspace disease involving all lobes. There are small pleural effusions. There is no pneumothorax. There are no acute osseous findings. The tracheal and nasogastric tubes have been removed. Right central line is unchanged. IMPRESSION: Worsening bilateral pneumonia.
[2019-12-22] MEDS ORDERED: PROPOFOL INJ 200 MG/20 ML VIAL IV ONE ×2 (06:43→07:31)
[2019-12-22] MEDS ORDERED: MIDAZOLAM HCL 50 MG/100 ML RTUINJ ONE (06:44)
[2019-12-22] MEDS ORDERED: ETOMIDATE INJ/PF 20 MG/10 ML SDV IV ONE (06:44)
[2019-12-22 07:14] LABS: ARTERIAL BLOOD BASE EXCESS 0.2 mmol/L; ARTERIAL BLOOD HCO3 23.4 mmol/L (20-24); ARTERIAL BLOOD O2 SATURATION 88.1 % (94-98); ARTERIAL BLOOD PCO2 33.3 mmHg (35-45); ARTERIAL BLOOD PH 7.46 (7.35-7.45); ARTERIAL BLOOD PO2 50.4 mmHg (80-100); ARTERIAL BLOOD TOTAL CO2 24.4 mmol/L (23-27)
[2019-12-22 07:15] LABS: ARTERIAL BLOOD FIO2 30%
--- NOTE | 2019-12-22 07:28 | Operative Report ---
Bedside Procedure - History of Present Illness History of Present Illness: Indication: Respiratory Failure Procedure custom feed mill operator helper: JANY Malcolm Attending physician: Dr. Rivera Consent: The procedure was performed emergently and the permission was implied because of the emergent nature. Procedure summary: A timeout was performed. My hands were washed immediately prior to the procedure. I were surgical cap, mask with protective eyewear, gown and gloves throughout the procedure. The patient was placed on a supervisor grain and yeast plants including continuous pulse oximetry. Rapid sequence intubation was conducted. The patient received 50 mg of propofol for induction and 10 mg of etomidate for muscle relaxation. Using a size 3 Srinivasa laryngoscope and a size 7.5 endotracheal tube with stylette, the patient was intubated on the first attempt. The stylette was removed and the cuff balloon was inflated. Appropriate e ndotracheal tube position was confirmed by direct visualization of vocal cord passage, CO2 colorimetric indicator and symmetric breath sounds. The tube was secured at 24 centimeters at the lips. Post intubation chest x-ray results pending. Indication for Procedure: Hypoxemic respiratory failure Date: 12/19/19 Provider: KETURAH KEMP
[2019-12-22] MEDS ORDERED: PHARMACY COMMUNICATION ORDER MC NR (07:30)
[2019-12-22] MEDS: MIDAZOLAM HCL 50 MG/100 ML RTUINJ IV PRN ×2 (08:12→15:26)
[2019-12-22] MEDS: NORMAL SALINE 100 ML with INSULIN REGULAR, HUMAN 100 UNIT IV PRN ×2 (08:33)
--- NOTE | 2019-12-22 08:36 | RADIOLOGY REPORT (SQ) ---
EXAM DESCRIPTION: CHEST SINGLE VIEW IMAGES COMPLETED DATE/TIME: 12/22/2019 8:27 am REASON FOR STUDY: Intubation COMPARISON: 12/22/2019 EXAM PARAMETERS: NUMBER OF VIEWS: One view. TECHNIQUE: Single frontal radiographic view of the chest acquired. RADIATION DOSE: NA LIMITATIONS: None. FINDINGS: LUNGS AND PLEURA: Endotracheal tube and NG tube have been added. Endotracheal tube tip li es 3.4 cm above the linn. NG tube tip is not identified but is well below the GE junction. Extens josr bilateral alveolar airspace disease remains. Right-sided central line is unchanged. MEDIASTINUM AND HILAR STRUCTURES: No masses. Contour normal. HEART AND VASCULAR STRUCTURES: Stable in appearance. BONES: No acute findings. HARDWARE: Sternotomy wires remain in place along with battery pack and leads. OTHER: No other significant finding. IMPRESSION: Interval placement of an NG tube and endotracheal tube as described. No interval change in the bilateral alveolar airspace disease. TECHNICAL DOCUMENTATION: JOB ID: [id number] 2010 [employer]- All Rights Reserved Reading location - IP/workstation name: [email or web address]
[2019-12-22] MEDS: METHYLPREDNISOLONE INJ 40 MG/1 ML SDV IV SCH (10:20)
[2019-12-22] MEDS: PANTOPRAZOLE SODIUM 40 MG VIAL IV SCH ×2 (10:20→21:49)
--- NOTE | 2019-12-22 10:22 | PDOC CRITICAL CARE PROG REPORT ---
General Date:: 12/22/19 ICU Day:: 3 Hospital Day:: 3 Resuscitation Status: Full Code Events in the past 12 to 24 Hours:: Re-intubated. Review of systems relevant to events:: Respiratory, CV, neurological, GI. Reason for ICU Addmission:: acute hypoxemic respiratory failure. Re-intubated. - Medications: Medications reviewed and adjusted accordingly: Yes Vasopressors:: None Sedation:: Propofol. Physical Exam Vital Signs: Temp Pulse Resp BP Pulse Ox 98.8 F 90 25 H 105/44 L 100 12/22/19 08:00 12/22/19 08:17 12/22/19 08:17 12/22/19 08:00 12/22/19 08:17 Intake & Output 12/21/19 12/22/19 12/23/19 06:59 06:59 06:59 Intake Total 3307 1658 25 Output Total 3455 2325 Balance -148 -667 25 Weight 109.3 kg 65.9 kg Weight/Height Weight 65.9 kg Height 5 ft 8 in General appearance: PRESENT: no acute distress Head exam: PRESENT: atraumatic, normocephalic Eye exam: PRESENT: conjunctiva pink, EOMI, PERRLA. ABSENT: scleral icterus Ear exam: PRESENT: normal external ear exam Mouth exam: PRESENT: moist, tongue midline Respiratory exam: PRESENT: clear to auscultation yobany. ABSENT: rales, rhonchi, wheezes Cardiovascular exam: PRESENT: irregular rhythm, tachycardia GI/Abdominal exam: PRESENT: normal bowel sounds, soft, other - NG aspirate has both old and new, red blood.. ABSENT: distended, guarding, mass, organolmegaly, rebound, tenderness Rectal exam: PRESENT: deferred Gentrourinary exam: PRESENT: indwelling catheter Extremities exam: PRESENT: full ROM. ABSENT: calf tenderness, clubbing, pedal edema Musculoskeletal exam: PRESENT: normal inspection Neurological exam: PRESENT: altered, CN II-XII grossly intact, motor sensory deficit, other - Sedasted, altered before re-intubation. Skin exam: PRESENT: dry, intact, warm. ABSENT: cyanosis, rash Tubes/Lines: PRESENT: Endotracheal Tube, Central Line, Arterial Catheter, Nasogastic Tube Laboratory/Radiographs Laboratory Results: 12/22/19 03:09 12/22/19 03:09 12/21/19 12/21/19 12/22/19 10:04 16:53 03:09 WBC RBC Hgb Hct MCV MCH MCHC RDW Plt Count Seg Neutrophils % Carbonic Acid 1.00 L HCO3/H2CO3 Ratio 23:1 ABG pH 7.46 H ABG pCO2 33.3 L ABG pO2 70.3 L ABG HCO3 23.2 ABG O2 Saturation 95.1 ABG Base Excess -0.1 FiO2 30% Sodium 140.8 Potassium 4.4 Chloride 109 H Carbon Dioxide 25 Anion Gap 7 BUN 30 H Creatinine 0.99 Est GFR ( Amer) > 60 Glucose 372 H Calcium 8.3 L Phosphorus Magnesium Urine Color YELLOW Urine Appearance CLEAR Urine pH 7.0 Ur Specific [place] 1.014 Urine Protein 100 H Urine Glucose (UA) 50 H Urine Ketones TRACE H Urine Blood LARGE H Urine Nitrite NEGATIVE Ur Leukocyte Esterase NEGATIVE Urine WBC (Auto) 3 Urine RBC (Auto) 104 12/22/19 12/22/19 12/22/19 03:09 03:09 03:09 WBC 9.5 RBC 3.47 L Hgb 11.3 L Hct 33.0 L MCV 95 MCH 32.7 MCHC 34.3 RDW 15.0 H Plt Count 83 L Seg Neutrophils % 90.2 H Carbonic Acid 1.21 HCO3/H2CO3 Ratio 21:1 ABG pH 7.43 ABG pCO2 40.3 ABG pO2 61.8 L ABG HCO3 26.3 H ABG O2 Saturation 92.4 L ABG Base Excess 1.9 FiO2 30% Sodium Potassium Chloride Carbon Dioxide Anion Gap BUN Creatinine Est GFR ( Amer) Glucose Calcium Phosphorus 1.7 L Magnesium 2.3 Urine Color Urine Appearance Urine pH Ur Specific [place] Urine Protein Urine Glucose (UA) Urine Ketones Urine Blood Urine Nitrite Ur Leukocyte Esterase Urine WBC (Auto) Urine RBC (Auto) 12/22/19 06:41 WBC RBC Hgb Hct MCV MCH MCHC RDW Plt Count Seg Neutrophils % Carbonic Acid 1.00 L HCO3/H2CO3 Ratio 23:1 ABG pH 7.46 H ABG pCO2 33.3 L ABG pO2 50.4 L ABG HCO3 23.4 ABG O2 Saturation 88.1 L ABG Base Excess 0.2 FiO2 30% Sodium Potassium Chloride Carbon Dioxide Anion Gap BUN Creatinine Est GFR ( Amer) Glucose Calcium Phosphorus Magnesium Urine Color Urine Appearance Urine pH Ur Specific [place] Urine Protein Urine Glucose (UA) Urine Ketones Urine Blood Urine Nitrite Ur Leukocyte Esterase Urine WBC (Auto) Urine RBC (Auto) 12/19/19 16:45 Bronchial Washings Gram Stain - Final 12/19/19 16:45 Bronchial Washings Bronchial Washings Culture - Final C.albicans/C.dubliniensis Greatly Reduced Normal María Elena 12/19/19 12/20/19 12/21/19 14:43 04:00 06:00 NT-Pro-B Natriuret Pep 1320 H 3140 H 1060 H 12/22/19 03:09 NT-Pro-B Natriuret Pep 3860 H Impressions: KUB X-Ray 12/19/19 18:38 IMPRESSION: 1. NG tube is in the stomach. 2. Nonspecific bowel gas pattern. 3. Parenchymal consolidation in the lung bases right greater than left. Chest X-Ray 12/22/19 06:00 IMPRESSION: Worsening bilateral pneumonia. All labs, radiographs, diagnostic studies and EKGs were personally reviewed: Yes In addition, reports of radiographic and diagnostic studies were read: Yes Assessment and Plan - Diagnosis (1) Acute decompensated heart failure Is this a current diagnosis for this admission?: Yes Plan: Resolved. (2) Pneumonia Qualifiers: Pneumonia type: due to unspecified organism Laterality: bilateral Lung location: unspecified part of lung Qualified Code(s): J18.9 - Pneumonia, unspecified organism Is this a current diagnosis for this admission?: Yes Plan: The appearance of the CXR looks like a patchy bilateral infiltrate. Possibly aspiration or PNA. He was spiking fevers yesterday but this is non-specific and can be seen in aspiration as well. At the time of intubation it was noted he had relatively new blood in pharynx. (3) CAD (coronary artery disease) Qualifiers: Coronary Disease-Associated Artery/Lesion type: unspecified vessel or lesion type [place] vs. transplanted heart: [place] heart Associated angina: without angina Qualified Code(s): I25.10 - Atherosclerotic heart disease of [place] coronary artery without angina pectoris Is this a current diagnosis for this admission?: Yes Plan: Inactive (4) COPD exacerbation Is this a current diagnosis for this admission?: Yes Plan: This is likely contributing to his WOB. Steroids have not helped much. N active wheezing (5) HTN (hypertension) Qualifiers: Hypertension type: essential hypertension Qualified Code(s): I10 - Essential (primary) hypertension Is this a current diagnosis for this admission?: Yes Plan: Better now that he is intubated (6) Atrial fibrillation Qualifiers: Atrial fibrillation type: other persistent Qualified Code(s): I48.19 - Other persistent atrial fibrillation Is this a current diagnosis for this admission?: Yes Plan: We may have to stop lovenox leaving him at risk for stroke. (7) UGI bleed Is this a current diagnosis for this admission?: Yes Plan: Small but noticable amount of red and darker blood in NG. Blood in pharynx on re-intubation, likely aspirated. Will continue lovenox anyway and EGD if needed. Dr. Christianson aware but not conslted yet. Flush NG Plan Summary: Flush NG, EGD if this continues. Then stop lovenox Critical Time Critical Time (minutes): 35 Level of Care: ICU Anticipated discharge: SNF Within: Other -: 1. The care of a critical patient is a dynamic process. This note is a sales representative printing paper synopsis but static in nature. The timeframe for treatments given in order is not necessarily the actual time these treatments may have been done. 2. This patient requires critical care secondary to ongoing requirements for therapy not offered or safe outside the critical care environment. Transfer to a lower level of care will result in altered life or limb morbidity and mortality. 3. Multidisciplinary rounds completed. 4. ABCDE bundle addressed.
[2019-12-22] MEDS: ENOXAPARIN SODIUM INJ 60 MG/0.6 ML DISP.SYRIN SUBCUT SCH ×2 (12:28→21:49)
[2019-12-22] MEDS: SUCRALFATE 1 GM TABLET PO SCH ×3 (12:29→23:12)
[2019-12-22] MEDS ORDERED: SOTALOL HCL 80 MG TABLET PO SCH ×2 (12:30→18:00)
[2019-12-22] MEDS: INSULIN GLARGINE,HUM.REC.ANLOG 1,000 UNIT/10 ML VIAL SUBCUT SCH ×2 (12:42→21:48)
[2019-12-22] MEDS ORDERED: INSULIN GLARGINE,HUM.REC.ANLOG 1,000 UNIT/10 ML VIAL (PYX) SUBCUT ONE (13:00)
[2019-12-22] MEDS: POTASSI CL 20 MEQ/NS 1L 1,000 ML IV PRN (14:45)
[2019-12-22] MEDS: PREDNISONE 20 MG TABLET NG SCH (17:56)
[2019-12-22] MEDS ORDERED: SOTALOL HCL 80 MG TABLET NG SCH (18:00)
[2019-12-22 18:05] LABS: ABSOLUTE LYMPHOCYTES (AUTO) 0.5 10^3/uL (0.5-4.7); ABSOLUTE MONOCYTES (AUTO) 0.2 10^3/uL (0.1-1.4); ABSOLUTE NEUT (AUTO) 6.8 10^3/uL (1.7-8.2); BASOPHILS % (AUTO) 0.4 % (0-2); HEMATOCRIT 30.5 % (37.9-51.0); HEMOGLOBIN 10.4 g/dL (13.5-17.0); LYMPHOCYTES % (AUTO) 6.4 % (13-45); MEAN CORPUSCULAR HEMOGLOBIN 33.1 pg (27.0-33.4); MEAN CORPUSCULAR HGB CONC 34.3 g/dL (32.0-36.0); MEAN CORPUSCULAR VOLUME 97 fl (80-97); MONOCYTES % (AUTO) 2.6 % (3-13); RED BLOOD COUNT 3.16 10^6/uL (4.35-5.55); RED CELL DISTRIBUTION WIDTH 15.4 % (11.5-14.0); SEGMENTED NEUTROPHILS % (AUTO) 90.6 % (42-78); TOTAL CELLS COUNTED % (AUTO) 100 %; WHITE BLOOD COUNT 7.5 10^3/uL (4.0-10.5)
[2019-12-22 18:24] LABS: PLATELET COUNT 72 10^3/uL (150-450)
[2019-12-22] MEDS ORDERED: NORMAL SALINE 1000 ML 1,000 ML IV PRN (18:42)
[2019-12-22] MEDS ORDERED: NORMAL SALINE 1000 ML 1,000 ML IV ONE (20:30)
[2019-12-23] MEDS: POTASSI CL 20 MEQ/NS 1L 1,000 ML IV PRN (00:25)
[2019-12-23 01:30] LABS: BLOOD UREA NITROGEN 34 mg/dL (7-20); CALCIUM 7.6 mg/dL (8.4-10.2); CARBON DIOXIDE 25 mmol/L (22-30); CHLORIDE 118 mmol/L (98-107); GLUCOSE 325 mg/dL (75-110); POTASSIUM 4.9 mmol/L (3.6-5.0)
[2019-12-23 01:36] LABS: ANION GAP 1 (5-19)
[2019-12-23] MEDS: IPRATROPIUM/ALBUTEROL 0.5-2.5 MG/3 ML AMPUL NEB SCH ×4 (02:05→20:09)
[2019-12-23] MEDS: NORMAL SALINE 1000 ML 1,000 ML IV PRN ×3 (04:00→21:16)
[2019-12-23 05:02] LABS: HEMATOCRIT 31.1 % (37.9-51.0); HEMOGLOBIN 10.4 g/dL (13.5-17.0); MEAN CORPUSCULAR HEMOGLOBIN 32.7 pg (27.0-33.4); MEAN CORPUSCULAR HGB CONC 33.6 g/dL (32.0-36.0); MEAN CORPUSCULAR VOLUME 97 fl (80-97); RED BLOOD COUNT 3.19 10^6/uL (4.35-5.55); RED CELL DISTRIBUTION WIDTH 15.8 % (11.5-14.0); WHITE BLOOD COUNT 6.9 10^3/uL (4.0-10.5)
[2019-12-23] MEDS: SUCRALFATE 1 GM TABLET PO SCH (05:15)
[2019-12-23] MEDS: INSULIN REG, HUMAN 100 UNIT/ML 3 ML VIAL (PYX) SUBCUT SCH ×4 (05:15→23:09)
[2019-12-23 05:16] LABS: BLOOD UREA NITROGEN 35 mg/dL (7-20); CHLORIDE 117 mmol/L (98-107); GLUCOSE 327 mg/dL (75-110); POTASSIUM 4.8 mmol/L (3.6-5.0)
[2019-12-23 05:21] LABS: CARBON DIOXIDE 26 mmol/L (22-30)
[2019-12-23 05:22] LABS: ANION GAP 1 (5-19)
[2019-12-23 05:36] LABS: PLATELET COUNT 78 10^3/uL (150-450)
--- NOTE | 2019-12-23 06:31 | RADIOLOGY REPORT (SQ) ---
AP Portable chest: 12/23/2019 5:29 AM CDT History: 74-year old patient with respiratory failure. Comparison: Chest radiograph performed 12/22/2019. Findings: The cardiomediastinal silhouette is enlarged. There are is similar bilateral airspace opacities with interstitial and central vascular prominence. No pneumothorax is seen. There is blunting of both costophrenic angles, suggestive of trace effusions. Midline sternotomy changes are seen. An endotracheal tube tip projects approximately 3.4 cm above the linn. A right internal jugular central line catheter tip projects near the SVC/right atrial junction. A dual-lead right-sided pacemaker is seen. The nasogastric tube traverses below the left hemidiaphragm. The tip is not seen on this examination. Impression: There are similar bilateral airspace opacities with interstitial and central vascular prominence. These are concerning for infection. There may also be superimposed edema.
--- NOTE | 2019-12-23 08:38 | EKG REPORT ---
SEVERITY:- ABNORMAL ECG - A FIB LOW VOLTAGE QRS IRBBB AND LPFB : Confirmed by: Coelman Murphy 23-Dec-2019 08:37:40
[2019-12-23] MEDS ORDERED: FERROUS SULFATE 324 MG PO SCH (10:00)
[2019-12-23] MEDS ORDERED: SOTALOL HCL 80 MG TABLET PO SCH (10:00)
[2019-12-23] MEDS ORDERED: FERROUS SULFATE 325 MG TABLET PO SCH (10:00)
[2019-12-23] MEDS ORDERED: FLUTICASONE/VILANTEROL 200-25 MCG/DOSE IH SCH (10:00)
[2019-12-23] MEDS: SOTALOL HCL 80 MG TABLET NG SCH ×2 (10:14→21:07)
[2019-12-23] MEDS: FERROUS SULFATE LIQUID 300 MG/5 ML UDC NG SCH (10:15)
[2019-12-23] MEDS: PANTOPRAZOLE SODIUM 40 MG VIAL IV SCH ×2 (10:15→21:04)
[2019-12-23] MEDS: PREDNISONE 20 MG TABLET NG SCH ×2 (10:15→17:45)
[2019-12-23] MEDS: ENOXAPARIN SODIUM INJ 60 MG/0.6 ML DISP.SYRIN SUBCUT SCH ×2 (10:15→21:04)
[2019-12-23] MEDS: CEFTRIAXONE 1 GM/D5W RTU 1 GM/50 ML RTUPB IV SCH (10:16)
[2019-12-23] MEDS: INSULIN GLARGINE,HUM.REC.ANLOG 1,000 UNIT/10 ML VIAL SUBCUT SCH ×2 (10:16→21:05)
[2019-12-23] MEDS: SUCRALFATE 1 GM TABLET NG SCH ×3 (12:15→23:10)
[2019-12-23] MEDS: MIDAZOLAM HCL 50 MG/100 ML RTUINJ IV PRN ×2 (16:39→23:08)
[2019-12-23] MEDS: ACETAMINOPHEN 650 MG SUPP.RECT PR PRN (17:55)
[2019-12-23] MEDS ORDERED: MORPHINE SULFATE 10 MG/ML INJ ONE (18:17)
[2019-12-23] MEDS: MORPHINE SULFATE 10 MG/ML INJ IV PRN (18:19)
--- NOTE | 2019-12-23 20:57 | XCELERA REPORT ---
[address] [address] Transthoracic Echocardiogram Report Name: LANCE TRIPLETT Age: 74 yrs Gender: Male : 1945 Patient Status: Inpatient Patient Location: ICU^602^A Study Date: 12/23/2019 09:49 AM Height: 68 in Weight: 239 lb BSA: 2.2 m2 Procedure: A complete two-dimensional transthoracic echocardiogram was performed (2D, M-mode, spectral and color flow Doppler). The study was technically difficult with many images being suboptimal in quality. Reason For Study: EKG changes, signs of worsening CHF Ordering Physician: KETURAH KEMP Performed By: Beatriz Mtz Interpretation Summary FINDINGS: technically difficult. LEFT VENTRICLE: LV Systolic function: LVEF is felt to be depressed with best estimate being approximately 45%. LV Diastolic Function: Grade II diastolic dysfunction noted. Wall motion : not all wall segment were well visualised. Regional wall motion cannot be accurately commented upon.. Left ventricular chamber size : is within normal limit. Left ventricular wall thickness : is increased indicative of Mild LVH. RIGHT VENTRICLE: RV systolic function : is felt to b depressed. Right Ventricle Size moderately dilated LEFT ATRIUM size : is mildly dilated. RIGHT ATRIUM size moderately dilated. ATRIAL SEPTUM : No definite atrial septal defect noted however a small PFO could be missed. AORTIC ROOT : seems to be within normal limits. Ascending aorta is not well visualized. INFERIOR VENA CAVA normal size without any respiratory variation suggestive of elevated RA pressure. VALVES: MITRAL VALVE : Leaflets are mildly thickened. Mobility seems to be within normal limits. Mitral Regurgitation mild mitral regurgitation is noted. Mitral Stenosis: No mitral stenosis noted. Mitral valve prolapse : none noted. AORTIC VALVE: seems to be trileaflet with mild thickening but adequate excursion. Aortic stenosis : No aortic stenosis noted. Aortic regurgitation trace aortic incompetence noted. TRICUSPID VALVE : mobility and structures within normal limit. Tricuspid stenosis : no tricuspid stenosis noted. Tricuspid regurgitation moderate to severe regurgitation noted. Estimated RVSP approximately 50 mmHg consistent with moderate pulmonary hypertensionl. PULMONARY VALVE : was not well visualized but no significant abnormalities suspected. Pulmonary stenosis : no pulmonary stenosis noted. Pulmonary regurgitation mild regurgitation noted. MASSES AND THROMBUS : No definite intracardiac thrombus or masses are noted. PERICARDIUM: No pericardial effusion was noted. IMPRESSION : 1 Mildly depressed LVEF with best estimate being 45%. 2. Mild LVH noted 3. Grade II Diastolic Dysfunction noted. 4. Moderate to severe tricuspid, mild mitral, trace aortic and mild pulmonary regurgitation noted. 5. LA is mildly dilated. RV moderately dilated, RA moderately dilated. 6. Moderate pulmonary hypertension noted. 7. Incidental note of pacemaker/defibrillator leads noted in the right ventricle. 8. Study was technically difficult therefore clinical correlation is requested. MMode/2D Measurements & Calculations RVDd: 2.4 cm LVIDd: 5.6 cm FS: 17.8 % Ao root diam: 2.8 cm IVSd: 1.1 cm LVIDs: 4.6 cm EDV(Teich): 156.8 ml Ao root area: 6.1 cm2 LVPWd: 0.90 cm ESV(Teich): 99.6 ml LA dimension: 4.3 cm EF(Teich): 36.5 % Doppler Measurements & Calculations MV E max camryn: MV P1/2t max camryn: Ao V2 max: LV V1 max P.3 cm/sec 129.0 cm/sec 159.8 cm/sec 6.3 mmHg MV A max camryn: MV P1/2t: 64.6 msec Ao max PG: LV V1 max: 44.6 cm/sec MVA(P1/2t): 3.4 cm2 10.2 mmHg 125.6 cm/sec MV E/A: 2.9 MV dec slope: 584.7 cm/sec2 MV dec time: 0.17 sec PA V2 max: PI end-d camryn: TR max camryn: MV P1/2t-pr_phl: 72.7 cm/sec 129.0 cm/sec 305.1 cm/sec 64.6 msec PA max P.1 mmHg TR max P.2 mmHg : KETURAH KEMP Shyamal
[2019-12-24] MEDS: IPRATROPIUM/ALBUTEROL 0.5-2.5 MG/3 ML AMPUL NEB SCH ×4 (02:24→19:58)
[2019-12-24 03:47] LABS: HEMATOCRIT 31.1 % (37.9-51.0); HEMOGLOBIN 10.4 g/dL (13.5-17.0); MEAN CORPUSCULAR HEMOGLOBIN 32.9 pg (27.0-33.4); MEAN CORPUSCULAR HGB CONC 33.5 g/dL (32.0-36.0); MEAN CORPUSCULAR VOLUME 98 fl (80-97); RED BLOOD COUNT 3.17 10^6/uL (4.35-5.55); RED CELL DISTRIBUTION WIDTH 15.6 % (11.5-14.0); WHITE BLOOD COUNT 5.5 10^3/uL (4.0-10.5)
[2019-12-24 03:50] LABS: PLATELET COUNT 75 10^3/uL (150-450)
[2019-12-24 03:56] LABS: BLOOD UREA NITROGEN 38 mg/dL (7-20); CALCIUM 7.9 mg/dL (8.4-10.2); GLUCOSE 308 mg/dL (75-110)
[2019-12-24 04:01] LABS: CARBON DIOXIDE 26 mmol/L (22-30); CHLORIDE 119 mmol/L (98-107)
[2019-12-24 04:06] LABS: ANION GAP 1 (5-19)
[2019-12-24] MEDS: INSULIN REG, HUMAN 100 UNIT/ML 3 ML VIAL (PYX) SUBCUT SCH ×3 (05:21→17:18)
[2019-12-24] MEDS: SUCRALFATE 1 GM TABLET NG SCH ×3 (05:21→17:20)
--- NOTE | 2019-12-24 06:34 | RADIOLOGY REPORT (SQ) ---
EXAM DESCRIPTION: X-ray single view chest. CLINICAL HISTORY: 74 years Male, Respiratory Failure COMPARISON: 12/23/2019 and 12/22/2019 TECHNIQUE: Single portable x-ray view of the chest performed on 12/24/2019 at 6:15 AM FINDINGS: There is improving diffuse bilateral airspace disease suggesting resolving edema and/or ARDS. There is no evidence of a pneumothorax. The cardiac silhouette is stable and is prominent. There are postsurgical changes of the mediastinum. The mediastinal contours are normal. No acute osseous abnormality is identified. No focal soft tissue abnormalities are seen. Lines and tubes: The endotracheal tube, feeding tube and right IJ central venous catheter as well as the right subclavian bipolar pacemaker are grossly stable. There are overlying pricing associate leads. IMPRESSION: Improving diffuse bilateral airspace disease when compared to the prior studies suggesting resolving edema, ARDS or possibly multifocal pneumonia.
[2019-12-24] MEDS: NORMAL SALINE 1000 ML 1,000 ML IV PRN ×2 (07:50→19:30)
--- NOTE | 2019-12-24 08:36 | PDOC CRITICAL CARE PROG REPORT ---
General Date:: 12/24/19 ICU Day:: 5 Ventilator Day:: 2 Hospital Day:: 5 Resuscitation Status: Full Code Events in the past 12 to 24 Hours:: Became tachypnic on PSV. Better today. Review of systems relevant to events:: Respiratory and neurological. Reason for ICU Addmission:: acute hypoxemic respiratory failure. Re-intubated. - Medications: Medications reviewed and adjusted accordingly: Yes Vasopressors:: None Sedation:: Versed to change to precedex. Physical Exam Vital Signs: Temp Pulse Resp BP Pulse Ox 97.9 F 82 22 H 138/58 H 100 12/24/19 06:00 12/24/19 03:55 12/24/19 06:00 12/23/19 12:29 12/24/19 06:00 Intake & Output 12/23/19 12/24/19 12/25/19 06:59 06:59 06:59 Intake Total 4036 2568 1000 Output Total 1860 2550 Balance 2176 18 1000 Weight 108.8 kg 111.7 kg Weight/Height Weight 111.7 kg Height 5 ft 8 in General appearance: PRESENT: no acute distress, obese Head exam: PRESENT: atraumatic, normocephalic Eye exam: PRESENT: conjunctiva pink, EOMI, PERRLA. ABSENT: scleral icterus Ear exam: PRESENT: normal external ear exam Mouth exam: PRESENT: moist, tongue midline Respiratory exam: PRESENT: rhonchi, symmetrical, unlabored Cardiovascular exam: PRESENT: irregular rhythm GI/Abdominal exam: PRESENT: normal bowel sounds, soft. ABSENT: distended, guarding, mass, organolmegaly, rebound, tenderness Rectal exam: PRESENT: deferred Gentrourinary exam: PRESENT: indwelling catheter Extremities exam: PRESENT: full ROM. ABSENT: calf tenderness, clubbing, pedal edema Musculoskeletal exam: PRESENT: normal inspection Neurological exam: PRESENT: altered, other - Sedated on versed. Skin exam: PRESENT: dry, intact, warm. ABSENT: cyanosis, rash Tubes/Lines: PRESENT: Endotracheal Tube, Central Line, Arterial Catheter, Nasogastic Tube - Sedated Laboratory/Radiographs Laboratory Results: 12/24/19 03:30 12/24/19 03:30 12/24/19 12/24/19 03:30 03:30 WBC 5.5 RBC 3.17 L Hgb 10.4 L Hct 31.1 L MCV 98 H MCH 32.9 MCHC 33.5 RDW 15.6 H Plt Count 75 L Sodium 146.3 H Potassium 5.0 Chloride 119 H Carbon Dioxide 26 Anion Gap 1 L BUN 38 H Creatinine 1.02 Est GFR ( Amer) > 60 Glucose 308 H Calcium 7.9 L 12/19/19 12/20/19 12/21/19 14:43 04:00 06:00 Troponin I NT-Pro-B Natriuret Pep 1320 H 3140 H 1060 H 12/22/19 12/23/19 12/23/19 03:09 04:57 06:56 Troponin I 0.471 0.439 NT-Pro-B Natriuret Pep 3860 H 12/24/19 03:30 Troponin I 0.301 NT-Pro-B Natriuret Pep Impressions: KUB X-Ray 12/19/19 18:38 IMPRESSION: 1. NG tube is in the stomach. 2. Nonspecific bowel gas pattern. 3. Parenchymal consolidation in the lung bases right greater than left. Chest X-Ray 12/24/19 00:00 IMPRESSION: Improving diffuse bilateral airspace disease when compared to the prior studies suggesting resolving edema, ARDS or possibly multifocal pneumonia. All labs, radiographs, diagnostic studies and EKGs were personally reviewed: Yes In addition, reports of radiographic and diagnostic studies were read: Yes Assessment and Plan - Diagnosis (1) Acute decompensated heart failure Is this a current diagnosis for this admission?: Yes Plan: There does not seem to be active CHF now. (2) Pneumonia Qualifiers: Pneumonia type: due to unspecified organism Laterality: bilateral Lung location: unspecified part of lung Qualified Code(s): J18.9 - Pneumonia, unspecified organism Is this a current diagnosis for this admission?: Yes Plan: His CXR is clearer. There is still bilateral infiltrates. May be aspiration. (3) CAD (coronary artery disease) Qualifiers: Coronary Disease-Associated Artery/Lesion type: unspecified vessel or lesion type [place] vs. transplanted heart: [place] heart Associated angina: without angina Qualified Code(s): I25.10 - Atherosclerotic heart disease of [place] coronary artery without angina pectoris Is this a current diagnosis for this admission?: Yes Plan: Inactive. (4) COPD exacerbation Is this a current diagnosis for this admission?: Yes Plan: No active wheezing. (5) HTN (hypertension) Qualifiers: Hypertension type: essential hypertension Qualified Code(s): I10 - Essential (primary) hypertension Is this a current diagnosis for this admission?: Yes Plan: Controlled. (6) Atrial fibrillation Qualifiers: Atrial fibrillation type: other persistent Qualified Code(s): I48.19 - Other persistent atrial fibrillation Is this a current diagnosis for this admission?: Yes Plan: He has a much better rate on sotolol. (7) UGI bleed Is this a current diagnosis for this admission?: Yes Plan: Resolved Plan Summary: Change versed to precedex and try to awaken more. Excersize on vent and hope to extubate Saturday. Critical Time Critical Time (minutes): 35 Level of Care: ICU Anticipated discharge: SNF Within: Other -: 1. The care of a critical patient is a dynamic process. This note is a car sales representative synopsis but static in nature. The timeframe for treatments given in order is not necessarily the actual time these treatments may have been done. 2. This patient requires critical care secondary to ongoing requirements for therapy not offered or safe outside the critical care environment. Transfer to a lower level of care will result in altered life or limb morbidity and mortality. 3. Multidisciplinary rounds completed. 4. ABCDE bundle addressed.
[2019-12-24] MEDS: CEFTRIAXONE 1 GM/D5W RTU 1 GM/50 ML RTUPB IV SCH (09:55)
[2019-12-24] MEDS: PREDNISONE 20 MG TABLET NG SCH ×2 (09:56→17:20)
[2019-12-24] MEDS: PANTOPRAZOLE SODIUM 40 MG VIAL IV SCH ×2 (09:56→21:53)
[2019-12-24] MEDS: ENOXAPARIN SODIUM INJ 60 MG/0.6 ML DISP.SYRIN SUBCUT SCH ×2 (09:56→21:52)
[2019-12-24] MEDS: FERROUS SULFATE LIQUID 300 MG/5 ML UDC NG SCH (09:56)
[2019-12-24] MEDS: INSULIN GLARGINE,HUM.REC.ANLOG 1,000 UNIT/10 ML VIAL SUBCUT SCH ×2 (09:57→21:52)
[2019-12-24] MEDS: SOTALOL HCL 80 MG TABLET NG SCH ×2 (09:59→21:50)
[2019-12-24] MEDS: DEXMEDETOMIDINE IN 0.9 % NACL 400 MCG/100 ML RTUPB IV PRN ×2 (10:00→17:21)
[2019-12-25] MEDS: INSULIN REG, HUMAN 100 UNIT/ML 3 ML VIAL (PYX) SUBCUT SCH ×4 (00:01→17:03)
[2019-12-25] MEDS: SUCRALFATE 1 GM TABLET NG SCH ×4 (00:02→17:01)
[2019-12-25] MEDS: IPRATROPIUM/ALBUTEROL 0.5-2.5 MG/3 ML AMPUL NEB SCH ×4 (02:05→19:34)
[2019-12-25] MEDS: DEXMEDETOMIDINE IN 0.9 % NACL 400 MCG/100 ML RTUPB IV PRN ×4 (04:27→22:26)
[2019-12-25 05:13] LABS: HEMATOCRIT 31.5 % (37.9-51.0); HEMOGLOBIN 10.7 g/dL (13.5-17.0); MEAN CORPUSCULAR HEMOGLOBIN 32.5 pg (27.0-33.4); MEAN CORPUSCULAR HGB CONC 33.8 g/dL (32.0-36.0); MEAN CORPUSCULAR VOLUME 96 fl (80-97); RED BLOOD COUNT 3.28 10^6/uL (4.35-5.55); WHITE BLOOD COUNT 3.3 10^3/uL (4.0-10.5)
[2019-12-25] MEDS: NORMAL SALINE 1000 ML 1,000 ML IV PRN ×2 (05:27→15:15)
[2019-12-25 05:28] LABS: BLOOD UREA NITROGEN 35 mg/dL (7-20); CALCIUM 8.1 mg/dL (8.4-10.2); GLUCOSE 258 mg/dL (75-110); POTASSIUM 4.5 mmol/L (3.6-5.0)
[2019-12-25 05:32] LABS: PLATELET COUNT 56 10^3/uL (150-450)
[2019-12-25 05:34] LABS: CARBON DIOXIDE 26 mmol/L (22-30); CHLORIDE 119 mmol/L (98-107)
[2019-12-25 05:44] LABS: ANION GAP 2 (5-19)
--- NOTE | 2019-12-25 09:05 | PDOC CRITICAL CARE PROG REPORT ---
General Date:: 12/25/19 ICU Day:: 6 Ventilator Day:: 3 Hospital Day:: 6 Resuscitation Status: Full Code Events in the past 12 to 24 Hours:: Developed copious secretions. Review of systems relevant to events:: Pulmonary. Reason for ICU Addmission:: acute hypoxemic respiratory failure. Re-intubated. - Medications: Medications reviewed and adjusted accordingly: Yes Vasopressors:: None Sedation:: Precedex. Physical Exam Vital Signs: Temp Pulse Resp BP Pulse Ox 97.7 F 71 26 H 139/63 H 100 12/25/19 08:00 12/25/19 08:20 12/25/19 08:20 12/25/19 08:20 12/25/19 08:20 Intake & Output 12/24/19 12/25/19 12/26/19 06:59 06:59 06:59 Intake Total 2568 3316 Output Total 2550 3110 275 Balance 18 206 -275 Weight 111.7 kg 111.7 kg Weight/Height Weight 111.7 kg Height 5 ft 8 in General appearance: PRESENT: no acute distress, disheveled Head exam: PRESENT: atraumatic, normocephalic Eye exam: PRESENT: conjunctiva pink, EOMI, PERRLA. ABSENT: scleral icterus Ear exam: PRESENT: normal external ear exam Mouth exam: PRESENT: moist, tongue midline Respiratory exam: PRESENT: decreased breath sounds, rhonchi, symmetrical, unlabored Cardiovascular exam: PRESENT: irregular rhythm GI/Abdominal exam: PRESENT: normal bowel sounds, soft. ABSENT: distended, guarding, mass, organolmegaly, rebound, tenderness Rectal exam: PRESENT: deferred Gentrourinary exam: PRESENT: indwelling catheter Extremities exam: PRESENT: full ROM. ABSENT: calf tenderness, clubbing, pedal edema Musculoskeletal exam: PRESENT: normal inspection Neurological exam: PRESENT: other - Sedated Skin exam: PRESENT: dry, intact, warm. ABSENT: cyanosis, rash Tubes/Lines: PRESENT: Endotracheal Tube, Nasogastic Tube Laboratory/Radiographs Laboratory Results: 12/25/19 05:00 12/25/19 05:00 12/25/19 12/25/19 05:00 05:00 WBC 3.3 L RBC 3.28 L Hgb 10.7 L Hct 31.5 L MCV 96 MCH 32.5 MCHC 33.8 RDW 15.0 H Plt Count 56 L Sodium 147.0 H Potassium 4.5 Chloride 119 H Carbon Dioxide 26 Anion Gap 2 L BUN 35 H Creatinine 0.94 Est GFR ( Amer) > 60 Glucose 258 H Calcium 8.1 L 12/19/19 17:05 Blood Blood Culture - Final NO GROWTH IN 5 DAYS 12/19/19 14:43 Blood Blood Culture - Final NO GROWTH IN 5 DAYS 12/19/19 12/20/19 12/21/19 14:43 04:00 06:00 Troponin I NT-Pro-B Natriuret Pep 1320 H 3140 H 1060 H 12/22/19 12/23/19 12/23/19 03:09 04:57 06:56 Troponin I 0.471 0.439 NT-Pro-B Natriuret Pep 3860 H 12/24/19 03:30 Troponin I 0.301 NT-Pro-B Natriuret Pep Impressions: KUB X-Ray 12/19/19 18:38 IMPRESSION: 1. NG tube is in the stomach. 2. Nonspecific bowel gas pattern. 3. Parenchymal consolidation in the lung bases right greater than left. Chest X-Ray 12/24/19 00:00 IMPRESSION: Improving diffuse bilateral airspace disease when compared to the prior studies suggesting resolving edema, ARDS or possibly multifocal pneumonia. All labs, radiographs, diagnostic studies and EKGs were personally reviewed: Yes In addition, reports of radiographic and diagnostic studies were read: Yes Assessment and Plan - Diagnosis (1) Acute decompensated heart failure Is this a current diagnosis for this admission?: Yes Plan: Resolved (2) Pneumonia Qualifiers: Pneumonia type: due to unspecified organism Laterality: bilateral Lung location: unspecified part of lung Qualified Code(s): J18.9 - Pneumonia, unspecified organism Is this a current diagnosis for this admission?: Yes Plan: He has much more seretions today. He has no fever and new new infiltrate by y 's cxr, therefore no VAP. This will make it very difficult to proceed with extubation given that he has failed once before. (3) CAD (coronary artery disease) Qualifiers: Coronary Disease-Associated Artery/Lesion type: unspecified vessel or lesion type [place] vs. transplanted heart: [place] heart Associated angina: without angina Qualified Code(s): I25.10 - Atherosclerotic heart disease of [place] coronary artery without angina pectoris Is this a current diagnosis for this admission?: Yes Plan: Inactive (4) COPD exacerbation Is this a current diagnosis for this admission?: Yes Plan: Some secretions certainly from COPD and likely aspiration. Will try scopalomine (5) HTN (hypertension) Qualifiers: Hypertension type: essential hypertension Qualified Code(s): I10 - Essential (primary) hypertension Is this a current diagnosis for this admission?: Yes Plan: Controlled (6) Atrial fibrillation Qualifiers: Atrial fibrillation type: other persistent Qualified Code(s): I48.19 - Other persistent atrial fibrillation Is this a current diagnosis for this admission?: Yes Plan: Controlled (7) UGI bleed Is this a current diagnosis for this admission?: Yes Plan: No recurrance Plan Summary: She has a leukocytosis. We will chech C dif, place PICC and discontinue central line. No beds at [place] for transplant. Critical Time Critical Time (minutes): 35 Level of Care: ICU Anticipated discharge: SNF Within: Other -: 1. The care of a critical patient is a dynamic process. This note is a manufacturer representative synopsis but static in nature. The timeframe for treatments given in order is not necessarily the actual time these treatments may have been done. 2. This patient requires critical care secondary to ongoing requirements for therapy not offered or safe outside the critical care environment. Transfer to a lower level of care will result in altered life or limb morbidity and mortality. 3. Multidisciplinary rounds completed. 4. ABCDE bundle addressed.
[2019-12-25] MEDS ORDERED: SCOPOLAMINE HYDROBROMIDE 1.5 MG PATCH.TD72 TD ONE (10:00)
[2019-12-25] MEDS: PANTOPRAZOLE SODIUM 40 MG VIAL IV SCH ×2 (10:22→21:10)
[2019-12-25] MEDS: FERROUS SULFATE LIQUID 300 MG/5 ML UDC NG SCH (10:23)
[2019-12-25] MEDS: PREDNISONE 20 MG TABLET NG SCH ×2 (10:23→17:01)
[2019-12-25] MEDS: CEFTRIAXONE 1 GM/D5W RTU 1 GM/50 ML RTUPB IV SCH (10:23)
[2019-12-25] MEDS: ENOXAPARIN SODIUM INJ 60 MG/0.6 ML DISP.SYRIN SUBCUT SCH ×2 (10:27→21:04)
[2019-12-25] MEDS: INSULIN GLARGINE,HUM.REC.ANLOG 1,000 UNIT/10 ML VIAL SUBCUT SCH ×2 (10:27→21:10)
[2019-12-25] MEDS: SOTALOL HCL 80 MG TABLET NG SCH ×2 (10:30→21:08)
[2019-12-26] MEDS: INSULIN REG, HUMAN 100 UNIT/ML 3 ML VIAL (PYX) SUBCUT SCH ×5 (00:03→23:15)
[2019-12-26] MEDS: SUCRALFATE 1 GM TABLET NG SCH ×5 (00:04→23:14)
[2019-12-26] MEDS: NORMAL SALINE 1000 ML 1,000 ML IV PRN ×3 (00:19→19:40)
[2019-12-26] MEDS: IPRATROPIUM/ALBUTEROL 0.5-2.5 MG/3 ML AMPUL NEB SCH ×4 (02:11→20:08)
[2019-12-26] MEDS: DEXMEDETOMIDINE IN 0.9 % NACL 400 MCG/100 ML RTUPB IV PRN ×4 (02:21→14:47)
[2019-12-26 05:04] LABS: ABSOLUTE LYMPHOCYTES (AUTO) 0.7 10^3/uL (0.5-4.7); ABSOLUTE MONOCYTES (AUTO) 0.3 10^3/uL (0.1-1.4); ABSOLUTE NEUT (AUTO) 2.9 10^3/uL (1.7-8.2); BASOPHILS % (AUTO) 0.1 % (0-2); EOSINOPHILS % (AUTO) 0.7 % (0-6); HEMATOCRIT 33.1 % (37.9-51.0); HEMOGLOBIN 11.1 g/dL (13.5-17.0); LYMPHOCYTES % (AUTO) 17.4 % (13-45); MEAN CORPUSCULAR HEMOGLOBIN 32.4 pg (27.0-33.4); MEAN CORPUSCULAR HGB CONC 33.6 g/dL (32.0-36.0); MEAN CORPUSCULAR VOLUME 96 fl (80-97); MONOCYTES % (AUTO) 6.8 % (3-13); RED BLOOD COUNT 3.43 10^6/uL (4.35-5.55); RED CELL DISTRIBUTION WIDTH 15.1 % (11.5-14.0); TOTAL CELLS COUNTED % (AUTO) 100 %; WHITE BLOOD COUNT 3.9 10^3/uL (4.0-10.5)
[2019-12-26 05:14] LABS: BLOOD UREA NITROGEN 34 mg/dL (7-20); CHLORIDE 117 mmol/L (98-107); GLUCOSE 206 mg/dL (75-110); POTASSIUM 4.6 mmol/L (3.6-5.0)
[2019-12-26 05:20] LABS: CARBON DIOXIDE 26 mmol/L (22-30)
[2019-12-26 05:24] LABS: PLATELET COUNT 70 10^3/uL (150-450)
[2019-12-26 05:26] LABS: ANION GAP 2 (5-19)
--- NOTE | 2019-12-26 08:40 | PDOC CRITICAL CARE PROG REPORT ---
General Date:: 12/26/19 ICU Day:: 7 Ventilator Day:: 4 Hospital Day:: 7 Resuscitation Status: Full Code Events in the past 12 to 24 Hours:: Developement of mure secretions and fever. Review of systems relevant to events:: Pulmonary. Reason for ICU Addmission:: acute hypoxemic respiratory failure. Re-intubated. - Medications: Medications reviewed and adjusted accordingly: Yes Vasopressors:: None Sedation:: Presedex. Physical Exam Vital Signs: Temp Pulse Resp BP Pulse Ox 100.6 F H 70 27 H 130/69 H 99 12/26/19 06:00 12/26/19 08:00 12/26/19 08:00 12/25/19 20:00 12/26/19 08:00 Intake & Output 12/25/19 12/26/19 12/27/19 06:59 06:59 06:59 Intake Total 3366 3087 Output Total 3110 3460 275 Balance 256 -373 -275 Weight 111.7 kg 112.7 kg Weight/Height Weight 112.7 kg Height 5 ft 8 in General appearance: PRESENT: no acute distress, obese Head exam: PRESENT: atraumatic, normocephalic Eye exam: PRESENT: conjunctiva pink, EOMI, PERRLA. ABSENT: scleral icterus Ear exam: PRESENT: normal external ear exam Mouth exam: PRESENT: moist, tongue midline Respiratory exam: PRESENT: decreased breath sounds, rhonchi, symmetrical, unlabored Cardiovascular exam: PRESENT: irregular rhythm GI/Abdominal exam: PRESENT: normal bowel sounds, soft. ABSENT: distended, guarding, mass, organolmegaly, rebound, tenderness Rectal exam: PRESENT: deferred Gentrourinary exam: PRESENT: indwelling catheter Extremities exam: PRESENT: full ROM, +1 edema. ABSENT: calf tenderness, clubbing, pedal edema Neurological exam: PRESENT: altered, other - Sedated. Skin exam: PRESENT: dry, intact, warm. ABSENT: cyanosis, rash Tubes/Lines: PRESENT: Endotracheal Tube, Central Line, Arterial Catheter, Nasogastic Tube Laboratory/Radiographs Laboratory Results: 12/26/19 04:20 12/26/19 04:20 12/26/19 12/26/19 04:20 04:20 WBC 3.9 L RBC 3.43 L Hgb 11.1 L Hct 33.1 L MCV 96 MCH 32.4 MCHC 33.6 RDW 15.1 H Plt Count 70 L Seg Neutrophils % 75.0 Sodium 145.2 H Potassium 4.6 Chloride 117 H Carbon Dioxide 26 Anion Gap 2 L BUN 34 H Creatinine 1.00 Est GFR ( Amer) > 60 Glucose 206 H Calcium 8.0 L 12/19/19 12/20/19 12/21/19 14:43 04:00 06:00 Troponin I NT-Pro-B Natriuret Pep 1320 H 3140 H 1060 H 12/22/19 12/23/19 12/23/19 03:09 04:57 06:56 Troponin I 0.471 0.439 NT-Pro-B Natriuret Pep 3860 H 12/24/19 03:30 Troponin I 0.301 NT-Pro-B Natriuret Pep Impressions: KUB X-Ray 12/19/19 18:38 IMPRESSION: 1. NG tube is in the stomach. 2. Nonspecific bowel gas pattern. 3. Parenchymal consolidation in the lung bases right greater than left. Chest X-Ray 12/24/19 00:00 IMPRESSION: Improving diffuse bilateral airspace disease when compared to the prior studies suggesting resolving edema, ARDS or possibly multifocal pneumonia. All labs, radiographs, diagnostic studies and EKGs were personally reviewed: Yes In addition, reports of radiographic and diagnostic studies were read: Yes Assessment and Plan - Diagnosis (1) Pneumonia Qualifiers: Pneumonia type: due to unspecified organism Laterality: bilateral Lung location: unspecified part of lung Qualified Code(s): J18.9 - Pneumonia, unspecified organism Is this a current diagnosis for this admission?: Yes Plan: This has been fairly persistant and with fever. Secretions are copious. Sputum culture reordered. Scopalomine reordered. May need to broaden antibiotic coverage as this is day 6 on rocephin. (2) Acute decompensated heart failure Is this a current diagnosis for this admission?: Yes Plan: Resolved (3) CAD (coronary artery disease) Qualifiers: Coronary Disease-Associated Artery/Lesion type: unspecified vessel or lesion type [place] vs. transplanted heart: [place] heart Associated angina: without angina Qualified Code(s): I25.10 - Atherosclerotic heart disease of [place] coronary artery without angina pectoris Is this a current diagnosis for this admission?: Yes Plan: Inactive. (4) COPD exacerbation Is this a current diagnosis for this admission?: Yes Plan: No wheezing. This is in part responsible for secretions. (5) HTN (hypertension) Qualifiers: Hypertension type: essential hypertension Qualified Code(s): I10 - Essential (primary) hypertension Is this a current diagnosis for this admission?: Yes Plan: Controlled (6) Atrial fibrillation Qualifiers: Atrial fibrillation type: other persistent Qualified Code(s): I48.19 - Other persistent atrial fibrillation Is this a current diagnosis for this admission?: Yes Plan: Controlled on sotolol (7) UGI bleed Is this a current diagnosis for this admission?: Yes Plan: Resolved Plan Summary: Await cultures and include meropenem Critical Time Critical Time (minutes): 35 Level of Care: ICU Anticipated discharge: SNF Within: Other -: 1. The care of a critical patient is a dynamic process. This note is a medical customer service representative synopsis but static in nature. The timeframe for treatments given in order is not necessarily the actual time these treatments may have been done. 2. This patient requires critical care secondary to ongoing requirements for therapy not offered or safe outside the critical care environment. Transfer to a lower level of care will result in altered life or limb morbidity and mortality. 3. Multidisciplinary rounds completed. 4. ABCDE bundle addressed.
--- NOTE | 2019-12-26 08:49 | PDOC CRITICAL CARE PROG REPORT ---
General Date:: 12/23/19 ICU Day:: 4 Hospital Day:: 4 Resuscitation Status: Full Code Events in the past 12 to 24 Hours:: Re-intubated yesterday. Review of systems relevant to events:: Pulmonary. Reason for ICU Addmission:: acute hypoxemic respiratory failure. Re-intubated. - Medications: Medications reviewed and adjusted accordingly: Yes Vasopressors:: Lev[place]hed Physical Exam Vital Signs: Temp Pulse Resp BP Pulse Ox 100.6 F H 70 27 H 130/69 H 99 12/26/19 06:00 12/26/19 08:00 12/26/19 08:00 12/25/19 20:00 12/26/19 08:00 Intake & Output 12/25/19 12/26/19 12/27/19 06:59 06:59 06:59 Intake Total 3366 3087 Output Total 3110 3460 275 Balance 256 -373 -275 Weight 111.7 kg 112.7 kg Weight/Height Weight 112.7 kg Height 5 ft 8 in General appearance: PRESENT: no acute distress, obese Head exam: PRESENT: atraumatic, normocephalic Eye exam: PRESENT: conjunctiva pink, EOMI, PERRLA. ABSENT: scleral icterus Ear exam: PRESENT: normal external ear exam Mouth exam: PRESENT: moist, tongue midline Respiratory exam: PRESENT: decreased breath sounds, symmetrical, unlabored Cardiovascular exam: PRESENT: irregular rhythm, tachycardia GI/Abdominal exam: PRESENT: normal bowel sounds, soft. ABSENT: distended, guarding, mass, organolmegaly, rebound, tenderness Rectal exam: PRESENT: deferred Gentrourinary exam: PRESENT: indwelling catheter Extremities exam: PRESENT: full ROM. ABSENT: calf tenderness, clubbing, pedal edema Musculoskeletal exam: PRESENT: normal inspection Neurological exam: PRESENT: other - Sedated Skin exam: PRESENT: dry, intact, warm. ABSENT: cyanosis, rash Tubes/Lines: PRESENT: Endotracheal Tube, Central Line, Arterial Catheter, Nasogastic Tube Laboratory/Radiographs Laboratory Results: 12/26/19 04:20 12/26/19 04:20 12/26/19 12/26/19 04:20 04:20 WBC 3.9 L RBC 3.43 L Hgb 11.1 L Hct 33.1 L MCV 96 MCH 32.4 MCHC 33.6 RDW 15.1 H Plt Count 70 L Seg Neutrophils % 75.0 Sodium 145.2 H Potassium 4.6 Chloride 117 H Carbon Dioxide 26 Anion Gap 2 L BUN 34 H Creatinine 1.00 Est GFR ( Amer) > 60 Glucose 206 H Calcium 8.0 L 12/19/19 12/20/19 12/21/19 14:43 04:00 06:00 Troponin I NT-Pro-B Natriuret Pep 1320 H 3140 H 1060 H 12/22/19 12/23/19 12/23/19 03:09 04:57 06:56 Troponin I 0.471 0.439 NT-Pro-B Natriuret Pep 3860 H 12/24/19 03:30 Troponin I 0.301 NT-Pro-B Natriuret Pep Impressions: KUB X-Ray 12/19/19 18:38 IMPRESSION: 1. NG tube is in the stomach. 2. Nonspecific bowel gas pattern. 3. Parenchymal consolidation in the lung bases right greater than left. Chest X-Ray 12/24/19 00:00 IMPRESSION: Improving diffuse bilateral airspace disease when compared to the prior studies suggesting resolving edema, ARDS or possibly multifocal pneumonia. All labs, radiographs, diagnostic studies and EKGs were personally reviewed: Yes In addition, reports of radiographic and diagnostic studies were read: Yes Assessment and Plan - Diagnosis (1) Pneumonia Qualifiers: Pneumonia type: due to unspecified organism Laterality: bilateral Lung location: unspecified part of lung Qualified Code(s): J18.9 - Pneumonia, unspecified organism Is this a current diagnosis for this admission?: Yes Plan: Re-intubated for increased WOB, tachycardia and HTN. Still has slight fever. Not extubatable. Try to wean and excersize. (2) Acute decompensated heart failure Is this a current diagnosis for this admission?: Yes Plan: Seems resolved. (3) CAD (coronary artery disease) Qualifiers: Coronary Disease-Associated Artery/Lesion type: unspecified vessel or lesion type [place] vs. transplanted heart: [place] heart Associated angina: without angina Qualified Code(s): I25.10 - Atherosclerotic heart disease of [place] coronary artery without angina pectoris Is this a current diagnosis for this admission?: Yes Plan: Inactive (4) COPD exacerbation Is this a current diagnosis for this admission?: Yes Plan: This was likely a factor in his WOB. Although not wheezing steroids begun. (5) HTN (hypertension) Qualifiers: Hypertension type: essential hypertension Qualified Code(s): I10 - Essential (primary) hypertension Is this a current diagnosis for this admission?: Yes Plan: Better with reintubation. (6) Atrial fibrillation Qualifiers: Atrial fibrillation type: other persistent Qualified Code(s): I48.19 - Other persistent atrial fibrillation Is this a current diagnosis for this admission?: Yes Plan: Back on sotolol. (7) UGI bleed Is this a current diagnosis for this admission?: Yes Plan: There seems to be o change in his Hgb. Not clinically significant. Start feeding again. Plan Summary: Try to wean but I doubt he is extubatable. Critical Time Critical Time (minutes): 35 Level of Care: ICU Anticipated discharge: SNF Within: Other -: 1. The care of a critical patient is a dynamic process. This note is a industrial relations representative synopsis but static in nature. The timeframe for treatments given in order is not necessarily the actual time these treatments may have been done. 2. This patient requires critical care secondary to ongoing requirements for therapy not offered or safe outside the critical care environment. Transfer to a lower level of care will result in altered life or limb morbidity and mortality. 3. Multidisciplinary rounds completed. 4. ABCDE bundle addressed.
[2019-12-26] MEDS: ACETAMINOPHEN 325 MG TABLET NG PRN ×2 (08:57→14:35)
[2019-12-26] MEDS: SOTALOL HCL 80 MG TABLET NG SCH ×2 (09:00→21:07)
[2019-12-26] MEDS: CEFTRIAXONE 1 GM/D5W RTU 1 GM/50 ML RTUPB IV SCH (09:01)
[2019-12-26] MEDS: PANTOPRAZOLE SODIUM 40 MG VIAL IV SCH ×2 (09:01→21:07)
[2019-12-26] MEDS: INSULIN GLARGINE,HUM.REC.ANLOG 1,000 UNIT/10 ML VIAL SUBCUT SCH ×2 (09:01→21:07)
[2019-12-26] MEDS: PREDNISONE 20 MG TABLET NG SCH ×2 (09:01→17:10)
[2019-12-26] MEDS: FERROUS SULFATE LIQUID 300 MG/5 ML UDC NG SCH (09:01)
[2019-12-26] MEDS: ENOXAPARIN SODIUM INJ 60 MG/0.6 ML DISP.SYRIN SUBCUT SCH (09:02)
[2019-12-26] MEDS ORDERED: FUROSEMIDE INJ/PF 40 MG/4 ML SDV ONE (12:31)
[2019-12-26] MEDS: ACETAMINOPHEN 650 MG SUPP.RECT PR PRN (12:32)
[2019-12-26] MEDS: SCOPOLAMINE HYDROBROMIDE 1.5 MG PATCH.TD72 TD SCH (12:32)
[2019-12-26] MEDS ORDERED: FUROSEMIDE INJ/PF 40 MG/4 ML SDV IV ONE (13:00)
[2019-12-26] MEDS: MORPHINE SULFATE 10 MG/ML INJ IV PRN (15:37)
[2019-12-26] MEDS: APIXABAN 5 MG TABLET PO SCH (17:10)
[2019-12-26] MEDS: MAGNESIUM OXIDE 400 MG TABLET PO SCH (17:10)
[2019-12-26] MEDS: MEROPENEM 1 GM in NORMAL SALINE 50 ML IV SCH (17:11)
[2019-12-26] MEDS: FUROSEMIDE 40 MG TABLET PO SCH (21:06)
[2019-12-26] MEDS: NORMAL SALINE INJ/PF 0.9% 10 ML SDV IV PRN (21:07)
[2019-12-27] MEDS: IPRATROPIUM/ALBUTEROL 0.5-2.5 MG/3 ML AMPUL NEB SCH ×4 (02:06→19:46)
[2019-12-27 05:08] LABS: BLOOD UREA NITROGEN 29 mg/dL (7-20); CALCIUM 7.8 mg/dL (8.4-10.2); POTASSIUM 3.2 mmol/L (3.6-5.0)
[2019-12-27 05:13] LABS: CARBON DIOXIDE 33 mmol/L (22-30); CHLORIDE 106 mmol/L (98-107)
[2019-12-27] MEDS: NORMAL SALINE INJ/PF 0.9% 10 ML SDV IV PRN (05:30)
[2019-12-27] MEDS: SUCRALFATE 1 GM TABLET NG SCH ×3 (05:30→18:38)
[2019-12-27] MEDS: NORMAL SALINE 1000 ML 1,000 ML IV PRN (05:31)
[2019-12-27 05:32] LABS: GLUCOSE 69 mg/dL (75-110)
[2019-12-27] MEDS: MEROPENEM 1 GM in NORMAL SALINE 50 ML IV SCH ×2 (05:32→18:38)
[2019-12-27 05:33] LABS: ANION GAP 3 (5-19)
[2019-12-27] MEDS: INSULIN REG, HUMAN 100 UNIT/ML 3 ML VIAL (PYX) SUBCUT SCH ×4 (05:51→22:27)
[2019-12-27] MEDS ORDERED: POTASSI CL 20 MEQ/50 ML RIDER 20 MEQ/50 ML RTUPB IV ONE (06:12)
[2019-12-27] MEDS: DEXTROSE 5%-NORMAL SALINE 1,000 ML IV PRN ×2 (06:27→18:36)
[2019-12-27] MEDS: POTASSI CL 20 MEQ/50 ML RIDER 20 MEQ/50 ML RTUPB IV SCH ×2 (06:27→10:48)
--- NOTE | 2019-12-27 07:51 | PDOC CRITICAL CARE PROG REPORT ---
General Date:: 12/27/19 ICU Day:: 7 Hospital Day:: 8 Resuscitation Status: Full Code Events in the past 12 to 24 Hours:: Extubated, diuresed much. Review of systems relevant to events:: Pulmonary, CV Reason for ICU Addmission:: Extubated and doing well - Medications: Medications reviewed and adjusted accordingly: Yes Vasopressors:: None Sedation:: None Physical Exam Vital Signs: Temp Pulse Resp BP Pulse Ox 99.5 F 77 19 143/66 H 100 12/27/19 06:00 12/27/19 02:06 12/27/19 06:00 12/27/19 05:07 12/27/19 06:00 Intake & Output 12/26/19 12/27/19 12/28/19 06:59 06:59 06:59 Intake Total 3087 4148 Output Total 3460 16744 Balance -373 -8725 Weight 112.7 kg 107.7 kg Weight/Height Weight 107.7 kg Height 5 ft 8 in General appearance: PRESENT: no acute distress, cooperative, obese Head exam: PRESENT: atraumatic Eye exam: PRESENT: conjunctiva pink, EOMI, PERRLA. ABSENT: scleral icterus Ear exam: PRESENT: normal external ear exam Mouth exam: PRESENT: moist, tongue midline Respiratory exam: PRESENT: decreased breath sounds, symmetrical, unlabored Cardiovascular exam: PRESENT: irregular rhythm GI/Abdominal exam: PRESENT: normal bowel sounds, soft. ABSENT: distended, gu arding, mass, organolmegaly, rebound, tenderness Rectal exam: PRESENT: deferred Gentrourinary exam: PRESENT: indwelling catheter Extremities exam: PRESENT: full ROM, +1 edema. ABSENT: calf tenderness, clubbing, pedal edema Neurological exam: PRESENT: alert, awake, oriented to person, oriented to place, oriented to situation, CN II-XII grossly intact Psychiatric exam: PRESENT: appropriate affect, normal mood. ABSENT: homicidal ideation, suicidal ideation Skin exam: PRESENT: dry, intact, warm. ABSENT: cyanosis, rash Tubes/Lines: PRESENT: Central Line Laboratory/Radiographs Laboratory Results: 12/26/19 04:20 12/27/19 04:25 12/27/19 04:25 Sodium 141.8 Potassium 3.2 L Chloride 106 Carbon Dioxide 33 H Anion Gap 3 L BUN 29 H Creatinine 0.88 Est GFR ( Amer) > 60 Glucose 69 L Calcium 7.8 L 12/19/19 12/20/19 12/21/19 14:43 04:00 06:00 Troponin I NT-Pro-B Natriuret Pep 1320 H 3140 H 1060 H 12/22/19 12/23/19 12/23/19 03:09 04:57 06:56 Troponin I 0.471 0.439 NT-Pro-B Natriuret Pep 3860 H 12/24/19 03:30 Troponin I 0.301 NT-Pro-B Natriuret Pep Impressions: KUB X-Ray 12/19/19 18:38 IMPRESSION: 1. NG tube is in the stomach. 2. Nonspecific bowel gas pattern. 3. Parenchymal consolidation in the lung bases right greater than left. Chest X-Ray 12/24/19 00:00 IMPRESSION: Improving diffuse bilateral airspace disease when compared to the prior studies suggesting resolving edema, ARDS or possibly multifocal pneumonia. All labs, radiographs, diagnostic studies and EKGs were personally reviewed: Yes In addition, reports of radiographic and diagnostic studies were read: Yes Assessment and Plan - Diagnosis (1) Pneumonia Qualifiers: Pneumonia type: due to unspecified organism Laterality: bilateral Lung location: unspecified part of lung Qualified Code(s): J18.9 - Pneumonia, unsp ecified organism Is this a current diagnosis for this admission?: Yes Plan: Still has slight fever. Claims to have secretions but none noticed by nursing. Stop rocephin and continue meropenem. (2) Acute decompensated heart failure Is this a current diagnosis for this admission?: Yes Plan: He has put out between 8-11 L of urine and lungs are clear. Resolved. (3) CAD (coronary artery disease) Qualifiers: Coronary Disease-Associated Artery/Lesion type: unspecified vessel or lesion type [place] vs. transplanted heart: [place] heart Associated angina: without angina Qualified Code(s): I25.10 - Atherosclerotic heart disease of [place] coronary artery without angina pectoris Is this a current diagnosis for this admission?: Yes Plan: Inactive. (4) COPD exacerbation Is this a current diagnosis for this admission?: Yes Plan: Resolved (5) HTN (hypertension) Qualifiers: Hypertension type: essential hypertension Qualified Code(s): I10 - Essential (primary) hypertension Is this a current diagnosis for this admission?: Yes Plan: Controlled. (6) Atrial fibrillation Qualifiers: Atrial fibrillation type: other persistent Qualified Code(s): I48.19 - Other persistent atrial fibrillation Is this a current diagnosis for this admission?: Yes Plan: Chronic (7) UGI bleed Is this a current diagnosis for this admission?: Yes Plan: Resolved. (8) Physical deconditioning Is this a current diagnosis for this admission?: Yes Plan: He is quite weak. PT ordered to start to mobilize. Plan Summary: If patient does well with eating, consider downgrade today. Critical Time Critical Time (minutes): 35 Level of Care: ICU Anticipated discharge: SNF Within: Other -: 1. The care of a critical patient is a dynamic process. 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 The timeframe for treatments given in order is not necessarily the actual time these treatments may have been done. 2. This patient requires critical care secondary to ongoing requirements for therapy not offered or safe outside the critical care environment. Transfer to a lower level of care will result in altered life or limb morbidity and mortality. 3. Multidisciplinary rounds completed. 4. ABCDE bundle addressed.
[2019-12-27] MEDS ORDERED: FUROSEMIDE 40 MG TABLET PO SCH (08:00)
[2019-12-27 08:28] LABS: ABSOLUTE EOSINOPHILS # (AUTO) 0.3 10^3/uL (0.0-0.6); ABSOLUTE MONOCYTES (AUTO) 0.5 10^3/uL (0.1-1.4); ABSOLUTE NEUT (AUTO) 5.9 10^3/uL (1.7-8.2); BASOPHILS % (AUTO) 0.5 % (0-2); EOSINOPHILS % (AUTO) 3.5 % (0-6); HEMATOCRIT 34.4 % (37.9-51.0); LYMPHOCYTES % (AUTO) 13.5 % (13-45); MEAN CORPUSCULAR HEMOGLOBIN 32.3 pg (27.0-33.4); MEAN CORPUSCULAR HGB CONC 34.8 g/dL (32.0-36.0); MEAN CORPUSCULAR VOLUME 93 fl (80-97); MONOCYTES % (AUTO) 5.9 % (3-13); RED CELL DISTRIBUTION WIDTH 14.6 % (11.5-14.0); SEGMENTED NEUTROPHILS % (AUTO) 76.6 % (42-78); TOTAL CELLS COUNTED % (AUTO) 100 %; WHITE BLOOD COUNT 7.7 10^3/uL (4.0-10.5)
[2019-12-27 08:50] LABS: PLATELET COUNT 96 10^3/uL (150-450)
[2019-12-27] MEDS: CLOPIDOGREL BISULFATE 75 MG TABLET PO SCH ×2 (10:42→10:48)
[2019-12-27] MEDS: PANTOPRAZOLE SODIUM 40 MG VIAL IV SCH (10:42)
[2019-12-27] MEDS: MULTIVITAMIN TABLET PO SCH (10:42)
[2019-12-27] MEDS: CEFTRIAXONE 1 GM/D5W RTU 1 GM/50 ML RTUPB IV SCH (10:42)
[2019-12-27] MEDS: MAGNESIUM OXIDE 400 MG TABLET PO SCH ×2 (10:42→18:38)
[2019-12-27] MEDS: APIXABAN 5 MG TABLET PO SCH (10:42)
[2019-12-27] MEDS: FERROUS SULFATE LIQUID 300 MG/5 ML UDC NG SCH (10:42)
[2019-12-27] MEDS: PREDNISONE 20 MG TABLET NG SCH ×2 (10:42→18:38)
[2019-12-27] MEDS: INSULIN GLARGINE,HUM.REC.ANLOG 1,000 UNIT/10 ML VIAL SUBCUT SCH ×2 (10:43→22:28)
[2019-12-27] MEDS: SOTALOL HCL 80 MG TABLET NG SCH ×2 (10:50→22:24)
[2019-12-27] MEDS ORDERED: INSULIN GLARGINE,HUM.REC.ANLOG 1,000 UNIT/10 ML VIAL (PYX) SUBCUT ONE (22:14)
[2019-12-27] MEDS: FUROSEMIDE 40 MG TABLET PO SCH (22:25)
[2019-12-28] MEDS: SUCRALFATE 1 GM TABLET NG SCH ×2 (00:30→06:41)
[2019-12-28] MEDS: IPRATROPIUM/ALBUTEROL 0.5-2.5 MG/3 ML AMPUL NEB SCH ×4 (02:15→20:30)
[2019-12-28] MEDS ORDERED: PANTOPRAZOLE SODIUM 40 MG TABLET.DR PO SCH (06:00)
[2019-12-28 06:24] LABS: HEMATOCRIT 37.2 % (37.9-51.0); MEAN CORPUSCULAR HEMOGLOBIN 32.4 pg (27.0-33.4); MEAN CORPUSCULAR HGB CONC 34.9 g/dL (32.0-36.0); MEAN CORPUSCULAR VOLUME 93 fl (80-97); PLATELET COUNT 135 10^3/uL (150-450); RED BLOOD COUNT 4.01 10^6/uL (4.35-5.55); RED CELL DISTRIBUTION WIDTH 14.5 % (11.5-14.0); WHITE BLOOD COUNT 10.6 10^3/uL (4.0-10.5)
[2019-12-28] MEDS: MEROPENEM 1 GM in NORMAL SALINE 50 ML IV SCH ×2 (06:41→17:26)
--- NOTE | 2019-12-28 07:05 | EKG REPORT ---
SEVERITY:- ABNORMAL ECG - ATRIAL FIBRILLATION MULTIFORM VENTRICULAR PREMATURE COMPLEXES RIGHT BUNDLE BRANCH BLOCK : Confirmed by: Coleman Murphy 28-Dec-2019 07:04:25
[2019-12-28] MEDS ORDERED: ACETAMINOPHEN 325 MG TABLET PO PRN (08:30)
[2019-12-28] MEDS: INSULIN REG, HUMAN 100 UNIT/ML 3 ML VIAL (PYX) SUBCUT SCH ×4 (08:47→22:59)
[2019-12-28 09:06] LABS: BLOOD UREA NITROGEN 24 mg/dL (7-20); CALCIUM 7.6 mg/dL (8.4-10.2); GLUCOSE 173 mg/dL (75-110); POTASSIUM 3.3 mmol/L (3.6-5.0)
[2019-12-28 09:12] LABS: ABSOLUTE LYMPHOCYTES# (MANUAL) 0.7 10^3/uL (0.5-4.7); ABSOLUTE MONOCYTES # (MANUAL) 0.7 10^3/uL (0.1-1.4); BAND NEUTROPHILS % (MANUAL) 1 % (3-5); BASOPHILS % (MANUAL) 0 % (0-2); CARBON DIOXIDE 32 mmol/L (22-30); CHLORIDE 105 mmol/L (98-107); EOSINOPHILS % (MANUAL) 1 % (0-6); LYMPHOCYTES % (MANUAL) 7 % (13-45); MONOCYTES % (MANUAL) 7 % (3-13); SEGMENTED NEUTROPHILS % (MAN) 84 % (42-78); TOTAL CELLS COUNTED 100
[2019-12-28 09:14] LABS: ANION GAP 3 (5-19)
--- NOTE | 2019-12-28 09:20 | RADIOLOGY REPORT (SQ) ---
EXAM DESCRIPTION: CHEST SINGLE VIEW IMAGES COMPLETED DATE/TIME: 12/28/2019 9:04 am REASON FOR STUDY: chf COMPARISON: 12/24/2019 EXAM PARAMETERS: NUMBER OF VIEWS: One view. TECHNIQUE: Single frontal radiographic view of the chest acquired. RADIATION DOSE: NA LIMITATIONS: None. FINDINGS: LUNGS AND PLEURA: The patient has been extubated. Small effusions are present. No consol idation. Pulmonary edema has largely resolved. Right-sided central line remains in place. MEDIASTINUM AND HILAR STRUCTURES: No masses. Contour normal. HEART AND VASCULAR STRUCTURES: Cardiac silhouette is smaller in size. There is less vascular congest ion. BONES: No acute findings. HARDWARE: Unchanged. OTHER: No other significant finding. IMPRESSION: Small residual effusions. Minimal residual interstitial airspace disease. Findings are significantly improved from prior exam. TECHNICAL DOCUMENTATION: JOB ID: [id number] 2010 [employer]- All Rights Reserved Reading location - IP/workstation name: [email or web address]
[2019-12-28 09:24] LABS: POLYCHROMASIA SLIGHT
[2019-12-28 09:25] LABS: ANISOCYTOSIS SLIGHT; OVALOCYTES SLIGHT; PLATELET COMMENT ADEQUATE
[2019-12-28] MEDS: SOTALOL HCL 80 MG TABLET NG SCH ×2 (09:27→22:58)
[2019-12-28] MEDS: POTASSI CL 20 MEQ/50 ML RIDER 20 MEQ/50 ML RTUPB IV SCH ×3 (09:27→14:08)
[2019-12-28] MEDS: MULTIVITAMIN TABLET PO SCH (09:27)
[2019-12-28] MEDS: MAGNESIUM OXIDE 400 MG TABLET PO SCH ×2 (09:27→17:26)
[2019-12-28] MEDS: PREDNISONE 20 MG TABLET PO SCH ×2 (09:28→23:01)
[2019-12-28] MEDS: INSULIN GLARGINE,HUM.REC.ANLOG 1,000 UNIT/10 ML VIAL SUBCUT SCH ×2 (09:39→22:59)
[2019-12-28] MEDS: FERROUS SULFATE 325 MG TABLET PO SCH (09:41)
[2019-12-28] MEDS: SUCRALFATE 1 GM TABLET PO SCH ×3 (12:01→23:01)
--- NOTE | 2019-12-28 13:47 | PDOC PROGRESS REPORT ---
Subjective Progress Note for:: 12/28/19 Reason For Visit: ACUTE HYPOXEMIC AND HYPERCAPNIC RESPIRATORY 12/28/2019 She was transferred up from the ICU yesterday evening to be admitted to the ICU for acute hypoxemia and respiratory failure with COPD exacerbation, pneumonia CAD, chronic anticoagulation, atrial fib, diabetes, chronic opioid use Patient had to be intubated then he was extubated then reintubated and on the y transfer out of the unit extubated Physical Exam Vital Signs: Temp Pulse Resp BP Pulse Ox 97.5 F 82 17 102/48 L 95 12/28/19 11:29 12/28/19 11:29 12/28/19 11:29 12/28/19 11:29 12/28/19 11:29 Intake & Output 12/27/19 12/28/19 12/29/19 06:59 06:59 06:59 Intake Total 4148 2300 886 Output Total 79931 6980 1500 Balance -7827 -4680 -614 Weight 107.7 kg 104.3 kg General appearance: PRESENT: no acute distress Respiratory exam: PRESENT: rhonchi Cardiovascular exam: PRESENT: RRR. ABSENT: diastolic murmur, rubs, systolic murmur Neurological exam: PRESENT: alert, awake, other - Today patient is not oriented to the date or place. Patient does not remember what of told him 5 minutes earlier Psychiatric exam: PRESENT: unusual affect Results Laboratory Results: 12/28/19 06:00 12/28/19 06:00 12/28/19 12/28/19 12/28/19 06:00 06:00 06:00 WBC 10.6 H RBC 4.01 L Hgb 13.0 L Hct 37.2 L MCV 93 MCH 32.4 MCHC 34.9 RDW 14.5 H Plt Count 135 L Seg Neutrophils % Not Reportable Sodium 139.7 Potassium 3.3 L Chloride 105 Carbon Dioxide 32 H Anion Gap 3 L BUN 24 H Creatinine 0.80 Est GFR ( Amer) > 60 Glucose 173 H Calcium 7.6 L Magnesium 2.0 12/26/19 09:10 Tracheal Aspirate Gram Stain - Final 12/26/19 09:10 Tracheal Aspirate Sputum Culture - Final Pseudomonas Aeruginosa Yeast, Not Greta Albicans 12/19/19 12/20/19 12/21/19 14:43 04:00 06:00 Troponin I NT-Pro-B Natriuret Pep 1320 H 3140 H 1060 H 12/22/19 12/23/19 12/23/19 03:09 04:57 06:56 Troponin I 0.471 0.439 NT-Pro-B Natriuret Pep 3860 H 12/24/19 12/28/19 03:30 06:00 Troponin I 0.301 NT-Pro-B Natriuret Pep 2700 H Impressions: KUB X-Ray 12/19/19 18:38 IMPRESSION: 1. NG tube is in the stomach. 2. Nonspecific bowel gas pattern. 3. Parenchymal consolidation in the lung bases right greater than left. Chest X-Ray 12/28/19 00:00 IMPRESSION: Small residual effusions. Minimal residual interstitial airspace disease. Findings are significantly improved from prior exam. Assessment and Plan - Diagnosis (1) Atrial fibrillation Qualifiers: Atrial fibrillation type: other persistent Qualified Code(s): I48.19 - Other persistent atrial fibrillation Is this a current diagnosis for this admission?: Yes (2) Chronic prescription opiate use Is this a current diagnosis for this admission?: Yes (3) Hypoxic encephalopathy Is this a current diagnosis for this admission?: Yes (4) Pneumonia Qualifiers: Pneumonia type: due to unspecified organism Laterality: bilateral Lung location: unspecified part of lung Qualified Code(s): J18.9 - Pneumonia, unspecified organism Is this a current diagnosis for this admission?: Yes (5) Sepsis Qualifiers: Sepsis type: sepsis due to unspecified organism Sepsis acute organ dysf unction status: with acute organ dysfunction Severe sepsis acute organ dy sfunction type: acute respiratory failure Acute respiratory failure type: with hypoxia Severe sepsis shock status: without septic shock Qualified Code(s): A41.9 - Sepsis, unspecified organism; R65.20 - Severe sepsis without septic shock; J96.01 - Acute respiratory failure with hypoxia Is this a current diagnosis for this admission?: Yes (6) Type 2 diabetes mellitus Qualifiers: Diabetes mellitus half-way insulin use: with half-way use Diabetes mellitus complication status: with other specified complication Qualified Code(s): E11.69 - Type 2 diabetes mellitus with other specified complication; Z79.4 - skilled nursing (current) use of insulin Is this a current diagnosis for this admission?: Yes (7) CAD (coronary artery disease) Qualifiers: Coronary Disease-Associated Artery/Lesion type: unspecified vessel or lesion type [place] vs. transplanted heart: [place] heart Associated angina: without angina Qualified Code(s): I25.10 - Atherosclerotic heart disease of [place] coronary artery without angina pectoris Is this a current diagnosis for this admission?: Yes (8) COPD exacerbation Is this a current diagnosis for this admission?: Yes - Plan Summary Summary: 12/28/2019 Temperature 98.1 pulse 90 blood pressure 132/69 O2 sat 98% on 2 L. WBC 10.6 hemoglobin 13 glucose is fluctuating between 60 and 300 Potassium slightly low at 3.2 Magnesium level today is 2 Urine cultures growing out Pseudomonas and yeast Patient's primary medications include prednisone 20 mg twice daily sotalol, Lantus, Lasix, mag oxide, and meropenem Patient was given to [facility] for his low potassium BNP on admission was 1320, went up to 3860, today is back down to 2700 EKG shows atrial fib with multiple PVCs and a right bundle branch block Chest x-ray from today shows small effusions with minimal residual interstitial airspace disease. Findings are significantly improved from prior exam 4 days earlier. Patient is suffering from some sort of delirium with his confusion which may be hospital psychosis or may just be his baseline. No apparent pneumonia. However the sputum is growing out Pseudomonas and yeast, should be sensitive to the meropenem Patient was probably admitted through the ICU for COPD exacerbation with contributing CHF. I am going to reconsult discharge planning about his home situation. She is asking to go home - Time Time Spent with patient: 25-34 minutes
[2019-12-28] MEDS: DEXTROSE 5%-NORMAL SALINE 1,000 ML IV PRN (17:25)
[2019-12-28] MEDS: FUROSEMIDE 40 MG TABLET PO SCH (22:58)
[2019-12-29] MEDS: LORAZEPAM INJ 2 MG/1 ML VIAL IV PRN ×2 (00:03→22:25)
[2019-12-29] MEDS: IPRATROPIUM/ALBUTEROL 0.5-2.5 MG/3 ML AMPUL NEB SCH ×4 (02:13→20:53)
[2019-12-29] MEDS: DEXTROSE 5%-NORMAL SALINE 1,000 ML IV PRN (03:26)
[2019-12-29] MEDS: SUCRALFATE 1 GM TABLET PO SCH ×3 (05:44→19:26)
[2019-12-29] MEDS: MEROPENEM 1 GM in NORMAL SALINE 50 ML IV SCH ×2 (05:44→19:00)
[2019-12-29 06:41] LABS: INTERNATIONAL RATION (INR) 1.32; PROTHROMBIN TIME 16.5 SEC (11.4-15.4)
[2019-12-29] MEDS: INSULIN REG, HUMAN 100 UNIT/ML 3 ML VIAL (PYX) SUBCUT SCH ×4 (10:17→22:12)
[2019-12-29] MEDS: MAGNESIUM OXIDE 400 MG TABLET PO SCH ×2 (10:17→19:26)
[2019-12-29] MEDS: SOTALOL HCL 80 MG TABLET NG SCH ×2 (10:18→22:17)
[2019-12-29] MEDS: FERROUS SULFATE 325 MG TABLET PO SCH (10:18)
[2019-12-29] MEDS: MULTIVITAMIN TABLET PO SCH (10:18)
[2019-12-29] MEDS: PREDNISONE 20 MG TABLET PO SCH ×2 (10:20→19:26)
[2019-12-29] MEDS: FUROSEMIDE 80 MG TABLET PO SCH (10:20)
[2019-12-29] MEDS: SCOPOLAMINE HYDROBROMIDE 1.5 MG PATCH.TD72 TD SCH (13:05)
--- NOTE | 2019-12-29 18:44 | PDOC PROGRESS REPORT ---
Subjective Progress Note for:: 12/29/19 Subjective:: Patient is confused today. He however denies any shortness of breath or chest pain at the time of encounter. Noted to occasionally get confused and try to get out of bed without calling for assistance. Reason For Visit: ACUTE HYPOXEMIC AND HYPERCAPNIC RESPIRATORY Physical Exam Vital Signs: Temp Pulse Resp BP Pulse Ox 97.4 F 82 18 120/47 L 96 12/29/19 12:28 12/29/19 13:51 12/29/19 13:51 12/29/19 12:28 12/29/19 13:51 Intake & Output 12/28/19 12/29/19 12/30/19 06:59 06:59 06:59 Intake Total 3300 3744 236 Output Total 6969 9200 1400 Balance -3680 -1106 -1164 Weight 104.3 kg 106.3 kg General appearance: PRESENT: no acute distress, cooperative Neck exam: ABSENT: JVD Respiratory exam: PRESENT: unlabored Neurological exam: PRESENT: alert, awake, oriented to person, oriented to place. ABSENT: oriented to time, oriented to situation Results Laboratory Results: 12/28/19 06:00 12/28/19 06:00 12/19/19 12/20/19 12/21/19 14:43 04:00 06:00 Troponin I NT-Pro-B Natriuret Pep 1320 H 3140 H 1060 H 12/22/19 12/23/19 12/23/19 03:09 04:57 06:56 Troponin I 0.471 0.439 NT-Pro-B Natriuret Pep 3860 H 12/24/19 12/28/19 12/29/19 03:30 06:00 05:15 Troponin I 0.301 NT-Pro-B Natriuret Pep 2700 H 2230 H Impressions: KUB X-Ray 12/19/19 18:38 IMPRESSION: 1. NG tube is in the stomach. 2. Nonspecific bowel gas pattern. 3. Parenchymal consolidation in the lung bases right greater than left. Chest X-Ray 12/28/19 00:00 IMPRESSION: Small residual effusions. Minimal residual interstitial airspace disease. Findings are significantly improved from prior exam. Assessment and Plan - Diagnosis (1) Pneumonia Qualifiers: Pneumonia type: due to unspecified organism Laterality: bilateral Lung location: unspecified part of lung Qualified Code(s): J18.9 - Pneumonia, unspecified organism Is this a current diagnosis for this admission?: Yes (2) Dysphagia Qualifiers: Dysphagia type: oropharyngeal phase Qualified Code(s): R13.12 - Dysphagia, oropharyngeal phase Is this a current diagnosis for this admission?: Yes (3) Atrial fibrillation Qualifiers: Atrial fibrillation type: other persistent Qualified Code(s): I48.19 - Other persistent atrial fibrillation Is this a current diagnosis for this admission?: Yes (4) Hypoxic encephalopathy Is this a current diagnosis for this admission?: Yes (5) Type 2 diabetes mellitus Qualifiers: Diabetes mellitus mcfp insulin use: with mcfp use Diabetes mellitus complication status: with other specified complication Qualified Code(s): E11.69 - Type 2 diabetes mellitus with other specified complication; Z79.4 - [facility] (current) use of insulin Is this a current diagnosis for this admission?: Yes (6) COPD exacerbation Is this a current diagnosis for this admission?: Yes (7) Acute decompensated heart failure Is this a current diagnosis for this admission?: Yes (8) Physical deconditioning Is this a current diagnosis for this admission?: Yes - Plan Summary Summary: 12/28/2019 Temperature 98.1 pulse 90 blood pressure 132/69 O2 sat 98% on 2 L. WBC 10.6 hemoglobin 13 glucose is fluctuating between 60 and 300 Potassium slightly low at 3.2 Magnesium level today is 2 Urine cultures growing out Pseudomonas and yeast Patient's primary medications include prednisone 20 mg twice daily sotalol, Lantus, Lasix, mag oxide, and meropenem Patient was given to [facility] for his low potassium BNP on admission was 1320, went up to 3860, today is back down to 2700 EKG shows atrial fib with multiple PVCs and a right bundle branch block Chest x-ray from today shows small effusions with minimal residual interstitial airspace disease. Findings are significantly improved from prior exam 4 days earlier. Patient is suffering from some sort of delirium with his confusion which may be hospital psychosis or may just be his baseline. No apparent pneumonia. However the sputum is growing out Pseudomonas and yeast, should be sensitive to the meropenem Patient was probably admitted through the ICU for COPD exacerbation with contributing CHF. I am going to reconsult discharge planning about his home situation. She is asking to go home 12/29/2019 Continue meropenem for treatment of Pseudomonas bronchitis/pneumonia. Pseudomonas obtaining sputum culture. Continue prednisone for treatment of COPD exacerbation. Continue on patient's antiarrhythmics and rate control medications for his A. fib. Patient noted to have dysphagia today and seems oropharyngeal. Evaluated by speech pathologist and patient has been set up for modified barium swallow study tomorrow. We will continue redirection for management of patient's encephalopathy. Echo showing EF of 45% and grade 2 diastolic dysfunction suggestive of acute diastolic heart failure. Continue Lasix. Physical therapy. Discharge planning consulted. - Time Time Spent with patient: Less than 15 minutes
[2019-12-29] MEDS: FUROSEMIDE 40 MG TABLET PO SCH (22:19)
[2019-12-30] MEDS: SUCRALFATE 1 GM TABLET PO SCH ×5 (00:35→23:29)
[2019-12-30] MEDS: IPRATROPIUM/ALBUTEROL 0.5-2.5 MG/3 ML AMPUL NEB SCH ×4 (02:49→20:21)
[2019-12-30] MEDS: MEROPENEM 1 GM in NORMAL SALINE 50 ML IV SCH ×2 (05:50→17:10)
[2019-12-30 06:22] LABS: HEMATOCRIT 41.5 % (37.9-51.0); HEMOGLOBIN 14.4 g/dL (13.5-17.0); MEAN CORPUSCULAR HEMOGLOBIN 31.7 pg (27.0-33.4); MEAN CORPUSCULAR HGB CONC 34.6 g/dL (32.0-36.0); MEAN CORPUSCULAR VOLUME 92 fl (80-97); PLATELET COUNT 206 10^3/uL (150-450); RED BLOOD COUNT 4.53 10^6/uL (4.35-5.55); RED CELL DISTRIBUTION WIDTH 14.7 % (11.5-14.0); WHITE BLOOD COUNT 14.7 10^3/uL (4.0-10.5)
--- NOTE | 2019-12-30 09:35 | RADIOLOGY REPORT (SQ) ---
EXAM DESCRIPTION: COOKIE SWALLOW IMAGES COMPLETED DATE/TIME: 12/30/2019 8:48 am REASON FOR STUDY: signs of aspiration at bedside COMPARISON: Cookie swallow 11/18/2015. TECHNIQUE: Videofluoroscopic swallowing examination was performed in conjunction with speech patholo gy. Videofluoroscopic imaging was obtained and reviewed and these are the findings: RADIATION DOSE: Fluoro time 3.31 minutes 1 images saved to PACS. LIMITATIONS: None FINDINGS: The patient was brought into the fluoro room and placed upright on a modified barium swall ow chair. The patient was then given multiple consistencies mixed with barium to swallow under live fluoroscopic video guidance. According to the Speech Pathologist there was laryngeal penetration wit h trace aspiration seen with thin barium. All other consistencies were swallowed without incident. P lease refer to the speech pathology report for further details. IMPRESSION: ASPIRATION WITH THIN BARIUM. PLEASE SEE SPEECH PATHOLOGIST REPORT FOR OTHER FINDINGS AND RECOMMENDATIONS. COMMENT: NONE Quality ID [id number]: Final reports for procedures using fluoroscopy that document radiation exposure rodrick nimco, or exposure time and number of fluorographic images (if radiation exposure indices are not avail able) TECHNICAL DOCUMENTATION: JOB ID: [id number] 2010 [employer]- All Rights Reserved Reading location - IP/workstation name: [email or web address] [id number]
[2019-12-30] MEDS: INSULIN REG, HUMAN 100 UNIT/ML 3 ML VIAL (PYX) SUBCUT SCH ×4 (10:02→22:33)
[2019-12-30] MEDS: MULTIVITAMIN TABLET PO SCH (10:06)
[2019-12-30] MEDS: MAGNESIUM OXIDE 400 MG TABLET PO SCH ×2 (10:06→17:09)
[2019-12-30] MEDS: PREDNISONE 20 MG TABLET PO SCH ×2 (10:06→17:10)
[2019-12-30] MEDS: FERROUS SULFATE 325 MG TABLET PO SCH (10:06)
[2019-12-30] MEDS: FUROSEMIDE 80 MG TABLET PO SCH (10:06)
[2019-12-30] MEDS: SOTALOL HCL 80 MG TABLET NG SCH ×2 (10:06→21:12)
--- NOTE | 2019-12-30 11:34 | ST Inp Modified Barium Swallow ---
Medical Diagnosis - Medical Diagnoses Medical Diagnosis Description & ICD-10 Code(s): PNA, s/p extubation, r/o aspiration ST Inpatient MBS - General Date: 12/30/19 Date of Onset: 12/19/19 - admission date - History -: Medical - per EMR: patient admitted 12/19/19 with acute hypoxemic respiratory failure and increased shortness of breath. Patient was intubated in the ED. Patient was initially extubated on 12/20, however, was re-intubated on 12/21, finally extubated on 12/25. Patient reportedly passed a nursing swallow screen on 12/25, and was placed on a mechanical soft, ground meats diet with thin liquids. Nursing noticed patient coughing significantly with breakfast tray. Patient was subsequently made NPO and speech assessment was ordered. During clinical swallow assessment, patient demonstrated immediate wet cough with thin liquid trials, this was not seen with nectar liquids or other solids. MBSS then recommended. Medications: Medications Reviewed Allergies: Refer to medical record - Subjective Current Nutritional Means: PO Current PO Diet: Mechanical- ground, Thickened liquids - nectar Current Symptoms: Coughing, Pneumonia Pain: Patient reports, 0/5 - Objective Assessment: Upright, Left Lateral - Food Trials Food Trials Used: Thin liquids, [place] thick liquids, Pureed, Regular The Patient: Required Assist - Assessment Labial Function: Within Normal Limits Lingual Function: Within Normal Limits Mandibular Function: Within Normal Limits Dentition: Edentulous Velo-Pharyngeal Function: Unremarkable Laryngeal Function: clear voicing - Pharyngeal Stage Initiation of Pharyngeal Stage: Normal Decreased Laryngeal Elevation: Yes Reduced Velo-Pharyngeal Closure: no Reduced Tongue Base Retraction: No Pre-Swallowing Pooling in Valleculae: Mild Pre-Swallowing Pooling in Pyriforms: None Reduced Thyro-Hyiod Approximation: Yes Reduced Epiglottic Excursion: No Reduced Pharyngeal Peristalsis: Yes Multiple Swallows With: Cleared w/ Liquid Assist Post Swallow Residuals in Valleculae: Moderate Post Swallow Residuals in Pyriforms: Mild Pahryngeal Stage Comments: Reduced airway closure seen during the swallow resulting in penetration/aspiration of thin liquids, and reduced pharyngeal constriction, resulting in residuals of all textures. - Impression/Summary Laryngeal Penetration: Yes - consistently with thin liquids Tracheal Aspiration: yes - trace aspiration x2 with thin liquids Ineffective Compensatory Strategies: hard swallow - Patient was unable to follow directions well enough to incorporate strategies, such as hard swallow or second swallow. Patient Presents With: Pharyngeal stage dysph., Mild-Moderate Risk of Aspiration: Mild Risk of Nutritional Compromise: WNL - Recommendations Solid Diet Recommendations: Mechanical Soft, Ground Meat Liquid Diet Recommendations: [place]-Thick Strict Aspitarion Precautions: Yes Dysphagia Therapy with LIFESTYLE CONSULTANT: No - Patient unable to participate with pharyngeal phase dysphagia exercises at this time secondary to confusion and mental status. Recommended Techniques: Fully Upright During Meal, Small Bites and Sips, Alternate Bites/Sips Supervision: Distant Other Recommendations: Patient demonstrated poor mastication of solids, due in part to edentulous status. Patient demonstrated residue in the pharynx after the swallow with all trial textures. Patient was unable to complete cued second swallow to clear residue. Patient seen to consistently penetrate with thin liquid trials, seen to aspirate 2x with cough reaction. Due to small amount of aspiration, patient may benefit froma Free Water Protocol, in which the patient may have thin water ONLY after thorough oral care is completed, and not around a meal. Should mental status improve, patient would also benefit from dysphagia therapy to address pharyngeal phase deficits. Findings and recommendations discussed with RN and MD. - Time Total Time: 30 Total Timed Minutes: 30
--- NOTE | 2019-12-30 11:39 | PDOC PROGRESS REPORT ---
Subjective Progress Note for:: 12/30/19 Subjective:: Today patient has no complaints. He seemed to have thought that he was going home today but have explained to him that he will need short-term rehabilitation to help him regain his strength. He expresses understanding but I am not so certain that he fully gets it. He denies any shortness of breath or chest pain. He states that he feels well. Reason For Visit: ACUTE HYPOXEMIC AND HYPERCAPNIC RESPIRATORY Physical Exam Vital Signs: Temp Pulse Resp BP Pulse Ox 97.5 F 94 18 101/73 100 12/29/19 21:43 12/30/19 08:57 12/30/19 08:57 12/29/19 21:43 12/30/19 08:57 Intake & Output 12/29/19 12/30/19 12/31/19 06:59 06:59 06:59 Intake Total 3744 286 Output Total 4850 3025 Balance -1106 -9329 Weight 106.3 kg 99.2 kg General appearance: PRESENT: no acute distress, cooperative Neck exam: ABSENT: JVD Respiratory exam: PRESENT: rhonchi, unlabored. ABSENT: crackles, tachypnea, wheezes Cardiovascular exam: PRESENT: RRR, +S1, +S2. ABSENT: tachycardia GI/Abdominal exam: PRESENT: soft. ABSENT: rebound, rigid, tenderness Neurological exam: PRESENT: alert, awake, oriented to person, oriented to place. ABSENT: oriented to time Results Laboratory Results: 12/30/19 05:55 12/28/19 06:00 12/30/19 05:55 WBC 14.7 H RBC 4.53 Hgb 14.4 Hct 41.5 MCV 92 MCH 31.7 MCHC 34.6 RDW 14.7 H Plt Count 206 12/19/19 12/20/19 12/21/19 14:43 04:00 06:00 Troponin I NT-Pro-B Natriuret Pep 1320 H 3140 H 1060 H 12/22/19 12/23/19 12/23/19 03:09 04:57 06:56 Troponin I 0.471 0.439 NT-Pro-B Natriuret Pep 3860 H 12/24/19 12/28/19 12/29/19 03:30 06:00 05:15 Troponin I 0.301 NT-Pro-B Natriuret Pep 2700 H 2230 H Impressions: KUB X-Ray 12/19/19 18:38 IMPRESSION: 1. NG tube is in the stomach. 2. Nonspecific bowel gas pattern. 3. Parenchymal consolidation in the lung bases right greater than left. Chest X-Ray 12/28/19 00:00 IMPRESSION: Small residual effusions. Minimal residual interstitial airspace disease. Findings are significantly improved from prior exam. Modified Barium Swallow 12/30/19 00:00 IMPRESSION: ASPIRATION WITH THIN BARIUM. PLEASE SEE SPEECH PATHOLOGIST REPORT FOR OTHER FINDINGS AND RECOMMENDATIONS. Assessment and Plan - Diagnosis (1) Pneumonia Qualifiers: Pneumonia type: due to unspecified organism Laterality: bilateral Lung location: unspecified part of lung Qualified Code(s): J18.9 - Pneumonia, unspecified organism Is this a current diagnosis for this admission?: Yes Plan: Currently done influenza test negative. Sputum culture has grown Pseudomonas as well as Greta[likely colonized] Initially received 6 days of ceftriaxone without improvement. Continue meropenem day 5/7. Ciprofloxacin upon discharge. 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 Possible complication from intubation but should have resolved by now. Modified barium swallow study done today which shows patient aspirates on thin liquids. Speech pathologist recommending pured thick liquids and ground solids. (3) Acute decompensated heart failure Is this a current diagnosis for this admission?: Yes Plan: Repeat chest x-ray from a few days ago shows significant improvement of was likely pulmonary edema and the lungs appear a lot clear. Patient has diuresed extremely well. I will reduce his Lasix to 80 mg daily and discontinue the evening dose to avoid dehydration. (4) Atrial fibrillation Qualifiers: Atrial fibrillation type: other persistent Qualified Code(s): I48.19 - Other persistent atrial fibrillation Is this a current diagnosis for this admission?: Yes Plan: Chronic and stable. Continue sotalol. It was documented in the ICU the patient had small episode of upper GI bleed after which Eliquis was held. I will leave Eliquis on hold for now we plan to restart in 1 week. (5) Type 2 diabetes mellitus Qualifiers: Diabetes mellitus longterm insulin use: with longterm use Diabetes mellitus complication status: with other specified complication Qualified Code(s): E11.69 - Type 2 diabetes mellitus with other specified complication; Z79.4 - superintendent terminal (current) use of insulin Is this a current diagnosis for this admission?: Yes Plan: Lantus 15 units every 12 hours. Sliding scale insulin and Accu-Cheks. (6) COPD exacerbation Is this a current diagnosis for this admission?: Yes Plan: Resolved. Will slowly wean prednisone starting tonight as patient has been on steroids for a while. (7) Metabolic encephalopathy Is this a current diagnosis for this admission?: Yes Plan: Seems to get confused occasionally. Probably also experiencing episodes of acute delirium. Documented to have had some hypoxic encephalopathy in the ICU. Will manage with redirection as needed plan to discontinue restraints as he has not been aggressive/agitated. (8) Physical deconditioning Is this a current diagnosis for this admission?: Yes Plan: He is quite weak. 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 Physical therapy recommending SNF as patient is max assist. Order placed for placement at SNF. - Time Time Spent with patient: Less than 15 minutes
[2019-12-30] MEDS ORDERED: QUETIAPINE FUMARATE 25 MG TABLET PO ONE (13:45)
[2019-12-30] MEDS: QUETIAPINE FUMARATE 25 MG TABLET PO SCH (21:12)
[2019-12-31] MEDS: SUCRALFATE 1 GM TABLET PO SCH ×3 (05:39→18:45)
[2019-12-31] MEDS ORDERED: MEROPENEM 1 GM VIAL ONE (06:25)
[2019-12-31 07:08] LABS: ANION GAP 6 (5-19); BLOOD UREA NITROGEN 30 mg/dL (7-20); CALCIUM 8.7 mg/dL (8.4-10.2); CARBON DIOXIDE 34 mmol/L (22-30); CHLORIDE 103 mmol/L (98-107); GLUCOSE 177 mg/dL (75-110); POTASSIUM 3.4 mmol/L (3.6-5.0)
[2019-12-31] MEDS: MEROPENEM 1 GM in NORMAL SALINE 50 ML IV SCH ×2 (07:46→18:45)
[2019-12-31] MEDS: IPRATROPIUM/ALBUTEROL 0.5-2.5 MG/3 ML AMPUL NEB SCH ×3 (08:03→20:33)
[2019-12-31] MEDS ORDERED: POTASSIUM CHLORIDE 10 MEQ TABLET.ER PO ONE (08:30)
[2019-12-31] MEDS: INSULIN REG, HUMAN 100 UNIT/ML 3 ML VIAL (PYX) SUBCUT SCH ×4 (10:24→21:56)
[2019-12-31] MEDS: FUROSEMIDE 80 MG TABLET PO SCH (10:29)
[2019-12-31] MEDS: PREDNISONE 20 MG TABLET PO SCH ×2 (10:29→18:45)
[2019-12-31] MEDS: MULTIVITAMIN TABLET PO SCH (10:29)
[2019-12-31] MEDS: FERROUS SULFATE 325 MG TABLET PO SCH (10:29)
[2019-12-31] MEDS: SOTALOL HCL 80 MG TABLET NG SCH ×2 (10:29→21:55)
--- NOTE | 2019-12-31 19:05 | PDOC PROGRESS REPORT ---
Subjective Progress Note for:: 12/31/19 Subjective:: Patient doing well today. Has no complaints. Reason For Visit: ACUTE HYPOXEMIC AND HYPERCAPNIC RESPIRATORY Physical Exam Vital Signs: Temp Pulse Resp BP Pulse Ox 97.6 F 104 H 17 123/85 95 12/30/19 16:24 12/31/19 14:00 12/31/19 13:49 12/30/19 16:24 12/31/19 13:49 Intake & Output 12/30/19 12/31/19 01/01/20 06:59 06:59 06:59 Intake Total 336 624 410 Output Total 3025 0505 Balance -0104 -0792 410 Weight 99.2 kg 98.7 kg General appearance: PRESENT: no acute distress, cooperative Respiratory exam: PRESENT: unlabored. ABSENT: tachypnea, wheezes Cardiovascular exam: PRESENT: +S1, +S2 GI/Abdominal exam: PRESENT: soft. ABSENT: tenderness Extremities exam: ABSENT: calf tenderness Neurological exam: PRESENT: alert, awake Results Laboratory Results: 12/30/19 05:55 12/31/19 05:45 12/31/19 05:45 Sodium 143.1 Potassium 3.4 L Chloride 103 Carbon Dioxide 34 H Anion Gap 6 BUN 30 H Creatinine 0.88 Est GFR ( Amer) > 60 Glucose 177 H Calcium 8.7 Magnesium 2.5 H 12/19/19 12/20/19 12/21/19 14:43 04:00 06:00 Troponin I NT-Pro-B Natriuret Pep 1320 H 3140 H 1060 H 12/22/19 12/23/19 12/23/19 03:09 04:57 06:56 Troponin I 0.471 0.439 NT-Pro-B Natriuret Pep 3860 H 12/24/19 12/28/19 12/29/19 03:30 06:00 05:15 Troponin I 0.301 NT-Pro-B Natriuret Pep 2700 H 2230 H Impressions: KUB X-Ray 12/19/19 18:38 IMPRESSION: 1. NG tube is in the stomach. 2. Nonspecific bowel gas pattern. 3. Parenchymal consolidation in the lung bases right greater than left. Chest X-Ray 12/28/19 00:00 IMPRESSION: Small residual effusions. Minimal residual interstitial airspace d isease. Findings are significantly improved from prior exam. Modified Barium Swallow 12/30/19 00:00 IMPRESSION: ASPIRATION WITH THIN BARIUM. PLEASE SEE SPEECH PATHOLOGIST REPORT FOR OTHER FINDINGS AND RECOMMENDATIONS. Assessment and Plan - Diagnosis (1) Pneumonia Qualifiers: Pneumonia type: due to unspecified organism Laterality: bilateral Lung location: unspecified part of lung Qualified Code(s): J18.9 - Pneumonia, unspecified organism Is this a current diagnosis for this admission?: Yes Plan: Currently done influenza test negative. Sputum culture has grown Pseudomonas as well as Greta[likely colonized] Initially received 6 days of ceftriaxone without improvement. Continue meropenem day 01/16. 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 Possible complication from intubation but should have resolved by now. Modified barium swallow study done showed patient aspirates on thin liquids. Speech pathologist recommending pured thick liquids and ground solids. (3) Acute decompensated heart failure Is this a current diagnosis for this admission?: Yes Plan: Repeat chest x-ray from a few days ago shows significant improvement of was likely pulmonary edema and the lungs appear a lot clear. Patient has diuresed extremely well. Continue Lasix 80 mg daily and discontinue the evening dose to avoid dehydration. (4) Atrial fibrillation Qualifiers: Atrial fibrillation type: other persistent Qualified Code(s): I48.19 - Other persistent atrial fibrillation Is this a current diagnosis for this admission?: Yes Plan: Chronic and stable. Continue sotalol. It was documented in the ICU the patient had small episode of upper GI bleed after which Eliquis was held. I will leave Eliquis on hold for now we plan to restart in 1 week. (5) Type 2 diabetes mellitus Qualifiers: Diabetes mellitus half-way insulin use: with clinical documentation specialist use Diabetes mellitus complication status: with other specified complication Qualified Code(s): E11.69 - Type 2 diabetes mellitus with other specified complication; Z79.4 - sack repairer (current) use of insulin Is this a current diagnosis for this admission?: Yes Plan: Lantus 15 units every 12 hours. Sliding scale insulin and Accu-Cheks. (6) COPD exacerbation Is this a current diagnosis for this admission?: Yes (7) Metabolic encephalopathy Is this a current diagnosis for this admission?: Yes (8) Physical deconditioning Is this a current diagnosis for this admission?: Yes - Time Time Spent with patient: Less than 15 minutes
[2019-12-31] MEDS: QUETIAPINE FUMARATE 25 MG TABLET PO SCH (21:55)
[2020-01-01] MEDS: SUCRALFATE 1 GM TABLET PO SCH ×5 (00:53→23:13)
[2020-01-01] MEDS: MEROPENEM 1 GM in NORMAL SALINE 50 ML IV SCH ×2 (05:03→17:40)
[2020-01-01 05:25] LABS: HEMATOCRIT 43.3 % (37.9-51.0); HEMOGLOBIN 14.8 g/dL (13.5-17.0); MEAN CORPUSCULAR HEMOGLOBIN 31.8 pg (27.0-33.4); MEAN CORPUSCULAR HGB CONC 34.2 g/dL (32.0-36.0); MEAN CORPUSCULAR VOLUME 93 fl (80-97); PLATELET COUNT 201 10^3/uL (150-450); RED BLOOD COUNT 4.66 10^6/uL (4.35-5.55); WHITE BLOOD COUNT 12.3 10^3/uL (4.0-10.5)
[2020-01-01] MEDS: IPRATROPIUM/ALBUTEROL 0.5-2.5 MG/3 ML AMPUL NEB SCH ×3 (07:46→19:52)
[2020-01-01] MEDS: INSULIN LISPRO 100 UNIT/ML 3 ML VIAL SUBCUT SCH ×3 (08:23→17:30)
[2020-01-01] MEDS: INSULIN REG, HUMAN 100 UNIT/ML 3 ML VIAL (PYX) SUBCUT SCH ×4 (08:24→21:46)
[2020-01-01] MEDS ORDERED: PREDNISONE 20 MG TABLET PO SCH (10:00)
[2020-01-01] MEDS: FUROSEMIDE 80 MG TABLET PO SCH (10:31)
[2020-01-01] MEDS: FERROUS SULFATE 325 MG TABLET PO SCH (10:31)
[2020-01-01] MEDS: PREDNISONE 5 MG TABLET PO SCH ×2 (10:31→17:39)
[2020-01-01] MEDS: MULTIVITAMIN TABLET PO SCH (10:31)
[2020-01-01] MEDS: SCOPOLAMINE HYDROBROMIDE 1.5 MG PATCH.TD72 TD SCH (10:31)
[2020-01-01] MEDS: SOTALOL HCL 80 MG TABLET NG SCH ×2 (10:31→21:34)
[2020-01-01] MEDS: POTASSIUM CHLORIDE 10 MEQ TABLET.ER PO SCH (10:32)
[2020-01-01] MEDS: MAGNESIUM OXIDE 400 MG TABLET PO SCH (10:32)
--- NOTE | 2020-01-01 17:35 | PDOC PROGRESS REPORT ---
Subjective Progress Note for:: 01/01/20 Subjective:: Patient has no complaints today. He is calm. Reason For Visit: ACUTE HYPOXEMIC AND HYPERCAPNIC RESPIRATORY Physical Exam Vital Signs: Temp Pulse Resp BP Pulse Ox 97.5 F 104 H 18 139/77 H 97 01/01/20 03:13 01/01/20 14:53 01/01/20 14:53 01/01/20 03:13 01/01/20 14:53 Intake & Output 12/31/19 01/01/20 01/02/20 06:59 06:59 06:59 Intake Total 624 750 Output Total 1825 1850 Balance -1201 -1100 Weight 98.7 kg 96.4 kg General appearance: PRESENT: no acute distress, cooperative Respiratory exam: PRESENT: unlabored Cardiovascular exam: ABSENT: tachycardia GI/Abdominal exam: PRESENT: soft. ABSENT: tenderness Neurological exam: PRESENT: alert, awake Focused psych exam: ABSENT: pressured speech Results Laboratory Results: 01/01/20 05:16 12/31/19 05:45 01/01/20 05:16 WBC 12.3 H RBC 4.66 Hgb 14.8 Hct 43.3 MCV 93 MCH 31.8 MCHC 34.2 RDW 15.0 H Plt Count 201 12/19/19 12/20/19 12/21/19 14:43 04:00 06:00 Troponin I NT-Pro-B Natriuret Pep 1320 H 3140 H 1060 H 12/22/19 12/23/19 12/23/19 03:09 04:57 06:56 Troponin I 0.471 0.439 NT-Pro-B Natriuret Pep 3860 H 12/24/19 12/28/19 12/29/19 03:30 06:00 05:15 Troponin I 0.301 NT-Pro-B Natriuret Pep 2700 H 2230 H Impressions: KUB X-Ray 12/19/19 18:38 IMPRESSION: 1. NG tube is in the stomach. 2. Nonspecific bowel gas pattern. 3. Parenchymal consolidation in the lung bases right greater than left. Chest X-Ray 12/28/19 00:00 IMPRESSION: Small residual effusions. Minimal residual interstitial airspace disease. Findings are significantly improved from prior exam. Modified Barium Swallow 12/30/19 00:00 IMPRESSION: ASPIRATION WITH THIN BARIUM. PLEASE SEE SPEECH PATHOLOGIST REPORT FOR OTHER FINDINGS AND RECOMMENDATIONS. Assessment and Plan - Diagnosis (1) Pneumonia Qualifiers: Pneumonia type: due to unspecified organism Laterality: bilateral Lung location: unspecified part of lung Qualified Code(s): J18.9 - Pneumonia, unspecified organism Is this a current diagnosis for this admission?: Yes (2) Dysphagia Qualifiers: Dysphagia type: oropharyngeal phase Qualified Code(s): R13.12 - Dysphagia, oropharyngeal phase Is this a current diagnosis for this admission?: Yes (3) Acute decompensated heart failure Is this a current diagnosis for this admission?: Yes (4) Atrial fibrillation Qualifiers: Atrial fibrillation type: other persistent Qualified Code(s): I48.19 - Other persistent atrial fibrillation Is this a current diagnosis for this admission?: Yes (5) Type 2 diabetes mellitus Qualifiers: Diabetes mellitus senior care insulin use: with senior care use Diabetes mellitus complication status: with other specified complication Qualified Code(s): E11.69 - Type 2 diabetes mellitus with other specified complication; Z79.4 - halfway (current) use of insulin Is this a current diagnosis for this admission?: Yes (6) COPD exacerbation Is this a current diagnosis for this admission?: Yes (7) Metabolic encephalopathy Is this a current diagnosis for this admission?: Yes (8) Physical deconditioning Is this a current diagnosis for this admission?: Yes - Plan Summary Summary: Restraints discontinued today as patient's behavior is improved. He is very calm. He is expected to be discharging to [facility] tomorrow. We will continue meropenem through today and discontinue tomorrow as he would have completed his regimen. Continue Seroquel Continue Lasix - Time Time Spent with patient: Less than 15 minutes
[2020-01-01] MEDS: QUETIAPINE FUMARATE 25 MG TABLET PO SCH (21:35)
[2020-01-01] MEDS ORDERED: INSULIN REG, HUMAN 100 UNIT/ML 3 ML VIAL (PYX) ONE (21:36)
[2020-01-01] MEDS ORDERED: INSULIN REG, HUMAN 100 UNIT/ML 3 ML VIAL (PYX) SUBCUT ONE (22:00)
[2020-01-01] MEDS ORDERED: INSULIN REG, HUMAN 100 UNIT/ML 3 ML VIAL (PYX) IV ONE (22:00)
[2020-01-02] MEDS: MEROPENEM 1 GM in NORMAL SALINE 50 ML IV SCH (05:48)
[2020-01-02] MEDS: SUCRALFATE 1 GM TABLET PO SCH ×5 (05:49→23:52)
[2020-01-02] MEDS: INSULIN REG, HUMAN 100 UNIT/ML 3 ML VIAL (PYX) SUBCUT SCH ×4 (08:29→22:40)
[2020-01-02] MEDS: INSULIN LISPRO 100 UNIT/ML 3 ML VIAL SUBCUT SCH ×3 (08:29→16:51)
[2020-01-02] MEDS: FUROSEMIDE 80 MG TABLET PO SCH (08:29)
[2020-01-02] MEDS: IPRATROPIUM/ALBUTEROL 0.5-2.5 MG/3 ML AMPUL NEB SCH ×2 (08:57→14:03)
[2020-01-02 10:24] LABS: ARTERIAL BLOOD BASE EXCESS 6.2 mmol/L; ARTERIAL BLOOD FIO2 ROOM AIR; ARTERIAL BLOOD H2CO3 1.31 mmol/L (1.05-1.35); ARTERIAL BLOOD HCO3 30.7 mmol/L (20-24); ARTERIAL BLOOD O2 SATURATION 95.1 % (94-98); ARTERIAL BLOOD PCO2 43.4 mmHg (35-45); ARTERIAL BLOOD PH 7.47 (7.35-7.45); ARTERIAL BLOOD PO2 71.2 mmHg (80-100); ARTERIAL BLOOD TOTAL CO2 32.1 mmol/L (23-27)
[2020-01-02] MEDS ORDERED: NORMAL SALINE 1000 ML 1,000 ML IV PRN (12:30)
[2020-01-02] MEDS: FERROUS SULFATE 325 MG TABLET PO SCH (12:32)
[2020-01-02] MEDS: MAGNESIUM OXIDE 400 MG TABLET PO SCH (12:32)
[2020-01-02] MEDS: PREDNISONE 5 MG TABLET PO SCH ×2 (12:32→17:28)
[2020-01-02] MEDS: POTASSIUM CHLORIDE 10 MEQ TABLET.ER PO SCH (12:32)
[2020-01-02] MEDS: MULTIVITAMIN TABLET PO SCH (12:32)
[2020-01-02] MEDS ORDERED: ALBUTEROL SULFATE 0.083% NEB 2.5 MG/3 ML AMPUL NEB PRN (15:17)
--- NOTE | 2020-01-02 15:23 | PDOC PROGRESS REPORT ---
Subjective Progress Note for:: 01/02/20 Subjective:: Patient appears quite drowsy this morning. More drowsy than he is usually being. Able to wake up to stimulus but falls right back to sleep. Vital signs are adequate. Reason For Visit: ACUTE HYPOXEMIC AND HYPERCAPNIC RESPIRATORY Physical Exam Vital Signs: Temp Pulse Resp BP Pulse Ox 97.4 F 97 16 119/70 97 01/02/20 12:20 01/02/20 14:04 01/02/20 14:04 01/02/20 12:20 01/02/20 14:04 Intake & Output 01/01/20 01/02/20 01/03/20 06:59 06:59 06:59 Intake Total 750 1950 270 Output Total 1850 400 Balance -1100 1550 270 Weight 96.4 kg 95.9 kg General appearance: PRESENT: no acute distress, cooperative Respiratory exam: PRESENT: clear to auscultation yobany, unlabored. ABSENT: tachy pnea, wheezes Cardiovascular exam: PRESENT: RRR, +S1, +S2. ABSENT: tachycardia GI/Abdominal exam: PRESENT: soft. ABSENT: rebound, rigid, tenderness Neurological exam: PRESENT: awake - Lethargic this morning during encounter. ABSENT: alert, oriented to person, oriented to place, oriented to time Results Laboratory Results: 01/01/20 05:16 12/31/19 05:45 01/02/20 10:02 Carbonic Acid 1.31 HCO3/H2CO3 Ratio 23:1 ABG pH 7.47 H ABG pCO2 43.4 ABG pO2 71.2 L ABG HCO3 30.7 H ABG O2 Saturation 95.1 ABG Base Excess 6.2 FiO2 ROOM AIR 12/19/19 12/20/19 12/21/19 14:43 04:00 06:00 Troponin I NT-Pro-B Natriuret Pep 1320 H 3140 H 1060 H 12/22/19 12/23/19 12/23/19 03:09 04:57 06:56 Troponin I 0.471 0.439 NT-Pro-B Natriuret Pep 3860 H 12/24/19 12/28/19 12/29/19 03:30 06:00 05:15 Troponin I 0.301 NT-Pro-B Natriuret Pep 2700 H 2230 H Impressions: KUB X-Ray 12/19/19 18:38 IMPRESSION: 1. NG tube is in the stomach. 2. Nonspecific bowel gas pattern. 3. Parenchymal consolidation in the lung bases right greater than left. Chest X-Ray 12/28/19 00:00 IMPRESSION: Small residual effusions. Minimal residual interstitial airspace disease. Findings are significantly improved from prior exam. Modified Barium Swallow 12/30/19 00:00 IMPRESSION: ASPIRATION WITH THIN BARIUM. PLEASE SEE SPEECH PATHOLOGIST REPORT FOR OTHER FINDINGS AND RECOMMENDATIONS. Assessment and Plan - Diagnosis (1) Pneumonia Qualifiers: Pneumonia type: due to unspecified organism Laterality: bilateral Lung location: unspecified part of lung Qualified Code(s): J18.9 - Pneumonia, unspecified organism Is this a current diagnosis for this admission?: Yes Plan: influenza and COVID-19 tests were negative. Sputum culture has grown Pseudomonas as well as Greta[likely colonized] Initially received 6 days of ceftriaxone without improvement. Completed 7 days of meropenem yesterday. 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 Possible complication from intubation but should have resolved by now. Modified barium swallow study done showed patient aspirates on thin liquids. Speech pathologist recommending pured thick liquids and ground solids. (3) Acute decompensated heart failure Is this a current diagnosis for this admission?: Yes Plan: Repeat chest x-ray from a few days ago shows significant improvement of was likely pulmonary edema and the lungs appear a lot clear. Patient has diuresed extremely well. Currently has been on Lasix 80 mg daily for the past few days and evening dose of 40 mg was discontinued. However today, ABG shows mild metabolic alkalosis possibly from contraction alkalosis so I will give some fluid back. (4) Atrial fibrillation Qualifiers: Atrial fibrillation type: other persistent Qualified Code(s): I48.19 - Other persistent atrial fibrillation Is this a current diagnosis for this admission?: Yes Plan: Chronic and stable. Continue sotalol. We will resume Eliquis. (5) Type 2 diabetes mellitus Qualifiers: Diabetes mellitus terminal manager insulin use: with terminal manager use Diabetes mellitus complication status: with other specified complication Qualified Code(s): E11.69 - Type 2 diabetes mellitus with other specified complication; Z79.4 - terminal system operator (current) use of insulin Is this a current diagnosis for this admission?: Yes Plan: Lantus 50 units every 12 hours with 6 units Humalog AC. Sliding scale insulin and Accu-Cheks. (6) COPD exacerbation Is this a current diagnosis for this admission?: Yes Plan: Resolved. Will slowly wean prednisone starting tonight as patient has been on steroids for a while. (7) Metabolic encephalopathy Is this a current diagnosis for this admission?: Yes Plan: Seems to get confused occasionally. Probably also experiencing episodes of acute delirium. Documented to have had some hypoxic encephalopathy in the ICU. Will manage with redirection as needed plan to discontinue restraints as he has not been aggressive/agitated. 01/02/2020-very somnolent and somewhat lethargic this morning. Possibly from Seroquel which has been discontinued. ABG shows no evidence of CO2 retention. Mild contraction alkalosis indicating dehydration and will give some IV fluids back. (8) Physical deconditioning Is this a current diagnosis for this admission?: Yes Plan: Plan for discharge to [facility] nursing facility tomorrow for acute short-term rehab. - Time Time Spent with patient: 15-24 minutes
[2020-01-02] MEDS: SOTALOL HCL 80 MG TABLET NG SCH ×2 (16:51→22:41)
[2020-01-02] MEDS: APIXABAN 5 MG TABLET PO SCH (17:28)
[2020-01-03] MEDS: METOPROLOL TARTRATE PF/INJ 5 MG/5 ML SDV IV PRN ×2 (02:01→22:07)
[2020-01-03] MEDS: SUCRALFATE 1 GM TABLET PO SCH ×3 (05:24→17:05)
[2020-01-03] MEDS: INSULIN LISPRO 100 UNIT/ML 3 ML VIAL SUBCUT SCH ×3 (09:04→16:22)
[2020-01-03] MEDS: INSULIN REG, HUMAN 100 UNIT/ML 3 ML VIAL (PYX) SUBCUT SCH ×4 (09:04→22:04)
[2020-01-03] MEDS: FUROSEMIDE 80 MG TABLET PO SCH (09:09)
[2020-01-03] MEDS: FERROUS SULFATE 325 MG TABLET PO SCH (10:04)
[2020-01-03] MEDS: MAGNESIUM OXIDE 400 MG TABLET PO SCH (10:04)
[2020-01-03] MEDS: PREDNISONE 5 MG TABLET PO SCH ×2 (10:04→17:06)
[2020-01-03] MEDS: SOTALOL HCL 80 MG TABLET NG SCH ×2 (10:04→22:05)
[2020-01-03] MEDS: MULTIVITAMIN TABLET PO SCH (10:04)
[2020-01-03] MEDS: POTASSIUM CHLORIDE 10 MEQ TABLET.ER PO SCH (10:04)
[2020-01-03] MEDS: APIXABAN 5 MG TABLET PO SCH ×2 (10:04→17:06)
[2020-01-03] MEDS ORDERED: INSULIN GLARGINE,HUM.REC.ANLOG 1,000 UNIT/10 ML VIAL (PYX) SUBCUT ONE (12:30)
[2020-01-03] MEDS ORDERED: NORMAL SALINE 1000 ML 1,000 ML IV PRN (13:13)
--- NOTE | 2020-01-03 13:20 | PDOC PROGRESS REPORT ---
Subjective Progress Note for:: 01/03/20 Subjective:: Patient is a more weak than yesterday but still very somnolent. Wakes up briefly on Dyazide back into sleep. Very weak. Could not participate much in physical therapy today due to significant drowsiness. Last dose of Seroquel was 2 nights ago which has been discontinued but patient still remains drowsy. Reason For Visit: ACUTE HYPOXEMIC AND HYPERCAPNIC RESPIRATORY Physical Exam Vital Signs: Temp Pulse Resp BP Pulse Ox 97.5 F 86 13 133/51 H 97 01/03/20 08:00 01/03/20 08:00 01/03/20 08:00 01/03/20 08:00 01/03/20 08:00 Intake & Output 01/02/20 01/03/20 01/04/20 06:59 06:59 06:59 Intake Total 0689 805 5752 Output Total 400 Balance 7071 965 0171 Weight 95.9 kg 95.9 kg General appearance: PRESENT: no acute distress, cooperative Neck exam: ABSENT: JVD Respiratory exam: PRESENT: clear to auscultation yobany, unlabored. ABSENT: tachypnea, wheezes Cardiovascular exam: PRESENT: RRR, +S1, +S2. ABSENT: tachycardia GI/Abdominal exam: PRESENT: soft. ABSENT: rebound, rigid, tenderness Neurological exam: PRESENT: altered, awake - Awakens to verbal stimulus stays awake briefly but very drowsy and often goes back into sleep, oriented to person, oriented to place, oriented to time, motor sensory deficit - Right arm feels weaker than left arm but patient is not really participating in interview or physical examination to be certain if this is a true weakness or just inabil ity to follow commands adequately.. ABSENT: alert Results Laboratory Results: 01/01/20 05:16 12/31/19 05:45 12/19/19 12/20/19 12/21/19 14:43 04:00 06:00 Troponin I NT-Pro-B Natriuret Pep 1320 H 3140 H 1060 H 12/22/19 12/23/19 12/23/19 03:09 04:57 06:56 Troponin I 0.471 0.439 NT-Pro-B Natriuret Pep 3860 H 12/24/19 12/28/19 12/29/19 03:30 06:00 05:15 Troponin I 0.301 NT-Pro-B Natriuret Pep 2700 H 2230 H Impressions: KUB X-Ray 12/19/19 18:38 IMPRESSION: 1. NG tube is in the stomach. 2. Nonspecific bowel gas pattern. 3. Parenchymal consolidation in the lung bases right greater than left. Chest X-Ray 12/28/19 00:00 IMPRESSION: Small residual effusions. Minimal residual interstitial airspace disease. Findings are significantly improved from prior exam. Modified Barium Swallow 12/30/19 00:00 IMPRESSION: ASPIRATION WITH THIN BARIUM. PLEASE SEE SPEECH PATHOLOGIST REPORT FOR OTHER FINDINGS AND RECOMMENDATIONS. Assessment and Plan - Diagnosis (1) Metabolic encephalopathy Is this a current diagnosis for this admission?: Yes Plan: Seems to get confused occasionally. Probably also experiencing episodes of acute delirium. Documented to have had some hypoxic encephalopathy in the ICU. Will manage with redirection as needed plan to discontinue restraints as he has not been aggressive/agitated. 01/02/2020-very somnolent and somewhat lethargic this morning. Possibly from Seroquel which has been discontinued. ABG shows no evidence of CO2 retention. Mild contraction alkalosis indicating dehydration and will give some IV fluids back. 01/03/2020-patient seems to still be very somnolent drifting back to sleep after awakening for a short period of time to verbal stimulus. He is not quite as lethargic as yesterday. However he is still quite somnolent especially given that Seroquel was discontinued and last dose was given 2 nights ago. As noted yesterday ABG only showed mild contraction alkalosis possibly from dehydration but no CO2 retention. I will go ahead and order some labs today to evaluate his electrolytes. I will also check a head CT as patient is not able to get an MRI due to his pacemaker. I will also hold Lasix and perform some gentle hydration with normal saline as patient is not staying awake enough to eat or drink fluids sufficiently. (2) Pneumonia Qualifiers: Pneumonia type: due to unspecified organism Laterality: bilateral Lung location: unspecified part of lung Qualified Code(s): J18.9 - Pneumonia, unspecified organism Is this a current diagnosis for this admission?: Yes Plan: influenza and COVID-19 tests were negative. Sputum culture has grown Pseudomonas as well as Greta[likely colonized] Initially received 6 days of ceftriaxone without improvement. Completed 7 days of meropenem. (3) Dysphagia Qualifiers: Dysphagia type: oropharyngeal phase Qualified Code(s): R13.12 - Dysphagia, oropharyngeal phase Is this a current diagnosis for this admission?: Yes Plan: Dysphagia likely secondary to prior CVA. Possible complication from intubation but should have resolved by now. Modified barium swallow study done showed patient aspirates on thin liquids. Speech pathologist recommending pured thick liquids and ground solids. (4) Acute decompensated heart failure Is this a current diagnosis for this admission?: Yes Plan: Repeat chest x-ray from a few days ago shows significant improvement of was likely pulmonary edema and the lungs appear a lot clear. Patient has diuresed extremely well. Currently has been on Lasix 80 mg daily for the past few days and evening dose of 40 mg was discontinued. However today, ABG shows mild metabolic alkalosis possibly from contraction alkalosis so I will give some fluid back. 01/03/2020-hold Lasix. Did receive the morning dose. Gentle IV fluids. Does not appear acutely decompensated at this time. (5) History of CVA (cerebrovascular accident) Is this a current diagnosis for this admission?: Yes Plan: Prior CVA with significant cognitive deficits since then. Suspect he probably may have some underlying vascular dementia as well. Continue Plavix. (6) Atrial fibrillation Qualifiers: Atrial fibrillation type: other persistent Qualified Code(s): I48.19 - Other persistent atrial fibrillation Is this a current diagnosis for this admission?: Yes Plan: Chronic and stable. Continue sotalol and Eliquis. (7) Type 2 diabetes mellitus Qualifiers: Diabetes mellitus keno terminal operator insulin use: with keno terminal operator use Diabetes mellitus complication status: with other specified complication Qualified Code(s): E11.69 - Type 2 diabetes mellitus with other specified complication; Z79.4 - shelter (current) use of insulin Is this a current diagnosis for this admission?: Yes Plan: notably very hyperglycemic today. Apparently Lantus was held this morning because patient was not eating. We will give a reduced dose of Lantus this morning and continue patient on Lantus 25 units twice a day. Will hold pre-meal Humalog. Continue sliding scale insulin and Accu-Cheks. (8) COPD exacerbation Is this a current diagnosis for this admission?: Yes Plan: Resolved (9) Physical deconditioning Is this a current diagnosis for this admission?: Yes - Time Time Spent with patient: 15-24 minutes
--- NOTE | 2020-01-03 13:57 | RADIOLOGY REPORT (SQ) ---
EXAM DESCRIPTION: CT HEAD WITHOUT IMAGES COMPLETED DATE/TIME: 01/03/2020 1:44 pm REASON FOR STUDY: Altered mental status. COMPARISON: 02/10/2017. TECHNIQUE: Axial images acquired through the brain without intravenous contrast. Images reviewed wi th bone, brain and subdural windows. Additional sagittal and coronal reconstructions were generated. Images stored on PACS. All CT scanners at this facility use dose modulation, iterative reconstruction, and/or weight based d osing when appropriate to reduce radiation dose to as low as reasonably achievable (ALARA). [facility]: Dose Right [facility]: CareDose [facility]: Dose Right [facility]: Teradose 4D [facility]: [employer] RADIATION DOSE: CT Rad equipment meets quality standard of care and radiation dose reduction techniq ues were employed. CTDIvol: 53.2 mGy. DLP: 1044 mGy-cm. mGy. LIMITATIONS: None. FINDINGS: VENTRICLES: Normal size and contour. CEREBRUM: No masses. No hemorrhage. No midline shift. No evidence for acute infarction. Normal gra y/white matter differentiation. No areas of low density in the white matter. CEREBELLUM: No masses. No hemorrhage. No alteration of density. No evidence for acute infarction. EXTRAAXIAL SPACES: No fluid collections. No masses. ORBITS AND GLOBE: No intra- or extraconal masses. Normal contour of globe without masses. CALVARIUM: No fracture. PARANASAL SINUSES: Fluid in the sphenoid sinus. SOFT TISSUES: No mass or hematoma. OTHER: No other significant finding. IMPRESSION: NORMAL BRAIN CT WITHOUT CONTRAST. SPHENOID SINUS DISEASE. EVIDENCE OF ACUTE STROKE: NO. COMMENT: Quality ID # [id number]: Final reports with documentation of one or more dose reduction techniques (e.g., Automated exposure control, adjustment of the mA and/or kV according to patient size, use of iterative reconstruction technique) TECHNICAL DOCUMENTATION: JOB ID: [id number] 2010 [employer]- All Rights Reserved Reading location - IP/workstation name: [email or web address]
[2020-01-03 14:03] LABS: ALBUMIN 3.4 g/dL (3.5-5.0); ALKALINE PHOSPHATASE 99 U/L (38-126); ANION GAP 6 (5-19); ASPARTATE AMINO TRANSFERASE 40 U/L (17-59); BILIRUBIN,DIRECT 0.7 mg/dL (0.0-0.4); BILIRUBIN,TOTAL 2.5 mg/dL (0.2-1.3); BLOOD UREA NITROGEN 64 mg/dL (7-20); CALCIUM 9.1 mg/dL (8.4-10.2); CARBON DIOXIDE 34 mmol/L (22-30); CHLORIDE 110 mmol/L (98-107); GLUCOSE 335 mg/dL (75-110); POTASSIUM 4.7 mmol/L (3.6-5.0); TOTAL PROTEIN 7.3 g/dL (6.3-8.2)
[2020-01-03] MEDS: DEXTROSE 5%-WATER 1000 ML 1,000 ML IV PRN (14:32)
[2020-01-03 21:25] LABS: BLOOD UREA NITROGEN 64 mg/dL (7-20); GLUCOSE 387 mg/dL (75-110); POTASSIUM 4.3 mmol/L (3.6-5.0)
[2020-01-03 21:30] LABS: ANION GAP 5 (5-19); CARBON DIOXIDE 34 mmol/L (22-30); CHLORIDE 109 mmol/L (98-107)
[2020-01-03] MEDS ORDERED: INSULIN GLARGINE,HUM.REC.ANLOG 1,000 UNIT/10 ML VIAL SUBCUT SCH (22:00)
[2020-01-03] MEDS: INSULIN GLARGINE,HUM.REC.ANLOG 1,000 UNIT/10 ML VIAL SUBCUT SCH (22:03)
[2020-01-03 22:30] LABS: BLOOD UREA NITROGEN 65 mg/dL (7-20); CALCIUM 8.9 mg/dL (8.4-10.2); GLUCOSE 378 mg/dL (75-110); POTASSIUM 4.2 mmol/L (3.6-5.0)
[2020-01-03 22:36] LABS: ANION GAP 4 (5-19); CARBON DIOXIDE 36 mmol/L (22-30); CHLORIDE 108 mmol/L (98-107)
[2020-01-04] MEDS: SUCRALFATE 1 GM TABLET PO SCH ×5 (00:27→23:16)
[2020-01-04] MEDS: DEXTROSE 5%-WATER 1000 ML 1,000 ML IV PRN (00:36)
[2020-01-04 08:20] LABS: HEMATOCRIT 45.1 % (37.9-51.0); HEMOGLOBIN 15.1 g/dL (13.5-17.0); MEAN CORPUSCULAR HEMOGLOBIN 31.7 pg (27.0-33.4); MEAN CORPUSCULAR HGB CONC 33.5 g/dL (32.0-36.0); RED BLOOD COUNT 4.76 10^6/uL (4.35-5.55); RED CELL DISTRIBUTION WIDTH 15.2 % (11.5-14.0); WHITE BLOOD COUNT 9.5 10^3/uL (4.0-10.5)
[2020-01-04 08:30] LABS: ANION GAP 5 (5-19); BLOOD UREA NITROGEN 59 mg/dL (7-20); CALCIUM 8.8 mg/dL (8.4-10.2); CARBON DIOXIDE 34 mmol/L (22-30); CHLORIDE 108 mmol/L (98-107); GLUCOSE 373 mg/dL (75-110)
[2020-01-04 08:48] LABS: MEAN CORPUSCULAR VOLUME 95 fl (80-97)
[2020-01-04 09:03] LABS: PLATELET COUNT 95 10^3/uL (150-450)
[2020-01-04] MEDS: INSULIN REG, HUMAN 100 UNIT/ML 3 ML VIAL (PYX) SUBCUT SCH ×4 (09:21→22:58)
[2020-01-04] MEDS: INSULIN LISPRO 100 UNIT/ML 3 ML VIAL SUBCUT SCH ×3 (09:22→17:21)
[2020-01-04] MEDS: FERROUS SULFATE 325 MG TABLET PO SCH (09:23)
[2020-01-04] MEDS: APIXABAN 5 MG TABLET PO SCH ×2 (09:23→17:20)
[2020-01-04] MEDS: POTASSIUM CHLORIDE 10 MEQ TABLET.ER PO SCH (09:23)
[2020-01-04] MEDS: PREDNISONE 5 MG TABLET PO SCH ×2 (09:23→17:20)
[2020-01-04] MEDS: MULTIVITAMIN TABLET PO SCH (09:23)
[2020-01-04] MEDS: CLOPIDOGREL BISULFATE 75 MG TABLET PO SCH (09:23)
[2020-01-04] MEDS: SOTALOL HCL 80 MG TABLET NG SCH ×2 (09:23→22:58)
[2020-01-04] MEDS: INSULIN GLARGINE,HUM.REC.ANLOG 1,000 UNIT/10 ML VIAL SUBCUT SCH ×2 (09:27→22:59)
[2020-01-04] MEDS: SCOPOLAMINE HYDROBROMIDE 1.5 MG PATCH.TD72 TD SCH (12:32)
[2020-01-04] MEDS ORDERED: 1/2 NORMAL SALINE 1,000 ML IV ONE (14:00)
--- NOTE | 2020-01-04 14:13 | PDOC PROGRESS REPORT ---
Subjective Progress Note for:: 01/04/20 Subjective:: Patient appears to be more awake today but still very fatigued and sleeping most of the day. He still did not eat anything yesterday because he was very drowsy all day long. Hopefully he will be able to eat more today as he is a little bit more awake. I have discussed this with him and encouraged him to attempt to eat. All he really seems to want to do is sleep. Discussed with patient that I cannot discharge him to rehab if he is not eating. Reason For Visit: ACUTE HYPOXEMIC AND HYPERCAPNIC RESPIRATORY Physical Exam Vital Signs: Temp Pulse Resp BP Pulse Ox 97.4 F 88 16 125/97 H 97 01/04/20 11:43 01/04/20 11:43 01/04/20 11:43 01/04/20 11:43 01/04/20 11:43 Intake & Output 01/03/20 01/04/20 01/05/20 06:59 06:59 06:59 Intake Total 490 1999 50 Balance 490 2000 50 Weight 95.9 kg 92.8 kg General appearance: PRESENT: no acute distress, cooperative Neck exam: ABSENT: JVD Respiratory exam: PRESENT: clear to auscultation yobany, unlabored. ABSENT: tach ypnea, wheezes Cardiovascular exam: PRESENT: RRR, +S1, +S2. ABSENT: tachycardia GI/Abdominal exam: PRESENT: soft. ABSENT: rebound, rigid, tenderness Neurological exam: PRESENT: awake - Awakens more today and stays awake a little longer than yesterday but still seems to want to go back to sleep after being awake for short period of time, oriented to person, motor sensory deficit - Right upper extremity continues to be a little weaker than left. However uncertain if it is just because he always lays on his right arm causing it to feel weak.. ABSENT: alert, oriented to place, oriented to time, oriented to situation Psychiatric exam: ABSENT: agitated, anxious Results Laboratory Results: 01/04/20 07:40 01/04/20 07:40 01/03/20 01/03/20 01/03/20 13:18 20:50 21:56 WBC RBC Hgb Hct MCV MCH MCHC RDW Plt Count Sodium 150.3 H 147.7 H 147.7 H Potassium 4.7 4.3 4.2 Chloride 110 H 109 H 108 H Carbon Dioxide 34 H 34 H 36 H Anion Gap 6 5 4 L BUN 64 H 64 H 65 H Creatinine 1.64 H 1.62 H 1.58 H Est GFR ( Amer) 50 L 51 L 52 L Glucose 335 H 387 H 378 H Calcium 9.1 9.0 8.9 Magnesium 2.9 H 2.9 H Total Bilirubin 2.5 H AST 40 Alkaline Phosphatase 99 Total Protein 7.3 Albumin 3.4 L 01/04/20 01/04/20 07:40 07:40 WBC 9.5 RBC 4.76 Hgb 15.1 Hct 45.1 MCV 95 MCH 31.7 MCHC 33.5 RDW 15.2 H Plt Count 95 L Sodium 147.0 H Potassium 4.0 Chloride 108 H Carbon Dioxide 34 H Anion Gap 5 BUN 59 H Creatinine 1.34 H Est GFR ( Amer) > 60 Glucose 373 H Calcium 8.8 Magnesium 2.8 H Total Bilirubin AST Alkaline Phosphatase Total Protein Albumin 12/19/19 12/20/19 12/21/19 14:43 04:00 06:00 Troponin I NT-Pro-B Natriuret Pep 1320 H 3140 H 1060 H 12/22/19 12/23/19 12/23/19 03:09 04:57 06:56 Troponin I 0.471 0.439 NT-Pro-B Natriuret Pep 3860 H 12/24/19 12/28/19 12/29/19 03:30 06:00 05:15 Troponin I 0.301 NT-Pro-B Natriuret Pep 2700 H 2230 H Impressions: KUB X-Ray 12/19/19 18:38 IMPRESSION: 1. NG tube is in the stomach. 2. Nonspecific bowel gas pattern. 3. Parenchymal consolidation in the lung bases right greater than left. Chest X-Ray 12/28/19 00:00 IMPRESSION: Small residual effusions. Minimal residual interstitial airspace disease. Findings are significantly improved from prior exam. Modified Barium Swallow 12/30/19 00:00 IMPRESSION: ASPIRATION WITH THIN BARIUM. PLEASE SEE SPEECH PATHOLOGIST REPORT FOR OTHER FINDINGS AND RECOMMENDATIONS. Head CT 01/03/20 00:00 IMPRESSION: NORMAL BRAIN CT WITHOUT CONTRAST. SPHENOID SINUS DISEASE. EVIDENCE OF ACUTE STROKE: NO. Assessment and Plan - Diagnosis (1) Metabolic encephalopathy Is this a current diagnosis for this admission?: Yes Plan: Seems to get confused occasionally. Probably also experiencing episodes of acute delirium. Documented to have had some hypoxic encephalopathy in the ICU. Will manage with redirection as needed plan to discontinue restraints as he has not been aggressive/agitated. 01/02/2020-very somnolent and somewhat lethargic this morning. Possibly from Seroquel which has been discontinued. ABG shows no evidence of CO2 retention. Mild contraction alkalosis indicating dehydration and will give some IV fluids back. 01/03/2020-patient seems to still be very somnolent drifting back to sleep after awakening for a short period of time to verbal stimulus. He is not quite as lethargic as yesterday. However he is still quite somnolent especially given that Seroquel was discontinued and last dose was given 2 nights ago. As noted yesterday ABG only showed mild contraction alkalosis possibly from dehydration but no CO2 retention. I will go ahead and order some labs today to evaluate his electrolytes. I will also check a head CT as patient is not able to get an MRI due to his pacemaker. I will also hold Lasix and perform some gentle hydration with normal saline as patient is not staying awake enough to eat or drink fluids sufficiently. 01/04/2020-labs yesterday revealed Hypernatremia and MARY indicative of de hydration. This may be very well contributing to his encephalopathy complicating his underlying dementia and critical illness delirium. BMP this morning still indicates dehydration. I will give 1 L bolus of half-normal saline, 1 continuous infusion of half-normal saline at 130 cc/h, recheck BMP l ater today and discontinue D5W given persistent hyperglycemia. Hopefully patient's encephalopathy improves with this enough for him to eat some of his meals so that we can go ahead and work on discharge to SNF for rehabilitation. (2) Pneumonia Qualifiers: Pneumonia type: due to unspecified organism Laterality: bilateral Lung location: unspecified part of lung Qualified Code(s): J18.9 - Pneumonia, unspecified organism Is this a current diagnosis for this admission?: Yes Plan: Initially admitted to the ICU for hypoxic respiratory failure secondary to pneumonia and COPD exacerbation with intubation performed. Influenza and COVID- 19 tests were negative. Sputum culture has grown Pseudomonas as well as Greta[likely colonized] Initially received 6 days of ceftriaxone without improvement. Completed 7 days of meropenem. (3) Dysphagia Qualifiers: Dysphagia type: oropharyngeal phase Qualified Code(s): R13.12 - Dysphagia, oropharyngeal phase Is this a current diagnosis for this admission?: Yes Plan: Dysphagia likely secondary to prior CVA. Possible complication from intubation but should have resolved by now. MBBS showed aspiration on thin liquids. Has been on pured thick liquids and ground solids per recommendation of speech pathologist. (4) Acute decompensated heart failure Is this a current diagnosis for this admission?: Yes Plan: History of diastolic CHF. Not to be decompensated. Lasix on hold due to dehydration. (5) History of CVA (cerebrovascular accident) Is this a current diagnosis for this admission?: Yes Plan: Prior CVA with significant cognitive deficits since then. Suspect he probably may have some underlying vascular dementia as well. Continue Plavix. (6) Atrial fibrillation Qualifiers: Atrial fibrillation type: other persistent Qualified Code(s): I48.19 - Other persistent atrial fibrillation Is this a current diagnosis for this admission?: Yes Plan: Chronic and stable. Continue sotalol and Eliquis. 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 Lantus adjusted. 25 units twice daily. D5W discontinued. Sliding scale insulin. Accu-Cheks. (8) COPD exacerbation Is this a current diagnosis for this admission?: Yes Plan: Resolved. Prednisone weaned to 5 mg twice daily. (9) Physical deconditioning Is this a current diagnosis for this admission?: Yes Plan: Plan for discharge to [facility] once hypernatremia has resolved and patient is eating. - Time Time Spent with patient: 15-24 minutes
[2020-01-04] MEDS: 1/2 NORMAL SALINE 1,000 ML IV PRN (23:18)
[2020-01-05] MEDS: SUCRALFATE 1 GM TABLET PO SCH ×4 (06:23→23:15)
[2020-01-05 07:09] LABS: BLOOD UREA NITROGEN 43 mg/dL (7-20); CALCIUM 8.2 mg/dL (8.4-10.2); CARBON DIOXIDE 32 mmol/L (22-30); GLUCOSE 151 mg/dL (75-110); POTASSIUM 4.2 mmol/L (3.6-5.0)
[2020-01-05 07:14] LABS: CHLORIDE 113 mmol/L (98-107)
[2020-01-05 07:19] LABS: ANION GAP 3 (5-19)
[2020-01-05] MEDS: INSULIN LISPRO 100 UNIT/ML 3 ML VIAL SUBCUT SCH ×3 (09:09→17:53)
[2020-01-05] MEDS: INSULIN REG, HUMAN 100 UNIT/ML 3 ML VIAL (PYX) SUBCUT SCH ×4 (09:09→23:15)
[2020-01-05] MEDS: CLOPIDOGREL BISULFATE 75 MG TABLET PO SCH (09:10)
[2020-01-05] MEDS: MULTIVITAMIN TABLET PO SCH (09:10)
[2020-01-05] MEDS: PREDNISONE 5 MG TABLET PO SCH ×2 (09:10→17:43)
[2020-01-05] MEDS: POTASSIUM CHLORIDE 10 MEQ TABLET.ER PO SCH (09:10)
[2020-01-05] MEDS: FERROUS SULFATE 325 MG TABLET PO SCH (09:10)
[2020-01-05] MEDS: 1/2 NORMAL SALINE 1,000 ML IV PRN (09:10)
[2020-01-05] MEDS: APIXABAN 5 MG TABLET PO SCH ×2 (09:11→17:43)
[2020-01-05] MEDS: SOTALOL HCL 80 MG TABLET NG SCH ×2 (09:11→23:14)
[2020-01-05] MEDS: INSULIN GLARGINE,HUM.REC.ANLOG 1,000 UNIT/10 ML VIAL SUBCUT SCH ×2 (09:19→23:16)
--- NOTE | 2020-01-05 12:26 | PDOC PROGRESS REPORT ---
Subjective Progress Note for:: 01/05/20 Subjective:: The patient is resting in bed. He has no complaints. Breathing is comfortable. Reason For Visit: ACUTE HYPOXEMIC AND HYPERCAPNIC RESPIRATORY Physical Exam Vital Signs: Temp Pulse Resp BP Pulse Ox 97.4 F 92 18 136/54 H 100 01/05/20 03:27 01/05/20 07:00 01/05/20 03:27 01/05/20 03:27 01/05/20 03:27 Intake & Output 01/04/20 01/05/20 01/06/20 06:59 06:59 06:59 Intake Total 1999 50 1000 Balance 1999 50 1000 Weight 92.8 kg 92.8 kg General appearance: PRESENT: no acute distress, cooperative, well-developed Head exam: PRESENT: atraumatic, normocephalic Ear exam: PRESENT: normal external ear exam. ABSENT: bleeding, drainage Mouth exam: PRESENT: dry mucosa, tongue midline Respiratory exam: PRESENT: clear to auscultation yobany, symmetrical, unlabored. ABSENT: prolonged expiratory phas, rales, rhonchi, tachypnea, wheezes Cardiovascular exam: PRESENT: irregular rhythm, +S1, +S2 GI/Abdominal exam: PRESENT: normal bowel sounds, soft. ABSENT: distended, gua rding, tenderness Rectal exam: PRESENT: deferred Neurological exam: PRESENT: alert, awake, oriented to person, oriented to place, oriented to situation Psychiatric exam: ABSENT: agitated, anxious Focused psych exam: ABSENT: restlessness Results Laboratory Results: 01/04/20 07:40 01/05/20 06:25 01/05/20 06:25 Sodium 148.1 H Potassium 4.2 Chloride 113 H Carbon Dioxide 32 H Anion Gap 3 L BUN 43 H Creatinine 1.20 Est GFR ( Amer) > 60 Glucose 151 H Calcium 8.2 L Magnesium 2.4 H 12/19/19 12/20/19 12/21/19 14:43 04:00 06:00 Troponin I NT-Pro-B Natriuret Pep 1320 H 3140 H 1060 H 12/22/19 12/23/19 12/23/19 03:09 04:57 06:56 Troponin I 0.471 0.439 NT-Pro-B Natriuret Pep 3860 H 12/24/19 12/28/19 12/29/19 03:30 06:00 05:15 Troponin I 0.301 NT-Pro-B Natriuret Pep 2700 H 2230 H Impressions: KUB X-Ray 12/19/19 18:38 IMPRESSION: 1. NG tube is in the stomach. 2. Nonspecific bowel gas pattern. 3. Parenchymal consolidation in the lung bases right greater than left. Chest X-Ray 12/28/19 00:00 IMPRESSION: Small residual effusions. Minimal residual interstitial airspace disease. Findings are significantly improved from prior exam. Modified Barium Swallow 12/30/19 00:00 IMPRESSION: ASPIRATION WITH THIN BARIUM. PLEASE SEE SPEECH PATHOLOGIST REPORT FOR OTHER FINDINGS AND RECOMMENDATIONS. Head CT 01/03/20 00:00 IMPRESSION: NORMAL BRAIN CT WITHOUT CONTRAST. SPHENOID SINUS DISEASE. EVIDENCE OF ACUTE STROKE: NO. Assessment and Plan - Diagnosis (1) Metabolic encephalopathy Is this a current diagnosis for this admission?: Yes Plan: Seems to get confused occasionally. Probably also experiencing episodes of acute delirium. Documented to have had some hypoxic encephalopathy in the ICU. Will manage with redirection as needed plan to discontinue restraints as he has not been aggressive/agitated. 01/02/2020-very somnolent and somewhat lethargic this morning. Possibly from Seroquel which has been discontinued. ABG shows no evidence of CO2 retention. Mild contraction alkalosis indicating dehydration and will give some IV fluids back. 01/03/2020-patient seems to still be very somnolent drifting back to sleep after awakening for a short period of time to verbal stimulus. He is not quite as lethargic as yesterday. However he is still quite somnolent especially given that Seroquel was discontinued and last dose was given 2 nights ago. As noted yesterday ABG only showed mild contraction alkalosis possibly from dehydration but no CO2 retention. I will go ahead and order some labs today to evaluate his electrolytes. I will also check a head CT as patient is not able to get an MRI due to his pacemaker. I will also hold Lasix and perform some gentle hydration with normal saline as patient is not staying awake enough to eat or drink fluids sufficiently. 01/04/2020-labs yesterday revealed Hypernatremia and MARY indicative of dehydration. This may be very well contributing to his encephalopathy complicating his underlying dementia and critical illness delirium. BMP this morning still indicates dehydration. I will give 1 L bolus of half-normal saline, 1 continuous infusion of half-normal saline at 130 cc/h, recheck BMP later today and discontinue D5W given persistent hyperglycemia. Hopefully patient's encephalopathy improves with this enough for him to eat some of his m eals so that we can go ahead and work on discharge to SNF for rehabilitation. 01/05/2020 Still slightly tired but appears awake and alert this morning. Serum sodium is still slightly elevated as is his BUN. Will complete IV fluids today will likely be able to transfer to retirement facility tomorrow. (2) Pneumonia Qualifiers: Pneumonia type: due to unspecified organism Laterality: bilateral Lung location: unspecified part of lung Qualified Code(s): J18.9 - Pneumonia, unspecified organism Is this a current diagnosis for this admission?: Yes Plan: Initially admitted to the ICU for hypoxic respiratory failure secondary to pneumonia and COPD exacerbation with intubation performed. Influenza and COVID- 19 tests were negative. Sputum culture has grown Pseudomonas as well as Greta[likely colonized] Initially received 6 days of ceftriaxone without improvement. Completed 7 days of meropenem. 01/05/2020 Antibiotic therapy completed Pneumonia resolved (3) Dysphagia Qualifiers: Dysphagia type: oropharyngeal phase Qualified Code(s): R13.12 - Dysphagia, oropharyngeal phase Is this a current diagnosis for this admission?: Yes Plan: Dysphagia likely secondary to prior CVA. Possible complication from intubation but should have resolved by now. MBBS showed aspiration on thin liquids. Has been on pured thick liquids and ground solids per recommendation of speech pathologist. 01/05/2020 Continue modified diet. Continue speech therapy at retirement facility. (4) Acute decompensated heart failure Is this a current diagnosis for this admission?: Yes Plan: History of diastolic CHF. Not to be decompensated. Lasix on hold due to dehydration. 01/05/2020 Patient has a history of systolic and diastolic heart failure. No evidence of failure at this time. Currently on a decreased dose of Lasix due to dehydration. Currently receiving IV fluids as noted above. (5) Atrial fibrillation Qualifiers: Atrial fibrillation type: other persistent Qualified Code(s): I48.19 - Other persistent atrial fibrillation Is this a current diagnosis for this admission?: Yes Plan: Chronic and stable. Continue sotalol and Eliquis. 01/05/2020 Good rate control. Continue current regimen (6) History of CVA (cerebrovascular accident) Is this a current diagnosis for this admission?: Yes Plan: Prior CVA with significant cognitive deficits since then. Suspect he probably may have some underlying vascular dementia as well. Continue Plavix. 01/05/2020 No change in regimen. Plan for transition to retirement. Suspected etiology for dementia. (7) Physical deconditioning Is this a current diagnosis for this admission?: Yes Plan: Plan for discharge to [facility] nursing facility once hypernatremia has resolved and patient is eating. 01/05/2020 As noted above should likely be able to transition tomorrow. Labs ordered for the morning. (8) Type 2 diabetes mellitus Qualifiers: Diabetes mellitus exterminator termite insulin use: with detention use Diabetes mellitus complication status: with other specified complication Qualified Code(s): E11.69 - Type 2 diabetes mellitus with other specified complication; Z79.4 - snf (current) use of insulin Is this a current diagnosis for this admission?: Yes Plan: notably very hyperglycemic still. Lantus adjusted. 25 units twice daily. D5W discontinued. Sliding scale insulin. Accu-Cheks. 01/05/2020 Accu-Chek still quite variable. Ongoing adjustment insulin therapy. Will discontinue steroids. - Time Time Spent with patient: 15-24 minutes Medications reviewed and adjusted accordingly: Yes Anticipated discharge: SNF Within: within 48 hours
[2020-01-05 19:32] LABS: BLOOD UREA NITROGEN 41 mg/dL (7-20); CALCIUM 8.3 mg/dL (8.4-10.2); GLUCOSE 270 mg/dL (75-110)
[2020-01-05 19:47] LABS: ANION GAP 4 (5-19); CARBON DIOXIDE 28 mmol/L (22-30); CHLORIDE 113 mmol/L (98-107)
[2020-01-06] MEDS: 1/2 NORMAL SALINE 1,000 ML IV PRN (03:57)
[2020-01-06] MEDS: SUCRALFATE 1 GM TABLET PO SCH (06:48)
[2020-01-06 07:20] LABS: HEMATOCRIT 39.4 % (37.9-51.0); HEMOGLOBIN 13.4 g/dL (13.5-17.0); MEAN CORPUSCULAR HEMOGLOBIN 32.2 pg (27.0-33.4); MEAN CORPUSCULAR VOLUME 95 fl (80-97); RED BLOOD COUNT 4.17 10^6/uL (4.35-5.55); RED CELL DISTRIBUTION WIDTH 15.7 % (11.5-14.0); WHITE BLOOD COUNT 9.9 10^3/uL (4.0-10.5)
[2020-01-06 07:50] LABS: PLATELET COUNT 61 10^3/uL (150-450)
[2020-01-06] MEDS: INSULIN LISPRO 100 UNIT/ML 3 ML VIAL SUBCUT SCH ×2 (08:51→12:15)
[2020-01-06] MEDS: INSULIN REG, HUMAN 100 UNIT/ML 3 ML VIAL (PYX) SUBCUT SCH ×2 (08:51→12:15)
--- NOTE | 2020-01-06 09:33 | PDOC TRANSFER SUMMARY ---
Impression - Admit/DC Date/PCP Admission Date/Primary Care Provider: 12/19/19 16:20 JAK ENGEL MD Discharge Date: 01/06/20 - Discharge Diagnosis (1) Metabolic encephalopathy Is this a current diagnosis for this admission?: Yes (2) Pneumonia Is this a current diagnosis for this admission?: Yes (3) Dysphagia Is this a current diagnosis for this admission?: Yes (4) Acute decompensated heart failure Is this a current diagnosis for this admission?: Yes (5) Atrial fibrillation Is this a current diagnosis for this admission?: Yes (6) History of CVA (cerebrovascular accident) Is this a current diagnosis for this admission?: Yes (7) Physical deconditioning Is this a current diagnosis for this admission?: Yes (8) Type 2 diabetes mellitus Is this a current diagnosis for this admission?: Yes - Additional Information Resuscitation Status: Full Code Discharge Diet: Cardiac, Diabetic, Other (Comments) - Mechanical soft nectar thick liquids Discharge Activity: Activity As Tolerated, Balance Activity w/Rest Referrals: JAK ENGEL MD [Primary Care Provider] - 01/05/20 10:30 am Home Medications: Magnesium Oxide [Mag-Ox 400 mg Tablet] 800 mg PO BID 02/11/17 Albuterol Sulfate [Proair HFA Inhalation Aerosol 8.5 gm MDI] 2 puff IH Q4HP PRN 12/21/19 Apixaban [Eliquis 5 mg Tablet] 5 mg PO BID 12/21/19 Budesonide/Formoterol Fumarate [Symbicort HFA 160-4.5 mcg Inhaler 6 gm] 2 puff IH DAILY 12/21/19 Clopidogrel Bisulfate [Plavix 75 mg Tablet] 75 mg PO DAILY 12/21/19 Ferrous Sulfate 324 mg PO DAILY 12/21/19 Furosemide [Lasix 40 mg Tablet] 80 mg PO QAM 12/21/19 Gabapentin [Neurontin] 600 mg PO BID 12/21/19 Multivitamin [Tab-A-Amrita (Multiple Vitamin) Tablet] 1 tab PO DAILY 12/21/19 Albuterol Sulfate [Ventolin 0.083% Neb 2.5 mg/3 mL Ampul] 2.5 mg NEB RTQ6HP PRN vial.neb 01/06/20 Apixaban [Eliquis 5 mg Tablet] 5 mg PO BID tablet 01/06/20 Clopidogrel Bisulfate [Plavix 75 mg Tablet] 75 mg PO DAILY tablet 01/06/20 Insulin Glargine,Hum.rec.anlog [Lantus Insulin 100 Unit/1 ml 10 ml] 25 unit SUBCUT Q12 unit 01/06/20 Insulin Lispro [Humalog Insulin (Lispro) 100 unit/mL] 8 unit SUBCUT AC unit 01/06/20 Insulin Regular, Human [Humulin R (Reg) Insulin 100 unit/mL] 0 - 12 unit SUBCUT ACHS unit 01/06/20 Potassium Chloride [Klor-Con 10 Meq Tablet ER] 40 meq PO DAILY tablet.er 01/06/20 Sotalol HCl [Betapace 80 mg Tablet] 40 mg NG Q12 tablet 01/06/20 Sucralfate [Carafate 1 gm Tablet] 1 gm PO Q6 tablet 01/06/20 History of Present Illiness History of Present Illness: LANCE TRIPLETT is a 74 year old male HPI Per critical care admission This 74-year-old [facility] with complaints of increasing shortness of breath. At the time of clinical int erview, the patient is intubated. The discussion of the case with Dr. Srinivasan (emergency department) reveals that he presented with fever (102.5 F) and increased dyspnea. Chest x-ray showed bilateral airspace disease. Patient demonstrated hypoxia and tachypnea, prompting endotracheal intubation. COVID test was obtained in the emergency department. Results pending. Hospital Course Hospital Course: Hospital course (1) Metabolic encephalopathy Is this a current diagnosis for this admission?: Yes Plan: Seems to get confused occasionally. Probably also experiencing episodes of acute delirium. Documented to have had some hypoxic encephalopathy in the ICU. Will manage with redirection as needed plan to discontinue restraints as he has not been aggressive/agitated. 01/02/2020-very somnolent and somewhat lethargic this morning. Possibly from Seroquel which has been discontinued. ABG shows no evidence of CO2 retention. Mild contraction alkalosis indicating dehydration and will give some IV fluids back. 01/03/2020-patient seems to still be very somnolent drifting back to sleep after awakening for a short period of time to verbal stimulus. He is not quite as lethargic as yesterday. However he is still quite somnolent especially given that Seroquel was discontinued and last dose was given 2 nights ago. As noted yesterday ABG only showed mild contraction alkalosis possibly from dehydration but no CO2 retention. I will go ahead and order some labs today to evaluate his electrolytes. I will also check a head CT as patient is not able to get an MRI due to his pacemaker. I will also hold Lasix and perform some gentle hydration with normal saline as patient is not staying awake enough to eat or drink fluids sufficiently. 01/04/2020-labs yesterday revealed Hypernatremia and MARY indicative of dehydration. This may be very well contributing to his encephalopathy com plicating his underlying dementia and critical illness delirium. BMP this morning still indicates dehydration. I will give 1 L bolus of half-normal saline, 1 continuous infusion of half-normal saline at 130 cc/h, recheck BMP later today and discontinue D5W given persistent hyperglycemia. Hopefully patient's encephalopathy improves with this enough for him to eat some of his meals so that we can go ahead and work on discharge to SNF for rehabilitation. 01/05/2020 Still slightly tired but appears awake and alert this morning. Serum sodium is still slightly elevated as is his BUN. Will complete IV fluids today will likely be able to transfer to custodial facility tomorrow. (2) Pneumonia Qualifiers: Pneumonia type: due to unspecified organism Laterality: bilateral Lung location: unspecified part of lung Qualified Code(s): J18.9 - Pneumonia, unspecified organism Is this a current diagnosis for this admission?: Yes Plan: Initially admitted to the ICU for hypoxic respiratory failure secondary to pne umonia and COPD exacerbation with intubation performed. Influenza and COVID-19 tests were negative. Sputum culture has grown Pseudomonas as well as Greta[likely colonized] Initially received 6 days of ceftriaxone without improvement. Completed 7 days of meropenem. 01/05/2020 Antibiotic therapy completed Pneumonia resolved (3) Dysphagia Qualifiers: Dysphagia type: oropharyngeal phase Qualified Code(s): R13.12 - Dysphagia, oropharyngeal phase Is this a current diagnosis for this admission?: Yes Plan: Dysphagia likely secondary to prior CVA. Possible complication from intubation but should have resolved by now. MBBS showed aspiration on thin liquids. Has been on pured thick liquids and ground solids per recommendation of speech pathologist. 01/05/2020 Continue modified diet. Continue speech therapy at custodial facility. (4) Acute decompensated heart failure Is this a current diagnosis for this admission?: Yes Plan: History of diastolic CHF. Not to be decompensated. Lasix on hold due to dehydration. 01/05/2020 Patient has a history of systolic and diastolic heart failure. No evidence of failure at this time. Currently on a decreased dose of Lasix due to dehydration. Currently receiving IV fluids as noted above. (5) Atrial fibrillation Qualifiers: Atrial fibrillation type: other persistent Qualified Code(s): I48.19 - Other persistent atrial fibrillation Is this a current diagnosis for this admission?: Yes Plan: Chronic and stable. Continue sotalol and Eliquis. 01/05/2020 Good rate control. Continue current regimen (6) History of CVA (cerebrovascular accident) Is this a current diagnosis for this admission?: Yes Plan: Prior CVA with significant cognitive deficits since then. Suspect he probably may have some underlying vascular dementia as well. Continue Plavix. 01/05/2020 No change in regimen. Plan for transition to custodial. Suspected etiology for dementia. (7) Physical deconditioning Is this a current diagnosis for this admission?: Yes Plan: Plan for discharge to [facility] nursing facility once hypernatremia has resolved and patient is eating. 01/05/2020 As noted above should likely be able to transition tomorrow. Labs ordered for the morning. (8) Type 2 diabetes mellitus Qualifiers: Diabetes mellitus care home insulin use: with termination clerk use Diabetes mellitus complication status: with other specified complication Qualified Code(s): E11.69 - Type 2 diabetes mellitus with other specified complication; Z79.4 - [facility] (current) use of insulin Is this a current diagnosis for this admission?: Yes Plan: notably very hyperglycemic still. Lantus adjusted. 25 units twice daily. D5W discontinued. Sliding scale insulin. Accu-Cheks. 01/05/2020 Accu-Chek still quite variable. Ongoing adjustment insulin therapy. Will discontinue steroids. Physical Exam Vital Signs: Temp Pulse Resp BP Pulse Ox 97.4 F 88 18 117/69 99 01/06/20 07:31 01/06/20 07:31 01/06/20 07:31 01/06/20 07:31 01/06/20 07:31 Intake & Output 01/05/20 01/06/20 01/07/20 06:59 06:59 06:59 Intake Total 50 2460 Balance 50 2460 Weight 92.8 kg 93.1 kg General appearance: PRESENT: no acute distress, cooperative, well-developed, well-nourished Head exam: PRESENT: atraumatic, normocephalic Respiratory exam: PRESENT: clear to auscultation yobany, unlabored. ABSENT: rales, rhonchi, tachypnea, wheezes Cardiovascular exam: PRESENT: RRR, +S1, +S2 GI/Abdominal exam: PRESENT: normal bowel sounds, soft. ABSENT: distended, guarding, tenderness Rectal exam: PRESENT: deferred Gentrourinary exam: ABSENT: indwelling catheter Extremities exam: ABSENT: pedal edema Neurological exam: PRESENT: alert, awake, oriented to person, oriented to place, oriented to situation Psychiatric exam: PRESENT: appropriate affect. ABSENT: agitated, anxious Results Laboratory Results: WBC 9.9 10^3/uL (4.0-10.5) 01/06/20 06:45 RBC 4.17 10^6/uL (4.35-5.55) L 01/06/20 06:45 Hgb 13.4 g/dL (13.5-17.0) L 01/06/20 06:45 Hct 39.4 % (37.9-51.0) 01/06/20 06:45 MCV 95 fl (80-97) 01/06/20 06:45 MCH 32.2 pg (27.0-33.4) 01/06/20 06:45 MCHC 34.0 g/dL (32.0-36.0) 01/06/20 06:45 RDW 15.7 % (11.5-14.0) H 01/06/20 06:45 Plt Count 61 10^3/uL (150-450) L 01/06/20 06:45 Lymph % (Auto) Not Reportable 12/28/19 06:00 [place] % (Auto) Not Reportable 12/28/19 06:00 Eos % (Auto) Not Reportable 12/28/19 06:00 Baso % (Auto) Not Reportable 12/28/19 06:00 Absolute Neuts (auto) Not Reportable 12/28/19 06:00 Absolute Lymphs (auto) Not Reportable 12/28/19 06:00 Absolute Monos (auto) Not Reportable 12/28/19 06:00 Absolute Eos (auto) Not Reportable 12/28/19 06:00 Absolute Basos (auto) Not Reportable 12/28/19 06:00 Total Counted 100 12/28/19 06:00 Seg Neutrophils % Not Reportable 12/28/19 06:00 Seg Neuts % (Manual) 84 % (42-78) H 12/28/19 06:00 Band Neutrophils % 1 % (3-5) L 12/28/19 06:00 Lymphocytes % (Manual) 7 % (13-45) L 12/28/19 06:00 Monocytes % (Manual) 7 % (3-13) 12/28/19 06:00 Eosinophils % (Manual) 1 % (0-6) 12/28/19 06:00 Basophils % (Manual) 0 % (0-2) 12/28/19 06:00 Abs Neuts (Manual) 9.0 10^3/uL (1.7-8.2) H 12/28/19 06:00 Abs Lymphs (Manual) 0.7 10^3/uL (0.5-4.7) 12/28/19 06:00 Abs Monocytes (Manual) 0.7 10^3/uL (0.1-1.4) 12/28/19 06:00 Absolute Eos (Manual) 0.1 10^3/uL (0.0-0.6) 12/28/19 06:00 Abs Basophils (Manual) 0.0 10^3/uL (0.0-0.2) 12/28/19 06:00 Toxic Granulation 1+ 12/20/19 04:00 Toxic Vacuolation PRESENT 12/20/19 04:00 Platelet Comment ADEQUATE 12/28/19 06:00 Polychromasia SLIGHT 12/28/19 06:00 Poikilocytosis SLIGHT 12/20/19 04:00 Anisocytosis SLIGHT 12/28/19 06:00 Ovalocytes SLIGHT 12/28/19 06:00 PT 16.5 SEC (11.4-15.4) H 12/29/19 05:15 INR 1.32 12/29/19 05:15 APTT 85.0 SEC (23.5-35.8) H 12/21/19 06:00 Carbonic Acid 1.31 mmol/L (1.05-1.35) 01/02/20 10:02 HCO3/H2CO3 Ratio 23:1 01/02/20 10:02 ABG pH 7.47 (7.35-7.45) H 01/02/20 10:02 ABG pCO2 43.4 mmHg (35-45) 01/02/20 10:02 ABG pO2 71.2 mmHg (80-100) L 01/02/20 10:02 ABG HCO3 30.7 mmol/L (20-24) H 01/02/20 10:02 ABG Total CO2 32.1 mmol/L (23-27) H 01/02/20 10:02 ABG O2 Saturation 95.1 % (94-98) 01/02/20 10:02 ABG Base Excess 6.2 mmol/L 01/02/20 10:02 FiO2 ROOM AIR 01/02/20 10:02 Sodium 145.2 mmol/L (137-145) H 01/05/20 18:18 Potassium 4.0 mmol/L (3.6-5.0) 01/05/20 18:18 Chloride 113 mmol/L (98-107) H 01/05/20 18:18 Carbon Dioxide 28 mmol/L (22-30) 01/05/20 18:18 Anion Gap 4 (5-19) L 01/05/20 18:18 BUN 41 mg/dL (7-20) H 01/05/20 18:18 Creatinine 1.15 mg/dL (0.52-1.25) 01/05/20 18:18 Est GFR ( Amer) > 60 (>60) 01/05/20 18:18 Est GFR (MDRD) Non-Af > 60 (>60) 01/05/20 18:18 Glucose 270 mg/dL (75-110) H 01/05/20 18:18 POC Glucose 124 mg/dL (70-110) H 01/06/20 08:47 Hemoglobin A1c % 7.4 % (4.7-6.0) H 12/20/19 04:00 Lactic Acid 3.6 mmol/L (0.7-2.1) H 12/20/19 09:00 Calcium 8.3 mg/dL (8.4-10.2) L 01/05/20 18:18 Phosphorus 1.7 mg/dL (2.5-4.5) L 12/22/19 03:09 Magnesium 2.5 mg/dL (1.6-2.3) H 01/05/20 18:18 Total Bilirubin 2.5 mg/dL (0.2-1.3) H 01/03/20 13:18 Direct Bilirubin 0.7 mg/dL (0.0-0.4) H 01/03/20 13:18 Neonat Total Bilirubin Not Reportable 01/03/20 13:18 Neonat Direct Bilirubin Not Reportable 01/03/20 13:18 Neonat Indirect Bili Not Reportable 01/03/20 13:18 AST 40 U/L (17-59) 01/03/20 13:18 ALT 40 U/L (<50) 01/03/20 13:18 Alkaline Phosphatase 99 U/L (38-126) 01/03/20 13:18 Troponin I 0.301 ng/mL 12/24/19 03:30 NT-Pro-B Natriuret Pep 2230 pg/mL (<450) H 12/29/19 05:15 Total Protein 7.3 g/dL (6.3-8.2) 01/03/20 13:18 Albumin 3.4 g/dL (3.5-5.0) L 01/03/20 13:18 Prealbumin 9.1 mg/dL (17.6-36.0) L 12/21/19 06:00 Urine Color YELLOW 12/21/19 16:53 Urine Appearance CLEAR 12/21/19 16:53 Urine pH 7.0 (5.0-9.0) 12/21/19 16:53 Ur Specific [place] 1.014 12/21/19 16:53 Urine Protein 100 mg/dL (NEGATIVE) H 12/21/19 16:53 Urine Glucose (UA) 50 mg/dL (NEGATIVE) H 12/21/19 16:53 Urine Ketones TRACE mg/dL (NEGATIVE) H 12/21/19 16:53 Urine Blood LARGE (NEGATIVE) H 12/21/19 16:53 Urine Nitrite NEGATIVE (NEGATIVE) 12/21/19 16:53 Urine Bilirubin NEGATIVE (NEGATIVE) 12/21/19 16:53 Urine Urobilinogen NEGATIVE mg/dL (<2.0) 12/21/19 16:53 Ur Leukocyte Esterase NEGATIVE (NEGATIVE) 12/21/19 16:53 Urine WBC (Auto) 3 /HPF 12/21/19 16:53 Urine RBC (Auto) 104 /HPF 12/21/19 16:53 U Hyaline Cast (Auto) 3 /LPF 12/19/19 21:40 Squamous Epi Cells Auto 1 /HPF 12/21/19 16:53 Urine Mucus (Auto) RARE /LPF 12/21/19 16:53 Urine Ascorbic Acid NEGATIVE (NEGATIVE) 12/21/19 16:53 COVID-19 Source Cancelled 12/19/19 16:45 COVID-19 (ROBERT) Cancelled 12/19/19 16:45 Influenza A (Rapid) NEGATIVE (NEGATIVE) 12/19/19 17:55 Influenza B (Rapid) NEGATIVE (NEGATIVE) 12/19/19 17:55 SARS-CoV-2 (PCR) NEGATIVE (NEGATIVE) 12/19/19 17:30 12/19/19 12/20/19 12/21/19 14:43 04:00 06:00 Troponin I NT-Pro-B Natriuret Pep 1320 H 3140 H 1060 H 12/22/19 12/23/19 12/23/19 03:09 04:57 06:56 Troponin I 0.471 0.439 NT-Pro-B Natriuret Pep 3860 H 12/24/19 12/28/19 12/29/19 03:30 06:00 05:15 Troponin I 0.301 NT-Pro-B Natriuret Pep 2700 H 2230 H Impressions: Chest X-Ray 12/19/19 00:00 IMPRESSION: Congestive failure with pulmonary edema and possible superimposed pneumonia. SUPPORT DEVICE(S) IN EXPECTED LOCATIONS. Chest X-Ray 12/19/19 00:00 IMPRESSION: 1. Persistent and unchanged multifocal consolidation with probable right pleural effusion. 2. Cardiomegaly. 3. Interval placement of right IJ central line with the tip in the upper right atrium. No pneumothorax. 4. Lines and tubes are otherwise unchanged Chest X-Ray 12/19/19 14:45 IMPRESSION: Congestive heart failure. Diffuse opacities suspicious for pneumonia. No support tubes identified. KUB X-Ray 12/19/19 18:38 IMPRESSION: 1. NG tube is in the stomach. 2. Nonspecific bowel gas pattern. 3. Parenchymal consolidation in the lung bases right greater than left. Chest X-Ray 12/20/19 06:00 IMPRESSION: Slight improved aeration of the lungs. SUPPORT DEVICE(S) IN EXPECTED LOCATIONS. Chest X-Ray 12/21/19 06:00 IMPRESSION: Unchanged radiographic appearance of the chest. Chest X-Ray 12/22/19 00:00 IMPRESSION: Interval placement of an NG tube and endotracheal tube as described. No interval change in the bilateral alveolar airspace disease. Chest X-Ray 12/22/19 06:00 IMPRESSION: Worsening bilateral pneumonia. Chest X-Ray 12/24/19 00:00 IMPRESSION: Improving diffuse bilateral airspace disease when compared to the prior studies suggesting resolving edema, ARDS or possibly multifocal pneumonia. Chest X-Ray 12/28/19 00:00 IMPRESSION: Small residual effusions. Minimal residual interstitial airspace disease. Findings are significantly improved from prior exam. Modified Barium Swallow 12/30/19 00:00 IMPRESSION: ASPIRATION WITH THIN BARIUM. PLEASE SEE SPEECH PATHOLOGIST REPORT FOR OTHER FINDINGS AND RECOMMENDATIONS. Head CT 01/03/20 00:00 IMPRESSION: NORMAL BRAIN CT WITHOUT CONTRAST. SPHENOID SINUS DISEASE. EVIDENCE OF ACUTE STROKE: NO. Plan Health Concerns: Patient on complicated medical regimen. Needs close monitoring. Dysphagia on mechanical soft nectar thick diet needs ongoing speech therapy Plan of Treatment: Medications as above Transfer to [facility] for ongoing therapy Goals: Maximize swallow recovery. Maximize exercise tolerance and physical abilities Time Spent: Greater than 30 Minutes Stroke Is this a Stroke Patient?: No Acute Heart Failure - Is this a Heart Failure Patient?: Yes Documentation of LVEF assessment?: Yes LVEF: LVEF Greater Than 40% Anticoagulant Therapy: Yes Discharged on Evidence-Based Beta Blockers: Yes Discharged on ARNI?: No-Document Contraindications Reason(s) not discharged on ARNI: Impaired/worsening renal functions Discharged on ARB?: No-document contraindications Reason(s) not Discharged on ARB: Impaired/worsening renal functions Discharged on ACEI?: No, document contraindications Reason(s) not Discharged on ACEI: Impaied/worsening renal function For LVEF <35%, discharged on Aldosterone Antagonist?: N/A (LVEF > or = 35%) Follow-up Appointment scheduled within 7 days?: No, document reason - Transferring to custodial facility
[2020-01-06] MEDS: MULTIVITAMIN TABLET PO SCH (10:40)
[2020-01-06] MEDS: FERROUS SULFATE 325 MG TABLET PO SCH (10:40)
[2020-01-06] MEDS: INSULIN GLARGINE,HUM.REC.ANLOG 1,000 UNIT/10 ML VIAL SUBCUT SCH (10:40)
[2020-01-06] MEDS: APIXABAN 5 MG TABLET PO SCH (10:41)
[2020-01-06] MEDS: SOTALOL HCL 80 MG TABLET NG SCH (10:41)
[2020-01-06] MEDS: POTASSIUM CHLORIDE 10 MEQ TABLET.ER PO SCH (10:41)
[2020-01-06] MEDS: CLOPIDOGREL BISULFATE 75 MG TABLET PO SCH (10:41)
[2020-01-06 11:28] VITALS: BP 122/94
== END 2020-01-06 13:15 | DRG 870 ==
LOC: ER 14:25 → EH 16:20 → ICU 20:02 → 3W 12-27 18:28
PROVIDERS: ADMIT Internal Medicine Critical Care Medicine; ATTEND Hospitalist
PROC: 5A1945Z Respiratory Ventilation, 24-96 Consecutive Hours (ICD-10-PCS; 2019-12-19)
PROC: 0BH17EZ Insertion of Endotracheal Airway into Trachea, Via Natural or Artificial Opening (ICD-10-PCS; 2019-12-19)
PROC: 5A09357 Assistance with Respiratory Ventilation, Less than 24 Consecutive Hours, Continuous Positive Airway Pressure (ICD-10-PCS; 2019-12-21)
PROC: 02HV33Z Insertion of Infusion Device into Superior Vena Cava, Percutaneous Approach (ICD-10-PCS; 2019-12-21)
PROC: 5A1955Z Respiratory Ventilation, Greater than 96 Consecutive Hours (ICD-10-PCS; principal; 2019-12-22)
PROC: 0BH17EZ Insertion of Endotracheal Airway into Trachea, Via Natural or Artificial Opening (ICD-10-PCS; 2019-12-22)
PROC: 5A09357 Assistance with Respiratory Ventilation, Less than 24 Consecutive Hours, Continuous Positive Airway Pressure (ICD-10-PCS; 2019-12-26)
DX: A41.9 Sepsis, unspecified organism (principal); J96.21 Acute and chronic respiratory failure with hypoxia; G93.41 Metabolic encephalopathy; J15.1 Pneumonia due to Pseudomonas; I50.33 Acute on chronic diastolic (congestive) heart failure; J96.22 Acute and chronic respiratory failure with hypercapnia; E87.0 Hyperosmolality and hypernatremia; N17.9 Acute kidney failure, unspecified; J44.0 Chronic obstructive pulmonary disease with (acute) lower respiratory infection; I48.19 Other persistent atrial fibrillation; G93.1 Anoxic brain damage, not elsewhere classified; K92.2 Gastrointestinal hemorrhage, unspecified; R65.20 Severe sepsis without septic shock; Z78.1 Physical restraint status; Z03.818 Encounter for observation for suspected exposure to other biological agents ruled out; E86.0 Dehydration; E11.65 Type 2 diabetes mellitus with hyperglycemia; I69.391 Dysphagia following cerebral infarction; R13.12 Dysphagia, oropharyngeal phase; I25.10 Atherosclerotic heart disease of native coronary artery without angina pectoris; I11.0 Hypertensive heart disease with heart failure; I25.2 Old myocardial infarction; E66.9 Obesity, unspecified; Z79.899 Other long term (current) drug therapy; Z79.4 Long term (current) use of insulin; Z79.01 Long term (current) use of anticoagulants; Z79.02 Long term (current) use of antithrombotics/antiplatelets; Z95.0 Presence of cardiac pacemaker; Z86.718 Personal history of other venous thrombosis and embolism; Z86.711 Personal history of pulmonary embolism; Z95.1 Presence of aortocoronary bypass graft; Z95.5 Presence of coronary angioplasty implant and graft; Z88.2 Allergy status to sulfonamides; Z88.8 Allergy status to other drugs, medicaments and biological substances; Z91.018 Allergy to other foods
CPT/HCPCS: 36415; 36556; 36620; 51702; 70450; 71045; 74018; 74230; 80048; 80053; 81001; 82803; 82962; 83036; 83605; 83735; 83880; 84100; 84134; 84484; 85025; 85027; 85610; 85730; 87040; 87070; 87077; 87186; 87205; 87635; 87804; 93005; 93010; 93306; 94002; 94003; 94640; 94660; 99291; 99292; C9113; J0330; J0360; J0696; J1160; J1642; J1644; J1650; J1815; J1940; J2060; J2185; J2250; J2270; J2543; J2704; J2920; J3370; J3480; J3490; J7030; J7042; J7050; J7060; J7512; J7620